=== PATIENT | male | born 1950 | race Caucasian/White ===

== ENCOUNTER 2023-09-24 15:42 | Outpatient (CLI) | payer MEDICARE | END 2023-09-24 15:43 | disposition critical access hospital (66) | LOC: EMS 15:42 | DX: R62.7 Adult failure to thrive (principal); R53.1 Weakness; R10.2 Pelvic and perineal pain; Z74.09 Other reduced mobility; Z91.81 History of falling | CPT/HCPCS: A0425; A0427 ==

== ENCOUNTER 2023-09-24 16:21 | Inpatient (IN) | payer MEDICARE ==
[2023-09-24] MEDS ORDERED: SODIUM CHLORIDE 0.9% 1,000 ML IV STA (16:26)
--- NOTE | 2023-09-24 16:28 | ED Physician Documentation ---
History of Present Illness - Stated complaint Stated Complaint: FTT - History obtained from History obtained from: Patient - Additonal information Additional information: 73-year-old gentleman with no health problems, but "I never see a doctor." [place]. A few weeks ago he fell and injured his left hip he says. Since then has not been able to walk. He has been spending most the time in his recliner but was able to get himself to his car a few times to go get takeout food as he cannot get into the grocery store because he cannot walk. Finally realized he was not doing well today so called 911. He denies any pain at rest. EMS notes that he has a pressure ulcer on his back. He had a cough for some time that is productive. He does smoke. Rarely drinks. Denies drug use. PD PAST MEDICAL HISTORY - Present Medications Home Medications: Ambulatory Orders Medication Instructions Recorded Confirmed No Known Home Medications 09/24/23 09/24/23 - Allergies Allergies/Adverse Reactions: Allergies Allergy/AdvReac Type Severity Reaction Status Date / Time No Known Drug Allergies Allergy Verified 09/24/23 16:28 PD ED PE NORMAL - Vitals Vital signs reviewed: Yes - General General: Alert and oriented X 3, Other (Disheveled elderly male laying in bed with frequent wet cough but no distress. He is cachectic.) - HEENT HEENT: PERRL, EOMI - Neck Neck: Supple, no meningeal sign, No bony TTP - Cardiac Cardiac: RRR, No murmur - Respiratory Respiratory: Other (Rhonchorous throughout with frequent wet cough) - Abdomen Abdomen: Non tender - Rectal Rectal: Other (Stage II 2 cm diameter coccygeal pressure ulcer) - Back Back: No CVA TTP, No spinal TTP - Derm Derm: Normal color, Warm and dry, Other (Innumerable small sores on the arms and legs. Poor pedal pulses.) - Extremities Extremities: Other (States that his left hip is hurting. Neither hip is tender nor severe pain with range of motion, that said the right hip is shortened and externally rotated.) - Neuro Neuro: Alert and oriented X 3, Normal speech Results - Vitals Vitals: Vital Signs - 24 hr 09/24/23 09/24/23 09/24/23 16:28 17:47 19:00 Temperature 36.8 C Heart Rate 76 80 72 Respiratory 18 18 16 Rate Blood Pressure 160/100 H 171/119 H 190/112 H O2 Saturation 98 100 95 09/24/23 21:00 Temperature Heart Rate 68 Respiratory 16 Rate Blood Pressure 171/107 H O2 Saturation 99 Oxygen O2 Source Room air - EKG (time done) 1930 EKG releavant findings:: EKG personally interpreted by author of this note. Relevant findings are: Rate: Rate (enter#) (60) Rhythm: NSR [place]: Normal Intervals: Prolonged QT Ischemia: Non specific changes Computer interpretation: Disagree with computer (Computer calling A-fib but it is clearly sinus rhythm with artifact.) - Labs Labs: Laboratory Tests 09/24/23 09/24/23 09/24/23 16:44 16:44 16:44 WBC 15.3 H RBC 4.01 L Hgb 12.5 L Hct 37.4 L MCV 93.3 MCH 31.2 H MCHC 33.4 RDW 12.5 Plt Count 248 MPV 10.0 Neut # (Auto) 13.9 H Lymph # (Auto) 0.7 L Brown # (Auto) 0.5 Eos # (Auto) 0.0 Baso # (Auto) 0.1 Absolute Nucleated RBC 0.00 Nucleated RBC % 0.0 VBG pH 7.353 VBG pCO2 43.4 VBG pO2 25.3 VBG HCO3 23.6 VBG Total CO2 24.9 VBG O2 Saturation 46.4 L VBG Base Excess -2.0 Sodium 143 Potassium 3.3 L Chloride 107 Carbon Dioxide 27 Anion Gap 9.0 BUN 53 H Creatinine 1.9 H Estimated GFR (MDRD) 35 L Glucose 125 H Lactic Acid Calcium 9.1 Phosphorus 6.1 H Magnesium 1.6 L Total Bilirubin 0.3 AST 25 ALT 14 Alkaline Phosphatase 101 Total Protein 6.0 L Albumin 3.2 Globulin 2.8 Albumin/Globulin Ratio 1.1 Ethyl Alcohol < 10.0 09/24/23 16:50 WBC RBC Hgb Hct MCV MCH MCHC RDW Plt Count MPV Neut # (Auto) Lymph # (Auto) Brown # (Auto) Eos # (Auto) Baso # (Auto) Absolute Nucleated RBC Nucleated RBC % VBG pH VBG pCO2 VBG pO2 VBG HCO3 VBG Total CO2 VBG O2 Saturation VBG Base Excess Sodium Potassium Chloride Carbon Dioxide Anion Gap BUN Creatinine Estimated GFR (MDRD) Glucose Lactic Acid 1.2 Calcium Phosphorus Magnesium Total Bilirubin AST ALT Alkaline Phosphatase Total Protein Albumin Globulin Albumin/Globulin Ratio Ethyl Alcohol - Rads (name of study) Single view chest x-ray shows hyperexpanded lungs without other abnormal finding. Relevant Findings:: Final report received, EMP independent interpretation of test Bilateral hip x-ray showing remote left acetabular fracture Relevant Findings:: Final report received, EMP independent interpretation of test CT of the pelvis demonstrates incidental and chronic findings without acute fracture. Relevant Findings:: Final report received, EMP independent interpretation of test PD Medical Decision Making - ED course ED course: 73-year-old gentleman presents with severe protein calorie malnutrition and failure to thrive. His BMI is 16. He has not been able to get out and get food for the last couple of weeks because of a fall with a hip injury with negative imaging here. He does not know how much weight he is lost. Workup in the emergency department demonstrates a nonspecific leukocytosis, moderate normocytic anemia, he has probably acute kidney injury, but there are no prior labs to compare his current BUN of 53 and creatinine of 1.9 with. He has mild hypomagnesemia and hypokalemia repleted orally. Given the above he will need to be admitted to the hospital and telehealth consultation placed approximate 7:20 PM. Case discussed with Dr. Jackson at approximately 8 PM for admission. Departure - Departure Disposition: 66 [facility] DC/Xfer Clinical Impression: Severe protein-calorie malnutrition, Hip injury, Failure to thrive in adult, Pressure ulcer, Hypomagnesemia, Hypokalemia, Cough Condition: Serious Forms: PCP List
[2023-09-24] MEDS ORDERED: THIAMINE INJ 100 MG in SODIUM CHLORIDE 0.9% 50 ML IV STA (16:38)
[2023-09-24 16:56] LABS: BASOPHILS # (AUTO) 0.1 10^3/uL (0.0-0.1); BASOPHILS % (AUTO) 0.4 %; HCT - HEMATOCRIT 37.4 % (42.0-52.0); HGB - HEMOGLOBIN 12.5 g/dL (14.0-18.0); LYMPHOCYTES # (AUTO) 0.7 10^3/uL (1.5-3.5); LYMPHOCYTES % (AUTO) 4.5 %; MEAN CORPUSCULAR HEMOGLOBIN 31.2 pg (27.0-31.0); MEAN CORPUSCULAR HGB CONC 33.4 g/dL (32.0-36.0); MEAN CORPUSCULAR VOLUME 93.3 fL (80.0-94.0); MONOCYTES # (AUTO) 0.5 10^3/uL (0.0-1.0); MONOCYTES % (AUTO) 3.5 %; NEUTROPHILS # (AUTO) 13.9 10^3/uL (1.5-6.6); PLT - PLATELET COUNT 248 10^3/uL (130-450); RED BLOOD COUNT 4.01 10^6/uL (4.70-6.10); RED CELL DISTRIBUTION WIDTH 12.5 % (12.0-15.0); WHITE BLOOD COUNT 15.3 x10^3/uL (4.8-10.8)
[2023-09-24 17:06] LABS: VBG PCO2 43.4 mmHg (41-51); VBG PH 7.353 (7.31-7.41)
[2023-09-24 17:07] LABS: VBG HCO3 23.6 mmol/L (23-28); VBG OXYGEN SATURATION 46.4 % (60-80); VBG PO2 25.3 mmHg (25-47); VBG TOTAL CO2 24.9 mmol/L (24-29)
[2023-09-24 17:09] LABS: ALBUMIN 3.2 g/dL (3.2-5.5); ALBUMIN/GLOBULIN RATIO 1.1 (1.0-2.2); ALKALINE PHOSPHATASE 101 IU/L (42-121); ALT ALANINE AMINOTRANSFERASE 14 IU/L (10-60); AST ASPARTATE AMINOTRANSFERASE 25 IU/L (10-42); BILIRUBIN,TOTAL 0.3 mg/dL (0.2-1.0); BUN - BLOOD UREA NITROGEN 53 mg/dL (6-20); CALCIUM 9.1 mg/dL (8.5-10.3); CARBON DIOXIDE - CO2 27 mmol/L (21-32); CHLORIDE 107 mmol/L (101-111); CREATININE 1.9 mg/dL (0.6-1.3); ETOH - ETHANOL < 10.0 mg/dL; GFR - MDRD 35 (>89); GLUCOSE 125 mg/dL (74-104); MAGNESIUM 1.6 mg/dL (1.7-2.3); PHOSPHORUS 6.1 mg/dL (2.5-5.0); POTASSIUM 3.3 mmol/L (3.5-4.5); SODIUM 143 mmol/L (135-145)
[2023-09-24] MEDS ORDERED: POTASSIUM BICARB 25 MEQ TABLET PO STA (17:13)
[2023-09-24] MEDS ORDERED: MAGNESIUM OXIDE 400 MG TABLET PO STA (17:13)
--- NOTE | 2023-09-24 17:20 | XRAY Report ---
PROCEDURE: Chest 1 View X-Ray INDICATIONS: cough TECHNIQUE: One view of the chest was acquired. COMPARISON: Correlation is made with the accompanying plain films. FINDINGS: Surgical changes and devices: None. Lungs and pleura: On the semiupright images, no large pneumothorax or large pleural effusions can be seen. No focal infiltrates are seen. The inferior most right costophrenic angle is not included wit hin the [id number] of this study. The lungs are hyperexpanded. Mediastinum: The aorta is prominent and tortuous. The cardiac contours are within normal limits. Bones and chest wall: No suspicious bony lesions. Overlying soft tissues appear unremarkable. IMPRESSION: Limited portable chest examination, without an acute abnormality identified. No focal infiltrates are seen. The lungs are hyperexpanded. Reviewed by: Conrad Haskins MD on 09/24/2023 4:19 PM [facility] Approved by: Conrad Haskins MD on 09/24/2023 4:19 PM [facility] Station ID: [id number]
--- NOTE | 2023-09-24 17:22 | XRAY Report ---
PROCEDURE: Hips 3-4V BILAT INDICATIONS: hip inj TECHNIQUE: An AP view of the pelvis, with bilateral views of each hip were acquired COMPARISON: Correlation is made with the accompanying CT examination. FINDINGS: Bones: No acute fractures or dislocations. Appearing fracture fragments can be seen just lateral to the left hip joint. No suspicious bony lesions. Age-appropriate degenerative changes are seen. Soft tissues: No suspicious soft tissue calcifications or masses. Atherosclerotic calcification is s een. IMPRESSION: No acute bony abnormality. Remote fracture fragments can be seen lateral to the left acetabular joint. Please correlate with focal tenderness. If there is point tenderness (or other clinical concern for a fracture not seen on these plain films) then please consider a dedicated CT study or a short term fo llow up plain film series for further evaluation. Reviewed by: Conrad Haskins MD on 09/24/2023 4:20 PM [facility] Approved by: Conrad Hasknis MD on 09/24/2023 4:20 PM [facility] Station ID: [id number]
--- NOTE | 2023-09-24 18:58 | CT Report ---
PROCEDURE: PELVIS WO INDICATIONS: hip inj TECHNIQUE: Noncontrast 3 mm axial sections acquired through the bony pelvis, with coronal and sagittal reformatt ing. For radiation dose reduction, the following was used: automated exposure control, adjustment of mA and/or kV according to patient size. COMPARISON: Correlation is made with the accompanying plain film of the hips. FINDINGS: Image quality: Limited by mottle artifact. Bones: No acute fractures can be seen. There is irregular well-corticated bone seen posterior and la teral to the left femoral neck, which is most likely related to heterotopic bone. Generalized degener ative changes are seen. Focal L4-L5 degenerative change is seen. No suspicious lytic or blastic lesio ns are seen. Soft tissues: No frankly dilated loops of bowel can be seen. No bladder wall thickening is seen. Rel atively prominent atherosclerotic calcification can be seen. No enlarged inguinal or pelvic lymph nod es are seen. IMPRESSION: Negative for acute bony fracture. Abnormal chronic appearing bone can be seen posterior and lateral to the left femoral neck, which is attributed to benign heterotopic bone formation. Focal L4-L5 degenerative change is seen. Dense atherosclerotic calcification can be seen. If it would be helpful for clinical management decision making, please consider a dedicated hip MRI f or further evaluation (assuming that there is no contraindication). This should be performed accordi ng to the arthrogram protocol, if there is strong clinical concern for a labral abnormality. Reviewed by: Conrad Haskins MD on 09/24/2023 5:57 PM [place] Approved by: Conrad Haskins MD on 09/24/2023 5:57 PM [facility] Station ID: [id number]
[2023-09-24] MEDS ORDERED: ONDANSETRON ODT 4 MG TABLET TL PRN (21:12)
[2023-09-24] MEDS ORDERED: traMADol 50 MG TABLET PO PRN (21:18)
[2023-09-24 21:49] LABS: BASOPHILS # (AUTO) 0.1 10^3/uL (0.0-0.1); BASOPHILS % (AUTO) 0.4 %; HCT - HEMATOCRIT 36.4 % (42.0-52.0); HGB - HEMOGLOBIN 12.1 g/dL (14.0-18.0); LYMPHOCYTES # (AUTO) 0.7 10^3/uL (1.5-3.5); MEAN CORPUSCULAR HEMOGLOBIN 31.3 pg (27.0-31.0); MEAN CORPUSCULAR HGB CONC 33.2 g/dL (32.0-36.0); MEAN CORPUSCULAR VOLUME 94.1 fL (80.0-94.0); MEAN PLATELET VOLUME 10.1 fL (7.4-11.4); MONOCYTES # (AUTO) 0.5 10^3/uL (0.0-1.0); MONOCYTES % (AUTO) 3.4 %; NEUTROPHILS # (AUTO) 13.4 10^3/uL (1.5-6.6); NEUTROPHILS % (AUTO) 90.8 %; PLT - PLATELET COUNT 234 10^3/uL (130-450); RED BLOOD COUNT 3.87 10^6/uL (4.70-6.10); RED CELL DISTRIBUTION WIDTH 12.6 % (12.0-15.0); WHITE BLOOD COUNT 14.8 x10^3/uL (4.8-10.8)
[2023-09-24 21:55] LABS: ALBUMIN 3.1 g/dL (3.2-5.5); ALBUMIN/GLOBULIN RATIO 1.2 (1.0-2.2); BILIRUBIN,TOTAL 0.3 mg/dL (0.2-1.0); CALCIUM 8.7 mg/dL (8.5-10.3); CREATININE 1.7 mg/dL (0.6-1.3); MAGNESIUM 1.6 mg/dL (1.7-2.3); POTASSIUM 3.2 mmol/L (3.5-4.5); TOTAL PROTEIN 5.7 g/dL (6.4-8.9)
[2023-09-24 22:01] LABS: PROCALCITONIN 0.32 ng/mL (<0.5)
[2023-09-24 22:02] LABS: ESTIMATED AVERAGE GLUCOSE 117 mg/dL (70-100); HEMOGLOBIN A1c% 5.7 % (4.27-6.07)
[2023-09-24 22:07] LABS: THYROID STIMULATING HORMONE 1.91 uIU/mL (0.34-5.60)
[2023-09-24 22:19] LABS: CHOLESTEROL 117 mg/dL; HDL CHOLESTEROL 58 mg/dL; LDL CHOLESTEROL,CALCULATED 45 mg/dL; LDL/HDL RATIO 0.8 (<3.6); TRIGLYCERIDES 68 mg/dL (48-352); VLDL CHOLESTEROL 14 mg/dL
--- NOTE | 2023-09-24 22:19 | HISTORY & PHYSICAL EXAMINATION ---
Chief Complaint - Chief Complaint Chief Complaint: fall, weakness, decreased po intake History of Present Illness - History of Present Illness HPI Comment/Other: pt presents with progressive weakness and decreased po intake for "many weeks." he lives alone in a log cabin and has lived that way ever since his 22 yr ago. smokes about 1 ppd for "many years." he has no social support in the area. he had fallen some time back and has has worsening L hip pain making it difficult to walk or even get out of his walking chair. he thought the pain would get better with time but it has not, making it difficult for him to live his home or even make it to the bathroom. he states that his "dental situation" (not teeth) has made it difficult for him to eat and so he has been eating and drinking very little. he states that he finally decided to come get seen when he realized he couldn't make it to the bathroom and ended up soiling himself (stool) in his chair. denies head injuries, loc, seizures, fevers, chills, chest pain, sob, but has had intermittent coughing. History - Past Medical History Cardiovascular: reports: None Respiratory: reports: None Neuro: reports: None Endocrine/Autoimmune: reports: None GI: reports: None : reports: None HEENT: reports: None Psych: reports: None Musculoskeletal: reports: None Derm: reports: None MRSA Hx?: No Meds/Allgy - Home Medications Home Medications: Ambulatory Orders Medication Instructions Recorded Confirmed No Known Home Medications 09/24/23 09/24/23 - Allergies Allergies/Adverse Reactions: Allergies Allergy/AdvReac Type Severity Reaction Status Date / Time No Known Drug Allergies Allergy Verified 09/24/23 16:28 Review of Systems - Other Findings Other Findings: 14 pt review done with positives per hpi; all others reviewed as negative Exam - Vital Signs Vital Signs: Vital Signs x48h Temp Pulse Resp BP Pulse Ox 09/24/23 21:52 36.9 C 65 16 178/112 H 97 09/24/23 21:00 68 16 171/107 H 99 09/24/23 19:00 72 16 190/112 H 95 09/24/23 17:47 80 18 171/119 H 100 09/24/23 16:28 36.8 C 76 18 160/100 H 98 - Physical Exam Comments/Other: gen - aaox3, nad, unkempt appearance heent - eomi, nc/at, dry mucosae, edentulous heart - rrr lungs - decreased bibasilar sounds abd - soft, rotund, reducible, non-tender hernia noted, bsx4 msk - thin extremities with poor muscle tone and overall cachexia Conclusion/Plan - Lab Results Fish Bones: 09/24/23 21:30 09/24/23 21:30 - Other Other Results/Comments: pt with - - adult failure to thrive severe protein-calorie malnutrition decreased po intake from poor dentition (edentulous) and poor social support cachexia d/t long-term decreased po intake, but ct abd/pelvis ordered to assess for malignancy hanna in setting of chronic tobacco usage encourage PO intake - brie d/t decresaed po intake / pre-renal azotemia (type a) continue IVF, encourage PO intake, check renal sono - chronic tobacco abuse 1 ppd for "many years" counseled to stop - fall with hip pain no acute traumatic pathology noted exacerbated d/t long-term cachexia pt / ot eval and treat - poor social support has lived alone x 20 yr [place] a [place] need child welfare social worker / case mgmt to assist with placement
[2023-09-24] MEDS: guaiFENesin 600 MG TABLET PO SCH (22:32)
[2023-09-24] MEDS: LACTATED RINGERS 1,000 ML IV SCH (22:34)
[2023-09-24] MEDS: SODIUM CHLORIDE FLUSH 0.9% 10 ML SYRINGE IVP PRN (22:34)
--- NOTE | 2023-09-24 23:34 | CT Report ---
PROCEDURE: ABDOMEN WO INDICATIONS: pain, cachexia, bloating CONTRAST: None. TECHNIQUE: After the administration of oral contrast, 5 mm thick sections acquired from the diaphragms to the il iac crests. 5 mm coronal and sagittal reformats were then performed. For radiation dose reduction, the following was used: automated exposure control, adjustment of mA and/or kV according to patient size. COMPARISON: Correlation is made with the accompanying pelvis CT. FINDINGS: Image quality: Excellent. Lung bases: Emphysematous changes can be seen at the lung bases. Subpleural bleb formation can be see n. Prominent coronary artery calcification can be seen. Heart size is normal. Solid organs: Liver and spleen are normal in size. Gallbladder is within normal limits. There is ad vanced calcification seen of the pancreas. No adrenal nodules. Both kidneys are normal in size, with out hydronephrosis or nephrolithiasis. Arterial calcification can be seen involving the right renal h ilum, as on series 2 image 30. Peritoneum and bowel: Bowel loops demonstrate normal wall thickness and caliber. Moderate gas and s tool can be seen within the colon. No free fluid or air. Nodes and vessels: Advanced atherosclerotic calcification is seen of the aorta and its branches. No retroperitoneal or mesenteric adenopathy by size criteria. There is is not well seen. Along the dista l left aorta, there is a saccular aneurysm that measures 2.5 x 3.5 cm in greatest axial dimension, wi th a craniocaudal extent of 3.7 cm, as on series 5 image 27. No adjacent hematoma is seen. Bones: No suspicious bony lesions. Chronic appearing compression of arteries can be seen involving T 9, T11, L1, and L2. Degenerative changes are seen throughout, which are overall worst at the L4-L5 le gely. Miscellaneous: No ventral hernias. IMPRESSION: Negative alejandro acute abnormality is seen. 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 -Please consider vascular surgery consultation. Moderate gas and stool can be seen within the colon, which is not considered to be frankly pathologic . No dilated loops of small bowel can be seen. Advanced calcification can be seen of the pancreas, which represents chronic pancreatitis until prove n otherwise. Advanced atherosclerotic calcification is seen, including involving the coronary arteries. Additional findings: Emphysematous changes Several chronic appearing spinal compression deformities Focal L4-L5 degenerative change Reviewed by: Conrad Haskins MD on 09/24/2023 10:32 PM [place] Approved by: Conrad Haskins MD on 09/24/2023 10:32 PM [place] Station ID: [id number]
[2023-09-24 23:49] LABS: CORONAVIRUS 229E-RESP PCR NOT DETECTED; CORONAVIRUS NL63-RESP PCR NOT DETECTED
[2023-09-24 23:50] LABS: B. PARAPERTUSSIS- RESP PCR PAN NOT DETECTED; B. PERTUSSIS- RESP PCR PANEL NOT DETECTED; C. PNEUMONIAE- RESP PCR PANEL NOT DETECTED; CORONAVIRUS HKU1-RESP PCR NOT DETECTED; CORONAVIRUS OC43-RESP PCR NOT DETECTED; HUMAN METAPNEUMOVIRUS NOT DETECTED; INFLUENZA A- RESP PCR PANEL NOT DETECTED; INFLUENZA B - RESP PCR PANEL NOT DETECTED; M. PNEUMONIAE- RESP PCR PANEL NOT DETECTED; PARAINFLUENZA VIRUS 1 NOT DETECTED; PARAINFLUENZA VIRUS 2 NOT DETECTED; PARAINFLUENZA VIRUS 3 NOT DETECTED; PARAINFLUENZA VIRUS 4 NOT DETECTED; RHINOVIRUS/ENTEROVIRUS NOT DETECTED; RSV- RESP PCR PANEL NOT DETECTED; SARS-CoV-2 -RESP PCR PANEL NOT DETECTED
[2023-09-25] MEDS: SODIUM CHLORIDE FLUSH 0.9% 10 ML SYRINGE IVP SCH ×3 (05:06→17:16)
[2023-09-25 06:24] LABS: BASOPHILS % (AUTO) 0.3 %; EOSINOPHILS % (AUTO) 0.2 %; HCT - HEMATOCRIT 33.2 % (42.0-52.0); HGB - HEMOGLOBIN 11.2 g/dL (14.0-18.0); LYMPHOCYTES % (AUTO) 7.8 %; MEAN CORPUSCULAR HEMOGLOBIN 30.9 pg (27.0-31.0); MEAN CORPUSCULAR HGB CONC 33.7 g/dL (32.0-36.0); MEAN CORPUSCULAR VOLUME 91.7 fL (80.0-94.0); MEAN PLATELET VOLUME 10.4 fL (7.4-11.4); MONOCYTES # (AUTO) 0.5 10^3/uL (0.0-1.0); MONOCYTES % (AUTO) 3.9 %; NEUTROPHILS # (AUTO) 11.1 10^3/uL (1.5-6.6); NEUTROPHILS % (AUTO) 87.5 %; PLT - PLATELET COUNT 218 10^3/uL (130-450); RED BLOOD COUNT 3.62 10^6/uL (4.70-6.10); RED CELL DISTRIBUTION WIDTH 12.4 % (12.0-15.0); WHITE BLOOD COUNT 12.7 x10^3/uL (4.8-10.8)
[2023-09-25] MEDS: ACETAMINOPHEN 325 MG TABLET PO PRN (06:40)
[2023-09-25 07:03] LABS: ALBUMIN 2.9 g/dL (3.2-5.5); ALBUMIN/GLOBULIN RATIO 1.2 (1.0-2.2); BILIRUBIN,TOTAL 0.3 mg/dL (0.2-1.0); CALCIUM 8.6 mg/dL (8.5-10.3); CREATININE 1.7 mg/dL (0.6-1.3); MAGNESIUM 1.5 mg/dL (1.7-2.3); TOTAL PROTEIN 5.4 g/dL (6.4-8.9)
[2023-09-25] MEDS: MULTIVITAMIN TABLET PO SCH (08:38)
[2023-09-25] MEDS: guaiFENesin 600 MG TABLET PO SCH ×2 (08:38→21:33)
[2023-09-25] MEDS: ASCORBIC ACID 500 MG TABLET PO SCH (08:38)
[2023-09-25] MEDS: LACTATED RINGERS 1,000 ML IV SCH ×2 (08:38→18:58)
--- NOTE | 2023-09-25 09:33 | PHARMACY PROGRESS NOTE ---
- Best Possible Medication History Admit Date and Time: 09/24/232111 Processed by: Pharmacy Medication History completed: Yes Patient Interview: Completed No home meds As the person ultimately responsible for medication therapy, providers are able to order a medication from an existing home medication list in [facility] via the "Reconcile Routine" prior to Confirmation of that medication by application support lead. Such practice is discouraged except when the physician, in their clinical judgment, deems that a medical need exists for a medication without regard to previous use.
[2023-09-25] MEDS ORDERED: amLODIPine 5 MG TABLET PO STA (13:23)
[2023-09-25] MEDS ORDERED: MAGNESIUM SULFATE 1 GM in SODIUM CHLORIDE 0.9% 50 ML IV ONE (13:24)
[2023-09-25 14:00] LABS: BILIRUBIN,URINE NEGATIVE (NEGATIVE); GLUCOSE, URINE (UA) NEGATIVE (NEGATIVE); KETONES,URINE (UA) NEGATIVE (NEGATIVE); LEUKOCYTE ESTERASE, URINE TRACE (NEGATIVE); NITRITE,URINE NEGATIVE (NEGATIVE); OCCULT BLOOD,URINE NEGATIVE (NEGATIVE); PROTEIN,URINE TRACE mg/dL (NEGATIVE); UROBILINOGEN,URINE 0.2 (NORMAL) E.U./dL (NORMAL)
[2023-09-25] MEDS ORDERED: MAGNESIUM SULFATE 2 GRAM 2 GM/50 ML BAG IV ONE (14:00)
[2023-09-25 14:06] LABS: CLARITY,URINE CLEAR (CLEAR)
[2023-09-25 14:09] LABS: AMPHETAMINE SCREEN,URINE NEGATIVE (NEGATIVE); BARBITURATE SCREEN,UR NEGATIVE (NEGATIVE); BENZODIAZEPINES SCREEN, URINE NEGATIVE (NEGATIVE); BUPRENORPHINE SCREEN, URINE NEGATIVE (NEGATIVE); COCAINE SCREEN URINE NEGATIVE (NEGATIVE); METHADONE SCREEN, URINE NEGATIVE (NEGATIVE); METHAMPHETAMINES SCREEN, URINE NEGATIVE (NEGATIVE); OPIATE SCREEN, URINE NEGATIVE (NEGATIVE); OXYCODONE SCREEN, URINE NEGATIVE (NEGATIVE); THC CANNABINOID SCREEN, URINE NEGATIVE (NEGATIVE); TRICYCLIC ANTIDEPRESSANT,URINE NEGATIVE (NEGATIVE)
[2023-09-25 14:33] LABS: BACTERIA,URINE Few /HPF (None Seen); RBC,URINE 0-5 /HPF (0-5); SQUAMOUS EPITHELIAL CELL,UR NONE SEEN (<= Few); WBC,URINE 0-3 /HPF (0-3)
--- NOTE | 2023-09-25 15:32 | PROVIDER PROGRESS NOTE ---
Assessment/Plan - Problem List (1) Severe protein-calorie malnutrition Assessment/Plan: He describes decreased po intake from poor dentition (edentulous) and poor social support He has cachexia d/t long-term decreased po intake, Plan: The patient will be admitted from Observation status to Inpatient status for further management of his cachexia from starvation, severe protein calorie malnutrition causing multiple electrolyte abnormalities Dietitian consult needed (2) Hypokalemia Assessment/Plan: Related to starving Plan: K must be replaced very carefully due to his TOÑITO Follow BMP daily (3) Hypomagnesemia Assessment/Plan: Due to starvation Replace with Mg rider Follow Mg daily (4) Fall at home Assessment/Plan: He fell due to weakness, but possibly due to orthostasis. Now with hip pain, but no acute traumatic pathology noted exacerbated d/t long-term cachexia Plan: PT and OT eval and treatment He will likely need rehab and may need LTC placement Will order daily orthostatic checks (5) TOÑITO (acute kidney injury) Assessment/Plan: Also due to decresed po intake / pre-renal azotemia Plan: Continue IVF, encourage PO intake Avoid nephrortoxins Follow BMP daily (6) Tobacco use Assessment/Plan: Smokes 1 ppd for "many years" Plan: Counseled to stop Consider Nicotine patch He has clinical appearance of a COPDer, will order prn Duonebs (7) Leg edema Assessment/Plan: He has 2+ edema to mid shins. Possibly from hypo-osmotic pressure from low protein, but R/O CHF. Plan : Echo to eval EF (8) HTN (hypertension) Assessment/Plan: BP very elevated here (all VS reviewed). He has not seen a doctor in many years, so don't know if this is old and untreated or new Dx Plan: Will start Amlodipine (9) Inadequate social support Assessment/Plan: has lived alone x 20 yr [place] a [place] need social worker masters / case mgmt to assist with placement - Current Meds Current Meds: Current Medications Generic Name Dose Route Start Last Admin Trade Name Freq PRN Reason Stop Dose Admin Acetaminophen 650 mg 09/24/23 21:12 09/25/23 06:40 Acetaminophen 325 Mg Tablet PO 650 mg Q6H PRN Administration Pain 1 to 4, or Fever Ascorbic Acid 500 mg 09/25/23 09:00 09/25/23 08:38 Ascorbic Acid 500 Mg Tablet PO 500 mg DAILY STEFANO Administration Guaifenesin 600 mg 09/24/23 22:00 09/25/23 08:38 Guaifenesin 600 Mg Tablet PO 600 mg BID STEFANO Administration Lactated Ringer's 1,000 mls @ 100 mls/hr 09/24/23 22:00 09/25/23 08:38 Lr IV 100 mls/hr .Q10H STEFANO Administration Multivitamins 1 tab 09/25/23 08:00 09/25/23 08:38 Multivitamin Tablet PO 1 tab DAILYWM STEFANO Administration Sodium Chloride 10 ml 09/24/23 21:12 09/24/23 22:34 Sodium Chloride Flush 0.9% 10 Ml Syringe IVP 10 ml PRN PRN Administration NEEDED PER PROVIDER ORDERS Sodium Chloride 10 ml 09/25/23 01:00 09/25/23 08:41 Sodium Chloride Flush 0.9% 10 Ml Syringe IVP Not Given 0100,0900,1700 STEFANO - Lab Result Fish Bone Diagrams: 09/25/23 05:35 09/25/23 05:35 - Additional Planning My Orders: My Active Orders 09/25/23 12:13 Zinc Oxide 20% Oint [Zinc Oxide] 1 applic TOP PRN PRN 09/25/23 13:23 Shower [RC] ONCE 09/25/23 14:00 Potassium Chlor 10 Meq/100 ml [Potassium Chloride] 10 meq in 100 ml IV Q1H 09/25/23 15:28 Admit \\ Transfer \\ Status [RC] .ONCE 09/26/23 05:00 BMP - BASIC METABOLIC PANEL [CHEM] DAILYLAB CALCIUM [CHEM] DAILYLAB CBC - COMP BLD CT W/AUTO DIFF [HEME] DAILYLAB MAGNESIUM [CHEM] DAILYLAB PHOSPHORUS [CHEM] DAILYLAB 09/26/23 09:00 amLODIPine [Norvasc] 5 mg PO DAILY Subjective - Subjective Patient Reports: Shortness of Breath, Other (weak) Objective Vital Signs: Vital Signs - 24 hr 09/24/23 09/24/23 09/24/23 16:26 16:28 17:47 Temperature 36.8 C Heart Rate 76 80 Heart Rate [ Brachial] Respiratory 18 18 Rate Blood Pressure 160/100 H 171/119 H Blood Pressure 166/104 H [Right Brachial artery] O2 Saturation 98 100 09/24/23 09/24/2309/24/23 19:00 21:00 21:52 Temperature 36.9 C Heart Rate 72 68 65 Heart Rate [ Brachial] Respiratory 16 16 16 Rate Blood Pressure 190/112 H 171/107 H 178/112 H Blood Pressure [Right Brachial artery] O2 Saturation 95 99 97 09/24/23 09/25/23 09/25/23 22:18 05:29 07:40 Temperature 36.4 C L 36.4 C L 36 C L Heart Rate Heart Rate [ 55 L 57 L 61 Brachial] Respiratory 18 18 18 Rate Blood Pressure Blood Pressure 169/93 H 169/108 H 171/98 H [Right Brachial artery] O2 Saturation 90 L 92 94 09/25/23 09/25/23 09/25/23 08:42 10:25 15:14 Temperature 36.5 C Heart Rate Heart Rate [ 66 Brachial] Respiratory 16 Rate Blood Pressure Blood Pressure 166/104 H 156/118 H [Right Brachial artery] O2 Saturation 96 96 Oxygen O2 Source Room air I&O (Last 24 Hrs): Intake and Output Totals x24h 09/23/23 09/24/23 09/25/23 23:59 23:59 23:59 Intake Total 1291 1720 Output Total 475 Balance 1291 1245 General: Mild distress (from SOB) HEENT: PERRLA, Other Neuro: Alert, Non Focal Cardiovascular: Regular rate, No murmurs Respiratory: Other (Poor air mvm in all lung k[place]. Thin chest with prominent ribs, increased AP diameter) Abdomen: No tenderness Extremities: No clubbing, Other (2+ edema to mid shins) - Results Results: Laboratory Results WBC 12.7 x10^3/uL (4.8-10.8) H 09/25/23 05:35 RBC 3.62 10^6/uL (4.70-6.10) L 09/25/23 05:35 Hgb 11.2 g/dL (14.0-18.0) L 09/25/23 05:35 Hct 33.2 % (42.0-52.0) L 09/25/23 05:35 MCV 91.7 fL (80.0-94.0) 09/25/23 05:35 MCH 30.9 pg (27.0-31.0) 09/25/23 05:35 MCHC 33.7 g/dL (32.0-36.0) 09/25/23 05:35 RDW 12.4 % (12.0-15.0) 09/25/23 05:35 Plt Count 218 10^3/uL (130-450) 09/25/23 05:35 MPV 10.4 fL (7.4-11.4) 09/25/23 05:35 Neut # (Auto) 11.1 10^3/uL (1.5-6.6) H 09/25/23 05:35 Lymph # (Auto) 1.0 10^3/uL (1.5-3.5) L 09/25/23 05:35 [place] # (Auto) 0.5 10^3/uL (0.0-1.0) 09/25/23 05:35 Eos # (Auto) 0.0 10^3/uL (0.0-0.7) 09/25/23 05:35 Baso # (Auto) 0.0 10^3/uL (0.0-0.1) 09/25/23 05:35 Absolute Nucleated RBC 0.00 x10^3/uL 09/25/23 05:35 Nucleated RBC % 0.0 /100WBC 09/25/23 05:35 VBG pH 7.353 (7.31-7.41) 09/24/23 16:44 VBG pCO2 43.4 mmHg (41-51) 09/24/23 16:44 VBG pO2 25.3 mmHg (25-47) 09/24/23 16:44 VBG HCO3 23.6 mmol/L (23-28) 09/24/23 16:44 VBG Total CO2 24.9 mmol/L (24-29) 09/24/23 16:44 VBG O2 Saturation 46.4 % (60-80) L 09/24/23 16:44 VBG Base Excess -2.0 mmol/L (-2 - +2) 09/24/23 16:44 Sodium 142 mmol/L (135-145) 09/25/23 05:35 Potassium 3.0 mmol/L (3.5-4.5) L 09/25/23 05:35 Chloride 107 mmol/L (101-111) 09/25/23 05:35 Carbon Dioxide 25 mmol/L (21-32) 09/25/23 05:35 Anion Gap 10.0 (6-13) 09/25/23 05:35 BUN 48 mg/dL (6-20) H 09/25/23 05:35 Creatinine 1.7 mg/dL (0.6-1.3) H 09/25/23 05:35 Estimated GFR (MDRD) 40 (>89) L 09/25/23 05:35 Glucose 109 mg/dL (74-104) H 09/25/23 05:35 Estimat Average Glucose 117 mg/dL (70-100) H 09/24/23 21:30 Hemoglobin A1c % 5.7 % (4.27-6.07) 09/24/23 21:30 Lactic Acid 1.8 mmol/L (0.5-2.2) 09/24/23 21:30 Calcium 8.6 mg/dL (8.5-10.3) 09/25/23 05:35 Phosphorus 6.1 mg/dL (2.5-5.0) H 09/24/23 16:44 Magnesium 1.5 mg/dL (1.7-2.3) L 09/25/23 05:35 Total Bilirubin 0.3 mg/dL (0.2-1.0) 09/25/23 05:35 AST 23 IU/L (10-42) 09/25/23 05:35 ALT 13 IU/L (10-60) 09/25/23 05:35 Alkaline Phosphatase 90 IU/L (42-121) 09/25/23 05:35 Total Protein 5.4 g/dL (6.4-8.9) L 09/25/23 05:35 Albumin 2.9 g/dL (3.2-5.5) L 09/25/23 05:35 Globulin 2.5 g/dL (2.1-4.2) 09/25/23 05:35 Albumin/Globulin Ratio 1.2 (1.0-2.2) 09/25/23 05:35 Triglycerides 68 mg/dL (48-352) 09/24/23 21:30 Cholesterol 117 mg/dL (-200) 09/24/23 21:30 LDL Cholesterol, Calc 45 mg/dL (-129) 09/24/23 21:30 VLDL Cholesterol 14 mg/dL 09/24/23 21:30 HDL Cholesterol 58 mg/dL (60-) L 09/24/23 21:30 LDL/HDL Ratio 0.8 (<3.6) 09/24/23 21: Cholesterol/HDL Ratio 2.0 (<5.0) 09/24/23 21:30 Procalcitonin Immunoas 0.32 ng/mL (<0.5) 09/24/23 21: TSH 1.91 uIU/mL (0.34-5.60) 09/24/23 21:30 Urine Color YELLOW 09/25/23 13:30 Urine Clarity CLEAR (CLEAR) 09/25/23 13:30 Urine pH 6.0 PH (5.0-7.5) 09/25/23 13:30 Ur Specific [place] 1.025 (1.002-1.030) 09/25/23 13:30 Urine Protein TRACE mg/dL (NEGATIVE) 09/25/23 13:30 Urine Glucose (UA) NEGATIVE mg/dL (NEGATIVE) 09/25/23 13:30 Urine Ketones NEGATIVE mg/dL (NEGATIVE) 09/25/23 13:30 Urine Occult Blood NEGATIVE (NEGATIVE) 09/25/23 13:30 Urine Nitrite NEGATIVE (NEGATIVE) 09/25/23 13:30 Urine Bilirubin NEGATIVE (NEGATIVE) 09/25/23 13:30 Urine Urobilinogen 0.2 (NORMAL) E.U./dL (NORMAL) 09/25/23 13:30 Ur Leukocyte Esterase TRACE (NEGATIVE) H 09/25/23 13:30 Urine RBC 0-5 /HPF (0-5) 09/25/23 13:30 Urine WBC 0-3 /HPF (0-3) 09/25/23 13:30 Ur Squamous Epith Cells NONE SEEN (<= Few) 09/25/23 13:30 Urine Bacteria Few /HPF (None Seen) 09/25/23 13:30 Ur Microscopic Review INDICATED 09/25/23 13:30 Urine Culture Comments INDICATED 09/25/23 13:30 Nasal Adenovirus (PCR) NOT DETECTED 09/24/23 21:30 Nasal B. parapertussis DNA (PCR) NOT DETECTED 09/24/23 21:30 Nasal Coronavir 229E PCR NOT DETECTED 09/24/23 21:30 Nasal Coronavir HKU1 PCR NOT DETECTED 09/24/23 21:30 Nasal Coronavir NL63 PCR NOT DETECTED 09/24/23 21:30 Nasal Coronavir OC43 PCR NOT DETECTED 09/24/23 21:30 Nasal Enterovir/Rhinovir PCR NOT DETECTED 09/24/23 21:30 Nasal Influenza B PCR NOT DETECTED 09/24/23 21:30 Nasal Influenza A PCR NOT DETECTED 09/24/23 21:30 Nasal Parainfluen 1 PCR NOT DETECTED 09/24/23 21:30 Nasal Parainfluen 2 PCR NOT DETECTED 09/24/23 21:30 Nasal Parainfluen 3 PCR NOT DETECTED 12 21:30 Nasal Parainfluen 4 PCR NOT DETECTED 09/24/23 21:30 Nasal RSV (PCR) NOT DETECTED 09/24/23 21:30 Nasal B.pertussis DNA PCR NOT DETECTED 09/24/23 21:30 Nasal C.pneumoniae (PCR) NOT DETECTED 09/24/23 21:30 Thom Human Metapneumo PCR NOT DETECTED 09/24/23 21:30 Nasal M.pneumoniae (PCR) NOT DETECTED 09/24/23 21:30 Nasal SARS-CoV-2 (PCR) NOT DETECTED 09/24/23 21:30 Urine Opiates Screen NEGATIVE (NEGATIVE) 09/25/23 13:30 Ur Buprenorphine Scrn NEGATIVE (NEGATIVE) 09/25/23 13:30 Ur Oxycodone Screen NEGATIVE (NEGATIVE) 09/25/23 13:30 Urine Methadone Screen NEGATIVE (NEGATIVE) 09/25/23 13:30 Ur Barbiturates Screen NEGATIVE (NEGATIVE) 09/25/23 13:30 Ur Tricyclics Screen NEGATIVE (NEGATIVE) 09/25/23 13:30 Ur Phencyclidine Scrn NEGATIVE (NEGATIVE) 09/25/23 13:30 Ur Amphetamine Screen NEGATIVE (NEGATIVE) 09/25/23 13:30 U Methamphetamines Scrn NEGATIVE (NEGATIVE) 09/25/23 13:30 U Benzodiazepines Scrn NEGATIVE (NEGATIVE) 09/25/23 13:30 Urine Cocaine Screen NEGATIVE (NEGATIVE) 09/25/23 13:30 U Cannabinoids Screen NEGATIVE (NEGATIVE) 09/25/23 13:30 Ur Drug Screen Comment CUTOFF CONC BELOW: 09/25/23 13:30 Ethyl Alcohol < 10.0 mg/dL 09/24/23 16:44
[2023-09-25] MEDS: POTASSIUM CHLOR 10 MEQ/100 ML 10 MEQ/100 ML BAG IV SCH ×4 (17:15→21:28)
[2023-09-26] MEDS: SODIUM CHLORIDE FLUSH 0.9% 10 ML SYRINGE IVP SCH ×3 (01:22→16:43)
[2023-09-26] MEDS: LACTATED RINGERS 1,000 ML IV SCH ×2 (04:56→16:43)
[2023-09-26 05:33] LABS: BASOPHILS % (AUTO) 0.3 %; EOSINOPHILS # (AUTO) 0.1 10^3/uL (0.0-0.7); EOSINOPHILS % (AUTO) 0.4 %; HCT - HEMATOCRIT 34.6 % (42.0-52.0); HGB - HEMOGLOBIN 11.9 g/dL (14.0-18.0); LYMPHOCYTES % (AUTO) 8.2 %; MEAN CORPUSCULAR HEMOGLOBIN 31.4 pg (27.0-31.0); MEAN CORPUSCULAR HGB CONC 34.4 g/dL (32.0-36.0); MEAN CORPUSCULAR VOLUME 91.3 fL (80.0-94.0); MEAN PLATELET VOLUME 10.2 fL (7.4-11.4); MONOCYTES # (AUTO) 0.6 10^3/uL (0.0-1.0); MONOCYTES % (AUTO) 4.9 %; NEUTROPHILS % (AUTO) 85.8 %; PLT - PLATELET COUNT 200 10^3/uL (130-450); RED BLOOD COUNT 3.79 10^6/uL (4.70-6.10); RED CELL DISTRIBUTION WIDTH 12.3 % (12.0-15.0); WHITE BLOOD COUNT 11.7 x10^3/uL (4.8-10.8)
[2023-09-26 05:50] LABS: CALCIUM 8.1 mg/dL (8.5-10.3); CREATININE 1.4 mg/dL (0.6-1.3); MAGNESIUM 1.8 mg/dL (1.7-2.3); PHOSPHORUS 3.5 mg/dL (2.5-5.0); POTASSIUM 3.3 mmol/L (3.5-4.5)
[2023-09-26] MEDS: MULTIVITAMIN TABLET PO SCH (08:04)
[2023-09-26] MEDS: amLODIPine 5 MG TABLET PO SCH (08:04)
[2023-09-26] MEDS: guaiFENesin 600 MG TABLET PO SCH ×2 (08:04→20:46)
[2023-09-26] MEDS: ASCORBIC ACID 500 MG TABLET PO SCH (08:04)
[2023-09-26] MEDS: POTASSIUM CHLORIDE 20 MEQ TABLET PO SCH (12:00)
--- NOTE | 2023-09-26 13:20 | PROVIDER PROGRESS NOTE ---
Assessment/Plan - Problem List (1) TOÑITO (acute kidney injury) Assessment/Plan: (1) Severe protein-calorie malnutrition Assessment/Plan: --Severe protein calorie malnutrition. Dietitian has been consulted. (2) Hypokalemia Assessment/Plan: --Replacing potassium. (3) Hypomagnesemia Assessment/Plan: --Replacing Mg. (4) Fall at home Assessment/Plan: PT and OT eval and treatment He will likely need rehab and may need LTC placement (5) TOÑITO (acute kidney injury) Assessment/Plan: --Continue IV fluids. (6) Tobacco use Assessment/Plan: --Will order a CXR. --DuoNeb PRN. (7) Leg edema Assessment/Plan: He has 2+ edema to mid shins. Possibly from hypo-osmotic pressure from low protein, but R/O CHF. Plan : Echo to eval EF (8) HTN (hypertension) Assessment/Plan: BP very elevated here (all VS reviewed). He has not seen a doctor in many years, so don't know if this is old and untreated or new Dx Plan: Will start Amlodipine (9) Inadequate social support Assessment/Plan: has lived alone x 20 yr [place] need public health social worker / case mgmt to assist with placement - Current Meds Current Meds: Current Medications Generic Name Dose Route Start Last Admin Trade Name Luisq PRN Reason Stop Dose Admin Acetaminophen 650 mg 09/24/23 21:12 09/25/23 06:40 Acetaminophen 325 Mg Tablet PO 650 mg Q6H PRN Administration Pain 1 to 4, or Fever Amlodipine Besylate 5 mg 09/26/23 09:00 09/26/23 08:04 Amlodipine 5 Mg Tablet PO 5 mg DAILY STEFANO Administration Ascorbic Acid 500 mg 09/25/23 09:00 09/26/23 08:04 Ascorbic Acid 500 Mg Tablet PO 500 mg DAILY STEFANO Administration Guaifenesin 600 mg 09/24/23 22:00 09/26/23 08:04 Guaifenesin 600 Mg Tablet PO 600 mg BID STEFANO Administration Lactated Ringer's 1,000 mls @ 100 mls/hr 09/24/23 22:00 09/26/23 04:56 Lr IV 100 mls/hr .Q10H STEFANO Administration Multivitamins 1 tab 09/25/23 08:00 09/26/23 08:04 Multivitamin Tablet PO 1 tab DAILYWM STEFANO Administration Potassium Chloride 20 meq 09/26/23 11:00 09/26/23 12:00 Potassium Chloride 20 Meq Tablet PO 20 meq DAILYWM STEFANO Administration Sodium Chloride 10 ml 09/24/23 21:12 09/24/23 22:34 Sodium Chloride Flush 0.9% 10 Ml Syringe IVP 10 ml PRN PRN Administration NEEDED PER PROVIDER ORDERS Sodium Chloride 10 ml 09/25/23 01:00 09/26/23 08:04 Sodium Chloride Flush 0.9% 10 Ml Syringe IVP 10 ml 0100,0900,1700 STEFANO Administration - Lab Result Fish Bone Diagrams: 09/26/23 05:24 09/26/23 05:24 - Additional Planning My Orders: My Active Orders 09/26/23 11:00 Potassium Chloride [K-Dur] 20 meq PO DAILYWM 09/26/23 13:09 Chest 1 View X-Ray [XR] Routine Subjective - Subjective Patient Reports: Cough (CXR pending.) Objective Vital Signs: Vital Signs - 24 hr 09/25/23 09/25/23 09/25/23 14:11 14:14 15:14 Temperature Heart Rate [ Brachial] Heart Rate [ 67 67 Sitting] Heart Rate [ 72 72 Standing] Heart Rate [ 65 65 Supine] Respiratory Rate Blood Pressure [Right Brachial artery] Blood Pressure 186/111 H 186/111 H [Sitting] Blood Pressure 191/114 H 191/114 H [Standing] Blood Pressure 173/95 H 173/95 H [Supine] O2 Saturation 96 O2 Saturation [ 94 Sitting] O2 Saturation [ 97 Standing] O2 Saturation [ 95 Supine] 09/25/23 09/25/23 09/26/23 15:52 19:48 00:02 Temperature 36.7 C 36.6 C 36.8 C Heart Rate [ 62 63 62 Brachial] Heart Rate [ Sitting] Heart Rate [ Standing] Heart Rate [ Supine] Respiratory 18 18 16 Rate Blood Pressure 176/97 H 166/98 H 159/96 H [Right Brachial artery] Blood Pressure [Sitting] Blood Pressure [Standing] Blood Pressure [Supine] O2 Saturation 93 94 92 O2 Saturation [ Sitting] O2 Saturation [ Standing] O2 Saturation [ Supine] 09/26/23 05:56 Temperature Heart Rate [ Brachial] Heart Rate [ Sitting] Heart Rate [ Standing] Heart Rate [ Supine] Respiratory Rate Blood Pressure 171/105 H [Right Brachial artery] Blood Pressure [Sitting] Blood Pressure [Standing] Blood Pressure [Supine] O2 Saturation O2 Saturation [ Sitting] O2 Saturation [ Standing] O2 Saturation [ Supine] Oxygen O2 Source Room air I&O (Last 24 Hrs): Intake and Output Totals x24h 09/24/23 09/25/23 09/26/23 23:59 23:59 23:59 Intake Total 1291 4493.333 613.333 Output Total 725 475 Balance 1291 3768.333 138.333 General: Alert, Oriented x3 Neuro: Alert, Non Focal, Oriented Times 3 Cardiovascular: Regular rate, Normal S1, Normal S2 Respiratory: Wheezes, Rales Abdomen: Normal bowel sounds, Soft - Results Results: Laboratory Results WBC 11.7 x10^3/uL (4.8-10.8) H 09/26/23 05:24 RBC 3.79 10^6/uL (4.70-6.10) L 09/26/23 05:24 Hgb 11.9 g/dL (14.0-18.0) L 09/26/23 05:24 Hct 34.6 % (42.0-52.0) L 09/26/23 05:24 MCV 91.3 fL (80.0-94.0) 09/26/23 05:24 MCH 31.4 pg (27.0-31.0) H 09/26/23 05:24 MCHC 34.4 g/dL (32.0-36.0) 09/26/23 05:24 RDW 12.3 % (12.0-15.0) 09/26/23 05:24 Plt Count 200 10^3/uL (130-450) 09/26/23 05:24 MPV 10.2 fL (7.4-11.4) 09/26/23 05:24 Neut # (Auto) 10.0 10^3/uL (1.5-6.6) H 09/26/23 05:24 Lymph # (Auto) 1.0 10^3/uL (1.5-3.5) L 09/26/23 05:24 [place] # (Auto) 0.6 10^3/uL (0.0-1.0) 09/26/23 05:24 Eos # (Auto) 0.1 10^3/uL (0.0-0.7) 09/26/23 05:24 Baso # (Auto) 0.0 10^3/uL (0.0-0.1) 09/26/23 05:24 Absolute Nucleated RBC 0.00 x10^3/uL 09/26/23 05:24 Nucleated RBC % 0.0 /100WBC 09/26/23 05:24 VBG pH 7.353 (7.31-7.41) 09/24/23 16:44 VBG pCO2 43.4 mmHg (41-51) 09/24/23 16:44 VBG pO2 25.3 mmHg (25-47) 09/24/23 16:44 VBG HCO3 23.6 mmol/L (23-28) 09/24/23 16:44 VBG Total CO2 24.9 mmol/L (24-29) 09/24/23 16:44 VBG O2 Saturation 46.4 % (60-80) L 09/24/23 16:44 VBG Base Excess -2.0 mmol/L (-2 - +2) 09/24/23 16:44 Sodium 139 mmol/L (135-145) 09/26/23 05:24 Potassium 3.3 mmol/L (3.5-4.5) L 09/26/23 05:24 Chloride 107 mmol/L (101-111) 09/26/23 05:24 Carbon Dioxide 24 mmol/L (21-32) 09/26/23 05:24 Anion Gap 8.0 (6-13) 09/26/23 05:24 BUN 41 mg/dL (6-20) H 09/26/23 05:24 Creatinine 1.4 mg/dL (0.6-1.3) H 09/26/23 05:24 Estimated GFR (MDRD) 50 (>89) L 09/26/23 05:24 Glucose 84 mg/dL (74-104) 09/26/23 05:24 Estimat Average Glucose 117 mg/dL (70-100) H 09/24/23 21:30 Hemoglobin A1c % 5.7 % (4.27-6.07) 09/24/23 21:30 Lactic Acid 1.8 mmol/L (0.5-2.2) 09/24/23 21:30 Calcium 8.1 mg/dL (8.5-10.3) L 09/26/23 05:24 Phosphorus 3.5 mg/dL (2.5-5.0) 09/26/23 05:24 Magnesium 1.8 mg/dL (1.7-2.3) 09/26/23 05:24 Total Bilirubin 0.3 mg/dL (0.2-1.0) 09/25/23 05:35 AST 23 IU/L (10-42) 09/25/23 05:35 ALT 13 IU/L (10-60) 09/25/23 05:35 Alkaline Phosphatase 90 IU/L (42-121) 09/25/23 05:35 Total Protein 5.4 g/dL (6.4-8.9) L 09/25/23 05:35 Albumin 2.9 g/dL (3.2-5.5) L 09/25/23 05:35 Globulin 2.5 g/dL (2.1-4.2) 09/25/23 05:35 Albumin/Globulin Ratio 1.2 (1.0-2.2) 09/25/23 05:35 Triglycerides 68 mg/dL (48-352) 09/24/23 21:30 Cholesterol 117 mg/dL (-200) 09/24/23 21:30 LDL Cholesterol, Calc 45 mg/dL (-129) 09/24/23 21:30 VLDL Cholesterol 14 mg/dL 09/24/23 21:30 HDL Cholesterol 58 mg/dL (60-) L 09/24/23 21:30 LDL/HDL Ratio 0.8 (<3.6) 09/24/23 21:30 Cholesterol/HDL Ratio 2.0 (<5.0) 09/24/23 21:30 Procalcitonin Immunoas 0.32 ng/mL (<0.5) 09/24/23 21:30 TSH 1.91 uIU/mL (0.34-5.60) 09/24/23 21:30 Urine Color YELLOW 09/25/23 13:30 Urine Clarity CLEAR (CLEAR) 09/25/23 13:30 Urine pH 6.0 PH (5.0-7.5) 09/25/23 13:30 Ur Specific [place] 1.025 (1.002-1.030) 09/25/23 13:30 Urine Protein TRACE mg/dL (NEGATIVE) 09/25/23 13:30 Urine Glucose (UA) NEGATIVE mg/dL (NEGATIVE) 09/25/23 13:30 Urine Ketones NEGATIVE mg/dL (NEGATIVE) 09/25/23 13:30 Urine Occult Blood NEGATIVE (NEGATIVE) 09/25/23 13:30 Urine Nitrite NEGATIVE (NEGATIVE) 09/25/23 13:30 Urine Bilirubin NEGATIVE (NEGATIVE) 09/25/23 13:30 Urine Urobilinogen 0.2 (NORMAL) E.U./dL (NORMAL) 09/25/23 13:30 Ur Leukocyte Esterase TRACE (NEGATIVE) H 09/25/23 13:30 Urine RBC 0-5 /HPF (0-5) 09/25/23 13:30 Urine WBC 0-3 /HPF (0-3) 09/25/23 13:30 Ur Squamous Epith Cells NONE SEEN (<= Few) 09/25/23 13:30 Urine Bacteria Few /HPF (None Seen) 09/25/23 13:30 Ur Microscopic Review INDICATED 09/25/23 13:30 Urine Culture Comments INDICATED 09/25/23 13:30 Nasal Adenovirus (PCR) NOT DETECTED 09/24/23 21:30 Nasal B. parapertussis DNA (PCR) NOT DETECTED 09/24/23 21:30 Nasal Coronavir 229E PCR NOT DETECTED 09/24/23 21:30 Nasal Coronavir HKU1 PCR NOT DETECTED 09/24/23 21:30 Nasal Coronavir NL63 PCR NOT DETECTED 09/24/23 21:30 Nasal Coronavir OC43 PCR NOT DETECTED 09/24/23 21:30 Nasal Enterovir/Rhinovir PCR NOT DETECTED 09/24/23 21:30 Nasal Influenza B PCR NOT DETECTED 12 21:30 Nasal Influenza A PCR NOT DETECTED 09/24/23 21:30 Nasal Parainfluen 1 PCR NOT DETECTED 09/24/23 21:30 Nasal Parainfluen 2 PCR NOT DETECTED 09/24/23 21:30 Nasal Parainfluen 3 PCR NOT DETECTED 12 21:30 Nasal Parainfluen 4 PCR NOT DETECTED 09/24/23 21:30 Nasal RSV (PCR) NOT DETECTED 09/24/23 21:30 Nasal B.pertussis DNA PCR NOT DETECTED 09/24/23 21:30 Nasal C.pneumoniae (PCR) NOT DETECTED 09/24/23 21:30 Thom Human Metapneumo PCR NOT DETECTED 09/24/23 21:30 Nasal M.pneumoniae (PCR) NOT DETECTED 09/24/23 21:30 Nasal SARS-CoV-2 (PCR) NOT DETECTED 09/24/23 21:30 Urine Opiates Screen NEGATIVE (NEGATIVE) 09/25/23 13:30 Ur Buprenorphine Scrn NEGATIVE (NEGATIVE) 09/25/23 13:30 Ur Oxycodone Screen NEGATIVE (NEGATIVE) 09/25/23 13:30 Urine Methadone Screen NEGATIVE (NEGATIVE) 09/25/23 13:30 Ur Barbiturates Screen NEGATIVE (NEGATIVE) 09/25/23 13:30 Ur Tricyclics Screen NEGATIVE (NEGATIVE) 09/25/23 13:30 Ur Phencyclidine Scrn NEGATIVE (NEGATIVE) 09/25/23 13:30 Ur Amphetamine Screen NEGATIVE (NEGATIVE) 09/25/23 13:30 U Methamphetamines Scrn NEGATIVE (NEGATIVE) 09/25/23 13:30 U Benzodiazepines Scrn NEGATIVE (NEGATIVE) 09/25/23 13:30 Urine Cocaine Screen NEGATIVE (NEGATIVE) 09/25/23 13:30 U Cannabinoids Screen NEGATIVE (NEGATIVE) 09/25/23 13:30 Ur Drug Screen Comment CUTOFF CONC BELOW: 09/25/23 13:30 Ethyl Alcohol < 10.0 mg/dL 09/24/23 16:44 Current Medications - Current Medications Current Medications: Active Medications Generic Name Dose Route Start Last Admin Trade Name Freq PRN Reason Stop Dose Admin Acetaminophen 650 mg 09/24/23 21:12 09/25/23 06:40 Acetaminophen 325 Mg Tablet PO 650 mg Q6H PRN Administration Pain 1 to 4, or Fever Amlodipine Besylate 5 mg 09/26/23 09:00 09/26/23 08:04 Amlodipine 5 Mg Tablet PO 5 mg DAILY STEFANO Administration Ascorbic Acid 500 mg 09/25/23 09:00 09/26/23 08:04 Ascorbic Acid 500 Mg Tablet PO 500 mg DAILY STEFANO Administration Benzonatate 100 mg 09/24/23 21:18 Benzonatate 100 Mg Capsule PO TID PRN Cough Guaifenesin 600 mg 09/24/23 22:00 09/26/23 08:04 Guaifenesin 600 Mg Tablet PO 600 mg BID STEFANO Administration Lactated Ringer's 1,000 mls @ 100 mls/hr 09/24/23 22:00 09/26/23 04:56 Lr IV 100 mls/hr .Q10H STEFANO Administration Multi-Ingredient Ointment 1 applic 09/25/23 12:13 Zinc Oxide 20% Oint 30 Gm Tube TOP PRN PRN Skin Care Multivitamins 1 tab 09/25/23 08:00 09/26/23 08:04 Multivitamin Tablet PO 1 tab DAILYWM STEFANO Administration Ondansetron HCl 4 mg 09/24/23 21:12 Ondansetron Odt 4 Mg Tablet TL Q6HR PRN Nausea / Vomiting Potassium Chloride 20 meq 09/26/23 11:00 09/26/23 12:00 Potassium Chloride 20 Meq Tablet PO 20 meq DAILYWM STEFANO Administration Sodium Chloride 10 ml 09/24/23 21:12 09/24/23 22:34 Sodium Chloride Flush 0.9% 10 Ml Syringe IVP 10 ml PRN PRN Administration NEEDED PER PROVIDER ORDERS Sodium Chloride 10 ml 09/25/23 01:00 09/26/23 08:04 Sodium Chloride Flush 0.9% 10 Ml Syringe IVP 10 ml 0100,0900,1700 STEFAON Administration Tramadol HCl 25 mg 09/24/23 21:18 Tramadol 50 Mg Tablet PO Q6H PRN Moderate Pain (Level 4-6) No Known Home Medications 09/24/23
--- NOTE | 2023-09-26 19:19 | XRAY Report ---
PROCEDURE: Chest 1 View X-Ray INDICATIONS: Cough, SOB TECHNIQUE: One view of the chest was acquired. COMPARISON: Chest x-ray, 09/24/2023. FINDINGS: Surgical changes and devices: None. Lungs and pleura: Bilateral lower lobe infiltrates consistent with pneumonia. Lungs are lucent, cons istent with emphysema. No pleural effusions or pneumothorax. Mediastinum: Mediastinal contours appear normal. Heart size is normal. Bones and chest wall: No suspicious bony lesions. Scoliosis. Overlying soft tissues appear unremark able. IMPRESSION: 1. Bilateral lower lobe pneumonia. 2. Emphysema. Reviewed by: Ameena Logan MD on 09/26/2023 7:18 PM PST Approved by: Ameena Logan MD on 09/26/2023 7:18 PM PST Station ID: [id number]
[2023-09-27] MEDS: SODIUM CHLORIDE FLUSH 0.9% 10 ML SYRINGE IVP SCH ×3 (00:46→16:23)
[2023-09-27] MEDS: LACTATED RINGERS 1,000 ML IV SCH (03:15)
[2023-09-27] MEDS: MULTIVITAMIN TABLET PO SCH (09:00)
[2023-09-27] MEDS: SODIUM CHLORIDE 0.9% 1,000 ML IV SCH (09:00)
[2023-09-27] MEDS: amLODIPine 5 MG TABLET PO SCH (09:00)
[2023-09-27] MEDS: cefTRIAXone 2 GM in SODIUM CHLORIDE 0.9% MINIBAG 100 ML IV SCH (09:00)
[2023-09-27] MEDS: guaiFENesin 600 MG TABLET PO SCH ×2 (09:00→21:26)
[2023-09-27] MEDS: ASCORBIC ACID 500 MG TABLET PO SCH (09:00)
[2023-09-27] MEDS ORDERED: AZITHROMYCIN INJ 500 MG in SODIUM CHLORIDE 0.9% 250 ML IV SCH (09:00)
[2023-09-27] MEDS: POTASSIUM CHLORIDE 20 MEQ TABLET PO SCH (09:00)
[2023-09-27] MEDS: AZITHROMYCIN 250 MG TABLET PO SCH (09:00)
--- NOTE | 2023-09-27 13:24 | PROVIDER PROGRESS NOTE ---
Assessment/Plan - Problem List (1) TOÑITO (acute kidney injury) Assessment/Plan: (1) Severe protein-calorie malnutrition Assessment/Plan: --Severe protein calorie malnutrition. Dietitian has been consulted. (2) Hypokalemia Assessment/Plan: --Replacing potassium. (3) Hypomagnesemia Assessment/Plan: --Replacing Mg. (4) Fall at home Assessment/Plan: PT and OT eval and treatment He will likely need rehab and may need LTC placement (5) TOÑITO (acute kidney injury) Assessment/Plan: --Continue IV fluids at TKO. Renal function improving. (6) Tobacco use Assessment/Plan: --DuoNeb PRN. (7) Leg edema Assessment/Plan: He has 2+ edema to mid shins. Possibly from hypo-osmotic pressure from low protein, but R/O CHF. Plan : Echo to eval EF (8) HTN (hypertension) Assessment/Plan: BP very elevated here (all VS reviewed). He has not seen a doctor in many years, so don't know if this is old and untreated or new Dx Plan: Will start Amlodipine (9) Inadequate social support Assessment/Plan: has lived alone x 20 yr [place] a [place] need social media director / case mgmt to assist with placement (2) Pneumonia Assessment/Plan: --CXR showing bilateral lower lobe PNA. --Stared on azithromycin and ceftriaxone. - Current Meds Current Meds: Current Medications Generic Name Dose Route Start Last Admin Trade Name Freq PRN Reason Stop Dose Admin Acetaminophen 650 mg 09/24/23 21:12 09/25/23 06:40 Acetaminophen 325 Mg Tablet PO 650 mg Q6H PRN Administration Pain 1 to 4, or Fever Amlodipine Besylate 5 mg 09/26/23 09:00 09/27/23 09:00 Amlodipine 5 Mg Tablet PO 5 mg DAILY STEFANO Administration Ascorbic Acid 500 mg 09/25/23 09:00 09/27/23 09:00 Ascorbic Acid 500 Mg Tablet PO 500 mg DAILY STEFANO Administration Azithromycin 500 mg 09/27/23 09:00 09/27/23 09:00 Azithromycin 250 Mg Tablet PO 09/29/23 09:01 500 mg DAILY STEFANO Administration Guaifenesin 600 mg 09/24/23 22:00 09/27/23 09:00 Guaifenesin 600 Mg Tablet PO 600 mg BID STEFANO Administration Ceftriaxone Sodium 2 gm/ 100 mls @ 200 mls/hr 09/27/23 09:00 09/27/23 09:30 Sodium Chloride IV 10/02/23 08:59 Infused DAILY STEFANO Infusion Sodium Chloride 1,000 mls @ 20 mls/hr 09/27/23 09:00 09/27/23 09:00 Normal Saline 0.9% IV 20 mls/hr .Q48H STEFANO Administration TKO Multivitamins 1 tab 09/25/23 08:00 09/27/23 09:00 Multivitamin Tablet PO 1 tab DAILYWM STEFANO Administration Potassium Chloride 20 meq 09/26/23 11:00 09/27/23 09:00 Potassium Chloride 20 Meq Tablet PO 20 meq DAILYWM STEFANO Administration Sodium Chloride 10 ml 09/24/23 21:12 09/24/23 22:34 Sodium Chloride Flush 0.9% 10 Ml Syringe IVP 10 ml PRN PRN Administration NEEDED PER PROVIDER ORDERS Sodium Chloride 10 ml 09/25/23 01:00 09/27/23 11:41 Sodium Chloride Flush 0.9% 10 Ml Syringe IVP Not Given 0100,0900,1700 STEFANO - Lab Result Fish Bone Diagrams: 09/26/23 05:24 09/26/23 05:24 - Additional Planning My Orders: My Active Orders 09/27/23 09:00 Azithromycin [Zithromax] 500 mg PO DAILY Sodium Chloride 0.9% [Normal Saline 0.9%] 1,000 ml IV TKO [id number] [Rocephin] 2 gm Sodium Chloride 0.9% Minibag [Normal Saline 0.9% Minibag] 100 ml IV DAILY Subjective - Subjective Patient Reports: Resting Comfortably, No Complaints Objective Vital Signs: Vital Signs - 24 hr 09/26/23 09/26/23 09/27/23 15:41 20:41 00:00 Temperature 36.5 C 36.5 C 36.6 C Heart Rate [ 62 67 68 Brachial] Respiratory 16 24 20 Rate Blood Pressure 153/95 H 160/96 H 168/112 H [Right Brachial artery] O2 Saturation 92 93 93 09/27/23 09/27/23 05:00 09:00 Temperature 36.6 C 36.6 C Heart Rate [ 63 77 Brachial] Respiratory 18 18 Rate Blood Pressure 154/94 H 150/99 H [Right Brachial artery] O2 Saturation 93 93 Oxygen O2 Source Room air I&O (Last 24 Hrs): Intake and Output Totals x24h 09/25/23 09/26/23 09/27/23 23:59 23:59 23:59 Intake Total 4493.333 2905.000 973.333 Output Total 725 925 775 Balance 3768.333 1980.000 198.333 General: Alert, Oriented x3, Cooperative, No acute distress Cardiovascular: Regular rate, Normal S1, Normal S2, No murmurs Respiratory: Chest non-tender, No respiratory distress, Breath sounds nml Abdomen: Normal bowel sounds, Soft, No tenderness, No hepatospenomegaly, No mass es - Results Results: Laboratory Results WBC 11.7 x10^3/uL (4.8-10.8) H 09/26/23 05:24 RBC 3.79 10^6/uL (4.70-6.10) L 09/26/23 05:24 Hgb 11.9 g/dL (14.0-18.0) L 09/26/23 05:24 Hct 34.6 % (42.0-52.0) L 09/26/23 05:24 MCV 91.3 fL (80.0-94.0) 09/26/23 05:24 MCH 31.4 pg (27.0-31.0) H 09/26/23 05:24 MCHC 34.4 g/dL (32.0-36.0) 09/26/23 05:24 RDW 12.3 % (12.0-15.0) 09/26/23 05:24 Plt Count 200 10^3/uL (130-450) 09/26/23 05:24 MPV 10.2 fL (7.4-11.4) 09/26/23 05:24 Neut # (Auto) 10.0 10^3/uL (1.5-6.6) H 09/26/23 05:24 Lymph # (Auto) 1.0 10^3/uL (1.5-3.5) L 09/26/23 05:24 [place] # (Auto) 0.6 10^3/uL (0.0-1.0) 09/26/23 05:24 Eos # (Auto) 0.1 10^3/uL (0.0-0.7) 09/26/23 05:24 Baso # (Auto) 0.0 10^3/uL (0.0-0.1) 09/26/23 05:24 Absolute Nucleated RBC 0.00 x10^3/uL 09/26/23 05:24 Nucleated RBC % 0.0 /100WBC 09/26/23 05:24 VBG pH 7.353 (7.31-7.41) 09/24/23 16:44 VBG pCO2 43.4 mmHg (41-51) 09/24/23 16:44 VBG pO2 25.3 mmHg (25-47) 09/24/23 16:44 VBG HCO3 23.6 mmol/L (23-28) 09/24/23 16:44 VBG Total CO2 24.9 mmol/L (24-29) 09/24/23 16:44 VBG O2 Saturation 46.4 % (60-80) L 09/24/23 16:44 VBG Base Excess -2.0 mmol/L (-2 - +2) 09/24/23 16:44 Sodium 139 mmol/L (135-145) 09/26/23 05:24 Potassium 3.3 mmol/L (3.5-4.5) L 09/26/23 05:24 Chloride 107 mmol/L (101-111) 09/26/23 05:24 Carbon Dioxide 24 mmol/L (21-32) 09/26/23 05:24 Anion Gap 8.0 (6-13) 09/26/23 05:24 BUN 41 mg/dL (6-20) H 09/26/23 05:24 Creatinine 1.4 mg/dL (0.6-1.3) H 09/26/23 05:24 Estimated GFR (MDRD) 50 (>89) L 09/26/23 05:24 Glucose 84 mg/dL (74-104) 09/26/23 05:24 Estimat Average Glucose 117 mg/dL (70-100) H 09/24/23 21:30 Hemoglobin A1c % 5.7 % (4.27-6.07) 09/24/23 21:30 Lactic Acid 1.8 mmol/L (0.5-2.2) 09/24/23 21:30 Calcium 8.1 mg/dL (8.5-10.3) L 09/26/23 05:24 Phosphorus 3.5 mg/dL (2.5-5.0) 09/26/23 05:24 Magnesium 1.8 mg/dL (1.7-2.3) 09/26/23 05:24 Total Bilirubin 0.3 mg/dL (0.2-1.0) 09/25/23 05:35 AST 23 IU/L (10-42) 09/25/23 05:35 ALT 13 IU/L (10-60) 09/25/23 05:35 Alkaline Phosphatase 90 IU/L (42-121) 09/25/23 05:35 Total Protein 5.4 g/dL (6.4-8.9) L 09/25/23 05:35 Albumin 2.9 g/dL (3.2-5.5) L 09/25/23 05:35 Globulin 2.5 g/dL (2.1-4.2) 09/25/23 05:35 Albumin/Globulin Ratio 1.2 (1.0-2.2) 09/25/23 05:35 Triglycerides 68 mg/dL (48-352) 09/24/23 21:30 Cholesterol 117 mg/dL (-200) 09/24/23 21:30 LDL Cholesterol, Calc 45 mg/dL (-129) 09/24/23 21:30 VLDL Cholesterol 14 mg/dL 09/24/23 21:30 HDL Cholesterol 58 mg/dL (60-) L 09/24/23 21:30 LDL/HDL Ratio 0.8 (<3.6) 09/24/23 21:30 Cholesterol/HDL Ratio 2.0 (<5.0) 09/24/23 21:30 Procalcitonin Immunoas 0.32 ng/mL (<0.5) 09/24/23 21:30 TSH 1.91 uIU/mL (0.34-5.60) 09/24/23 21:30 Urine Color YELLOW 09/25/23 13:30 Urine Clarity CLEAR (CLEAR) 09/25/23 13:30 Urine pH 6.0 PH (5.0-7.5) 09/25/23 13:30 Ur Specific [place] 1.025 (1.002-1.030) 09/25/23 13:30 Urine Protein TRACE mg/dL (NEGATIVE) 09/25/23 13:30 Urine Glucose (UA) NEGATIVE mg/dL (NEGATIVE) 09/25/23 13:30 Urine Ketones NEGATIVE mg/dL (NEGATIVE) 09/25/23 13:30 Urine Occult Blood NEGATIVE (NEGATIVE) 09/25/23 13:30 Urine Nitrite NEGATIVE (NEGATIVE) 09/25/23 13:30 Urine Bilirubin NEGATIVE (NEGATIVE) 09/25/23 13:30 Urine Urobilinogen 0.2 (NORMAL) E.U./dL (NORMAL) 09/25/23 13:30 Ur Leukocyte Esterase TRACE (NEGATIVE) H 09/25/23 13:30 Urine RBC 0-5 /HPF (0-5) 09/25/23 13:30 Urine WBC 0-3 /HPF (0-3) 09/25/23 13:30 Ur Squamous Epith Cells NONE SEEN (<= Few) 09/25/23 13:30 Urine Bacteria Few /HPF (None Seen) 09/25/23 13:30 Ur Microscopic Review INDICATED 09/25/23 13:30 Urine Culture Comments INDICATED 09/25/23 13:30 Nasal Adenovirus (PCR) NOT DETECTED 09/24/23 21:30 Nasal B. parapertussis DNA (PCR) NOT DETECTED 09/24/23 21:30 Nasal Coronavir 229E PCR NOT DETECTED 09/24/23 21:30 Nasal Coronavir HKU1 PCR NOT DETECTED 09/24/23 21:30 Nasal Coronavir NL63 PCR NOT DETECTED 09/24/23 21:30 Nasal Coronavir OC43 PCR NOT DETECTED 09/24/23 21:30 Nasal Enterovir/Rhinovir PCR NOT DETECTED 09/24/23 21:30 Nasal Influenza B PCR NOT DETECTED 12 21:30 Nasal Influenza A PCR NOT DETECTED 09/24/23 21:30 Nasal Parainfluen 1 PCR NOT DETECTED 09/24/23 21:30 Nasal Parainfluen 2 PCR NOT DETECTED 09/24/23 21:30 Nasal Parainfluen 3 PCR NOT DETECTED 09/24/23 21:30 Nasal Parainfluen 4 PCR NOT DETECTED 12 21:30 Nasal RSV (PCR) NOT DETECTED 09/24/23 21:30 Nasal B.pertussis DNA PCR NOT DETECTED 09/24/23 21:30 Nasal C.pneumoniae (PCR) NOT DETECTED 09/24/23 21:30 Thom Human Metapneumo PCR NOT DETECTED 09/24/23 21:30 Nasal M.pneumoniae (PCR) NOT DETECTED 09/24/23 21:30 Nasal SARS-CoV-2 (PCR) NOT DETECTED 09/24/23 21:30 Urine Opiates Screen NEGATIVE (NEGATIVE) 09/25/23 13:30 Ur Buprenorphine Scrn NEGATIVE (NEGATIVE) 09/25/23 13:30 Ur Oxycodone Screen NEGATIVE (NEGATIVE) 09/25/23 13:30 Urine Methadone Screen NEGATIVE (NEGATIVE) 09/25/23 13:30 Ur Barbiturates Screen NEGATIVE (NEGATIVE) 09/25/23 13:30 Ur Tricyclics Screen NEGATIVE (NEGATIVE) 09/25/23 13:30 Ur Phencyclidine Scrn NEGATIVE (NEGATIVE) 09/25/23 13:30 Ur Amphetamine Screen NEGATIVE (NEGATIVE) 09/25/23 13:30 U Methamphetamines Scrn NEGATIVE (NEGATIVE) 09/25/23 13:30 U Benzodiazepines Scrn NEGATIVE (NEGATIVE) 09/25/23 13:30 Urine Cocaine Screen NEGATIVE (NEGATIVE) 09/25/23 13:30 U Cannabinoids Screen NEGATIVE (NEGATIVE) 09/25/23 13:30 Ur Drug Screen Comment CUTOFF CONC BELOW: 09/25/23 13:30 Ethyl Alcohol < 10.0 mg/dL 09/24/23 16:44 Current Medications - Current Medications Current Medications: Active Medications Generic Name Dose Route Start Last Admin Trade Name Freq PRN Reason Stop Dose Admin Acetaminophen 650 mg 09/24/23 21:12 09/25/23 06:40 Acetaminophen 325 Mg Tablet PO 650 mg Q6H PRN Administration Pain 1 to 4, or Fever Amlodipine Besylate 5 mg 09/26/23 09:00 09/27/23 09:00 Amlodipine 5 Mg Tablet PO 5 mg DAILY STEFANO Administration Ascorbic Acid 500 mg 09/25/23 09:00 09/27/23 09:00 Ascorbic Acid 500 Mg Tablet PO 500 mg DAILY STEFANO Administration Azithromycin 500 mg 09/27/23 09:00 09/27/23 09:00 Azithromycin 250 Mg Tablet PO 09/29/23 09:01 500 mg DAILY STEFANO Administration Benzonatate 100 mg 09/24/23 21:18 Benzonatate 100 Mg Capsule PO TID PRN Cough Guaifenesin 600 mg 09/24/23 22:00 09/27/23 09:00 Guaifenesin 600 Mg Tablet PO 600 mg BID STEFANO Administration Ceftriaxone Sodium 2 gm/ 100 mls @ 200 mls/hr 09/27/23 09:00 09/27/23 09:30 Sodium Chloride IV 10/02/23 08:59 Infused DAILY STEFANO Infusion Sodium Chloride 1,000 mls @ 20 mls/hr 09/27/23 09:00 09/27/23 09:00 Normal Saline 0.9% IV 20 mls/hr .Q48H STEFANO Administration TKO Multi-Ingredient Ointment 1 applic 09/25/23 12:13 Zinc Oxide 20% Oint 30 Gm Tube TOP PRN PRN Skin Care Multivitamins 1 tab 09/25/23 08:00 09/27/23 09:00 Multivitamin Tablet PO 1 tab DAILYWM STEFANO Administration Ondansetron HCl 4 mg 09/24/23 21:12 Ondansetron Odt 4 Mg Tablet TL Q6HR PRN Nausea / Vomiting Potassium Chloride 20 meq 09/26/23 11:00 09/27/23 09:00 Potassium Chloride 20 Meq Tablet PO 20 meq DAILYWM STEFANO Administration Sodium Chloride 10 ml 09/24/23 21:12 09/24/23 22:34 Sodium Chloride Flush 0.9% 10 Ml Syringe IVP 10 ml PRN PRN Administration NEEDED PER PROVIDER ORDERS Sodium Chloride 10 ml 09/25/23 01:00 09/27/23 11:41 Sodium Chloride Flush 0.9% 10 Ml Syringe IVP Not Given 0100,0900,1700 STEFANO Tramadol HCl 25 mg 09/24/23 21:18 Tramadol 50 Mg Tablet PO Q6H PRN Moderate Pain (Level 4-6) No Known Home Medications 09/24/23
[2023-09-28] MEDS: SODIUM CHLORIDE FLUSH 0.9% 10 ML SYRINGE IVP SCH ×3 (00:51→17:11)
[2023-09-28] MEDS: BENZONATATE 100 MG CAPSULE PO PRN ×2 (05:37→18:31)
[2023-09-28] MEDS ORDERED: POTASSIUM CHLOR 10 MEQ/100 ML 10 MEQ/100 ML BAG IV SCH (08:00)
[2023-09-28] MEDS: MULTIVITAMIN TABLET PO SCH (08:09)
[2023-09-28] MEDS: ASCORBIC ACID 500 MG TABLET PO SCH (08:09)
[2023-09-28] MEDS: guaiFENesin 600 MG TABLET PO SCH ×2 (08:09→20:08)
[2023-09-28] MEDS: amLODIPine 5 MG TABLET PO SCH (08:09)
[2023-09-28] MEDS: AZITHROMYCIN 250 MG TABLET PO SCH (08:09)
[2023-09-28] MEDS: POTASSIUM CHLORIDE 20 MEQ TABLET PO SCH (08:09)
[2023-09-28] MEDS: cefTRIAXone 2 GM in SODIUM CHLORIDE 0.9% MINIBAG 100 ML IV SCH (08:10)
--- NOTE | 2023-09-28 12:00 | PROVIDER PROGRESS NOTE ---
Assessment/Plan - Problem List (1) TOÑITO (acute kidney injury) Assessment/Plan: (1) Severe protein-calorie malnutrition Assessment/Plan: --Severe protein calorie malnutrition. Dietitian has been consulted. (2) Pneumonia Assessment/Plan: --CXR showing bilateral lower lobe PNA. --Stared on azithromycin and ceftriaxone. --Some concern for aspiration, CHIEF OF SAFETY AND PROTECTION consulted. (2) Hypokalemia Assessment/Plan: --Replacing potassium. (3) Hypomagnesemia Assessment/Plan: --Replacing Mg. (4) Fall at home Assessment/Plan: PT and OT eval and treatment He will likely need rehab and may need LTC placement (5) TOÑITO (acute kidney injury) Assessment/Plan: --Continue IV fluids at TKO. Renal function improving. (6) Tobacco use Assessment/Plan: --DuoNeb PRN. (7) Leg edema Assessment/Plan: He has 2+ edema to mid shins. Possibly from hypo-osmotic pressure from low protein, but R/O CHF. --TTE was unremarkable. --Will obtain bilateral LE US to r/o DVT. (8) HTN (hypertension) Assessment/Plan: BP very elevated here (all VS reviewed). He has not seen a doctor in many years, so don't know if this is old and untreated or new Dx Plan: Will start Amlodipine (9) Inadequate social support Assessment/Plan: has lived alone x 20 [place] need social group worker / case mgmt to assist with placement - Current Meds Current Meds: Current Medications Generic Name Dose Route Start Last Admin Trade Name Uma PRN Reason Stop Dose Admin Acetaminophen 650 mg 09/24/23 21:12 09/25/23 06:40 Acetaminophen 325 Mg Tablet PO 650 mg Q6H PRN Administration Pain 1 to 4, or Fever Amlodipine Besylate 5 mg 09/26/23 09:00 09/28/23 08:09 Amlodipine 5 Mg Tablet PO 5 mg DAILY STEFANO Administration Ascorbic Acid 500 mg 09/25/23 09:00 09/28/23 08:09 Ascorbic Acid 500 Mg Tablet PO 500 mg DAILY STEFANO Administration Azithromycin 500 mg 09/27/23 09:00 09/28/23 08:09 Azithromycin 250 Mg Tablet PO 09/29/23 09:01 500 mg DAILY STEFANO Administration Benzonatate 100 mg 09/24/23 21:18 09/28/23 05:37 Benzonatate 100 Mg Capsule PO 100 mg TID PRN Administration Cough Guaifenesin 600 mg 09/24/23 22:00 09/28/23 08:09 Guaifenesin 600 Mg Tablet PO 600 mg BID STEFANO Administration Ceftriaxone Sodium 2 gm/ 100 mls @ 200 mls/hr 09/27/23 09:00 09/28/23 08:10 Sodium Chloride IV 10/02/23 08:59 200 mls/hr DAILY STEFANO Administration Sodium Chloride 1,000 mls @ 20 mls/hr 09/27/23 09:00 09/27/23 09:00 Normal Saline 0.9% IV 20 mls/hr .Q48H STEFANO Administration TKO Multivitamins 1 tab 09/25/23 08:00 09/28/23 08:09 Multivitamin Tablet PO 1 tab DAILYWM STEFANO Administration Potassium Chloride 20 meq 09/26/23 11:00 09/28/23 08:09 Potassium Chloride 20 Meq Tablet PO 20 meq DAILYWM STEFANO Administration Sodium Chloride 10 ml 09/24/23 21:12 09/24/23 22:34 Sodium Chloride Flush 0.9% 10 Ml Syringe IVP 10 ml PRN PRN Administration NEEDED PER PROVIDER ORDERS Sodium Chloride 10 ml 09/25/23 01:00 09/28/23 08:10 Sodium Chloride Flush 0.9% 10 Ml Syringe IVP 10 ml 0100,0900,1700 STEFANO Administration - Lab Result Fish Bone Diagrams: 09/26/23 05:24 09/26/23 05:24 - Additional Planning My Orders: My Active Orders 09/28/23 Swallow Evaluation [Clinical Swallow Eval w/Modified ST] [ST] Routine 09/29/23 05:00 BMP - BASIC METABOLIC PANEL [CHEM] DAILYLAB CBC [CBC - COMP BLD CT W/AUTO DIFF] [HEME] DAILYLAB 09/30/23 05:00 BMP - BASIC METABOLIC PANEL [CHEM] DAILYLAB CBC [CBC - COMP BLD CT W/AUTO DIFF] [HEME] DAILYLAB 10/01/23 05:00 BMP - BASIC METABOLIC PANEL [CHEM] DAILYLAB CBC [CBC - COMP BLD CT W/AUTO DIFF] [HEME] DAILYLAB 10/02/23 05:00 BMP - BASIC METABOLIC PANEL [CHEM] DAILYLAB CBC [CBC - COMP BLD CT W/AUTO DIFF] [HEME] DAILYLAB 10/03/23 05:00 BMP - BASIC METABOLIC PANEL [CHEM] DAILYLAB CBC [CBC - COMP BLD CT W/AUTO DIFF] [HEME] DAILYLAB Subjective - Subjective Patient Reports: Resting Comfortably, No Complaints, Cough Objective Vital Signs: Vital Signs - 24 hr 09/27/23 09/27/23 09/27/23 13:00 16:05 20:00 Temperature 36.7 C 36.5 C 36.6 C Heart Rate [ 81 66 68 Brachial] Respiratory 18 24 24 Rate Blood Pressure [Left Brachial artery] Blood Pressure 152/96 H 150/90 H 146/99 H [Right Brachial artery] O2 Saturation 94 95 96 09/28/23 09/28/23 09/28/23 00:05 04:20 07:46 Temperature 36.6 C 36.5 C 36.5 C Heart Rate [ 70 65 65 Brachial] Respiratory 20 20 20 Rate Blood Pressure 166/100 H [Left Brachial artery] Blood Pressure 149/91 H 176/102 H 177/103 H [Right Brachial artery] O2 Saturation 94 93 93 Oxygen O2 Source Room air I&O (Last 24 Hrs): Intake and Output Totals x24h 09/26/23 09/27/23 09/28/23 23:59 23:59 23:59 Intake Total 2905.000 2173.333 400 Output Total 925 1500 575 Balance 1980.000 673.333 -175 Cardiovascular: Regular rate, Normal S1, Normal S2, No murmurs Respiratory: Chest non-tender, No respiratory distress, Breath sounds nml Abdomen: Normal bowel sounds, Soft, No tenderness, No hepatospenomegaly, No masses Extremities: Other (+1 pitting edema.) - Results Results: Laboratory Results WBC 11.7 x10^3/uL (4.8-10.8) H 09/26/23 05:24 RBC 3.79 10^6/uL (4.70-6.10) L 09/26/23 05:24 Hgb 11.9 g/dL (14.0-18.0) L 09/26/23 05:24 Hct 34.6 % (42.0-52.0) L 09/26/23 05:24 MCV 91.3 fL (80.0-94.0) 09/26/23 05:24 MCH 31.4 pg (27.0-31.0) H 09/26/23 05:24 MCHC 34.4 g/dL (32.0-36.0) 09/26/23 05:24 RDW 12.3 % (12.0-15.0) 09/26/23 05:24 Plt Count 200 10^3/uL (130-450) 09/26/23 05:24 MPV 10.2 fL (7.4-11.4) 09/26/23 05:24 Neut # (Auto) 10.0 10^3/uL (1.5-6.6) H 09/26/23 05:24 Lymph # (Auto) 1.0 10^3/uL (1.5-3.5) L 09/26/23 05:24 [place] # (Auto) 0.6 10^3/uL (0.0-1.0) 09/26/23 05:24 Eos # (Auto) 0.1 10^3/uL (0.0-0.7) 09/26/23 05:24 Baso # (Auto) 0.0 10^3/uL (0.0-0.1) 09/26/23 05:24 Absolute Nucleated RBC 0.00 x10^3/uL 09/26/23 05:24 Nucleated RBC % 0.0 /100WBC 09/26/23 05:24 VBG pH 7.353 (7.31-7.41) 09/24/23 16:44 VBG pCO2 43.4 mmHg (41-51) 09/24/23 16:44 VBG pO2 25.3 mmHg (25-47) 09/24/23 16:44 VBG HCO3 23.6 mmol/L (23-28) 09/24/23 16:44 VBG Total CO2 24.9 mmol/L (24-29) 09/24/23 16:44 VBG O2 Saturation 46.4 % (60-80) L 09/24/23 16:44 VBG Base Excess -2.0 mmol/L (-2 - +2) 09/24/23 16:44 Sodium 139 mmol/L (135-145) 09/26/23 05:24 Potassium 3.3 mmol/L (3.5-4.5) L 09/26/23 05:24 Chloride 107 mmol/L (101-111) 09/26/23 05:24 Carbon Dioxide 24 mmol/L (21-32) 09/26/23 05:24 Anion Gap 8.0 (6-13) 09/26/23 05:24 BUN 41 mg/dL (6-20) H 09/26/23 05:24 Creatinine 1.4 mg/dL (0.6-1.3) H 09/26/23 05:24 Estimated GFR (MDRD) 50 (>89) L 09/26/23 05:24 Glucose 84 mg/dL (74-104) 09/26/23 05:24 Estimat Average Glucose 117 mg/dL (70-100) H 09/24/23 21:30 Hemoglobin A1c % 5.7 % (4.27-6.07) 09/24/23 21:30 Lactic Acid 1.8 mmol/L (0.5-2.2) 09/24/23 21:30 Calcium 8.1 mg/dL (8.5-10.3) L 09/26/23 05:24 Phosphorus 3.5 mg/dL (2.5-5.0) 09/26/23 05:24 Magnesium 1.8 mg/dL (1.7-2.3) 09/26/23 05:24 Total Bilirubin 0.3 mg/dL (0.2-1.0) 09/25/23 05:35 AST 23 IU/L (10-42) 09/25/23 05:35 ALT 13 IU/L (10-60) 09/25/23 05:35 Alkaline Phosphatase 90 IU/L (42-121) 09/25/23 05:35 Total Protein 5.4 g/dL (6.4-8.9) L 09/25/23 05:35 Albumin 2.9 g/dL (3.2-5.5) L 09/25/23 05:35 Globulin 2.5 g/dL (2.1-4.2) 09/25/23 05:35 Albumin/Globulin Ratio 1.2 (1.0-2.2) 09/25/23 05:35 Triglycerides 68 mg/dL (48-352) 09/24/23 21:30 Cholesterol 117 mg/dL (-200) 09/24/23 21:30 LDL Cholesterol, Calc 45 mg/dL (-129) 09/24/23 21:30 VLDL Cholesterol 14 mg/dL 09/24/23 21:30 HDL Cholesterol 58 mg/dL (60-) L 09/24/23 21:30 LDL/HDL Ratio 0.8 (<3.6) 09/24/23 21: Cholesterol/HDL Ratio 2.0 (<5.0) 09/24/23 21:30 Procalcitonin Immunoas 0.32 ng/mL (<0.5) 09/24/23 21: TSH 1.91 uIU/mL (0.34-5.60) 09/24/23 21:30 Urine Color YELLOW 09/25/23 13:30 Urine Clarity CLEAR (CLEAR) 09/25/23 13:30 Urine pH 6.0 PH (5.0-7.5) 09/25/23 13:30 Ur Specific [place] 1.025 (1.002-1.030) 09/25/23 13:30 Urine Protein TRACE mg/dL (NEGATIVE) 09/25/23 13:30 Urine Glucose (UA) NEGATIVE mg/dL (NEGATIVE) 09/25/23 13:30 Urine Ketones NEGATIVE mg/dL (NEGATIVE) 09/25/23 13:30 Urine Occult Blood NEGATIVE (NEGATIVE) 09/25/23 13:30 Urine Nitrite NEGATIVE (NEGATIVE) 09/25/23 13:30 Urine Bilirubin NEGATIVE (NEGATIVE) 09/25/23 13:30 Urine Urobilinogen 0.2 (NORMAL) E.U./dL (NORMAL) 09/25/23 13:30 Ur Leukocyte Esterase TRACE (NEGATIVE) H 09/25/23 13:30 Urine RBC 0-5 /HPF (0-5) 09/25/23 13:30 Urine WBC 0-3 /HPF (0-3) 09/25/23 13:30 Ur Squamous Epith Cells NONE SEEN (<= Few) 09/25/23 13:30 Urine Bacteria Few /HPF (None Seen) 09/25/23 13:30 Ur Microscopic Review INDICATED 09/25/23 13:30 Urine Culture Comments INDICATED 09/25/23 13:30 Nasal Adenovirus (PCR) NOT DETECTED 09/24/23 21:30 Nasal B. parapertussis DNA (PCR) NOT DETECTED 09/24/23 21:30 Nasal Coronavir 229E PCR NOT DETECTED 09/24/23 21:30 Nasal Coronavir HKU1 PCR NOT DETECTED 09/24/23 21:30 Nasal Coronavir NL63 PCR NOT DETECTED 09/24/23 21:30 Nasal Coronavir OC43 PCR NOT DETECTED 09/24/23 21:30 Nasal Enterovir/Rhinovir PCR NOT DETECTED 09/24/23 21:30 Nasal Influenza B PCR NOT DETECTED 09/24/23 21:30 Nasal Influenza A PCR NOT DETECTED 09/24/23 21:30 Nasal Parainfluen 1 PCR NOT DETECTED 09/24/23 21:30 Nasal Parainfluen 2 PCR NOT DETECTED 09/24/23 21:30 Nasal Parainfluen 3 PCR NOT DETECTED 09/24/23 21:30 Nasal Parainfluen 4 PCR NOT DETECTED 09/24/23 21:30 Nasal RSV (PCR) NOT DETECTED 09/24/23 21:30 Nasal B.pertussis DNA PCR NOT DETECTED 09/24/23 21:30 Nasal C.pneumoniae (PCR) NOT DETECTED 09/24/23 21:30 Thom Human Metapneumo PCR NOT DETECTED 09/24/23 21:30 Nasal M.pneumoniae (PCR) NOT DETECTED 09/24/23 21:30 Nasal SARS-CoV-2 (PCR) NOT DETECTED 09/24/23 21:30 Urine Opiates Screen NEGATIVE (NEGATIVE) 09/25/23 13:30 Ur Buprenorphine Scrn NEGATIVE (NEGATIVE) 09/25/23 13:30 Ur Oxycodone Screen NEGATIVE (NEGATIVE) 09/25/23 13:30 Urine Methadone Screen NEGATIVE (NEGATIVE) 09/25/23 13:30 Ur Barbiturates Screen NEGATIVE (NEGATIVE) 09/25/23 13:30 Ur Tricyclics Screen NEGATIVE (NEGATIVE) 09/25/23 13:30 Ur Phencyclidine Scrn NEGATIVE (NEGATIVE) 09/25/23 13:30 Ur Amphetamine Screen NEGATIVE (NEGATIVE) 09/25/23 13:30 U Methamphetamines Scrn NEGATIVE (NEGATIVE) 09/25/23 13:30 U Benzodiazepines Scrn NEGATIVE (NEGATIVE) 09/25/23 13:30 Urine Cocaine Screen NEGATIVE (NEGATIVE) 09/25/23 13:30 U Cannabinoids Screen NEGATIVE (NEGATIVE) 09/25/23 13:30 Ur Drug Screen Comment CUTOFF CONC BELOW: 09/25/23 13:30 Ethyl Alcohol < 10.0 mg/dL 09/24/23 16:44 Current Medications - Current Medications Current Medications: Active Medications Generic Name Dose Route Start Last Admin Trade Name Freq PRN Reason Stop Dose Admin Acetaminophen 650 mg 09/24/23 21:12 09/25/23 06:40 Acetaminophen 325 Mg Tablet PO 650 mg Q6H PRN Administration Pain 1 to 4, or Fever Amlodipine Besylate 5 mg 09/26/23 09:00 09/28/23 08:09 Amlodipine 5 Mg Tablet PO 5 mg DAILY STEFANO Administration Ascorbic Acid 500 mg 09/25/23 09:00 09/28/23 08:09 Ascorbic Acid 500 Mg Tablet PO 500 mg DAILY STEFANO Administration Azithromycin 500 mg 09/27/23 09:00 09/28/23 08:09 Azithromycin 250 Mg Tablet PO 09/29/23 09:01 500 mg DAILY STEFANO Administration Benzonatate 100 mg 09/24/23 21:18 09/28/23 05:37 Benzonatate 100 Mg Capsule PO 100 mg TID PRN Administration Cough Guaifenesin 600 mg 09/24/23 22:00 09/28/23 08:09 Guaifenesin 600 Mg Tablet PO 600 mg BID STEFANO Administration Ceftriaxone Sodium 2 gm/ 100 mls @ 200 mls/hr 09/27/23 09:00 09/28/23 08:10 Sodium Chloride IV 10/02/23 08:59 200 mls/hr DAILY STEFANO Administration Sodium Chloride 1,000 mls @ 20 mls/hr 09/27/23 09:00 09/27/23 09:00 Normal Saline 0.9% IV 20 mls/hr .Q48H STEFANO Administration TKO Multi-Ingredient Ointment 1 applic 09/25/23 12:13 Zinc Oxide 20% Oint 30 Gm Tube TOP PRN PRN Skin Care Multivitamins 1 tab 09/25/23 08:00 09/28/23 08:09 Multivitamin Tablet PO 1 tab DAILYWM STEFANO Administration Ondansetron HCl 4 mg 09/24/23 21:12 Ondansetron Odt 4 Mg Tablet TL Q6HR PRN Nausea / Vomiting Potassium Chloride 20 meq 09/26/23 11:00 09/28/23 08:09 Potassium Chloride 20 Meq Tablet PO 20 meq DAILYWM STEFANO Administration Sodium Chloride 10 ml 09/24/23 21:12 09/24/23 22:34 Sodium Chloride Flush 0.9% 10 Ml Syringe IVP 10 ml PRN PRN Administration NEEDED PER PROVIDER ORDERS Sodium Chloride 10 ml 09/25/23 01:00 09/28/23 08:10 Sodium Chloride Flush 0.9% 10 Ml Syringe IVP 10 ml 0100,0900,1700 STEFANO Administration Tramadol HCl 25 mg 09/24/23 21:18 Tramadol 50 Mg Tablet PO Q6H PRN Moderate Pain (Level 4-6) No Known Home Medications 09/24/23
[2023-09-28] MEDS: IPRATROPIUM/ALBUTEROL 3 ML NEB INH PRN (18:14)
[2023-09-28] MEDS: MORPHINE 2 MG/ML CARPUJECT IVP PRN (18:20)
[2023-09-28] MEDS: ZINC OXIDE 20% OINT 30 GM TUBE TOP PRN (20:08)
[2023-09-29] MEDS: SODIUM CHLORIDE FLUSH 0.9% 10 ML SYRINGE IVP SCH ×3 (00:15→18:50)
[2023-09-29 06:24] LABS: BASOPHILS # (AUTO) 0.1 10^3/uL (0.0-0.1); BASOPHILS % (AUTO) 0.6 %; EOSINOPHILS # (AUTO) 0.1 10^3/uL (0.0-0.7); EOSINOPHILS % (AUTO) 0.8 %; HCT - HEMATOCRIT 34.8 % (42.0-52.0); HGB - HEMOGLOBIN 11.4 g/dL (14.0-18.0); LYMPHOCYTES # (AUTO) 1.1 10^3/uL (1.5-3.5); LYMPHOCYTES % (AUTO) 14.1 %; MEAN CORPUSCULAR HEMOGLOBIN 30.8 pg (27.0-31.0); MEAN CORPUSCULAR HGB CONC 32.8 g/dL (32.0-36.0); MEAN CORPUSCULAR VOLUME 94.1 fL (80.0-94.0); MONOCYTES # (AUTO) 0.6 10^3/uL (0.0-1.0); MONOCYTES % (AUTO) 7.2 %; NEUTROPHILS # (AUTO) 6.1 10^3/uL (1.5-6.6); NEUTROPHILS % (AUTO) 76.8 %; PLT - PLATELET COUNT 188 10^3/uL (130-450); RED CELL DISTRIBUTION WIDTH 12.6 % (12.0-15.0); WHITE BLOOD COUNT 7.9 x10^3/uL (4.8-10.8)
[2023-09-29 06:41] LABS: CALCIUM 8.2 mg/dL (8.5-10.3); CREATININE 1.1 mg/dL (0.6-1.3)
[2023-09-29] MEDS: BENZONATATE 100 MG CAPSULE PO PRN (08:00)
[2023-09-29] MEDS: ASCORBIC ACID 500 MG TABLET PO SCH (08:00)
[2023-09-29] MEDS: AZITHROMYCIN 250 MG TABLET PO SCH (08:00)
[2023-09-29] MEDS: guaiFENesin 600 MG TABLET PO SCH ×2 (08:01→20:26)
[2023-09-29] MEDS: amLODIPine 5 MG TABLET PO SCH (08:01)
[2023-09-29] MEDS: MULTIVITAMIN W/MINERALS TABLET PO SCH (08:01)
[2023-09-29] MEDS: ZINC OXIDE 20% OINT 30 GM TUBE TOP PRN ×2 (08:01→18:49)
[2023-09-29] MEDS: POTASSIUM CHLORIDE 20 MEQ TABLET PO SCH (08:01)
[2023-09-29] MEDS: cefTRIAXone 2 GM in SODIUM CHLORIDE 0.9% MINIBAG 100 ML IV SCH (08:01)
--- NOTE | 2023-09-29 10:57 | Ultrasound Report ---
PROCEDURE: Duplex Ext Veins Bilateral INDICATIONS: Bilateral lower extremity swelling. Rule out DVT. TECHNIQUE: Real-time imaging, as well as color and pulse Doppler interrogation, were performed of the deep veins of both legs from the inguinal ligament to the popliteal fossa. Attempted visualization of the calf veins was performed. COMPARISON: None. FINDINGS: The deep veins are normally compressible, and free of intraluminal thrombus. Color and pu lse Doppler demonstrate normal phasic intravascular flow. There is normal augmentation response to d istal compression maneuver. IMPRESSION: No deep venous thrombosis of the visualized lower extremities. Reviewed by: Yao Weeks MD on 09/29/2023 10:56 AM PST Approved by: Yao Weeks MD on 09/29/2023 10:56 AM PST Station ID: [id number]
--- NOTE | 2023-09-29 13:13 | PROVIDER PROGRESS NOTE ---
Assessment/Plan - Problem List (1) TOÑITO (acute kidney injury) Assessment/Plan: (1) Severe protein-calorie malnutrition Assessment/Plan: --Severe protein calorie malnutrition. Dietitian has been consulted. (2) Pneumonia Assessment/Plan: --CXR showing bilateral lower lobe PNA. --Stared on azithromycin and ceftriaxone. --Some concern for aspiration, PROGRAM MANAGER RN consulted but feel he does not require inpatient evaluation. (2) Hypokalemia Assessment/Plan: --Replacing potassium. (3) Hypomagnesemia Assessment/Plan: --Replacing Mg. (4) Fall at home Assessment/Plan: PT and OT eval and treatment He will likely need rehab and may need LTC placement (5) TOÑITO (acute kidney injury) Assessment/Plan: --Resolved. (6) Tobacco use Assessment/Plan: --DuoNeb PRN. (7) Leg edema Assessment/Plan: He has 2+ edema to mid shins. Possibly from hypo-osmotic pressure from low protein, but R/O CHF. --TTE was unremarkable. --LE DVT negative. (8) HTN (hypertension) Assessment/Plan: BP very elevated here (all VS reviewed). He has not seen a doctor in many years, so don't know if this is old and untreated or new Dx Plan: Amlodipine increased to 10 mg daily. (9) Inadequate social support Assessment/Plan: has lived alone x 20 yr in a log cabin need director social service / case mgmt to assist with placement - Current Meds Current Meds: Current Medications Generic Name Dose Route Start Last Admin Trade Name Freq PRN Reason Stop Dose Admin Acetaminophen 650 mg 09/24/23 21:12 09/25/23 06:40 Acetaminophen 325 Mg Tablet PO 650 mg Q6H PRN Administration Pain 1 to 4, or Fever Albuterol/Ipratropium 3 ml 09/28/23 18:04 09/28/23 18:14 Ipratropium/Albuterol 3 Ml Neb INH 3 ml Q4HR PRN Administration Wheezing Amlodipine Besylate 5 mg 09/26/23 09:00 09/29/23 08:01 Amlodipine 5 Mg Tablet PO 5 mg DAILY STEFANO Administration Ascorbic Acid 500 mg 09/25/23 09:00 09/29/23 08:00 Ascorbic Acid 500 Mg Tablet PO 500 mg DAILY STEFANO Administration Benzonatate 100 mg 09/24/23:18 09/29/23 08:00 Benzonatate 100 Mg Capsule PO 100 mg TID PRN Administration Cough Guaifenesin 600 mg 09/24/23 22:00 09/29/23 08:01 Guaifenesin 600 Mg Tablet PO 600 mg BID STEFANO Administration Ceftriaxone Sodium 2 gm/ 100 mls @ 200 mls/hr 09/27/23 09:00 09/29/23 08:01 Sodium Chloride IV 10/02/23 08:59 200 mls/hr DAILY STEFANO Administration Sodium Chloride 1,000 mls @ 20 mls/hr 09/27/23 09:00 09/27/23 09:00 Normal Saline 0.9% IV 20 mls/hr .Q48H STEFANO Administration TKO Morphine Sulfate 0.5 mg 09/28/23 18:04 09/28/23 18:20 Morphine 2 Mg/Ml Carpuject IVP 0.5 mg Q2HR PRN Administration Severe Pain (Level 7-10) Multi-Ingredient Ointment 1 applic 09/25/23 12:13 09/29/23 08:01 Zinc Oxide 20% Oint 30 Gm Tube TOP 1 applic PRN PRN Administration Skin Care Multivitamins/Minerals 1 tab 09/29/23 08:00 09/29/23 08:01 Multivitamin W/Minerals Tablet PO 1 tab DAILYWM STEFANO Administration Potassium Chloride 20 meq 09/26/23 11:00 09/29/23 08:01 Potassium Chloride 20 Meq Tablet PO 20 meq DAILYWM STEFANO Administration Sodium Chloride 10 ml 09/24/23 21:12 09/24/23 22:34 Sodium Chloride Flush 0.9% 10 Ml Syringe IVP 10 ml PRN PRN Administration NEEDED PER PROVIDER ORDERS Sodium Chloride 10 ml 09/25/23 01:00 09/29/23 08:00 Sodium Chloride Flush 0.9% 10 Ml Syringe IVP 10 ml 0100,0900,1700 STEFANO Administration - Lab Result Fish Bone Diagrams: 09/29/23 05:57 09/29/23 05:57 - Additional Planning My Orders: My Active Orders 09/28/23 Dinner Dysphagia - Puree [DIET] 09/28/23 18:04 Nebulizer/MDI Tx. [RC] .PRN Resp Teach Nebulizer/MDI [RC] .ONCE Ipratropium/Albuterol [Duoneb] 3 ml INH Q4HR PRN Morphine Inj (Carpuject) [Morphine (Carpuject)] 0.5 mg IVP Q2HR PRN 09/29/23 08:00 Multivitamin W/Minerals [Theragran M] 1 tab PO DAILYWM 09/30/23 05:00 BMP - BASIC METABOLIC PANEL [CHEM] DAILYLAB CBC [CBC - COMP BLD CT W/AUTO DIFF] [HEME] DAILYLAB 10/01/23 05:00 BMP - BASIC METABOLIC PANEL [CHEM] DAILYLAB CBC [CBC - COMP BLD CT W/AUTO DIFF] [HEME] DAILYLAB 10/02/23 05:00 BMP - BASIC METABOLIC PANEL [CHEM] DAILYLAB CBC [CBC - COMP BLD CT W/AUTO DIFF] [HEME] DAILYLAB 10/03/23 05:00 BMP - BASIC METABOLIC PANEL [CHEM] DAILYLAB CBC [CBC - COMP BLD CT W/AUTO DIFF] [HEME] DAILYLAB Subjective - Subjective Patient Reports: Feeling Better, Resting Comfortably, No Complaints Objective Vital Signs: Vital Signs - 24 hr 09/28/23 09/28/23 09/28/23 15:41 18:10 18:17 Temperature 36.8 C Heart Rate 85 Heart Rate [ 82 Brachial] Respiratory 20 16 Rate Blood Pressure 145/90 H [Right Brachial artery] O2 Saturation 93 92 09/28/23 09/28/23 09/28/23 18:22 20:00 23:25 Temperature 36.7 C 36.6 C Heart Rate Heart Rate [ 76 67 Brachial] Respiratory 20 18 Rate Blood Pressure 145/85 H 156/98 H [Right Brachial artery] O2 Saturation 99 94 94 09/29/23 09/29/23 09/29/23 04:14 07:44 12:25 Temperature 36.6 C 36.7 C 36.1 C L Heart Rate Heart Rate [ 69 70 71 Brachial] Respiratory 18 20 20 Rate Blood Pressure 153/100 H 174/98 H 166/98 H [Right Brachial artery] O2 Saturation 94 93 93 Oxygen O2 Source Room air I&O (Last 24 Hrs): Intake and Output Totals x24h 09/27/23 09/28/23 09/29/23 23:59 23:59 23:59 Intake Total 2173.333 1040 200 Output Total 1500 1500 1175 Balance 673.333 -446 -075 General: Alert, Oriented x3 Neuro: Alert Cardiovascular: Regular rate, Normal S1, Normal S2 Respiratory: Chest non-tender, No respiratory distress, Breath sounds nml Abdomen: Normal bowel sounds, Soft - Results Results: Laboratory Results WBC 7.9 x10^3/uL (4.8-10.8) 09/29/23 05:57 RBC 3.70 10^6/uL (4.70-6.10) L 09/29/23 05:57 Hgb 11.4 g/dL (14.0-18.0) L 09/29/23 05:57 Hct 34.8 % (42.0-52.0) L 09/29/23 05:57 MCV 94.1 fL (80.0-94.0) H 09/29/23 05:57 MCH 30.8 pg (27.0-31.0) 09/29/23 05:57 MCHC 32.8 g/dL (32.0-36.0) 09/29/23 05:57 RDW 12.6 % (12.0-15.0) 09/29/23 05:57 Plt Count 188 10^3/uL (130-450) 09/29/23 05:57 MPV 10.0 fL (7.4-11.4) 09/29/23 05:57 Neut # (Auto) 6.1 10^3/uL (1.5-6.6) 09/29/23 05:57 Lymph # (Auto) 1.1 10^3/uL (1.5-3.5) L 09/29/23 05:57 [place] # (Auto) 0.6 10^3/uL (0.0-1.0) 09/29/23 05:57 Eos # (Auto) 0.1 10^3/uL (0.0-0.7) 09/29/23 05:57 Baso # (Auto) 0.1 10^3/uL (0.0-0.1) 09/29/23 05:57 Absolute Nucleated RBC 0.00 x10^3/uL 09/29/23 05:57 Nucleated RBC % 0.0 /100WBC 09/29/23 05:57 VBG pH 7.353 (7.31-7.41) 09/24/23 16:44 VBG pCO2 43.4 mmHg (41-51) 09/24/23 16:44 VBG pO2 25.3 mmHg (25-47) 09/24/23 16:44 VBG HCO3 23.6 mmol/L (23-28) 09/24/23 16:44 VBG Total CO2 24.9 mmol/L (24-29) 09/24/23 16:44 VBG O2 Saturation 46.4 % (60-80) L 09/24/23 16:44 VBG Base Excess -2.0 mmol/L (-2 - +2) 09/24/23 16:44 Sodium 141 mmol/L (135-145) 09/29/23 05:57 Potassium 4.0 mmol/L (3.5-4.5) 09/29/23 05:57 Chloride 110 mmol/L (101-111) 09/29/23 05:57 Carbon Dioxide 23 mmol/L (21-32) 09/29/23 05:57 Anion Gap 8.0 (6-13) 09/29/23 05:57 BUN 30 mg/dL (6-20) H 09/29/23 05:57 Creatinine 1.1 mg/dL (0.6-1.3) 09/29/23 05:57 Estimated GFR (MDRD) 66 (>89) L 09/29/23 05:57 Glucose 79 mg/dL (74-104) 09/29/23 05:57 Estimat Average Glucose 117 mg/dL (70-100) H 09/24/23 21:30 Hemoglobin A1c % 5.7 % (4.27-6.07) 09/24/23 21:30 Lactic Acid 1.8 mmol/L (0.5-2.2) 09/24/23 21:30 Calcium 8.2 mg/dL (8.5-10.3) L 09/29/23 05:57 Phosphorus 3.5 mg/dL (2.5-5.0) 09/26/23 05:24 Magnesium 1.8 mg/dL (1.7-2.3) 09/26/23 05:24 Total Bilirubin 0.3 mg/dL (0.2-1.0) 09/25/23 05:35 AST 23 IU/L (10-42) 09/25/23 05:35 ALT 13 IU/L (10-60) 09/25/23 05:35 Alkaline Phosphatase 90 IU/L (42-121) 09/25/23 05:35 Total Protein 5.4 g/dL (6.4-8.9) L 09/25/23 05:35 Albumin 2.9 g/dL (3.2-5.5) L 09/25/23 05:35 Globulin 2.5 g/dL (2.1-4.2) 09/25/23 05:35 Albumin/Globulin Ratio 1.2 (1.0-2.2) 09/25/23 05:35 Triglycerides 68 mg/dL (48-352) 09/24/23 21:30 Cholesterol 117 mg/dL (-200) 09/24/23 21:30 LDL Cholesterol, Calc 45 mg/dL (-129) 09/24/23 21:30 VLDL Cholesterol 14 mg/dL 09/24/23 21:30 HDL Cholesterol 58 mg/dL (60-) L 09/24/23 21:30 LDL/HDL Ratio 0.8 (<3.6) 09/24/23 21:30 Cholesterol/HDL Ratio 2.0 (<5.0) 09/24/23 21:30 Procalcitonin Immunoas 0.32 ng/mL (<0.5) 09/24/23 21:30 TSH 1.91 uIU/mL (0.34-5.60) 09/24/23 21:30 Urine Color YELLOW 09/25/23 13:30 Urine Clarity CLEAR (CLEAR) 09/25/23 13:30 Urine pH 6.0 PH (5.0-7.5) 09/25/23 13:30 Ur Specific [place] 1.025 (1.002-1.030) 09/25/23 13:30 Urine Protein TRACE mg/dL (NEGATIVE) 09/25/23 13:30 Urine Glucose (UA) NEGATIVE mg/dL (NEGATIVE) 09/25/23 13:30 Urine Ketones NEGATIVE mg/dL (NEGATIVE) 09/25/23 13:30 Urine Occult Blood NEGATIVE (NEGATIVE) 09/25/23 13:30 Urine Nitrite NEGATIVE (NEGATIVE) 09/25/23 13:30 Urine Bilirubin NEGATIVE (NEGATIVE) 09/25/23 13:30 Urine Urobilinogen 0.2 (NORMAL) E.U./dL (NORMAL) 09/25/23 13:30 Ur Leukocyte Esterase TRACE (NEGATIVE) H 09/25/23 13:30 Urine RBC 0-5 /HPF (0-5) 09/25/23 13:30 Urine WBC 0-3 /HPF (0-3) 09/25/23 13:30 Ur Squamous Epith Cells NONE SEEN (<= Few) 09/25/23 13:30 Urine Bacteria Few /HPF (None Seen) 09/25/23 13:30 Ur Microscopic Review INDICATED 09/25/23 13:30 Urine Culture Comments INDICATED 09/25/23 13:30 Nasal Adenovirus (PCR) NOT DETECTED 09/24/23 21:30 Nasal B. parapertussis DNA (PCR) NOT DETECTED 09/24/23 21:30 Nasal Coronavir 229E PCR NOT DETECTED 09/24/23 21:30 Nasal Coronavir HKU1 PCR NOT DETECTED 09/24/23 21:30 Nasal Coronavir NL63 PCR NOT DETECTED 09/24/23 21:30 Nasal Coronavir OC43 PCR NOT DETECTED 09/24/23 21:30 Nasal Enterovir/Rhinovir PCR NOT DETECTED 09/24/23 21:30 Nasal Influenza B PCR NOT DETECTED 09/24/23 21:30 Nasal Influenza A PCR NOT DETECTED 09/24/23 21:30 Nasal Parainfluen 1 PCR NOT DETECTED 09/24/23 21:30 Nasal Parainfluen 2 PCR NOT DETECTED 12 21:30 Nasal Parainfluen 3 PCR NOT DETECTED 09/24/23 21:30 Nasal Parainfluen 4 PCR NOT DETECTED 09/24/23 21:30 Nasal RSV (PCR) NOT DETECTED 09/24/23 21:30 Nasal B.pertussis DNA PCR NOT DETECTED 09/24/23 21:30 Nasal C.pneumoniae (PCR) NOT DETECTED 09/24/23 21:30 Thom Human Metapneumo PCR NOT DETECTED 09/24/23 21:30 Nasal M.pneumoniae (PCR) NOT DETECTED 09/24/23 21:30 Nasal SARS-CoV-2 (PCR) NOT DETECTED 09/24/23 21:30 Urine Opiates Screen NEGATIVE (NEGATIVE) 09/25/23 13:30 Ur Buprenorphine Scrn NEGATIVE (NEGATIVE) 09/25/23 13:30 Ur Oxycodone Screen NEGATIVE (NEGATIVE) 09/25/23 13:30 Urine Methadone Screen NEGATIVE (NEGATIVE) 09/25/23 13:30 Ur Barbiturates Screen NEGATIVE (NEGATIVE) 09/25/23 13:30 Ur Tricyclics Screen NEGATIVE (NEGATIVE) 09/25/23 13:30 Ur Phencyclidine Scrn NEGATIVE (NEGATIVE) 09/25/23 13:30 Ur Amphetamine Screen NEGATIVE (NEGATIVE) 09/25/23 13:30 U Methamphetamines Scrn NEGATIVE (NEGATIVE) 09/25/23 13:30 U Benzodiazepines Scrn NEGATIVE (NEGATIVE) 09/25/23 13:30 Urine Cocaine Screen NEGATIVE (NEGATIVE) 09/25/23 13:30 U Cannabinoids Screen NEGATIVE (NEGATIVE) 09/25/23 13:30 Ur Drug Screen Comment CUTOFF CONC BELOW: 09/25/23 13:30 Ethyl Alcohol < 10.0 mg/dL 09/24/23 16:44
[2023-09-29] MEDS: SODIUM CHLORIDE 0.9% 1,000 ML IV SCH (17:56)
[2023-09-30] MEDS: SODIUM CHLORIDE FLUSH 0.9% 10 ML SYRINGE IVP SCH ×3 (00:13→20:56)
[2023-09-30 06:05] LABS: BASOPHILS # (AUTO) 0.1 10^3/uL (0.0-0.1); BASOPHILS % (AUTO) 0.6 %; EOSINOPHILS # (AUTO) 0.1 10^3/uL (0.0-0.7); EOSINOPHILS % (AUTO) 1.2 %; HCT - HEMATOCRIT 35.3 % (42.0-52.0); HGB - HEMOGLOBIN 11.6 g/dL (14.0-18.0); LYMPHOCYTES # (AUTO) 1.1 10^3/uL (1.5-3.5); LYMPHOCYTES % (AUTO) 12.5 %; MEAN CORPUSCULAR HEMOGLOBIN 31.5 pg (27.0-31.0); MEAN CORPUSCULAR HGB CONC 32.9 g/dL (32.0-36.0); MEAN CORPUSCULAR VOLUME 95.9 fL (80.0-94.0); MEAN PLATELET VOLUME 9.7 fL (7.4-11.4); MONOCYTES # (AUTO) 0.6 10^3/uL (0.0-1.0); MONOCYTES % (AUTO) 7.1 %; NEUTROPHILS # (AUTO) 6.6 10^3/uL (1.5-6.6); PLT - PLATELET COUNT 162 10^3/uL (130-450); RED BLOOD COUNT 3.68 10^6/uL (4.70-6.10); RED CELL DISTRIBUTION WIDTH 12.9 % (12.0-15.0); WHITE BLOOD COUNT 8.5 x10^3/uL (4.8-10.8)
[2023-09-30 06:27] LABS: CALCIUM 8.5 mg/dL (8.5-10.3); CREATININE 1.1 mg/dL (0.6-1.3)
[2023-09-30] MEDS: cefTRIAXone 2 GM in SODIUM CHLORIDE 0.9% MINIBAG 100 ML IV SCH (08:40)
[2023-09-30] MEDS: amLODIPine 5 MG TABLET PO SCH (08:40)
[2023-09-30] MEDS: guaiFENesin 600 MG TABLET PO SCH ×2 (08:40→20:57)
[2023-09-30] MEDS: POTASSIUM CHLORIDE 20 MEQ TABLET PO SCH (08:40)
[2023-09-30] MEDS: ASCORBIC ACID 500 MG TABLET PO SCH (08:40)
[2023-09-30] MEDS: MULTIVITAMIN W/MINERALS TABLET PO SCH (08:40)
[2023-09-30] MEDS: IPRATROPIUM/ALBUTEROL 3 ML NEB INH PRN ×2 (11:03→15:57)
--- NOTE | 2023-09-30 11:43 | PROVIDER PROGRESS NOTE ---
Assessment/Plan - Problem List (1) TOÑITO (acute kidney injury) Assessment/Plan: (1) Severe protein-calorie malnutrition Assessment/Plan: --Severe protein calorie malnutrition. Dietitian has been consulted. --He is being encouraged to eat. (2) Pneumonia Assessment/Plan: --CXR showing bilateral lower lobe PNA. --Stared on azithromycin and ceftriaxone. --Some concern for aspiration, DUE DILIGENCE COORDINATOR consulted but feel he does not require urgent evaluation. (2) Hypokalemia Assessment/Plan: --Replacing potassium. (3) Hypomagnesemia Assessment/Plan: --Replacing Mg. (4) Fall at home Assessment/Plan: PT and OT eval and treatment He will likely need rehab and may need LTC placement however he is opposed to this. (5) TOÑITO (acute kidney injury) Assessment/Plan: --Resolved. (6) Tobacco use Assessment/Plan: --DuoNeb PRN. (7) Leg edema Assessment/Plan: He has 2+ edema to mid shins. Possibly from hypo-osmotic pressure from low protein, but R/O CHF. --TTE was unremarkable. --LE DVT negative. (8) HTN (hypertension) Assessment/Plan: BP very elevated here (all VS reviewed). He has not seen a doctor in many years, so don't know if this is old and untreated or new Dx Plan: Amlodipine increased to 10 mg daily. Started HCTZ 12.5 mg (9) Inadequate social support Assessment/Plan: has lived alone x 20 yr in a log cabin need manager social media / case mgmt to assist with placement Dispo: Medically stable. Requires placement. Currently unwilling to work with SW on placement but he is not safe to return home due to his failure to thrive. - Current Meds Current Meds: Current Medications Generic Name Dose Route Start Last Admin Trade Name Freq PRN Reason Stop Dose Admin Acetaminophen 650 mg 09/24/23 21:12 09/25/23 06:40 Acetaminophen 325 Mg Tablet PO 650 mg Q6H PRN Administration Pain 1 to 4, or Fever Albuterol/Ipratropium 3 ml 09/28/23 18:04 09/30/23 11:03 Ipratropium/Albuterol 3 Ml Neb INH 3 ml Q4HR PRN Administration Wheezing Amlodipine Besylate 10 mg 09/30/23 09:00 09/30/23 08:40 Amlodipine 5 Mg Tablet PO 10 mg DAILY STEFANO Administration Ascorbic Acid 500 mg 09/25/23 09:00 09/30/23 08:40 Ascorbic Acid 500 Mg Tablet PO 500 mg DAILY STEFANO Administration Benzonatate 100 mg 09/24/23 21:18 09/29/23 08:00 Benzonatate 100 Mg Capsule PO 100 mg TID PRN Administration Cough Guaifenesin 600 mg 09/24/23 22:00 09/30/23 08:40 Guaifenesin 600 Mg Tablet PO 600 mg BID STEFANO Administration Ceftriaxone Sodium 2 gm/ 100 mls @ 200 mls/hr 09/27/23 09:00 09/30/23 08:40 Sodium Chloride IV 10/02/23 08:59 200 mls/hr DAILY STEFANO Administration Sodium Chloride 1,000 mls @ 20 mls/hr 09/27/23 09:00 09/29/23 17:56 Normal Saline 0.9% IV Not Given .Q48H STEFANO TKO Morphine Sulfate 0.5 mg 09/28/23 18:04 09/28/23 18:20 Morphine 2 Mg/Ml Carpuject IVP 0.5 mg Q2HR PRN Administration Severe Pain (Level 7-10) Multi-Ingredient Ointment 1 applic 09/25/23 12:13 09/29/23 18:49 Zinc Oxide 20% Oint 30 Gm Tube TOP 1 applic PRN PRN Administration Skin Care Multivitamins/Minerals 1 tab 09/29/23 08:00 09/30/23 08:40 Multivitamin W/Minerals Tablet PO 1 tab DAILYWM STEFANO Administration Potassium Chloride 20 meq 09/26/23 11:00 09/30/23 08:40 Potassium Chloride 20 Meq Tablet PO 20 meq DAILYWM STEFANO Administration Sodium Chloride 10 ml 09/24/23 21:12 09/24/23 22:34 Sodium Chloride Flush 0.9% 10 Ml Syringe IVP 10 ml PRN PRN Administration NEEDED PER PROVIDER ORDERS Sodium Chloride 10 ml 09/25/23 01:00 09/30/23 08:41 Sodium Chloride Flush 0.9% 10 Ml Syringe IVP 10 ml 0100,0900,1700 STEFANO Administration - Lab Result Fish Bone Diagrams: 09/30/23 05:50 09/30/23 05:50 - Additional Planning My Orders: My Active Orders 09/30/23 09:00 amLODIPine [Norvasc] 10 mg PO DAILY 10/01/23 05:00 BMP - BASIC METABOLIC PANEL [CHEM] DAILYLAB CBC [CBC - COMP BLD CT W/AUTO DIFF] [HEME] DAILYLAB 10/02/23 05:00 BMP - BASIC METABOLIC PANEL [CHEM] DAILYLAB CBC [CBC - COMP BLD CT W/AUTO DIFF] [HEME] DAILYLAB 10/03/23 05:00 BMP - BASIC METABOLIC PANEL [CHEM] DAILYLAB CBC [CBC - COMP BLD CT W/AUTO DIFF] [HEME] DAILYLAB Subjective - Subjective Patient Reports: Feeling Better, Resting Comfortably, No Complaints Objective Vital Signs: Vital Signs - 24 hr 09/29/23 09/29/23 09/29/23 12:25 15:59 20:50 Temperature 36.1 C L 36.7 C 36.7 C Heart Rate Heart Rate [ 71 76 85 Brachial] Respiratory 20 20 20 Rate Blood Pressure [Left Brachial artery] Blood Pressure 166/98 H 159/98 H 157/113 H [Right Brachial artery] Blood Pressure [Right Radial artery] O2 Saturation 93 93 94 09/29/23 09/30/23 09/30/23 23:48 04:32 09:00 Temperature 36.8 C 37.1 C 36.7 C Heart Rate Heart Rate [ 74 75 79 Brachial] Respiratory 16 16 16 Rate Blood Pressure 163/100 H [Left Brachial artery] Blood Pressure [Right Brachial artery] Blood Pressure 171/99 H 151/101 H [Right Radial artery] O2 Saturation 92 94 95 09/30/23 11:05 Temperature Heart Rate 79 Heart Rate [ Brachial] Respiratory 16 Rate Blood Pressure [Left Brachial artery] Blood Pressure [Right Brachial artery] Blood Pressure [Right Radial artery] O2 Saturation Oxygen O2 Source Room air I&O (Last 24 Hrs): Intake and Output Totals x24h 09/28/23 09/29/23 09/30/23 23:59 23:59 23:59 Intake Total 1040 1640 120 Output Total 1500 2050 640 Balance -460 -410 -520 General: Alert, Oriented x3 Neuro: Alert Cardiovascular: Regular rate, Normal S1, Normal S2 Respiratory: Chest non-tender, Other (cough) Abdomen: Normal bowel sounds, No tenderness Extremities: No clubbing, Other (Edema) - Results Results: Laboratory Results WBC 8.5 x10^3/uL (4.8-10.8) 09/30/23 05:50 RBC 3.68 10^6/uL (4.70-6.10) L 09/30/23 05:50 Hgb 11.6 g/dL (14.0-18.0) L 09/30/23 05:50 Hct 35.3 % (42.0-52.0) L 09/30/23 05:50 MCV 95.9 fL (80.0-94.0) H 09/30/23 05:50 MCH 31.5 pg (27.0-31.0) H 09/30/23 05:50 MCHC 32.9 g/dL (32.0-36.0) 09/30/23 05:50 RDW 12.9 % (12.0-15.0) 09/30/23 05:50 Plt Count 162 10^3/uL (130-450) 09/30/23 05:50 MPV 9.7 fL (7.4-11.4) 09/30/23 05:50 Neut # (Auto) 6.6 10^3/uL (1.5-6.6) 09/30/23 05:50 Lymph # (Auto) 1.1 10^3/uL (1.5-3.5) L 09/30/23 05:50 [place] # (Auto) 0.6 10^3/uL (0.0-1.0) 09/30/23 05:50 Eos # (Auto) 0.1 10^3/uL (0.0-0.7) 09/30/23 05:50 Baso # (Auto) 0.1 10^3/uL (0.0-0.1) 09/30/23 05:50 Absolute Nucleated RBC 0.00 x10^3/uL 09/30/23 05:50 Nucleated RBC % 0.0 /100WBC 09/30/23 05:50 VBG pH 7.353 (7.31-7.41) 09/24/23 16:44 VBG pCO2 43.4 mmHg (41-51) 09/24/23 16:44 VBG pO2 25.3 mmHg (25-47) 09/24/23 16:44 VBG HCO3 23.6 mmol/L (23-28) 09/24/23 16:44 VBG Total CO2 24.9 mmol/L (24-29) 09/24/23 16:44 VBG O2 Saturation 46.4 % (60-80) L 09/24/23 16:44 VBG Base Excess -2.0 mmol/L (-2 - +2) 09/24/23 16:44 Sodium 142 mmol/L (135-145) 09/30/23 05:50 Potassium 4.0 mmol/L (3.5-4.5) 09/30/23 05:50 Chloride 110 mmol/L (101-111) 09/30/23 05:50 Carbon Dioxide 28 mmol/L (21-32) 09/30/23 05:50 Anion Gap 4.0 (6-13) L 09/30/23 05:50 BUN 32 mg/dL (6-20) H 09/30/23 05:50 Creatinine 1.1 mg/dL (0.6-1.3) 09/30/23 05:50 Estimated GFR (MDRD) 66 (>89) L 09/30/23 05:50 Glucose 73 mg/dL (74-104) L 09/30/23 05:50 Estimat Average Glucose 117 mg/dL (70-100) H 09/24/23 21:30 Hemoglobin A1c % 5.7 % (4.27-6.07) 09/24/23 21:30 Lactic Acid 1.8 mmol/L (0.5-2.2) 09/24/23 21:30 Calcium 8.5 mg/dL (8.5-10.3) 09/30/23 05:50 Phosphorus 3.5 mg/dL (2.5-5.0) 09/26/23 05:24 Magnesium 1.8 mg/dL (1.7-2.3) 09/26/23 05:24 Total Bilirubin 0.3 mg/dL (0.2-1.0) 09/25/23 05:35 AST 23 IU/L (10-42) 09/25/23 05:35 ALT 13 IU/L (10-60) 09/25/23 05:35 Alkaline Phosphatase 90 IU/L (42-121) 09/25/23 05:35 Total Protein 5.4 g/dL (6.4-8.9) L 09/25/23 05:35 Albumin 2.9 g/dL (3.2-5.5) L 09/25/23 05:35 Globulin 2.5 g/dL (2.1-4.2) 09/25/23 05:35 Albumin/Globulin Ratio 1.2 (1.0-2.2) 09/25/23 05:35 Triglycerides 68 mg/dL (48-352) 09/24/23 21:30 Cholesterol 117 mg/dL (-200) 09/24/23 21:30 LDL Cholesterol, Calc 45 mg/dL (-129) 09/24/23 21:30 VLDL Cholesterol 14 mg/dL 09/24/23 21:30 HDL Cholesterol 58 mg/dL (60-) L 09/24/23 21:30 LDL/HDL Ratio 0.8 (<3.6) 09/24/23 21:30 Cholesterol/HDL Ratio 2.0 (<5.0) 09/24/23 21:30 Procalcitonin Immunoas 0.32 ng/mL (<0.5) 09/24/23 21:30 TSH 1.91 uIU/mL (0.34-5.60) 09/24/23 21:30 Urine Color YELLOW 09/25/23 13:30 Urine Clarity CLEAR (CLEAR) 09/25/23 13:30 Urine pH 6.0 PH (5.0-7.5) 09/25/23 13:30 Ur Specific [place] 1.025 (1.002-1.030) 09/25/23 13:30 Urine Protein TRACE mg/dL (NEGATIVE) 09/25/23 13:30 Urine Glucose (UA) NEGATIVE mg/dL (NEGATIVE) 09/25/23 13:30 Urine Ketones NEGATIVE mg/dL (NEGATIVE) 09/25/23 13:30 Urine Occult Blood NEGATIVE (NEGATIVE) 09/25/23 13:30 Urine Nitrite NEGATIVE (NEGATIVE) 09/25/23 13:30 Urine Bilirubin NEGATIVE (NEGATIVE) 09/25/23 13:30 Urine Urobilinogen 0.2 (NORMAL) E.U./dL (NORMAL) 09/25/23 13:30 Ur Leukocyte Esterase TRACE (NEGATIVE) H 09/25/23 13:30 Urine RBC 0-5 /HPF (0-5) 09/25/23 13:30 Urine WBC 0-3 /HPF (0-3) 09/25/23 13:30 Ur Squamous Epith Cells NONE SEEN (<= Few) 09/25/23 13:30 Urine Bacteria Few /HPF (None Seen) 09/25/23 13:30 Ur Microscopic Review INDICATED 09/25/23 13:30 Urine Culture Comments INDICATED 09/25/23 13:30 Nasal Adenovirus (PCR) NOT DETECTED 09/24/23 21:30 Nasal B. parapertussis DNA (PCR) NOT DETECTED 09/24/23 21:30 Nasal Coronavir 229E PCR NOT DETECTED 09/24/23 21:30 Nasal Coronavir HKU1 PCR NOT DETECTED 09/24/23 21:30 Nasal Coronavir NL63 PCR NOT DETECTED 09/24/23 21:30 Nasal Coronavir OC43 PCR NOT DETECTED 09/24/23 21:30 Nasal Enterovir/Rhinovir PCR NOT DETECTED 09/24/23 21:30 Nasal Influenza B PCR NOT DETECTED 09/24/23 21:30 Nasal Influenza A PCR NOT DETECTED 09/24/23 21:30 Nasal Parainfluen 1 PCR NOT DETECTED 09/24/23 21:30 Nasal Parainfluen 2 PCR NOT DETECTED 09/24/23 21:30 Nasal Parainfluen 3 PCR NOT DETECTED 09/24/23 21:30 Nasal Parainfluen 4 PCR NOT DETECTED 09/24/23 21:30 Nasal RSV (PCR) NOT DETECTED 09/24/23 21:30 Nasal B.pertussis DNA PCR NOT DETECTED 09/24/23 21:30 Nasal C.pneumoniae (PCR) NOT DETECTED 09/24/23 21:30 Thom Human Metapneumo PCR NOT DETECTED 09/24/23 21:30 Nasal M.pneumoniae (PCR) NOT DETECTED 09/24/23 21:30 Nasal SARS-CoV-2 (PCR) NOT DETECTED 09/24/23 21:30 Urine Opiates Screen NEGATIVE (NEGATIVE) 09/25/23 13:30 Ur Buprenorphine Scrn NEGATIVE (NEGATIVE) 09/25/23 13:30 Ur Oxycodone Screen NEGATIVE (NEGATIVE) 09/25/23 13:30 Urine Methadone Screen NEGATIVE (NEGATIVE) 09/25/23 13:30 Ur Barbiturates Screen NEGATIVE (NEGATIVE) 09/25/23 13:30 Ur Tricyclics Screen NEGATIVE (NEGATIVE) 09/25/23 13:30 Ur Phencyclidine Scrn NEGATIVE (NEGATIVE) 09/25/23 13:30 Ur Amphetamine Screen NEGATIVE (NEGATIVE) 09/25/23 13:30 U Methamphetamines Scrn NEGATIVE (NEGATIVE) 09/25/23 13:30 U Benzodiazepines Scrn NEGATIVE (NEGATIVE) 09/25/23 13:30 Urine Cocaine Screen NEGATIVE (NEGATIVE) 09/25/23 13:30 U Cannabinoids Screen NEGATIVE (NEGATIVE) 09/25/23 13:30 Ur Drug Screen Comment CUTOFF CONC BELOW: 09/25/23 13:30 Ethyl Alcohol < 10.0 mg/dL 09/24/23 16:44
[2023-09-30] MEDS: IPRATROPIUM/ALBUTEROL 3 ML NEB INH SCH (19:34)
[2023-09-30] MEDS: ZINC OXIDE 20% OINT 30 GM TUBE TOP PRN (22:01)
[2023-10-01] MEDS: SODIUM CHLORIDE FLUSH 0.9% 10 ML SYRINGE IVP SCH ×3 (00:57→15:59)
[2023-10-01 06:03] LABS: BASOPHILS # (AUTO) 0.1 10^3/uL (0.0-0.1); BASOPHILS % (AUTO) 0.6 %; EOSINOPHILS # (AUTO) 0.1 10^3/uL (0.0-0.7); HCT - HEMATOCRIT 34.1 % (42.0-52.0); HGB - HEMOGLOBIN 11.2 g/dL (14.0-18.0); LYMPHOCYTES # (AUTO) 1.2 10^3/uL (1.5-3.5); LYMPHOCYTES % (AUTO) 13.4 %; MEAN CORPUSCULAR HEMOGLOBIN 31.8 pg (27.0-31.0); MEAN CORPUSCULAR HGB CONC 32.8 g/dL (32.0-36.0); MEAN CORPUSCULAR VOLUME 96.9 fL (80.0-94.0); MEAN PLATELET VOLUME 9.6 fL (7.4-11.4); MONOCYTES # (AUTO) 0.6 10^3/uL (0.0-1.0); MONOCYTES % (AUTO) 6.7 %; NEUTROPHILS % (AUTO) 77.9 %; PLT - PLATELET COUNT 153 10^3/uL (130-450); RED BLOOD COUNT 3.52 10^6/uL (4.70-6.10); RED CELL DISTRIBUTION WIDTH 12.8 % (12.0-15.0)
[2023-10-01 06:15] LABS: CALCIUM 8.8 mg/dL (8.5-10.3); POTASSIUM 4.3 mmol/L (3.5-4.5)
[2023-10-01] MEDS: IPRATROPIUM/ALBUTEROL 3 ML NEB INH SCH ×5 (06:44→21:20)
[2023-10-01] MEDS: POTASSIUM CHLORIDE 20 MEQ TABLET PO SCH (08:48)
[2023-10-01] MEDS: MULTIVITAMIN W/MINERALS TABLET PO SCH (08:48)
[2023-10-01] MEDS: amLODIPine 5 MG TABLET PO SCH (08:49)
[2023-10-01] MEDS: ASCORBIC ACID 500 MG TABLET PO SCH (08:49)
[2023-10-01] MEDS: cefTRIAXone 2 GM in SODIUM CHLORIDE 0.9% MINIBAG 100 ML IV SCH (08:49)
[2023-10-01] MEDS: guaiFENesin 600 MG TABLET PO SCH ×2 (08:49→21:14)
[2023-10-01] MEDS: hydroCHLOROthiazide 12.5 MG CAPSULE PO SCH (08:56)
--- NOTE | 2023-10-01 09:07 | PROVIDER PROGRESS NOTE ---
Assessment/Plan - Problem List (1) TOÑITO (acute kidney injury) Assessment/Plan: (1) Severe protein-calorie malnutrition Assessment/Plan: --Severe protein calorie malnutrition. Dietitian has been consulted. --He is being encouraged to eat. (2) Pneumonia Assessment/Plan: --CXR showing bilateral lower lobe PNA. --Stared on azithromycin and ceftriaxone. --Some concern for aspiration, WILDLIFE SCIENCE PROFESSOR consulted but feel he does not require urgent evaluation. (2) Hypokalemia Assessment/Plan: --Replacing potassium. (3) Hypomagnesemia Assessment/Plan: --Replacing Mg. (4) Fall at home Assessment/Plan: PT and OT eval and treatment He will likely need rehab and may need LTC placement however he is opposed to this. --I did discuss that he needs to get up and work with PT/OT on Monday, he was agreeable. (5) TOÑITO (acute kidney injury) Assessment/Plan: --Resolved. (6) Tobacco use Assessment/Plan: --DuoNeb PRN. (7) Leg edema Assessment/Plan: He has 2+ edema to mid shins. Possibly from hypo-osmotic pressure from low protein, but R/O CHF. --TTE was unremarkable. --LE DVT negative. (8) HTN (hypertension) Assessment/Plan: BP very elevated here (all VS reviewed). He has not seen a doctor in many years, so don't know if this is old and untreated or new Dx Plan: Amlodipine increased to 10 mg daily. Started HCTZ 12.5 mg (9) Inadequate social support Assessment/Plan: has lived alone x 20 yr in a [place] need social human services assistants / case mgmt to assist with placement Dispo: Medically stable. Requires placement. Currently unwilling to work with SW on placement but he is not safe to return home due to his failure to thrive. - Current Meds Current Meds: Current Medications Generic Name Dose Route Start Last Admin Trade Name Freq PRN Reason Stop Dose Admin Acetaminophen 650 mg 09/24/23 21:12 09/25/23 06:40 Acetaminophen 325 Mg Tablet PO 650 mg Q6H PRN Administration Pain 1 to 4, or Fever Albuterol/Ipratropium 3 ml 09/30/23 19:00 10/01/23 06:44 Ipratropium/Albuterol 3 Ml Neb INH 3 ml RTQID STEFANO Administration Amlodipine Besylate 10 mg 09/30/23 09:00 10/01/23 08:49 Amlodipine 5 Mg Tablet PO 10 mg DAILY STEFANO Administration Ascorbic Acid 500 mg 09/25/23 09:00 10/01/23 08:49 Ascorbic Acid 500 Mg Tablet PO 500 mg DAILY STEFANO Administration Benzonatate 100 mg 09/24/23 21:18 09/29/23 08:00 Benzonatate 100 Mg Capsule PO 100 mg TID PRN Administration Cough Guaifenesin 600 mg 09/24/23 22:00 10/01/23 08:49 Guaifenesin 600 Mg Tablet PO 600 mg BID STEFANO Administration Hydrochlorothiazide 12.5 mg 10/01/23 09:00 10/01/23 08:56 Hydrochlorothiazide 12.5 Mg Capsule PO 12.5 mg DAILY STEFANO Administration Ceftriaxone Sodium 2 gm/ 100 mls @ 200 mls/hr 09/27/23 09:00 10/01/23 08:49 Sodium Chloride IV 10/02/23 08:59 200 mls/hr DAILY STEFANO Administration Sodium Chloride 1,000 mls @ 20 mls/hr 09/27/23 09:00 09/29/23 17:56 Normal Saline 0.9% IV Not Given .Q48H STEFANO TKO Morphine Sulfate 0.5 mg 09/28/23 18:04 09/28/23 18:20 Morphine 2 Mg/Ml Carpuject IVP 0.5 mg Q2HR PRN Administration Severe Pain (Level 7-10) Multi-Ingredient Ointment 1 applic 09/25/23 12:13 09/30/23 22:01 Zinc Oxide 20% Oint 30 Gm Tube TOP 1 applic PRN PRN Administration Skin Care Multivitamins/Minerals 1 tab 09/29/23 08:00 10/01/23 08:48 Multivitamin W/Minerals Tablet PO 1 tab DAILYWM STEFANO Administration Potassium Chloride 20 meq 09/26/23 11:00 10/01/23 08:48 Potassium Chloride 20 Meq Tablet PO 20 meq DAILYWM STEFANO Administration Sodium Chloride 10 ml 09/24/23 21:12 09/24/23 22:34 Sodium Chloride Flush 0.9% 10 Ml Syringe IVP 10 ml PRN PRN Administration NEEDED PER PROVIDER ORDERS Sodium Chloride 10 ml 09/25/23 01:00 10/01/23 08:53 Sodium Chloride Flush 0.9% 10 Ml Syringe IVP 10 ml 0100,0900,1700 STEFANO Administration - Lab Result Fish Bone Diagrams: 10/01/23 05:47 10/01/23 05:47 - Additional Planning My Orders: My Active Orders 09/30/23 09:00 amLODIPine [Norvasc] 10 mg PO DAILY 09/30/23 15:36 CPT - Chest Physical Therapy [RC] .TID 09/30/23 19:00 Ipratropium/Albuterol [Duoneb] 3 ml INH RTQID 10/01/23 09:00 hydroCHLOROthiazide [Hydrodiuril] 12.5 mg PO DAILY 10/02/23 05:00 BMP - BASIC METABOLIC PANEL [CHEM] DAILYLAB CBC [CBC - COMP BLD CT W/AUTO DIFF] [HEME] DAILYLAB 10/03/23 05:00 BMP - BASIC METABOLIC PANEL [CHEM] DAILYLAB CBC [CBC - COMP BLD CT W/AUTO DIFF] [HEME] DAILYLAB Subjective - Subjective Patient Reports: Feeling Better, Resting Comfortably, No Complaints (Agreeable to work with PT/OT) Objective Vital Signs: Vital Signs - 24 hr 09/30/23 09/30/23 09/30/23 11:05 13:00 15:41 Temperature 36.8 C 36.7 C Heart Rate 79 Heart Rate [ 81 83 Brachial] Respiratory 16 18 20 Rate Blood Pressure 147/95 H 136/77 H [Right Brachial artery] O2 Saturation 94 93 09/30/23 09/30/23 09/30/23 15:57 19:38 20:00 Temperature 36.5 C Heart Rate 75 86 Heart Rate [ 76 Brachial] Respiratory 18 20 16 Rate Blood Pressure 139/78 H [Right Brachial artery] O2 Saturation 93 10/01/23 10/01/23 10/01/23 00:22 06:31 06:47 Temperature 36.8 C 36.7 C Heart Rate 76 Heart Rate [ 84 82 Brachial] Respiratory 18 18 15 Rate Blood Pressure 149/90 H 151/90 H [Right Brachial artery] O2 Saturation 92 93 10/01/23 07:25 Temperature 36.7 C Heart Rate Heart Rate [ 84 Brachial] Respiratory 20 Rate Blood Pressure 151/97 H [Right Brachial artery] O2 Saturation 93 Oxygen O2 Source Room air I&O (Last 24 Hrs): Intake and Output Totals x24h 09/29/23 09/30/23 10/01/23 23:59 23:59 23:59 Intake Total 1640 540 Output Total 2050 1240 975 Balance -410 -299 -584 General: Alert, Oriented x3, Cooperative HEENT: Atraumatic, PERRLA, EOMI Cardiovascular: Regular rate, Normal S1, Normal S2 Respiratory: Chest non-tender Abdomen: Normal bowel sounds, No tenderness - Results Results: Laboratory Results WBC 9.0 x10^3/uL (4.8-10.8) 10/01/23 05:47 RBC 3.52 10^6/uL (4.70-6.10) L 10/01/23 05:47 Hgb 11.2 g/dL (14.0-18.0) L 10/01/23 05:47 Hct 34.1 % (42.0-52.0) L 10/01/23 05:47 MCV 96.9 fL (80.0-94.0) H 10/01/23 05:47 MCH 31.8 pg (27.0-31.0) H 10/01/23 05:47 MCHC 32.8 g/dL (32.0-36.0) 10/01/23 05:47 RDW 12.8 % (12.0-15.0) 10/01/23 05:47 Plt Count 153 10^3/uL (130-450) 10/01/23 05:47 MPV 9.6 fL (7.4-11.4) 10/01/23 05:47 Neut # (Auto) 7.0 10^3/uL (1.5-6.6) H 10/01/23 05:47 Lymph # (Auto) 1.2 10^3/uL (1.5-3.5) L 10/01/23 05:47 [place] # (Auto) 0.6 10^3/uL (0.0-1.0) 10/01/23 05:47 Eos # (Auto) 0.1 10^3/uL (0.0-0.7) 10/01/23 05:47 Baso # (Auto) 0.1 10^3/uL (0.0-0.1) 10/01/23 05:47 Absolute Nucleated RBC 0.00 x10^3/uL 10/01/23 05:47 Nucleated RBC % 0.0 /100WBC 10/01/23 05:47 VBG pH 7.353 (7.31-7.41) 09/24/23 16:44 VBG pCO2 43.4 mmHg (41-51) 09/24/23 16:44 VBG pO2 25.3 mmHg (25-47) 09/24/23 16:44 VBG HCO3 23.6 mmol/L (23-28) 09/24/23 16:44 VBG Total CO2 24.9 mmol/L (24-29) 09/24/23 16:44 VBG O2 Saturation 46.4 % (60-80) L 09/24/23 16:44 VBG Base Excess -2.0 mmol/L (-2 - +2) 09/24/23 16:44 Sodium 142 mmol/L (135-145) 10/01/23 05:47 Potassium 4.3 mmol/L (3.5-4.5) 10/01/23 05:47 Chloride 109 mmol/L (101-111) 10/01/23 05:47 Carbon Dioxide 28 mmol/L (21-32) 10/01/23 05:47 Anion Gap 5.0 (6-13) L 10/01/23 05:47 BUN 33 mg/dL (6-20) H 10/01/23 05:47 Creatinine 1.0 mg/dL (0.6-1.3) 10/01/23 05:47 Estimated GFR (MDRD) 74 (>89) L 10/01/23 05:47 Glucose 107 mg/dL (74-104) H 10/01/23 05:47 Estimat Average Glucose 117 mg/dL (70-100) H 09/24/23 21:30 Hemoglobin A1c % 5.7 % (4.27-6.07) 09/24/23 21:30 Lactic Acid 1.8 mmol/L (0.5-2.2) 09/24/23 21:30 Calcium 8.8 mg/dL (8.5-10.3) 10/01/23 05:47 Phosphorus 3.5 mg/dL (2.5-5.0) 09/26/23 05:24 Magnesium 1.8 mg/dL (1.7-2.3) 09/26/23 05:24 Total Bilirubin 0.3 mg/dL (0.2-1.0) 09/25/23 05:35 AST 23 IU/L (10-42) 09/25/23 05:35 ALT 13 IU/L (10-60) 09/25/23 05:35 Alkaline Phosphatase 90 IU/L (42-121) 09/25/23 05:35 Total Protein 5.4 g/dL (6.4-8.9) L 09/25/23 05:35 Albumin 2.9 g/dL (3.2-5.5) L 09/25/23 05:35 Globulin 2.5 g/dL (2.1-4.2) 09/25/23 05:35 Albumin/Globulin Ratio 1.2 (1.0-2.2) 09/25/23 05:35 Triglycerides 68 mg/dL (48-352) 09/24/23 21:30 Cholesterol 117 mg/dL (-200) 09/24/23 21:30 LDL Cholesterol, Calc 45 mg/dL (-129) 09/24/23 21:30 VLDL Cholesterol 14 mg/dL 09/24/23 21:30 HDL Cholesterol 58 mg/dL (60-) L 09/24/23 21:30 LDL/HDL Ratio 0.8 (<3.6) 09/24/23 21:30 Cholesterol/HDL Ratio 2.0 (<5.0) 09/24/23 21:30 Procalcitonin Immunoas 0.32 ng/mL (<0.5) 09/24/23 21:30 TSH 1.91 uIU/mL (0.34-5.60) 09/24/23 21:30 Urine Color YELLOW 09/25/23 13:30 Urine Clarity CLEAR (CLEAR) 09/25/23 13:30 Urine pH 6.0 PH (5.0-7.5) 09/25/23 13:30 Ur Specific [place] 1.025 (1.002-1.030) 09/25/23 13:30 Urine Protein TRACE mg/dL (NEGATIVE) 09/25/23 13:30 Urine Glucose (UA) NEGATIVE mg/dL (NEGATIVE) 09/25/23 13:30 Urine Ketones NEGATIVE mg/dL (NEGATIVE) 09/25/23 13:30 Urine Occult Blood NEGATIVE (NEGATIVE) 09/25/23 13:30 Urine Nitrite NEGATIVE (NEGATIVE) 09/25/23 13:30 Urine Bilirubin NEGATIVE (NEGATIVE) 09/25/23 13:30 Urine Urobilinogen 0.2 (NORMAL) E.U./dL (NORMAL) 09/25/23 13:30 Ur Leukocyte Esterase TRACE (NEGATIVE) H 09/25/23 13:30 Urine RBC 0-5 /HPF (0-5) 09/25/23 13:30 Urine WBC 0-3 /HPF (0-3) 09/25/23 13:30 Ur Squamous Epith Cells NONE SEEN (<= Few) 09/25/23 13:30 Urine Bacteria Few /HPF (None Seen) 09/25/23 13:30 Ur Microscopic Review INDICATED 09/25/23 13:30 Urine Culture Comments INDICATED 09/25/23 13:30 Nasal Adenovirus (PCR) NOT DETECTED 09/24/23 21:30 Nasal B. parapertussis DNA (PCR) NOT DETECTED 09/24/23 21:30 Nasal Coronavir 229E PCR NOT DETECTED 09/24/23 21:30 Nasal Coronavir HKU1 PCR NOT DETECTED 09/24/23 21:30 Nasal Coronavir NL63 PCR NOT DETECTED 09/24/23 21:30 Nasal Coronavir OC43 PCR NOT DETECTED 09/24/23 21:30 Nasal Enterovir/Rhinovir PCR NOT DETECTED 09/24/23 21:30 Nasal Influenza B PCR NOT DETECTED 09/24/23 21:30 Nasal Influenza A PCR NOT DETECTED 09/24/23 21:30 Nasal Parainfluen 1 PCR NOT DETECTED 09/24/23 21:30 Nasal Parainfluen 2 PCR NOT DETECTED 09/24/23 21:30 Nasal Parainfluen 3 PCR NOT DETECTED 09/24/23 21:30 Nasal Parainfluen 4 PCR NOT DETECTED 09/24/23 21:30 Nasal RSV (PCR) NOT DETECTED 09/24/23 21:30 Nasal B.pertussis DNA PCR NOT DETECTED 09/24/23 21:30 Nasal C.pneumoniae (PCR) NOT DETECTED 09/24/23 21:30 Thom Human Metapneumo PCR NOT DETECTED 09/24/23 21:30 Nasal M.pneumoniae (PCR) NOT DETECTED 09/24/23 21:30 Nasal SARS-CoV-2 (PCR) NOT DETECTED 09/24/23 21:30 Urine Opiates Screen NEGATIVE (NEGATIVE) 09/25/23 13:30 Ur Buprenorphine Scrn NEGATIVE (NEGATIVE) 09/25/23 13:30 Ur Oxycodone Screen NEGATIVE (NEGATIVE) 09/25/23 13:30 Urine Methadone Screen NEGATIVE (NEGATIVE) 09/25/23 13:30 Ur Barbiturates Screen NEGATIVE (NEGATIVE) 09/25/23 13:30 Ur Tricyclics Screen NEGATIVE (NEGATIVE) 09/25/23 13:30 Ur Phencyclidine Scrn NEGATIVE (NEGATIVE) 09/25/23 13:30 Ur Amphetamine Screen NEGATIVE (NEGATIVE) 09/25/23 13:30 U Methamphetamines Scrn NEGATIVE (NEGATIVE) 09/25/23 13:30 U Benzodiazepines Scrn NEGATIVE (NEGATIVE) 09/25/23 13:30 Urine Cocaine Screen NEGATIVE (NEGATIVE) 09/25/23 13:30 U Cannabinoids Screen NEGATIVE (NEGATIVE) 09/25/23 13:30 Ur Drug Screen Comment CUTOFF CONC BELOW: 09/25/23 13:30 Ethyl Alcohol < 10.0 mg/dL 09/24/23 16:44
[2023-10-01] MEDS: SODIUM CHLORIDE 0.9% 1,000 ML IV SCH (11:41)
[2023-10-02] MEDS: SODIUM CHLORIDE FLUSH 0.9% 10 ML SYRINGE IVP SCH ×3 (00:19→17:12)
[2023-10-02 05:39] LABS: BASOPHILS % (AUTO) 0.5 %; EOSINOPHILS # (AUTO) 0.1 10^3/uL (0.0-0.7); EOSINOPHILS % (AUTO) 1.6 %; HCT - HEMATOCRIT 35.2 % (42.0-52.0); HGB - HEMOGLOBIN 11.3 g/dL (14.0-18.0); LYMPHOCYTES # (AUTO) 1.2 10^3/uL (1.5-3.5); MEAN CORPUSCULAR HEMOGLOBIN 31.1 pg (27.0-31.0); MEAN CORPUSCULAR HGB CONC 32.1 g/dL (32.0-36.0); MEAN PLATELET VOLUME 9.7 fL (7.4-11.4); MONOCYTES # (AUTO) 0.7 10^3/uL (0.0-1.0); MONOCYTES % (AUTO) 7.9 %; NEUTROPHILS # (AUTO) 6.3 10^3/uL (1.5-6.6); NEUTROPHILS % (AUTO) 75.5 %; PLT - PLATELET COUNT 170 10^3/uL (130-450); RED BLOOD COUNT 3.63 10^6/uL (4.70-6.10); RED CELL DISTRIBUTION WIDTH 12.9 % (12.0-15.0); WHITE BLOOD COUNT 8.3 x10^3/uL (4.8-10.8)
[2023-10-02 06:05] LABS: CREATININE 0.9 mg/dL (0.6-1.3); POTASSIUM 4.6 mmol/L (3.5-4.5)
[2023-10-02] MEDS: IPRATROPIUM/ALBUTEROL 3 ML NEB INH SCH ×3 (07:44→16:02)
[2023-10-02] MEDS: MULTIVITAMIN W/MINERALS TABLET PO SCH (09:26)
[2023-10-02] MEDS: POTASSIUM CHLORIDE 20 MEQ TABLET PO SCH (09:26)
[2023-10-02] MEDS: guaiFENesin 600 MG TABLET PO SCH ×2 (09:27→21:18)
[2023-10-02] MEDS: ASCORBIC ACID 500 MG TABLET PO SCH (09:27)
[2023-10-02] MEDS: amLODIPine 5 MG TABLET PO SCH (09:27)
[2023-10-02] MEDS: hydroCHLOROthiazide 12.5 MG CAPSULE PO SCH (10:10)
--- NOTE | 2023-10-02 11:15 | PROVIDER PROGRESS NOTE ---
Assessment/Plan - Problem List (1) TOÑITO (acute kidney injury) Assessment/Plan: (1) Severe protein-calorie malnutrition Assessment/Plan: --Severe protein calorie malnutrition. Dietitian has been consulted. --He is being encouraged to eat. (2) Pneumonia Assessment/Plan: --CXR showing bilateral lower lobe PNA. --Completed course of azithromycin and ceftriaxone. --Some concern for aspiration, ENGINEER OF SYSTEM DEVELOPMENT consulted but feel he does not require urgent evaluation. (2) Hypokalemia Assessment/Plan: --Replacing potassium. (3) Hypomagnesemia Assessment/Plan: --Replacing Mg. (4) Fall at home Assessment/Plan: PT and OT eval and treatment He will likely need rehab and may need LTC placement however he is opposed to this. --I did discuss that he needs to get up and work with PT/OT on Monday, he was agreeable. (5) TOÑITO (acute kidney injury) Assessment/Plan: --Resolved. (6) Tobacco use Assessment/Plan: --DuoNeb PRN. (7) Leg edema Assessment/Plan: He has 2+ edema to mid shins. Possibly from hypo-osmotic pressure from low protein, but R/O CHF. --TTE was unremarkable. --LE DVT negative. (8) HTN (hypertension) Assessment/Plan: BP very elevated here (all VS reviewed). He has not seen a doctor in many years, so don't know if this is old and untreated or new Dx Plan: Amlodipine increased to 10 mg daily. Started HCTZ 12.5 mg. Increased to 25 mg 10/02. (9) Inadequate social support Assessment/Plan: has lived alone x 20 yr [place] a [place] need director social service / case mgmt to assist with placement Dispo: Medically stable. Requires placement. Currently unwilling to work with SW on placement but he is not safe to return home due to his failure to thrive. - Current Meds Current Meds: Current Medications Generic Name Dose Route Start Last Admin Trade Name Freq PRN Reason Stop Dose Admin Acetaminophen 650 mg 09/24/23 21:12 09/25/23 06:40 Acetaminophen 325 Mg Tablet PO 650 mg Q6H PRN Administration Pain 1 to 4, or Fever Albuterol/Ipratropium 3 ml 09/30/23 19:00 10/02/23 07:44 Ipratropium/Albuterol 3 Ml Neb INH Not Given RTQID STEFANO Amlodipine Besylate 10 mg 09/30/23 09:00 10/02/23 09:27 Amlodipine 5 Mg Tablet PO 10 mg DAILY STEFANO Administration Ascorbic Acid 500 mg 09/25/23 09:00 10/02/23 09:27 Ascorbic Acid 500 Mg Tablet PO 500 mg DAILY STEFANO Administration Benzonatate 100 mg 09/24/23 21:18 09/29/23 08:00 Benzonatate 100 Mg Capsule PO 100 mg TID PRN Administration Cough Guaifenesin 600 mg 09/24/23 22:00 10/02/23 09:27 Guaifenesin 600 Mg Tablet PO 600 mg BID STEFANO Administration Hydrochlorothiazide 12.5 mg 10/01/23 09:00 10/02/23 10:10 Hydrochlorothiazide 12.5 Mg Capsule PO 12.5 mg DAILY STEFANO Administration Sodium Chloride 1,000 mls @ 20 mls/hr 09/27/23 09:00 10/01/23 11:41 Normal Saline 0.9% IV Not Given .Q48H STEFANO TKO Morphine Sulfate 0.5 mg 09/28/23 18:04 09/28/23 18:20 Morphine 2 Mg/Ml Carpuject IVP 0.5 mg Q2HR PRN Administration Severe Pain (Level 7-10) Multi-Ingredient Ointment 1 applic 09/25/23 12:13 09/30/23 22:01 Zinc Oxide 20% Oint 30 Gm Tube TOP 1 applic PRN PRN Administration Skin Care Multivitamins/Minerals 1 tab 09/29/23 08:00 10/02/23 09:26 Multivitamin W/Minerals Tablet PO 1 tab DAILYWM STEFANO Administration Potassium Chloride 20 meq 09/26/23 11:00 10/02/23 09:26 Potassium Chloride 20 Meq Tablet PO 20 meq DAILYWM STEFANO Administration Sodium Chloride 10 ml 09/24/23 21:12 09/24/23 22:34 Sodium Chloride Flush 0.9% 10 Ml Syringe IVP 10 ml PRN PRN Administration NEEDED PER PROVIDER ORDERS Sodium Chloride 10 ml 09/25/23 01:00 10/02/23 00:19 Sodium Chloride Flush 0.9% 10 Ml Syringe IVP 10 ml 0100,0900,1700 STEFANO Administration - Lab Result Fish Bone Diagrams: 10/02/23 05:17 10/02/23 05:17 - Additional Planning My Orders: My Active Orders 10/03/23 05:00 BMP - BASIC METABOLIC PANEL [CHEM] DAILYLAB CBC [CBC - COMP BLD CT W/AUTO DIFF] [HEME] DAILYLAB Subjective - Subjective Patient Reports: Feeling Better, Resting Comfortably, No Complaints Objective Vital Signs: Vital Signs - 24 hr 10/01/23 10/01/23 10/01/23 11:30 13:51 16:43 Temperature 36.5 C 36.5 C Heart Rate 69 Heart Rate [ 105 H 77 Brachial] Respiratory 16 24 18 Rate Blood Pressure 137/90 H 133/82 H [Right Brachial artery] O2 Saturation 92 92 10/01/23 10/01/23 10/01/23 19:48 21:20 23:51 Temperature 36.8 C 37.0 C Heart Rate 82 Heart Rate [ 88 86 Brachial] Respiratory 20 24 16 Rate Blood Pressure 131/88 H 150/94 H [Right Brachial artery] O2 Saturation 93 94 10/02/23 10/02/23 06:16 09:00 Temperature 36.9 C 36 C L Heart Rate Heart Rate [ 82 71 Brachial] Respiratory 16 95 H Rate Blood Pressure 150/95 H 148/89 H [Right Brachial artery] O2 Saturation 94 18 L Oxygen O2 Source Room air I&O (Last 24 Hrs): Intake and Output Totals x24h 09/30/23 10/01/23 10/02/23 23:59 23:59 23:59 Intake Total 540 660 Output Total 1240 9005 900 Balance -700 -1211 -900 General: Alert, Oriented x3, Cooperative, No acute distress Cardiovascular: Regular rate, Normal S1, Normal S2 Respiratory: No respiratory distress, Breath sounds nml Abdomen: Normal bowel sounds, Soft, No tenderness - Results Results: Laboratory Results WBC 8.3 x10^3/uL (4.8-10.8) 10/02/23 05:17 RBC 3.63 10^6/uL (4.70-6.10) L 10/02/23 05:17 Hgb 11.3 g/dL (14.0-18.0) L 10/02/23 05:17 Hct 35.2 % (42.0-52.0) L 10/02/23 05:17 MCV 97.0 fL (80.0-94.0) H 10/02/23 05:17 MCH 31.1 pg (27.0-31.0) H 10/02/23 05:17 MCHC 32.1 g/dL (32.0-36.0) 10/02/23 05:17 RDW 12.9 % (12.0-15.0) 10/02/23 05:17 Plt Count 170 10^3/uL (130-450) 10/02/23 05:17 MPV 9.7 fL (7.4-11.4) 10/02/23 05:17 Neut # (Auto) 6.3 10^3/uL (1.5-6.6) 10/02/23 05:17 Lymph # (Auto) 1.2 10^3/uL (1.5-3.5) L 10/02/23 05:17 [place] # (Auto) 0.7 10^3/uL (0.0-1.0) 10/02/23 05:17 Eos # (Auto) 0.1 10^3/uL (0.0-0.7) 10/02/23 05:17 Baso # (Auto) 0.0 10^3/uL (0.0-0.1) 10/02/23 05:17 Absolute Nucleated RBC 0.00 x10^3/uL 10/02/23 05:17 Nucleated RBC % 0.0 /100WBC 10/02/23 05:17 VBG pH 7.353 (7.31-7.41) 09/24/23 16:44 VBG pCO2 43.4 mmHg (41-51) 09/24/23 16:44 VBG pO2 25.3 mmHg (25-47) 09/24/23 16:44 VBG HCO3 23.6 mmol/L (23-28) 09/24/23 16:44 VBG Total CO2 24.9 mmol/L (24-29) 09/24/23 16:44 VBG O2 Saturation 46.4 % (60-80) L 09/24/23 16:44 VBG Base Excess -2.0 mmol/L (-2 - +2) 09/24/23 16:44 Sodium 142 mmol/L (135-145) 10/02/23 05:17 Potassium 4.6 mmol/L (3.5-4.5) H 10/02/23 05:17 Chloride 109 mmol/L (101-111) 10/02/23 05:17 Carbon Dioxide 30 mmol/L (21-32) 10/02/23 05:17 Anion Gap 3.0 (6-13) L 10/02/23 05:17 BUN 29 mg/dL (6-20) H 10/02/23 05:17 Creatinine 0.9 mg/dL (0.6-1.3) 10/02/23 05:17 Estimated GFR (MDRD) 83 (>89) L 10/02/23 05:17 Glucose 96 mg/dL (74-104) 10/02/23 05:17 Estimat Average Glucose 117 mg/dL (70-100) H 09/24/23 21:30 Hemoglobin A1c % 5.7 % (4.27-6.07) 09/24/23 21:30 Lactic Acid 1.8 mmol/L (0.5-2.2) 09/24/23 21:30 Calcium 9.0 mg/dL (8.5-10.3) 10/02/23 05:17 Phosphorus 3.5 mg/dL (2.5-5.0) 09/26/23 05:24 Magnesium 1.8 mg/dL (1.7-2.3) 09/26/23 05:24 Total Bilirubin 0.3 mg/dL (0.2-1.0) 09/25/23 05:35 AST 23 IU/L (10-42) 09/25/23 05:35 ALT 13 IU/L (10-60) 09/25/23 05:35 Alkaline Phosphatase 90 IU/L (42-121) 09/25/23 05:35 Total Protein 5.4 g/dL (6.4-8.9) L 09/25/23 05:35 Albumin 2.9 g/dL (3.2-5.5) L 09/25/23 05:35 Globulin 2.5 g/dL (2.1-4.2) 09/25/23 05:35 Albumin/Globulin Ratio 1.2 (1.0-2.2) 09/25/23 05:35 Triglycerides 68 mg/dL (48-352) 09/24/23 21:30 Cholesterol 117 mg/dL (-200) 09/24/23 21:30 LDL Cholesterol, Calc 45 mg/dL (-129) 09/24/23 21: VLDL Cholesterol 14 mg/dL 09/24/23 21: HDL Cholesterol 58 mg/dL (60-) L 09/24/23 21: LDL/HDL Ratio 0.8 (<3.6) 09/24/23 21: Cholesterol/HDL Ratio 2.0 (<5.0) 09/24/23 21: Procalcitonin Immunoas 0.32 ng/mL (<0.5) 09/24/23 21: TSH 1.91 uIU/mL (0.34-5.60) 09/24/23 21:30 Urine Color YELLOW 09/25/23 13:30 Urine Clarity CLEAR (CLEAR) 09/25/23 13:30 Urine pH 6.0 PH (5.0-7.5) 09/25/23 13:30 Ur Specific [place] 1.025 (1.002-1.030) 09/25/23 13:30 Urine Protein TRACE mg/dL (NEGATIVE) 09/25/23 13:30 Urine Glucose (UA) NEGATIVE mg/dL (NEGATIVE) 09/25/23 13:30 Urine Ketones NEGATIVE mg/dL (NEGATIVE) 09/25/23 13:30 Urine Occult Blood NEGATIVE (NEGATIVE) 09/25/23 13:30 Urine Nitrite NEGATIVE (NEGATIVE) 09/25/23 13:30 Urine Bilirubin NEGATIVE (NEGATIVE) 09/25/23 13:30 Urine Urobilinogen 0.2 (NORMAL) E.U./dL (NORMAL) 09/25/23 13:30 Ur Leukocyte Esterase TRACE (NEGATIVE) H 09/25/23 13:30 Urine RBC 0-5 /HPF (0-5) 09/25/23 13:30 Urine WBC 0-3 /HPF (0-3) 09/25/23 13:30 Ur Squamous Epith Cells NONE SEEN (<= Few) 09/25/23 13:30 Urine Bacteria Few /HPF (None Seen) 09/25/23 13:30 Ur Microscopic Review INDICATED 09/25/23 13:30 Urine Culture Comments INDICATED 09/25/23 13:30 Nasal Adenovirus (PCR) NOT DETECTED 09/24/23 21: Nasal B. parapertussis DNA (PCR) NOT DETECTED 09/24/23 21:30 Nasal Coronavir 229E PCR NOT DETECTED 09/24/23 21:30 Nasal Coronavir HKU1 PCR NOT DETECTED 09/24/23 21:30 Nasal Coronavir NL63 PCR NOT DETECTED 09/24/23 21:30 Nasal Coronavir OC43 PCR NOT DETECTED 09/24/23 21:30 Nasal Enterovir/Rhinovir PCR NOT DETECTED 09/24/23 21:30 Nasal Influenza B PCR NOT DETECTED 09/24/23 21:30 Nasal Influenza A PCR NOT DETECTED 09/24/23 21:30 Nasal Parainfluen 1 PCR NOT DETECTED 09/24/23 21:30 Nasal Parainfluen 2 PCR NOT DETECTED 09/24/23 21:30 Nasal Parainfluen 3 PCR NOT DETECTED 09/24/23 21:30 Nasal Parainfluen 4 PCR NOT DETECTED 09/24/23 21:30 Nasal RSV (PCR) NOT DETECTED 09/24/23 21:30 Nasal B.pertussis DNA PCR NOT DETECTED 09/24/23 21:30 Nasal C.pneumoniae (PCR) NOT DETECTED 09/24/23 21:30 Thom Human Metapneumo PCR NOT DETECTED 09/24/23 21:30 Nasal M.pneumoniae (PCR) NOT DETECTED 09/24/23 21:30 Nasal SARS-CoV-2 (PCR) NOT DETECTED 09/24/23 21:30 Urine Opiates Screen NEGATIVE (NEGATIVE) 09/25/23 13:30 Ur Buprenorphine Scrn NEGATIVE (NEGATIVE) 09/25/23 13:30 Ur Oxycodone Screen NEGATIVE (NEGATIVE) 09/25/23 13:30 Urine Methadone Screen NEGATIVE (NEGATIVE) 09/25/23 13:30 Ur Barbiturates Screen NEGATIVE (NEGATIVE) 09/25/23 13:30 Ur Tricyclics Screen NEGATIVE (NEGATIVE) 09/25/23 13:30 Ur Phencyclidine Scrn NEGATIVE (NEGATIVE) 09/25/23 13:30 Ur Amphetamine Screen NEGATIVE (NEGATIVE) 09/25/23 13:30 U Methamphetamines Scrn NEGATIVE (NEGATIVE) 09/25/23 13:30 U Benzodiazepines Scrn NEGATIVE (NEGATIVE) 09/25/23 13:30 Urine Cocaine Screen NEGATIVE (NEGATIVE) 09/25/23 13:30 U Cannabinoids Screen NEGATIVE (NEGATIVE) 09/25/23 13:30 Ur Drug Screen Comment CUTOFF CONC BELOW: 09/25/23 13:30 Ethyl Alcohol < 10.0 mg/dL 09/24/23 16:44
[2023-10-02] MEDS: ZINC OXIDE 20% OINT 30 GM TUBE TOP PRN (17:12)
[2023-10-03] MEDS: SODIUM CHLORIDE FLUSH 0.9% 10 ML SYRINGE IVP SCH ×3 (00:16→20:16)
[2023-10-03 06:52] LABS: BASOPHILS # (AUTO) 0.1 10^3/uL (0.0-0.1); BASOPHILS % (AUTO) 0.9 %; EOSINOPHILS # (AUTO) 0.1 10^3/uL (0.0-0.7); EOSINOPHILS % (AUTO) 1.5 %; HCT - HEMATOCRIT 37.7 % (42.0-52.0); HGB - HEMOGLOBIN 11.6 g/dL (14.0-18.0); LYMPHOCYTES % (AUTO) 13.6 %; MEAN CORPUSCULAR HEMOGLOBIN 30.1 pg (27.0-31.0); MEAN CORPUSCULAR HGB CONC 30.8 g/dL (32.0-36.0); MEAN CORPUSCULAR VOLUME 97.9 fL (80.0-94.0); MEAN PLATELET VOLUME 10.2 fL (7.4-11.4); MONOCYTES # (AUTO) 0.6 10^3/uL (0.0-1.0); NEUTROPHILS # (AUTO) 5.7 10^3/uL (1.5-6.6); NEUTROPHILS % (AUTO) 75.5 %; PLT - PLATELET COUNT 199 10^3/uL (130-450); RED BLOOD COUNT 3.85 10^6/uL (4.70-6.10); RED CELL DISTRIBUTION WIDTH 12.8 % (12.0-15.0); WHITE BLOOD COUNT 7.5 x10^3/uL (4.8-10.8)
[2023-10-03 07:05] LABS: CREATININE 0.8 mg/dL (0.6-1.3); POTASSIUM 5.3 mmol/L (3.5-4.5)
[2023-10-03] MEDS: IPRATROPIUM/ALBUTEROL 3 ML NEB INH SCH ×2 (07:42)
[2023-10-03] MEDS: ASCORBIC ACID 500 MG TABLET PO SCH (08:55)
[2023-10-03] MEDS: POTASSIUM CHLORIDE 20 MEQ TABLET PO SCH (08:55)
[2023-10-03] MEDS: ZINC OXIDE 20% OINT 30 GM TUBE TOP PRN (08:55)
[2023-10-03] MEDS: BENZONATATE 100 MG CAPSULE PO PRN (08:56)
[2023-10-03] MEDS: guaiFENesin 600 MG TABLET PO SCH ×2 (08:56→20:16)
[2023-10-03] MEDS: hydroCHLOROthiazide 25 MG TABLET PO SCH (08:56)
[2023-10-03] MEDS: MULTIVITAMIN W/MINERALS TABLET PO SCH (08:56)
[2023-10-03] MEDS: amLODIPine 5 MG TABLET PO SCH (08:56)
[2023-10-03] MEDS: IPRATROPIUM/ALBUTEROL 3 ML NEB INH PRN (11:36)
--- NOTE | 2023-10-03 16:16 | PROVIDER PROGRESS NOTE ---
Assessment/Plan - Problem List (1) Generalized weakness Assessment/Plan: Today was the first time that he agreed to get up and work with PT and OT and be OOB. He then complained of pain in the hip where he fell a week ago at home. He was helped with PT and OT Plan: He would benefit from SNF, as per PT eval. I believe he needs LTC and SW to discuss that with him. (2) Severe protein-calorie malnutrition Assessment/Plan: Severe protein calorie malnutrition. Dietitian has been consulted. He is eating well recently (3) Fall at home Assessment/Plan: PT and OT eval and treatment were ordered at adm, but he had been refusing until today Plan: He will likely need rehab and may need LTC placement I will morder orthostatic VS checks (4) Tobacco use Assessment/Plan: DuoNeb PRN. (5) HTN (hypertension) Assessment/Plan: BP very elevated at presentation (all VS reviewed). He has not seen a doctor in many years, so don't know if this is old and untreated or new Dx Plan: Amlodipine increased to 10 mg daily, to cont Started HCTZ 12.5 mg. Increased to 25 mg 10/02. (6) Leg edema Assessment/Plan: He had 2+ edema to mid shins. Echo was unremarkable and lower extrem Doppler for DVT was negative. Therefore probably was from hypo-osmotic pressure from low protein (7) Inadequate social support Assessment/Plan: He has lived alone x 20 yr in a log cabin, . Plan: he need social work case manager / case mgmt to assist with placement Medically stable. Requires placement. he was unwilling to work with SW on placement but he is not safe to return home due to his failure to thrive. (8) Pneumonia Assessment/Plan: TREATED CXR showed bilateral lower lobe PNA. He completed course of azithromycin and ceftriaxone. Some concern for aspiration, HUMAN SERVICE COORDINATOR consulted but feel he does not require urgent evaluation. (9) TOÑITO (acute kidney injury) Assessment/Plan: Resolved with iv fluids (10) Hypokalemia Assessment/Plan: Resolved. All labs were reviewed and todaty K was high at 5.3 Plan: Will stop the daily po KCl Follow BMP intermitt (11) Hypomagnesemia Assessment/Plan: Replaced Mg when low. Plan: Follow BMP intermitt - Current Meds Current Meds: Current Medications Generic Name Dose Route Start Last Admin Trade Name Freq PRN Reason Stop Dose Admin Acetaminophen 650 mg 09/24/23 21:12 09/25/23 06:40 Acetaminophen 325 Mg Tablet PO 650 mg Q6H PRN Administration Pain 1 to 4, or Fever Albuterol/Ipratropium 3 ml 10/03/23 10:41 10/03/23 11:36 Ipratropium/Albuterol 3 Ml Neb INH 3 ml RTQID PRN Administration Wheezing Amlodipine Besylate 10 mg 09/30/23 09:00 10/03/23 08:56 Amlodipine 5 Mg Tablet PO 10 mg DAILY STEFANO Administration Ascorbic Acid 500 mg 09/25/23 09:00 10/03/23 08:55 Ascorbic Acid 500 Mg Tablet PO 500 mg DAILY STEFANO Administration Benzonatate 100 mg 09/24/23 21:18 10/03/23 08:56 Benzonatate 100 Mg Capsule PO 100 mg TID PRN Administration Cough Guaifenesin 600 mg 09/24/23 22:00 10/03/23 08:56 Guaifenesin 600 Mg Tablet PO 600 mg BID STEFANO Administration Hydrochlorothiazide 25 mg 10/03/23 09:00 10/03/23 08:56 Hydrochlorothiazide 25 Mg Tablet PO 25 mg DAILY STEFANO Administration Morphine Sulfate 0.5 mg 09/28/23 18:04 09/28/23 18:20 Morphine 2 Mg/Ml Carpuject IVP 0.5 mg Q2HR PRN Administration Severe Pain (Level 7-10) Multi-Ingredient Ointment 1 applic 09/25/23 12:13 10/03/23 08:55 Zinc Oxide 20% Oint 30 Gm Tube TOP 1 applic PRN PRN Administration Skin Care Multivitamins/Minerals 1 tab 09/29/23 08:00 10/03/23 08:56 Multivitamin W/Minerals Tablet PO 1 tab DAILYWM STEFANO Administration Sodium Chloride 10 ml 09/24/23 21:12 09/24/23 22:34 Sodium Chloride Flush 0.9% 10 Ml Syringe IVP 10 ml PRN PRN Administration NEEDED PER PROVIDER ORDERS Sodium Chloride 10 ml 09/25/23 01:00 10/03/23 08:56 Sodium Chloride Flush 0.9% 10 Ml Syringe IVP 10 ml 0100,0900,1700 STEFANO Administration - Lab Result Fish Bone Diagrams: 10/03/23 06:09 10/03/23 06:09 - Additional Planning My Orders: My Active Orders 10/03/23 09:00 Miscellaenous Nursing Order [RC] QSHIFT 10/03/23 10:41 Ipratropium/Albuterol [Duoneb] 3 ml INH RTQID PRN Subjective - Subjective Patient Reports: Resting Comfortably, No Complaints Objective Vital Signs: Vital Signs - 24 hr 10/02/23 10/02/23 10/02/23 16:32 20:47 23:46 Temperature 36.7 C 36.6 C 36.7 C Heart Rate Heart Rate [ 74 80 74 Brachial] Respiratory 18 24 18 Rate Blood Pressure 145/82 H 153/91 H 147/92 H [Right Brachial artery] O2 Saturation 92 93 93 10/03/23 10/03/23 10/03/23 07:42 07:43 11:39 Temperature 36.9 C Heart Rate 88 82 Heart Rate [ 76 Brachial] Respiratory 20 22 18 Rate Blood Pressure 131/88 H [Right Brachial artery] O2 Saturation 94 10/03/23 10/03/23 14:00 15:56 Temperature 37.1 C 36.7 C Heart Rate Heart Rate [ 81 79 Brachial] Respiratory 18 16 Rate Blood Pressure 127/79 124/78 [Right Brachial artery] O2 Saturation 94 92 Oxygen O2 Source Room air I&O (Last 24 Hrs): Intake and Output Totals x24h 10/01/23 10/02/23 10/03/23 23:59 23:59 23:59 Intake Total 660 580 240 Output Total 1875 1750 825 Balance -1215 -1170 -585 General: Alert, No acute distress HEENT: EOMI, Other (disheveled) Neck: Supple Neuro: Alert Cardiovascular: Regular rate Respiratory: No respiratory distress Abdomen: Soft Extremities: No edema - Results Results: Laboratory Results WBC 7.5 x10^3/uL (4.8-10.8) 10/03/23 06:09 RBC 3.85 10^6/uL (4.70-6.10) L 10/03/23 06:09 Hgb 11.6 g/dL (14.0-18.0) L 10/03/23 06:09 Hct 37.7 % (42.0-52.0) L 10/03/23 06:09 MCV 97.9 fL (80.0-94.0) H 10/03/23 06:09 MCH 30.1 pg (27.0-31.0) 10/03/23 06:09 MCHC 30.8 g/dL (32.0-36.0) L 10/03/23 06:09 RDW 12.8 % (12.0-15.0) 10/03/23 06:09 Plt Count 199 10^3/uL (130-450) 10/03/23 06:09 MPV 10.2 fL (7.4-11.4) 10/03/23 06:09 Neut # (Auto) 5.7 10^3/uL (1.5-6.6) 10/03/23 06:09 Lymph # (Auto) 1.0 10^3/uL (1.5-3.5) L 10/03/23 06:09 [place] # (Auto) 0.6 10^3/uL (0.0-1.0) 10/03/23 06:09 Eos # (Auto) 0.1 10^3/uL (0.0-0.7) 10/03/23 06:09 Baso # (Auto) 0.1 10^3/uL (0.0-0.1) 10/03/23 06:09 Absolute Nucleated RBC 0.00 x10^3/uL 10/03/23 06:09 Nucleated RBC % 0.0 /100WBC 10/03/23 06:09 VBG pH 7.353 (7.31-7.41) 09/24/23 16:44 VBG pCO2 43.4 mmHg (41-51) 09/24/23 16:44 VBG pO2 25.3 mmHg (25-47) 09/24/23 16:44 VBG HCO3 23.6 mmol/L (23-28) 09/24/23 16:44 VBG Total CO2 24.9 mmol/L (24-29) 09/24/23 16:44 VBG O2 Saturation 46.4 % (60-80) L 09/24/23 16:44 VBG Base Excess -2.0 mmol/L (-2 - +2) 09/24/23 16:44 Sodium 142 mmol/L (135-145) 10/03/23 06:09 Potassium 5.3 mmol/L (3.5-4.5) H 10/03/23 06:09 Chloride 106 mmol/L (101-111) 10/03/23 06:09 Carbon Dioxide 31 mmol/L (21-32) 10/03/23 06:09 Anion Gap 5.0 (6-13) L 10/03/23 06:09 BUN 28 mg/dL (6-20) H 10/03/23 06:09 Creatinine 0.8 mg/dL (0.6-1.3) 10/03/23 06:09 Estimated GFR (MDRD) 95 (>89) 10/03/23 06:09 Glucose 93 mg/dL (74-104) 10/03/23 06:09 Estimat Average Glucose 117 mg/dL (70-100) H 09/24/23 21:30 Hemoglobin A1c % 5.7 % (4.27-6.07) 09/24/23 21:30 Lactic Acid 1.8 mmol/L (0.5-2.2) 09/24/23 21:30 Calcium 9.0 mg/dL (8.5-10.3) 10/03/23 06:09 Phosphorus 3.5 mg/dL (2.5-5.0) 09/26/23 05:24 Magnesium 1.8 mg/dL (1.7-2.3) 09/26/23 05:24 Total Bilirubin 0.3 mg/dL (0.2-1.0) 09/25/23 05:35 AST 23 IU/L (10-42) 09/25/23 05:35 ALT 13 IU/L (10-60) 09/25/23 05:35 Alkaline Phosphatase 90 IU/L (42-121) 09/25/23 05:35 Total Protein 5.4 g/dL (6.4-8.9) L 09/25/23 05:35 Albumin 2.9 g/dL (3.2-5.5) L 09/25/23 05:35 Globulin 2.5 g/dL (2.1-4.2) 09/25/23 05:35 Albumin/Globulin Ratio 1.2 (1.0-2.2) 09/25/23 05:35 Triglycerides 68 mg/dL (48-352) 09/24/23 21:30 Cholesterol 117 mg/dL (-200) 09/24/23 21: LDL Cholesterol, Calc 45 mg/dL (-129) 09/24/23 21: VLDL Cholesterol 14 mg/dL 09/24/23 21: HDL Cholesterol 58 mg/dL (60-) L 09/24/23 21:30 LDL/HDL Ratio 0.8 (<3.6) 09/24/23 21: Cholesterol/HDL Ratio 2.0 (<5.0) 09/24/23 21: Procalcitonin Immunoas 0.32 ng/mL (<0.5) 09/24/23 21: TSH 1.91 uIU/mL (0.34-5.60) 09/24/23 21:30 Urine Color YELLOW 09/25/23 13:30 Urine Clarity CLEAR (CLEAR) 09/25/23 13:30 Urine pH 6.0 PH (5.0-7.5) 09/25/23 13:30 Ur Specific [place] 1.025 (1.002-1.030) 09/25/23 13:30 Urine Protein TRACE mg/dL (NEGATIVE) 09/25/23 13:30 Urine Glucose (UA) NEGATIVE mg/dL (NEGATIVE) 09/25/23 13:30 Urine Ketones NEGATIVE mg/dL (NEGATIVE) 09/25/23 13:30 Urine Occult Blood NEGATIVE (NEGATIVE) 09/25/23 13:30 Urine Nitrite NEGATIVE (NEGATIVE) 09/25/23 13:30 Urine Bilirubin NEGATIVE (NEGATIVE) 09/25/23 13:30 Urine Urobilinogen 0.2 (NORMAL) E.U./dL (NORMAL) 09/25/23 13:30 Ur Leukocyte Esterase TRACE (NEGATIVE) H 09/25/23 13:30 Urine RBC 0-5 /HPF (0-5) 09/25/23 13:30 Urine WBC 0-3 /HPF (0-3) 09/25/23 13:30 Ur Squamous Epith Cells NONE SEEN (<= Few) 09/25/23 13:30 Urine Bacteria Few /HPF (None Seen) 09/25/23 13:30 Ur Microscopic Review INDICATED 09/25/23 13:30 Urine Culture Comments INDICATED 09/25/23 13:30 Nasal Adenovirus (PCR) NOT DETECTED 09/24/23 21: Nasal B. parapertussis DNA (PCR) NOT DETECTED 09/24/23 21:30 Nasal Coronavir 229E PCR NOT DETECTED 09/24/23 21:30 Nasal Coronavir HKU1 PCR NOT DETECTED 09/24/23 21:30 Nasal Coronavir NL63 PCR NOT DETECTED 09/24/23 21:30 Nasal Coronavir OC43 PCR NOT DETECTED 09/24/23 21:30 Nasal Enterovir/Rhinovir PCR NOT DETECTED 09/24/23 21:30 Nasal Influenza B PCR NOT DETECTED 09/24/23 21:30 Nasal Influenza A PCR NOT DETECTED 09/24/23 21:30 Nasal Parainfluen 1 PCR NOT DETECTED 09/24/23 21:30 Nasal Parainfluen 2 PCR NOT DETECTED 09/24/23 21:30 Nasal Parainfluen 3 PCR NOT DETECTED 09/24/23 21:30 Nasal Parainfluen 4 PCR NOT DETECTED 09/24/23 21:30 Nasal RSV (PCR) NOT DETECTED 09/24/23 21:30 Nasal B.pertussis DNA PCR NOT DETECTED 09/24/23 21:30 Nasal C.pneumoniae (PCR) NOT DETECTED 09/24/23 21:30 Thom Human Metapneumo PCR NOT DETECTED 09/24/23 21:30 Nasal M.pneumoniae (PCR) NOT DETECTED 09/24/23 21:30 Nasal SARS-CoV-2 (PCR) NOT DETECTED 09/24/23 21:30 Urine Opiates Screen NEGATIVE (NEGATIVE) 09/25/23 13:30 Ur Buprenorphine Scrn NEGATIVE (NEGATIVE) 09/25/23 13:30 Ur Oxycodone Screen NEGATIVE (NEGATIVE) 09/25/23 13:30 Urine Methadone Screen NEGATIVE (NEGATIVE) 09/25/23 13:30 Ur Barbiturates Screen NEGATIVE (NEGATIVE) 09/25/23 13:30 Ur Tricyclics Screen NEGATIVE (NEGATIVE) 09/25/23 13:30 Ur Phencyclidine Scrn NEGATIVE (NEGATIVE) 09/25/23 13:30 Ur Amphetamine Screen NEGATIVE (NEGATIVE) 09/25/23 13:30 U Methamphetamines Scrn NEGATIVE (NEGATIVE) 09/25/23 13:30 U Benzodiazepines Scrn NEGATIVE (NEGATIVE) 09/25/23 13:30 Urine Cocaine Screen NEGATIVE (NEGATIVE) 09/25/23 13:30 U Cannabinoids Screen NEGATIVE (NEGATIVE) 09/25/23 13:30 Ur Drug Screen Comment CUTOFF CONC BELOW: 09/25/23 13:30 Ethyl Alcohol < 10.0 mg/dL 09/24/23 16:44
[2023-10-04] MEDS: SODIUM CHLORIDE FLUSH 0.9% 10 ML SYRINGE IVP SCH ×3 (01:54→18:23)
[2023-10-04 06:06] LABS: CALCIUM 8.8 mg/dL (8.5-10.3); CREATININE 0.9 mg/dL (0.6-1.3); MAGNESIUM 1.7 mg/dL (1.7-2.3); POTASSIUM 4.7 mmol/L (3.5-4.5)
[2023-10-04] MEDS: IPRATROPIUM/ALBUTEROL 3 ML NEB INH PRN ×3 (07:52→19:04)
[2023-10-04] MEDS: ASCORBIC ACID 500 MG TABLET PO SCH (09:36)
[2023-10-04] MEDS: amLODIPine 5 MG TABLET PO SCH (09:36)
[2023-10-04] MEDS: ZINC OXIDE 20% OINT 30 GM TUBE TOP PRN (09:36)
[2023-10-04] MEDS: guaiFENesin 600 MG TABLET PO SCH ×2 (09:36→20:27)
[2023-10-04] MEDS: BENZONATATE 100 MG CAPSULE PO PRN (09:36)
[2023-10-04] MEDS: MULTIVITAMIN W/MINERALS TABLET PO SCH (09:37)
[2023-10-04] MEDS: hydroCHLOROthiazide 25 MG TABLET PO SCH (09:37)
--- NOTE | 2023-10-04 12:43 | PROVIDER PROGRESS NOTE ---
Assessment/Plan - Problem List (1) Orthostatic hypotension Assessment/Plan: Today is the first time patient has been out of bed, in a standing position. Orthostatic vital signs were done and he is orthostatic with a 17 mmHg drop in systolic blood pressure and a 20 beat increase in heart rate when he goes from supine to standing. Plan: Will give saline 1 L hydration Will stop the HCTZ Check orthostatics every shift As he is less lightheaded he is more likely to cooperate with PT, I suspect OOB to chair for all meals ordered and I explained importance to pt (2) Generalized weakness Assessment/Plan: Yesterday 10/03 he agreed to work with PT and OT and be OOB. He then complained of pain in the hip where he fell a week ago at home. He was helped with PT and OT Plan: He would benefit from SNF, as per PT eval. I believe he needs LTC and SW to discuss that with him. Today I broached the subject of a NH with him and encouraged him to work with PT and OT if he wants to get muscle strength to be able to return home (3) Severe protein-calorie malnutrition Assessment/Plan: Severe protein calorie malnutrition. Dietitian has been consulted. He is eating well recently (4) Fall at home Assessment/Plan: PT and OT eval and treatment were ordered at adm, but he had been refusing until 10/03 Today he is found to be orthostatic Plan: He will likely need PT and OT rehab and may need LTC placement Cont orthostatic VS checks (5) Tobacco use Assessment/Plan: DuoNeb PRN. (6) HTN (hypertension) Assessment/Plan: BP very elevated at presentation (all VS reviewed). He has not seen a doctor in many years, so don't know if this is old and untreated or new Dx Plan: Amlodipine increased to 10 mg daily, to cont Started HCTZ 12.5 mg. Increased to 25 mg 10/02. I will stop HCTZ today due to orthostasis (7) Leg edema Assessment/Plan: He had 2+ edema to mid shins. Echo was unremarkable and lower extrem Doppler for DVT was negative. Therefore probably was from hypo-osmotic pressure from low protein (8) Inadequate social support Assessment/Plan: He has lived alone x 20 yr in a log cabin, . Plan: he need social media project manager / case mgmt to assist with placement Medically stable. Requires placement. he was unwilling to work with SW on placement but he is not safe to return home due to his failure to thrive. Will order shower prn (9) Pneumonia Assessment/Plan: TREATED CXR showed bilateral lower lobe PNA. He completed course of azithromycin and ceftriaxone. Some concern for aspiration, BLUE LINE HANGER consulted but feel he does not require urgent evaluation. (10) TOÑITO (acute kidney injury) Assessment/Plan: Resolved with iv fluids (11) Hypokalemia Assessment/Plan: Resolved. All labs were reviewed and todaty K was high at 5.3 Plan: Will stop the daily po KCl Follow BMP intermitt (12) Hypomagnesemia Assessment/Plan: Replaced Mg when low. Plan: Follow BMP intermitt - Current Meds Current Meds: Current Medications Generic Name Dose Route Start Last Admin Trade Name Freq PRN Reason Stop Dose Admin Acetaminophen 650 mg 09/24/23 21:12 09/25/23 06:40 Acetaminophen 325 Mg Tablet PO 650 mg Q6H PRN Administration Pain 1 to 4, or Fever Albuterol/Ipratropium 3 ml 10/03/23 10:41 10/04/23 07:52 Ipratropium/Albuterol 3 Ml Neb INH 3 ml RTQID PRN Administration Wheezing Amlodipine Besylate 10 mg 09/30/23 09:00 10/04/23 09:36 Amlodipine 5 Mg Tablet PO 10 mg DAILY STEFANO Administration Ascorbic Acid 500 mg 09/25/23 09:00 10/04/23 09:36 Ascorbic Acid 500 Mg Tablet PO 500 mg DAILY STEFANO Administration Benzonatate 100 mg 09/24/23 21:18 10/04/23 09:36 Benzonatate 100 Mg Capsule PO 100 mg TID PRN Administration Cough Guaifenesin 600 mg 09/24/23 22:00 10/04/23 09:36 Guaifenesin 600 Mg Tablet PO 600 mg BID STEFANO Administration Hydrochlorothiazide 25 mg 10/03/23 09:00 10/04/23 09:37 Hydrochlorothiazide 25 Mg Tablet PO 25 mg DAILY STEFANO Administration Morphine Sulfate 0.5 mg 09/28/23 18:04 09/28/23 18:20 Morphine 2 Mg/Ml Carpuject IVP 0.5 mg Q2HR PRN Administration Severe Pain (Level 7-10) Multi-Ingredient Ointment 1 applic 09/25/23 12:13 10/04/23 09:36 Zinc Oxide 20% Oint 30 Gm Tube TOP 1 applic PRN PRN Administration Skin Care Multivitamins/Minerals 1 tab 09/29/23 08:00 10/04/23 09:37 Multivitamin W/Minerals Tablet PO 1 tab DAILYWM STEFANO Administration Sodium Chloride 10 ml 09/24/23 21:12 09/24/23 22:34 Sodium Chloride Flush 0.9% 10 Ml Syringe IVP 10 ml PRN PRN Administration NEEDED PER PROVIDER ORDERS Sodium Chloride 10 ml 09/25/23 01:00 10/04/23 09:36 Sodium Chloride Flush 0.9% 10 Ml Syringe IVP 10 ml 0100,0900,1700 STEFANO Administration - Lab Result Fish Bone Diagrams: 10/03/23 06:09 10/04/23 05:40 - Additional Planning My Orders: My Active Orders 10/04/23 09:25 Out of bed 3+ hours today [RC] TID 10/04/23 10:22 Orthostatic [Vital Signs - Orthostatic] [RC] QSHIFT 10/04/23 13:00 NS 0.9% @ 83.333 mls/hr Sodium Chloride 0.9% [Normal Saline 0.9%] 1,000 ml IV 83.333 mls/hr Subjective - Subjective Patient Reports: Resting Comfortably (sitting in chair) Objective Vital Signs: Vital Signs - 24 hr 10/03/23 10/03/23 10/03/23 14:00 15:56 20:45 Temperature 37.1 C 36.7 C 36.7 C Heart Rate Heart Rate [ 81 79 73 Brachial] Respiratory 18 16 18 Rate Blood Pressure 127/79 124/78 131/80 H [Right Brachial artery] O2 Saturation 94 92 93 10/04/23 10/04/23 04:18 07:52 Temperature 36.5 C Heart Rate 82 Heart Rate [ 65 Brachial] Respiratory 16 24 Rate Blood Pressure 158/93 H [Right Brachial artery] O2 Saturation 93 Oxygen O2 Source Room air I&O (Last 24 Hrs): Intake and Output Totals x24h 10/02/23 10/03/23 10/04/23 23:59 23:59 23:59 Intake Total 580 490 360 Output Total 1750 925 225 Balance -1170 -435 135 General: Alert, No acute distress, Other (Disheveled) HEENT: Mucous membr. moist/pink, Other (Many missing teeeth) Neck: Supple, No JVD Neuro: Alert, Non Focal, Other (Slow to answer, speech normal, memory poor) Cardiovascular: Regular rate Respiratory: No respiratory distress Abdomen: No tenderness Extremities: No clubbing, No edema, Other (Muscle wasting) - Results Results: Laboratory Results WBC 7.5 x10^3/uL (4.8-10.8) 10/03/23 06:09 RBC 3.85 10^6/uL (4.70-6.10) L 10/03/23 06:09 Hgb 11.6 g/dL (14.0-18.0) L 10/03/23 06:09 Hct 37.7 % (42.0-52.0) L 10/03/23 06:09 MCV 97.9 fL (80.0-94.0) H 10/03/23 06:09 MCH 30.1 pg (27.0-31.0) 10/03/23 06:09 MCHC 30.8 g/dL (32.0-36.0) L 10/03/23 06:09 RDW 12.8 % (12.0-15.0) 10/03/23 06:09 Plt Count 199 10^3/uL (130-450) 10/03/23 06:09 MPV 10.2 fL (7.4-11.4) 10/03/23 06:09 Neut # (Auto) 5.7 10^3/uL (1.5-6.6) 10/03/23 06:09 Lymph # (Auto) 1.0 10^3/uL (1.5-3.5) L 10/03/23 06:09 [place] # (Auto) 0.6 10^3/uL (0.0-1.0) 10/03/23 06:09 Eos # (Auto) 0.1 10^3/uL (0.0-0.7) 10/03/23 06:09 Baso # (Auto) 0.1 10^3/uL (0.0-0.1) 10/03/23 06:09 Absolute Nucleated RBC 0.00 x10^3/uL 10/03/23 06:09 Nucleated RBC % 0.0 /100WBC 10/03/23 06:09 VBG pH 7.353 (7.31-7.41) 09/24/23 16:44 VBG pCO2 43.4 mmHg (41-51) 09/24/23 16:44 VBG pO2 25.3 mmHg (25-47) 09/24/23 16:44 VBG HCO3 23.6 mmol/L (23-28) 09/24/23 16:44 VBG Total CO2 24.9 mmol/L (24-29) 09/24/23 16:44 VBG O2 Saturation 46.4 % (60-80) L 09/24/23 16:44 VBG Base Excess -2.0 mmol/L (-2 - +2) 09/24/23 16:44 Sodium 141 mmol/L (135-145) 10/04/23 05:40 Potassium 4.7 mmol/L (3.5-4.5) H 10/04/23 05:40 Chloride 108 mmol/L (101-111) 10/04/23 05:40 Carbon Dioxide 30 mmol/L (21-32) 10/04/23 05:40 Anion Gap 3.0 (6-13) L 10/04/23 05:40 BUN 29 mg/dL (6-20) H 10/04/23 05:40 Creatinine 0.9 mg/dL (0.6-1.3) 10/04/23 05:40 Estimated GFR (MDRD) 83 (>89) L 10/04/23 05:40 Glucose 88 mg/dL (74-104) 10/04/23 05:40 Estimat Average Glucose 117 mg/dL (70-100) H 09/24/23 21:30 Hemoglobin A1c % 5.7 % (4.27-6.07) 09/24/23 21:30 Lactic Acid 1.8 mmol/L (0.5-2.2) 09/24/23 21:30 Calcium 8.8 mg/dL (8.5-10.3) 10/04/23 05:40 Phosphorus 3.5 mg/dL (2.5-5.0) 09/26/23 05:24 Magnesium 1.7 mg/dL (1.7-2.3) 10/04/23 05:40 Total Bilirubin 0.3 mg/dL (0.2-1.0) 09/25/23 05:35 AST 23 IU/L (10-42) 09/25/23 05:35 ALT 13 IU/L (10-60) 09/25/23 05:35 Alkaline Phosphatase 90 IU/L (42-121) 09/25/23 05:35 Total Protein 5.4 g/dL (6.4-8.9) L 09/25/23 05:35 Albumin 2.9 g/dL (3.2-5.5) L 09/25/23 05:35 Globulin 2.5 g/dL (2.1-4.2) 09/25/23 05:35 Albumin/Globulin Ratio 1.2 (1.0-2.2) 09/25/23 05:35 Triglycerides 68 mg/dL (48-352) 09/24/23 21:30 Cholesterol 117 mg/dL (-200) 09/24/23 21:30 LDL Cholesterol, Calc 45 mg/dL (-129) 09/24/23 21:30 VLDL Cholesterol 14 mg/dL 09/24/23 21:30 HDL Cholesterol 58 mg/dL (60-) L 09/24/23 21:30 LDL/HDL Ratio 0.8 (<3.6) 09/24/23 21:30 Cholesterol/HDL Ratio 2.0 (<5.0) 09/24/23 21:30 Procalcitonin Immunoas 0.32 ng/mL (<0.5) 09/24/23 21:30 TSH 1.91 uIU/mL (0.34-5.60) 09/24/23 21:30 Urine Color YELLOW 09/25/23 13:30 Urine Clarity CLEAR (CLEAR) 09/25/23 13:30 Urine pH 6.0 PH (5.0-7.5) 09/25/23 13:30 Ur Specific [place] 1.025 (1.002-1.030) 09/25/23 13:30 Urine Protein TRACE mg/dL (NEGATIVE) 09/25/23 13:30 Urine Glucose (UA) NEGATIVE mg/dL (NEGATIVE) 09/25/23 13:30 Urine Ketones NEGATIVE mg/dL (NEGATIVE) 09/25/23 13:30 Urine Occult Blood NEGATIVE (NEGATIVE) 09/25/23 13:30 Urine Nitrite NEGATIVE (NEGATIVE) 09/25/23 13:30 Urine Bilirubin NEGATIVE (NEGATIVE) 09/25/23 13:30 Urine Urobilinogen 0.2 (NORMAL) E.U./dL (NORMAL) 09/25/23 13:30 Ur Leukocyte Esterase TRACE (NEGATIVE) H 09/25/23 13:30 Urine RBC 0-5 /HPF (0-5) 09/25/23 13:30 Urine WBC 0-3 /HPF (0-3) 09/25/23 13:30 Ur Squamous Epith Cells NONE SEEN (<= Few) 09/25/23 13:30 Urine Bacteria Few /HPF (None Seen) 09/25/23 13:30 Ur Microscopic Review INDICATED 09/25/23 13:30 Urine Culture Comments INDICATED 09/25/23 13:30 Nasal Adenovirus (PCR) NOT DETECTED 09/24/23 21:30 Nasal B. parapertussis DNA (PCR) NOT DETECTED 09/24/23 21:30 Nasal Coronavir 229E PCR NOT DETECTED 09/24/23 21:30 Nasal Coronavir HKU1 PCR NOT DETECTED 09/24/23 21:30 Nasal Coronavir NL63 PCR NOT DETECTED 09/24/23 21:30 Nasal Coronavir OC43 PCR NOT DETECTED 09/24/23 21:30 Nasal Enterovir/Rhinovir PCR NOT DETECTED 09/24/23 21:30 Nasal Influenza B PCR NOT DETECTED 09/24/23 21:30 Nasal Influenza A PCR NOT DETECTED 09/24/23 21:30 Nasal Parainfluen 1 PCR NOT DETECTED 09/24/23 21:30 Nasal Parainfluen 2 PCR NOT DETECTED 09/24/23 21:30 Nasal Parainfluen 3 PCR NOT DETECTED 09/24/23 21:30 Nasal Parainfluen 4 PCR NOT DETECTED 09/24/23 21:30 Nasal RSV (PCR) NOT DETECTED 09/24/23 21:30 Nasal B.pertussis DNA PCR NOT DETECTED 09/24/23 21:30 Nasal C.pneumoniae (PCR) NOT DETECTED 09/24/23 21:30 Thom Human Metapneumo PCR NOT DETECTED 09/24/23 21:30 Nasal M.pneumoniae (PCR) NOT DETECTED 09/24/23 21:30 Nasal SARS-CoV-2 (PCR) NOT DETECTED 09/24/23 21:30 Urine Opiates Screen NEGATIVE (NEGATIVE) 09/25/23 13:30 Ur Buprenorphine Scrn NEGATIVE (NEGATIVE) 09/25/23 13:30 Ur Oxycodone Screen NEGATIVE (NEGATIVE) 09/25/23 13:30 Urine Methadone Screen NEGATIVE (NEGATIVE) 09/25/23 13:30 Ur Barbiturates Screen NEGATIVE (NEGATIVE) 09/25/23 13:30 Ur Tricyclics Screen NEGATIVE (NEGATIVE) 09/25/23 13:30 Ur Phencyclidine Scrn NEGATIVE (NEGATIVE) 09/25/23 13:30 Ur Amphetamine Screen NEGATIVE (NEGATIVE) 09/25/23 13:30 U Methamphetamines Scrn NEGATIVE (NEGATIVE) 09/25/23 13:30 U Benzodiazepines Scrn NEGATIVE (NEGATIVE) 09/25/23 13:30 Urine Cocaine Screen NEGATIVE (NEGATIVE) 09/25/23 13:30 U Cannabinoids Screen NEGATIVE (NEGATIVE) 09/25/23 13:30 Ur Drug Screen Comment CUTOFF CONC BELOW: 09/25/23 13:30 Ethyl Alcohol < 10.0 mg/dL 09/24/23 16:44
[2023-10-04] MEDS ORDERED: SODIUM CHLORIDE 0.9% 1,000 ML IV SCH (13:00)
[2023-10-05] MEDS: SODIUM CHLORIDE FLUSH 0.9% 10 ML SYRINGE IVP SCH ×3 (02:29→20:14)
[2023-10-05] MEDS: BENZONATATE 100 MG CAPSULE PO PRN (08:52)
[2023-10-05] MEDS: MULTIVITAMIN W/MINERALS TABLET PO SCH (08:52)
[2023-10-05] MEDS: amLODIPine 5 MG TABLET PO SCH (08:53)
[2023-10-05] MEDS: guaiFENesin 600 MG TABLET PO SCH ×2 (08:53→20:13)
[2023-10-05] MEDS: ASCORBIC ACID 500 MG TABLET PO SCH (08:53)
[2023-10-05] MEDS: hydroCHLOROthiazide 25 MG TABLET PO SCH (08:53)
[2023-10-05] MEDS: IPRATROPIUM/ALBUTEROL 3 ML NEB INH PRN (09:27)
--- NOTE | 2023-10-05 11:22 | Discharge Plan ---
Discharge Plan for SNF / [facility] - Discharge Plan And Transition Orders Problem Reviewed?: Yes Disposition: 03 SNF DC/Xfer Condition: Poor Allergies and Adverse Reactions: Allergies Allergy/AdvReac Type Severity Reaction Status Date / Time No Known Drug Allergies Allergy Verified 09/24/23 16:28 - SNF / [facility] Transition Orders Medicare Certification Statement: I certify that [facility] care home care is medically necessary on a continuing basis for any of the conditions for which she/he is receiving care during hospitalization. Notify PCP of admission and forward orders to primary provider for signature. Other Notification Orders: Call PCP immediately if patient develops dyspnea, chest pain/tightness or edema. Additional Bowel Program Orders: If no BM after 2 days, nurse may give M.O.M. 30ml PO PRN and/or ducolax Supp 1 MS and/or SHEILA 250mg P.O., and/or senna 1-2 tabs PO. On day 3 nurse may give repeat above order until residents constipation is resolved. Medication Orders: PLEASE REFER TO THE DISCHARGE MEDICATION LIST.
--- NOTE | 2023-10-05 11:34 | PROVIDER PROGRESS NOTE ---
Assessment/Plan - Problem List (1) Orthostatic hypotension Assessment/Plan: 10/04/23 was the first time patient was out of bed, in a standing position. Orthostatic vital signs were done and he was orthostatic. He got 1L saline and I stopped his (new) HCTZ Today he is still symptomatic when upright and is orthostatic: lying BP 151/90, HR 78, sitting BP 122/82, HR 83, standing BP 119/82, HR 91. Plan: He is not yet ready for DCh today Will give another saline infusion, will give 500 cc slowly Remain off HCTZ Check orthostatic VS every shift As he is less lightheaded he is more likely to cooperate with PT, I suspect OOB to chair for all meals ordered and I explained importance to pt (2) Generalized weakness Assessment/Plan: 10/03 he agreed to work with PT and OT and be OOB. He then complained of pain in the hip where he fell a week ago at home. He was helped with PT and OT. On 10/04 I broached the subject of a NH with him and encouraged him to work with PT and OT if he wants to get muscle strength to be able to return home Plan: He would benefit from SNF, as per PT eval. I believe he needs LTC and SW is to discuss his meterman plan with him. He needs help with shower prn (3) Severe protein-calorie malnutrition Assessment/Plan: Severe protein calorie malnutrition. Dietitian has been consulted. He is eating well recently (4) Fall at home Assessment/Plan: PT and OT eval and treatment were ordered at adm, but he was refusing until 10/03. He was getting ivf at adm. On 10/04 he was found to be orthostatic an got 1 more L of saline yesterday Plan: Cont orthostatic VS checks and treat He will need PT and OT rehab, and may need LTC placement (5) Tobacco use Assessment/Plan: DuoNeb PRN. he has not asked for a Nicotine patch (6) HTN (hypertension) Assessment/Plan: BP very elevated at presentation. He had not seen a doctor in 10-20 years, so we don't know if this is old and untreated or new Dx. Since adm he was put on Amlodipine and started HCTZ 12.5 mg. Increased to 25 mg 10/02. I stopped HCTZ 10/04 due to orthostasis. Plan: Amlodipine 10 mg daily, to cont (7) Inadequate social support Assessment/Plan: He has lived alone x 20 yr in a log cabin, . Plan: He needs social work assistant / case mgmt to assist with placement, if he agrees He was unwilling to work with SW on placement plans but he is not safe to return home due to his failure to thrive, weakness and orthostasis (8) Pneumonia Assessment/Plan: RESOLVED CXR showed bilateral lower lobe PNA. He completed course of azithromycin and ceftriaxone. Some concern for aspiration, HOT KNIFE CUTTER consulted but feel he does not require urgent evaluation. (9) TOÑITO (acute kidney injury) Assessment/Plan: RESOLVED with iv fluids (10) Hypokalemia Assessment/Plan: Resolved. All labs were reviewed Plan: Follow BMP intermitt (11) Hypomagnesemia Assessment/Plan: Replaced Mg when low. Plan: Follow Mg intermitt - Current Meds Current Meds: Current Medications Generic Name Dose Route Start Last Admin Trade Name Freq PRN Reason Stop Dose Admin Acetaminophen 650 mg 09/24/23 21:12 09/25/23 06:40 Acetaminophen 325 Mg Tablet PO 650 mg Q6H PRN Administration Pain 1 to 4, or Fever Albuterol/Ipratropium 3 ml 10/03/23 10:41 10/05/23 09:27 Ipratropium/Albuterol 3 Ml Neb INH 3 ml RTQID PRN Administration Wheezing Amlodipine Besylate 10 mg 09/30/23 09:00 10/05/23 08:53 Amlodipine 5 Mg Tablet PO 10 mg DAILY STEFANO Administration Ascorbic Acid 500 mg 09/25/23 09:00 10/05/23 08:53 Ascorbic Acid 500 Mg Tablet PO 500 mg DAILY STEFANO Administration Benzonatate 100 mg 09/24/23 21:18 10/05/23 08:52 Benzonatate 100 Mg Capsule PO 100 mg TID PRN Administration Cough Guaifenesin 600 mg 09/24/23 22:00 10/05/23 08:53 Guaifenesin 600 Mg Tablet PO 600 mg BID STEFANO Administration Hydrochlorothiazide 25 mg 10/03/23 09:00 10/05/23 08:53 Hydrochlorothiazide 25 Mg Tablet PO 25 mg DAILY STEFANO Administration Morphine Sulfate 0.5 mg 09/28/23 18:04 09/28/23 18:20 Morphine 2 Mg/Ml Carpuject IVP 0.5 mg Q2HR PRN Administration Severe Pain (Level 7-10) Multi-Ingredient Ointment 1 applic 09/25/23 12:13 10/04/23 09:36 Zinc Oxide 20% Oint 30 Gm Tube TOP 1 applic PRN PRN Administration Skin Care Multivitamins/Minerals 1 tab 09/29/23 08:00 10/05/23 08:52 Multivitamin W/Minerals Tablet PO 1 tab DAILYWM STEFANO Administration Sodium Chloride 10 ml 09/24/23 21:12 09/24/23 22:34 Sodium Chloride Flush 0.9% 10 Ml Syringe IVP 10 ml PRN PRN Administration NEEDED PER PROVIDER ORDERS Sodium Chloride 10 ml 09/25/23 01:00 10/05/23 08:52 Sodium Chloride Flush 0.9% 10 Ml Syringe IVP 10 ml 0100,0900,1700 [facility] Administration - Lab Result Fish Bone Diagrams: 10/03/23 06:09 10/04/23 05:40 Subjective - Subjective Patient Reports: Resting Comfortably Objective Vital Signs: Vital Signs - 24 hr 10/04/23 10/04/23 10/04/23 13:11 14:25 19:07 Temperature 36.8 C Heart Rate 84 89 Heart Rate [ 83 Brachial] Respiratory 22 20 17 Rate Blood Pressure 131/81 H [Right Brachial artery] O2 Saturation 94 10/04/23 10/05/23 10/05/23 20:57 07:23 09:27 Temperature 36.7 C 36.6 C Heart Rate 76 Heart Rate [ 76 74 Brachial] Respiratory 20 18 22 Rate Blood Pressure 133/84 H 145/86 H [Right Brachial artery] O2 Saturation 93 95 Oxygen O2 Source Room air I&O (Last 24 Hrs): Intake and Output Totals x24h 10/03/23 10/04/23 10/05/23 23:59 23:59 23:59 Intake Total 490 1951.386 998.614 Output Total 925 625 300 Balance -435 1326.386 698.614 General: Alert, Oriented x3, Other (Disheveled, sunken eyes, cachectic) HEENT: Mucous membr. moist/pink, Other (poor dentition, many missing teeth) Neck: Supple Neuro: Alert, Non Focal Cardiovascular: Regular rate, No murmurs Respiratory: No respiratory distress Abdomen: Soft, No tenderness Extremities: No clubbing, No edema, Other (Muscle wasting) - Results Results: Laboratory Results WBC 7.5 x10^3/uL (4.8-10.8) 10/03/23 06:09 RBC 3.85 10^6/uL (4.70-6.10) L 10/03/23 06:09 Hgb 11.6 g/dL (14.0-18.0) L 10/03/23 06:09 Hct 37.7 % (42.0-52.0) L 10/03/23 06:09 MCV 97.9 fL (80.0-94.0) H 10/03/23 06:09 MCH 30.1 pg (27.0-31.0) 10/03/23 06:09 MCHC 30.8 g/dL (32.0-36.0) L 10/03/23 06:09 RDW 12.8 % (12.0-15.0) 10/03/23 06:09 Plt Count 199 10^3/uL (130-450) 10/03/23 06:09 MPV 10.2 fL (7.4-11.4) 10/03/23 06:09 Neut # (Auto) 5.7 10^3/uL (1.5-6.6) 10/03/23 06:09 Lymph # (Auto) 1.0 10^3/uL (1.5-3.5) L 10/03/23 06:09 [place] # (Auto) 0.6 10^3/uL (0.0-1.0) 10/03/23 06:09 Eos # (Auto) 0.1 10^3/uL (0.0-0.7) 10/03/23 06:09 Baso # (Auto) 0.1 10^3/uL (0.0-0.1) 10/03/23 06:09 Absolute Nucleated RBC 0.00 x10^3/uL 10/03/23 06:09 Nucleated RBC % 0.0 /100WBC 10/03/23 06:09 VBG pH 7.353 (7.31-7.41) 09/24/23 16:44 VBG pCO2 43.4 mmHg (41-51) 09/24/23 16:44 VBG pO2 25.3 mmHg (25-47) 09/24/23 16:44 VBG HCO3 23.6 mmol/L (23-28) 09/24/23 16:44 VBG Total CO2 24.9 mmol/L (24-29) 09/24/23 16:44 VBG O2 Saturation 46.4 % (60-80) L 09/24/23 16:44 VBG Base Excess -2.0 mmol/L (-2 - +2) 09/24/23 16:44 Sodium 141 mmol/L (135-145) 10/04/23 05:40 Potassium 4.7 mmol/L (3.5-4.5) H 10/04/23 05:40 Chloride 108 mmol/L (101-111) 10/04/23 05:40 Carbon Dioxide 30 mmol/L (21-32) 10/04/23 05:40 Anion Gap 3.0 (6-13) L 10/04/23 05:40 BUN 29 mg/dL (6-20) H 10/04/23 05:40 Creatinine 0.9 mg/dL (0.6-1.3) 10/04/23 05:40 Estimated GFR (MDRD) 83 (>89) L 10/04/23 05:40 Glucose 88 mg/dL (74-104) 10/04/23 05:40 Estimat Average Glucose 117 mg/dL (70-100) H 09/24/23 21:30 Hemoglobin A1c % 5.7 % (4.27-6.07) 09/24/23 21:30 Lactic Acid 1.8 mmol/L (0.5-2.2) 09/24/23 21:30 Calcium 8.8 mg/dL (8.5-10.3) 10/04/23 05:40 Phosphorus 3.5 mg/dL (2.5-5.0) 09/26/23 05:24 Magnesium 1.7 mg/dL (1.7-2.3) 10/04/23 05:40 Total Bilirubin 0.3 mg/dL (0.2-1.0) 09/25/23 05:35 AST 23 IU/L (10-42) 09/25/23 05:35 ALT 13 IU/L (10-60) 09/25/23 05:35 Alkaline Phosphatase 90 IU/L (42-121) 09/25/23 05:35 Total Protein 5.4 g/dL (6.4-8.9) L 09/25/23 05:35 Albumin 2.9 g/dL (3.2-5.5) L 09/25/23 05:35 Globulin 2.5 g/dL (2.1-4.2) 09/25/23 05:35 Albumin/Globulin Ratio 1.2 (1.0-2.2) 09/25/23 05:35 Triglycerides 68 mg/dL (48-352) 09/24/23 21:30 Cholesterol 117 mg/dL (-200) 09/24/23 21:30 LDL Cholesterol, Calc 45 mg/dL (-129) 09/24/23 21:30 VLDL Cholesterol 14 mg/dL 09/24/23 21:30 HDL Cholesterol 58 mg/dL (60-) L 09/24/23 21:30 LDL/HDL Ratio 0.8 (<3.6) 09/24/23 21:30 Cholesterol/HDL Ratio 2.0 (<5.0) 09/24/23 21:30 Procalcitonin Immunoas 0.32 ng/mL (<0.5) 09/24/23 21:30 TSH 1.91 uIU/mL (0.34-5.60) 09/24/23 21:30 Urine Color YELLOW 09/25/23 13:30 Urine Clarity CLEAR (CLEAR) 09/25/23 13:30 Urine pH 6.0 PH (5.0-7.5) 09/25/23 13:30 Ur Specific [place] 1.025 (1.002-1.030) 09/25/23 13:30 Urine Protein TRACE mg/dL (NEGATIVE) 09/25/23 13:30 Urine Glucose (UA) NEGATIVE mg/dL (NEGATIVE) 09/25/23 13:30 Urine Ketones NEGATIVE mg/dL (NEGATIVE) 09/25/23 13:30 Urine Occult Blood NEGATIVE (NEGATIVE) 09/25/23 13:30 Urine Nitrite NEGATIVE (NEGATIVE) 09/25/23 13:30 Urine Bilirubin NEGATIVE (NEGATIVE) 09/25/23 13:30 Urine Urobilinogen 0.2 (NORMAL) E.U./dL (NORMAL) 09/25/23 13:30 Ur Leukocyte Esterase TRACE (NEGATIVE) H 09/25/23 13:30 Urine RBC 0-5 /HPF (0-5) 09/25/23 13:30 Urine WBC 0-3 /HPF (0-3) 09/25/23 13:30 Ur Squamous Epith Cells NONE SEEN (<= Few) 09/25/23 13:30 Urine Bacteria Few /HPF (None Seen) 09/25/23 13:30 Ur Microscopic Review INDICATED 09/25/23 13:30 Urine Culture Comments INDICATED 09/25/23 13:30 Nasal Adenovirus (PCR) NOT DETECTED 09/24/23 21:30 Nasal B. parapertussis DNA (PCR) NOT DETECTED 09/24/23 21:30 Nasal Coronavir 229E PCR NOT DETECTED 09/24/23 21:30 Nasal Coronavir HKU1 PCR NOT DETECTED 09/24/23 21:30 Nasal Coronavir NL63 PCR NOT DETECTED 09/24/23 21:30 Nasal Coronavir OC43 PCR NOT DETECTED 09/24/23 21:30 Nasal Enterovir/Rhinovir PCR NOT DETECTED 09/24/23 21:30 Nasal Influenza B PCR NOT DETECTED 09/24/23 21:30 Nasal Influenza A PCR NOT DETECTED 09/24/23 21:30 Nasal Parainfluen 1 PCR NOT DETECTED 09/24/23 21:30 Nasal Parainfluen 2 PCR NOT DETECTED 09/24/23 21:30 Nasal Parainfluen 3 PCR NOT DETECTED 09/24/23 21:30 Nasal Parainfluen 4 PCR NOT DETECTED 09/24/23 21:30 Nasal RSV (PCR) NOT DETECTED 09/24/23 21:30 Nasal B.pertussis DNA PCR NOT DETECTED 09/24/23 21:30 Nasal C.pneumoniae (PCR) NOT DETECTED 09/24/23 21:30 Thom Human Metapneumo PCR NOT DETECTED 09/24/23 21:30 Nasal M.pneumoniae (PCR) NOT DETECTED 09/24/23 21:30 Nasal SARS-CoV-2 (PCR) NOT DETECTED 09/24/23 21:30 Urine Opiates Screen NEGATIVE (NEGATIVE) 09/25/23 13:30 Ur Buprenorphine Scrn NEGATIVE (NEGATIVE) 09/25/23 13:30 Ur Oxycodone Screen NEGATIVE (NEGATIVE) 09/25/23 13:30 Urine Methadone Screen NEGATIVE (NEGATIVE) 09/25/23 13:30 Ur Barbiturates Screen NEGATIVE (NEGATIVE) 09/25/23 13:30 Ur Tricyclics Screen NEGATIVE (NEGATIVE) 09/25/23 13:30 Ur Phencyclidine Scrn NEGATIVE (NEGATIVE) 09/25/23 13:30 Ur Amphetamine Screen NEGATIVE (NEGATIVE) 09/25/23 13:30 U Methamphetamines Scrn NEGATIVE (NEGATIVE) 09/25/23 13:30 U Benzodiazepines Scrn NEGATIVE (NEGATIVE) 09/25/23 13:30 Urine Cocaine Screen NEGATIVE (NEGATIVE) 09/25/23 13:30 U Cannabinoids Screen NEGATIVE (NEGATIVE) 09/25/23 13:30 Ur Drug Screen Comment CUTOFF CONC BELOW: 09/25/23 13:30 Ethyl Alcohol < 10.0 mg/dL 09/24/23 16:44
[2023-10-05] MEDS ORDERED: SODIUM CHLORIDE 0.9% 1,000 ML IV SCH (13:00)
[2023-10-05] MEDS: ACETAMINOPHEN 325 MG TABLET PO PRN ×2 (13:41→20:13)
[2023-10-06] MEDS: SODIUM CHLORIDE FLUSH 0.9% 10 ML SYRINGE IVP SCH ×3 (00:24→18:01)
[2023-10-06] MEDS ORDERED: SODIUM CHLORIDE 0.9% IV SCH (06:00)
[2023-10-06] MEDS ORDERED: VANCOMYCIN IV SCH (06:00)
[2023-10-06] MEDS ORDERED: SODIUM CHLORIDE 0.9% 1,000 ML IV SCH (06:00)
[2023-10-06] MEDS: IPRATROPIUM/ALBUTEROL 3 ML NEB INH PRN (07:20)
[2023-10-06] MEDS: hydroCHLOROthiazide 25 MG TABLET PO SCH (08:54)
[2023-10-06] MEDS: guaiFENesin 600 MG TABLET PO SCH ×2 (08:54→21:22)
[2023-10-06] MEDS: amLODIPine 5 MG TABLET PO SCH (08:54)
[2023-10-06] MEDS: ASCORBIC ACID 500 MG TABLET PO SCH (08:54)
[2023-10-06] MEDS: MULTIVITAMIN W/MINERALS TABLET PO SCH (08:54)
[2023-10-06] MEDS: MIDODRINE 2.5 MG TABLET PO SCH ×2 (11:59→17:51)
--- NOTE | 2023-10-06 15:28 | PROVIDER PROGRESS NOTE ---
Assessment/Plan - Problem List (1) Acute respiratory failure with hypoxia Assessment/Plan: Since today his O2 sats are as low as 77% on room air. He has been started on suppl O2 via n.c. then required a venti-mask. 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 Orthostatic vital signs were done and he was orthostatic. He got 1L saline and I stopped his (new) HCTZ He is still symptomatic when upright and is still orthostatic today (all VS were reviewed) Plan: He is not yet ready for DCh today I started another saline infusion until hypoxia started (see #2) I will decrease the Amlodipine dose Will start Midodrine 2.5 TID w/ meals Check orthostatic VS daily (3) Pneumonia Assessment/Plan: CXR repeated today showed bilateral PNA. He completed course of azithromycin and ceftriaxone. Plan: Some concern for aspiration, so will start IV Zosyn and Vanco Cont Mucinex (4) HTN (hypertension) Assessment/Plan: BP very elevated at presentation. He had not seen a doctor in 10-20 years, so we don't know if this is old and untreated or new Dx. Since adm he was put on Amlodipine and started HCTZ 12.5 mg. Increased to HCTZ 25 mg on 10/02. I stopped HCTZ 10/04 due to orthostasis. Plan: Amlodipine will be decreased due to orthostasis (5) Generalized weakness Assessment/Plan: 10/03 he agreed to work with PT and OT and be OOB. He then complained of pain in the hip where he fell a week ago at home. He was helped with PT and OT. On 10/04 I broached the subject of a NH with him and encouraged him to work with PT and OT if he wants to get muscle strength to be able to return home Plan: He will need rehab at a SNF, as per PT eval. 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 He needs help with shower prn As he is less lightheaded he is more likely to cooperate with PT, I suspect Cont OOB to chair for all meals, was ordered (6) Severe protein-calorie malnutrition Assessment/Plan: Severe protein calorie malnutrition. Dietitian has been consulted. He is eating well recently (7) Fall at home Assessment/Plan: It was likely due to orthostasis plus profound weakness PT and OT eval and treatment were ordered at adm, but he was refusing until 10/03. He was getting ivf at adm. On 10/04 he was found to be orthostatic an got 1 more L of saline yesterday Plan: Cont orthostatic VS checks and treat He will need PT and OT rehab, and may need LTC placement (8) Inadequate social support Assessment/Plan: He has lived alone x 20 yr in a log [place], . Plan: He needs social work faculty member / case mgmt to assist with placement, if he agrees He was unwilling to work with SW on placement plans but he is not safe to return home due to his failure to thrive, weakness and orthostasis (9) Tobacco use Assessment/Plan: DuoNeb PRN. he has not asked for a Nicotine patch (10) TOÑITO (acute kidney injury) Assessment/Plan: RESOLVED with iv fluids (11) Hypokalemia Assessment/Plan: RESOLVED. All labs were reviewed Plan: Follow BMP intermitt (12) Hypomagnesemia Assessment/Plan: Replaced Mg when low. Plan: Follow Mg intermitt - Current Meds Current Meds: Current Medications Generic Name Dose Route Start Last Admin Trade Name Freq PRN Reason Stop Dose Admin Acetaminophen 650 mg 09/24/23 21:12 10/05/23 20:13 Acetaminophen 325 Mg Tablet PO 650 mg Q6H PRN Administration Pain 1 to 4, or Fever Albuterol/Ipratropium 3 ml 10/03/23 10:41 10/06/23 07:20 Ipratropium/Albuterol 3 Ml Neb INH 3 ml RTQID PRN Administration Wheezing Ascorbic Acid 500 mg 09/25/23 09:00 10/06/23 08:54 Ascorbic Acid 500 Mg Tablet PO 500 mg DAILY STEFANO Administration Benzonatate 100 mg 09/24/23 21:18 10/05/23 08:52 Benzonatate 100 Mg Capsule PO 100 mg TID PRN Administration Cough Guaifenesin 600 mg 09/24/23 22:00 10/06/23 08:54 Guaifenesin 600 Mg Tablet PO 600 mg BID STEFANO Administration Midodrine 2.5 mg 10/06/23 12:00 10/06/23 11:59 Midodrine 2.5 Mg Tablet PO 2.5 mg TIDWM STEFANO Administration Morphine Sulfate 0.5 mg 09/28/23 18:04 09/28/23 18:20 Morphine 2 Mg/Ml Carpuject IVP 0.5 mg Q2HR PRN Administration Severe Pain (Level 7-10) Multi-Ingredient Ointment 1 applic 09/25/23 12:13 10/04/23 09:36 Zinc Oxide 20% Oint 30 Gm Tube TOP 1 applic PRN PRN Administration Skin Care Multivitamins/Minerals 1 tab 09/29/23 08:00 10/06/23 08:54 Multivitamin W/Minerals Tablet PO 1 tab DAILYWM STEFANO Administration Sodium Chloride 10 ml 09/24/23 21:12 09/24/23 22:34 Sodium Chloride Flush 0.9% 10 Ml Syringe IVP 10 ml PRN PRN Administration NEEDED PER PROVIDER ORDERS Sodium Chloride 10 ml 09/25/23 01:00 10/06/23 08:54 Sodium Chloride Flush 0.9% 10 Ml Syringe IVP Not Given 0100,0900,1700 STEFANO - Lab Result Fish Bone Diagrams: 10/03/23 06:09 10/04/23 05:40 - Additional Planning My Orders: My Active Orders 10/06/23 10:41 O2 [Oxygen Therapy] [RC] .PRN 10/06/23 12:00 Midodrine [ProAmatine] 2.5 mg PO TIDWM 10/06/23 15:21 Chest 1V [XR] Stat 10/06/23 15:22 Vital Signs [RC] Q8HR 10/07/23 09:00 [id number] CD [Cardizem Cd] 120 mg PO DAILY Subjective - Subjective Patient Reports: Shortness of Breath Objective Vital Signs: Vital Signs - 24 hr 10/05/23 10/06/23 10/06/23 17:52 05:38 07:21 Temperature 37.0 C 37.1 C Heart Rate 74 Heart Rate [ 72 70 Brachial] Respiratory 20 18 20 Rate Blood Pressure [Left Brachial artery] Blood Pressure 147/87 H 151/93 H [Right Brachial artery] O2 Saturation 92 94 If not protocol : Oxygen Flow, liters/minute 10/06/23 10/06/23 10/06/23 08:55 14:33 14:35 Temperature 36.7 C 36.7 C Heart Rate Heart Rate [ 92 70 69 Brachial] Respiratory 18 18 18 Rate Blood Pressure 140/87 H [Left Brachial artery] Blood Pressure 126/76 [Right Brachial artery] O2 Saturation 81 L 75 L 83 L If not protocol 2 : Oxygen Flow, liters/minute 10/06/23 10/06/23 10/06/23 14:42 14:50 15:05 Temperature Heart Rate Heart Rate [ 70 Brachial] Respiratory 18 18 Rate Blood Pressure [Left Brachial artery] Blood Pressure [Right Brachial artery] O2 Saturation 83 L 78 L If not protocol 4 5 9 : Oxygen Flow, liters/minute Oxygen O2 Source Nasal cannula I&O (Last 24 Hrs): Intake and Output Totals x24h 10/04/23 10/05/23 10/06/23 23:59 23:59 23:59 Intake Total 5247.947 8741.278 678.336 Output Total 625 1301 1250 Balance 5741.302 9020.278 -571.664 General: Alert, Mild distress (from cough and needing (new) suppl O2), Other ( Cachectic) HEENT: Mucous membr. moist/pink, Other (Poor dentition) Neck: Supple Neuro: Alert, Non Focal, Other (Poor memory) Cardiovascular: Regular rate Respiratory: Rales Abdomen: Soft Extremities: No clubbing, No tenderness/swelling, Other (Trace edema) - Results Results: Laboratory Results WBC 7.5 x10^3/uL (4.8-10.8) 10/03/23 06:09 RBC 3.85 10^6/uL (4.70-6.10) L 10/03/23 06:09 Hgb 11.6 g/dL (14.0-18.0) L 10/03/23 06:09 Hct 37.7 % (42.0-52.0) L 10/03/23 06:09 MCV 97.9 fL (80.0-94.0) H 10/03/23 06:09 MCH 30.1 pg (27.0-31.0) 10/03/23 06:09 MCHC 30.8 g/dL (32.0-36.0) L 10/03/23 06:09 RDW 12.8 % (12.0-15.0) 10/03/23 06:09 Plt Count 199 10^3/uL (130-450) 10/03/23 06:09 MPV 10.2 fL (7.4-11.4) 10/03/23 06:09 Neut # (Auto) 5.7 10^3/uL (1.5-6.6) 10/03/23 06:09 Lymph # (Auto) 1.0 10^3/uL (1.5-3.5) L 10/03/23 06:09 [place] # (Auto) 0.6 10^3/uL (0.0-1.0) 10/03/23 06:09 Eos # (Auto) 0.1 10^3/uL (0.0-0.7) 10/03/23 06:09 Baso # (Auto) 0.1 10^3/uL (0.0-0.1) 10/03/23 06:09 Absolute Nucleated RBC 0.00 x10^3/uL 10/03/23 06:09 Nucleated RBC % 0.0 /100WBC 10/03/23 06:09 VBG pH 7.353 (7.31-7.41) 09/24/23 16:44 VBG pCO2 43.4 mmHg (41-51) 09/24/23 16:44 VBG pO2 25.3 mmHg (25-47) 09/24/23 16:44 VBG HCO3 23.6 mmol/L (23-28) 09/24/23 16:44 VBG Total CO2 24.9 mmol/L (24-29) 09/24/23 16:44 VBG O2 Saturation 46.4 % (60-80) L 09/24/23 16:44 VBG Base Excess -2.0 mmol/L (-2 - +2) 09/24/23 16:44 Sodium 141 mmol/L (135-145) 10/04/23 05:40 Potassium 4.7 mmol/L (3.5-4.5) H 10/04/23 05:40 Chloride 108 mmol/L (101-111) 10/04/23 05:40 Carbon Dioxide 30 mmol/L (21-32) 10/04/23 05:40 Anion Gap 3.0 (6-13) L 10/04/23 05:40 BUN 29 mg/dL (6-20) H 10/04/23 05:40 Creatinine 0.9 mg/dL (0.6-1.3) 10/04/23 05:40 Estimated GFR (MDRD) 83 (>89) L 10/04/23 05:40 Glucose 88 mg/dL (74-104) 10/04/23 05:40 Estimat Average Glucose 117 mg/dL (70-100) H 09/24/23 21:30 Hemoglobin A1c % 5.7 % (4.27-6.07) 09/24/23 21:30 Lactic Acid 1.8 mmol/L (0.5-2.2) 09/24/23 21:30 Calcium 8.8 mg/dL (8.5-10.3) 10/04/23 05:40 Phosphorus 3.5 mg/dL (2.5-5.0) 09/26/23 05:24 Magnesium 1.7 mg/dL (1.7-2.3) 10/04/23 05:40 Total Bilirubin 0.3 mg/dL (0.2-1.0) 09/25/23 05:35 AST 23 IU/L (10-42) 09/25/23 05:35 ALT 13 IU/L (10-60) 09/25/23 05:35 Alkaline Phosphatase 90 IU/L (42-121) 09/25/23 05:35 Total Protein 5.4 g/dL (6.4-8.9) L 09/25/23 05:35 Albumin 2.9 g/dL (3.2-5.5) L 09/25/23 05:35 Globulin 2.5 g/dL (2.1-4.2) 09/25/23 05:35 Albumin/Globulin Ratio 1.2 (1.0-2.2) 09/25/23 05:35 Triglycerides 68 mg/dL (48-352) 09/24/23 21:30 Cholesterol 117 mg/dL (-200) 09/24/23 21: LDL Cholesterol, Calc 45 mg/dL (-129) 09/24/23 21: VLDL Cholesterol 14 mg/dL 09/24/23 21: HDL Cholesterol 58 mg/dL (60-) L 09/24/23 21:30 LDL/HDL Ratio 0.8 (<3.6) 09/24/23 21: Cholesterol/HDL Ratio 2.0 (<5.0) 09/24/23 21: Procalcitonin Immunoas 0.32 ng/mL (<0.5) 09/24/23 21: TSH 1.91 uIU/mL (0.34-5.60) 09/24/23 21:30 Urine Color YELLOW 09/25/23 13:30 Urine Clarity CLEAR (CLEAR) 09/25/23 13:30 Urine pH 6.0 PH (5.0-7.5) 09/25/23 13:30 Ur Specific [place] 1.025 (1.002-1.030) 09/25/23 13:30 Urine Protein TRACE mg/dL (NEGATIVE) 09/25/23 13:30 Urine Glucose (UA) NEGATIVE mg/dL (NEGATIVE) 09/25/23 13:30 Urine Ketones NEGATIVE mg/dL (NEGATIVE) 09/25/23 13:30 Urine Occult Blood NEGATIVE (NEGATIVE) 09/25/23 13:30 Urine Nitrite NEGATIVE (NEGATIVE) 09/25/23 13:30 Urine Bilirubin NEGATIVE (NEGATIVE) 09/25/23 13:30 Urine Urobilinogen 0.2 (NORMAL) E.U./dL (NORMAL) 09/25/23 13:30 Ur Leukocyte Esterase TRACE (NEGATIVE) H 09/25/23 13:30 Urine RBC 0-5 /HPF (0-5) 09/25/23 13:30 Urine WBC 0-3 /HPF (0-3) 09/25/23 13:30 Ur Squamous Epith Cells NONE SEEN (<= Few) 09/25/23 13:30 Urine Bacteria Few /HPF (None Seen) 09/25/23 13:30 Ur Microscopic Review INDICATED 09/25/23 13:30 Urine Culture Comments INDICATED 09/25/23 13:30 Nasal Adenovirus (PCR) NOT DETECTED 09/24/23 21:30 Nasal B. parapertussis DNA (PCR) NOT DETECTED 09/24/23 21:30 Nasal Coronavir 229E PCR NOT DETECTED 09/24/23 21:30 Nasal Coronavir HKU1 PCR NOT DETECTED 09/24/23 21:30 Nasal Coronavir NL63 PCR NOT DETECTED 12 21:30 Nasal Coronavir OC43 PCR NOT DETECTED 12 21:30 Nasal Enterovir/Rhinovir PCR NOT DETECTED 09/24/23 21:30 Nasal Influenza B PCR NOT DETECTED 09/24/23 21:30 Nasal Influenza A PCR NOT DETECTED 09/24/23 21:30 Nasal Parainfluen 1 PCR NOT DETECTED 09/24/23 21:30 Nasal Parainfluen 2 PCR NOT DETECTED 09/24/23 21:30 Nasal Parainfluen 3 PCR NOT DETECTED 09/24/23 21:30 Nasal Parainfluen 4 PCR NOT DETECTED 12 21:30 Nasal RSV (PCR) NOT DETECTED 09/24/23 21:30 Nasal B.pertussis DNA PCR NOT DETECTED 09/24/23 21:30 Nasal C.pneumoniae (PCR) NOT DETECTED 09/24/23 21:30 Thom Human Metapneumo PCR NOT DETECTED 09/24/23 21:30 Nasal M.pneumoniae (PCR) NOT DETECTED 09/24/23 21:30 Nasal SARS-CoV-2 (PCR) NOT DETECTED 09/24/23 21:30 Urine Opiates Screen NEGATIVE (NEGATIVE) 09/25/23 13:30 Ur Buprenorphine Scrn NEGATIVE (NEGATIVE) 09/25/23 13:30 Ur Oxycodone Screen NEGATIVE (NEGATIVE) 09/25/23 13:30 Urine Methadone Screen NEGATIVE (NEGATIVE) 09/25/23 13:30 Ur Barbiturates Screen NEGATIVE (NEGATIVE) 09/25/23 13:30 Ur Tricyclics Screen NEGATIVE (NEGATIVE) 09/25/23 13:30 Ur Phencyclidine Scrn NEGATIVE (NEGATIVE) 09/25/23 13:30 Ur Amphetamine Screen NEGATIVE (NEGATIVE) 09/25/23 13:30 U Methamphetamines Scrn NEGATIVE (NEGATIVE) 09/25/23 13:30 U Benzodiazepines Scrn NEGATIVE (NEGATIVE) 09/25/23 13:30 Urine Cocaine Screen NEGATIVE (NEGATIVE) 09/25/23 13:30 U Cannabinoids Screen NEGATIVE (NEGATIVE) 09/25/23 13:30 Ur Drug Screen Comment CUTOFF CONC BELOW: 09/25/23 13:30 Ethyl Alcohol < 10.0 mg/dL 09/24/23 16:44
--- NOTE | 2023-10-06 16:38 | XRAY Report ---
PROCEDURE: Chest 1V INDICATIONS: New hypoxia TECHNIQUE: One view of the chest was acquired. COMPARISON: Chest radiograph on September 26, 2023. FINDINGS: Surgical changes and devices: None. Lungs and pleura: Increased left mid and lower lung patchy consolidation with new small left pleural effusion. Increased right basilar patchy consolidation. Interstitial prominence in the left lung. Tr rebecca right-sided pleural effusion. No pneumothorax. Mediastinum: Mediastinal contours appear normal. Heart size is normal. Bones and chest wall: No suspicious bony lesions. Overlying soft tissues appear unremarkable. IMPRESSION: 1.Increased left mid and lower lung patchy consolidation with new small left pleural effusion and inc reased right basilar patchy consolidation concerning for worsening infection. Recommend radiographic follow-up to document improvement and rule out underlying obstructive malignancy. 2.Left lung pulmonary edema. Reviewed by: Evangelina Andrade MD on 10/06/2023 4:37 PM PST Approved by: Evangelina Andrade MD on 10/06/2023 4:37 PM PST Station ID: [id number]
[2023-10-06] MEDS ORDERED: FUROSEMIDE 20 MG/2 ML VIAL IVP STA (16:56)
[2023-10-06] MEDS ORDERED: PIPERACILLIN/TAZOBACTAM 3.375 GM in SODIUM CHLORIDE 0.9% MINIBAG 100 ML IV ONE (17:00)
[2023-10-06] MEDS ORDERED: IPRATROPIUM/ALBUTEROL 3 ML NEB INH PRN (17:26)
[2023-10-06] MEDS ORDERED: VANCOMYCIN INJ 1 GM in SODIUM CHLORIDE 0.9% 250 ML IV ONE (18:00)
[2023-10-06] MEDS: ACETAMINOPHEN 325 MG TABLET PO PRN ×2 (18:42→20:02)
[2023-10-06] MEDS: IPRATROPIUM/ALBUTEROL 3 ML NEB INH SCH (19:05)
[2023-10-06] MEDS: PIPERACILLIN/TAZOBACTAM 3.375 GM in SODIUM CHLORIDE 0.9% MINIBAG 100 ML IV SCH (21:22)
[2023-10-07] MEDS: SODIUM CHLORIDE FLUSH 0.9% 10 ML SYRINGE IVP SCH ×3 (00:10→16:11)
[2023-10-07] MEDS: PIPERACILLIN/TAZOBACTAM 3.375 GM in SODIUM CHLORIDE 0.9% MINIBAG 100 ML IV SCH ×3 (05:00→21:00)
[2023-10-07] MEDS: FUROSEMIDE 20 MG/2 ML VIAL IVP SCH ×2 (06:20→13:47)
[2023-10-07] MEDS: ZINC OXIDE 20% OINT 30 GM TUBE TOP PRN (06:20)
[2023-10-07] MEDS: VANCOMYCIN INJ 0.75 GM in SODIUM CHLORIDE 0.9% 250 ML IV SCH ×2 (06:24→17:44)
[2023-10-07] MEDS: IPRATROPIUM/ALBUTEROL 3 ML NEB INH SCH ×4 (07:16→18:06)
[2023-10-07 08:30] LABS: BASOPHILS # (AUTO) 0.1 10^3/uL (0.0-0.1); BASOPHILS % (AUTO) 0.5 %; EOSINOPHILS % (AUTO) 0.2 %; HCT - HEMATOCRIT 35.2 % (42.0-52.0); HGB - HEMOGLOBIN 11.4 g/dL (14.0-18.0); LYMPHOCYTES # (AUTO) 1.2 10^3/uL (1.5-3.5); LYMPHOCYTES % (AUTO) 6.7 %; MEAN CORPUSCULAR HEMOGLOBIN 30.8 pg (27.0-31.0); MEAN CORPUSCULAR HGB CONC 32.4 g/dL (32.0-36.0); MEAN CORPUSCULAR VOLUME 95.1 fL (80.0-94.0); MEAN PLATELET VOLUME 9.2 fL (7.4-11.4); MONOCYTES # (AUTO) 0.9 10^3/uL (0.0-1.0); MONOCYTES % (AUTO) 4.9 %; NEUTROPHILS # (AUTO) 15.2 10^3/uL (1.5-6.6); NEUTROPHILS % (AUTO) 87.2 %; PLT - PLATELET COUNT 266 10^3/uL (130-450); RED CELL DISTRIBUTION WIDTH 12.7 % (12.0-15.0); WHITE BLOOD COUNT 17.4 x10^3/uL (4.8-10.8)
[2023-10-07] MEDS: MIDODRINE 2.5 MG TABLET PO SCH (08:46)
[2023-10-07] MEDS: diltiaZEM CD 120 MG CAPSULE PO SCH (08:46)
[2023-10-07] MEDS: MULTIVITAMIN W/MINERALS TABLET PO SCH (08:46)
[2023-10-07] MEDS: guaiFENesin 600 MG TABLET PO SCH ×2 (08:47→21:11)
[2023-10-07] MEDS ORDERED: amLODIPine 5 MG TABLET PO SCH (09:00)
[2023-10-07 09:05] LABS: CALCIUM 8.7 mg/dL (8.5-10.3); CREATININE 1.1 mg/dL (0.6-1.3); MAGNESIUM 1.6 mg/dL (1.7-2.3); POTASSIUM 3.9 mmol/L (3.5-4.5)
[2023-10-07] MEDS: MAGNESIUM OXIDE 400 MG TABLET PO SCH (12:26)
--- NOTE | 2023-10-07 12:47 | XRAY Report ---
PROCEDURE: Chest 1V INDICATIONS: Severe SOB w/ hypoxia TECHNIQUE: One view of the chest was acquired. COMPARISON: 10/06/2023 FINDINGS: Surgical changes and devices: None. Lungs and pleura: Complete opacification of the left hemithorax likely a combination of large effusi on and underlying atelectasis and airspace disease. Right lower lung consolidation also persistent. Mediastinum: Heart borders are obscured Bones and chest wall: Degenerative changes. IMPRESSION: Increased left hemithorax opacification, likely large effusion with underlying airspace disease and a telectasis. Underlying mass is also possible. Persistent right lung base consolidation also present. Reviewed by: Jareth Ayoub MD on 10/07/2023 12:45 PM PST Approved by: Jareth Ayoub MD on 10/07/2023 12:45 PM PST Station ID: [id number]
--- NOTE | 2023-10-07 14:18 | PROVIDER PROGRESS NOTE ---
Subjective - Subjective Pt reports feeling: Worse (Since this a.m., more SOB, is in severe resp distress) Objective - Vital Signs/Intake & Output Vital Signs: Vital Signs Temp Pulse Pulse Resp BP BP Pulse Ox 10/07/23 13:15 69 14 134/81 H 95 10/07/23 13:00 73 13 147/92 H 94 10/07/23 12:25 36.7 C 17 134/88 H 95 10/07/23 10:47 79 17 O2 Flow Rate 10/07/23 13:15 15 10/07/23 13:00 15 10/07/23 12:25 15 10/07/23 10:47 15 Intake & Output: Intake & Output 10/04/23 10/05/23 10/06/23 10/07/23 23:59 23:59 23:59 23:59 Intake Total 3768.341 7443.278 2733.336 690 Output Total 625 1301 1250 750 Balance 9815.141 0802.278 1483.336 -60 - Objective General Appearance: positive: Severe distress (Has on ventimask, head elevated to ceiling to open airway, tachypneic) Eyes Bilateral: positive: No lid inflammation ENT: positive: No signs of dehydration, Other (Poor dentition) Neck: positive: Other ((+) JVD) Respiratory: positive: Wheezes (R side), Other (No air mvm L side) Cardiovascular: positive: Other (TAchy, distant heart sounds due ti lung sounds) Abdomen: positive: No distention, Other (Scaphoid) Skin: positive: Warm, Dry Extremities: positive: No pedal edema, Other (Muscle wasting of all extrem) Neurologic/Psychiatric: positive: Oriented x3, Other (Non focal. Has generalized weakness) - Lab Results Fish Bones: 10/07/23 08:12 10/07/23 08:12 Other Labs: Lab Results x24hrs 10/07/23 10/07/23 10/07/23 Range/Units 13:32 11:47 11:47 WBC (4.8-10.8) x10^3/uL RBC (4.70-6.10) 10^6/uL Hgb (14.0-18.0) g/dL Hct (42.0-52.0) % MCV (80.0-94.0) fL MCH (27.0-31.0) pg MCHC (32.0-36.0) g/dL RDW (12.0-15.0) % Plt Count (130-450) 10^3/uL MPV (7.4-11.4) fL Neut # (Auto) (1.5-6.6) 10^3/uL Lymph # (Auto) (1.5-3.5) 10^3/uL [place] # (Auto) (0.0-1.0) 10^3/uL Eos # (Auto) (0.0-0.7) 10^3/uL Baso # (Auto) (0.0-0.1) 10^3/uL Absolute Nucleated RBC x10^3/uL Nucleated RBC % /100WBC Sodium (135-145) mmol/L Potassium (3.5-4.5) mmol/L Chloride (101-111) mmol/L Carbon Dioxide (21-32) mmol/L Anion Gap (6-13) BUN (6-20) mg/dL Creatinine (0.6-1.3) mg/dL Estimated GFR (MDRD) (>89) Glucose (74-104) mg/dL Calcium (8.5-10.3) mg/dL Magnesium (1.7-2.3) mg/dL Troponin I High Sens 14.9 13.4 (2.3-19.7) ng/L B-Natriuretic Peptide 258 H (5-100) pg/mL Last Dose Date Last Dose Time Vancomycin Peak (20.0-40.0) ug/mL 10/07/23 10/07/23 10/07/23 Range/Units 08:12 08:12 08:12 WBC 17.4 H (4.8-10.8) x10^3/uL RBC 3.70 L (4.70-6.10) 10^6/uL Hgb 11.4 L (14.0-18.0) g/dL Hct 35.2 L (42.0-52.0) % MCV 95.1 H (80.0-94.0) fL MCH 30.8 (27.0-31.0) pg MCHC 32.4 (32.0-36.0) g/dL RDW 12.7 (12.0-15.0) % Plt Count 266 (130-450) 10^3/uL MPV 9.2 (7.4-11.4) fL Neut # (Auto) 15.2 H (1.5-6.6) 10^3/uL Lymph # (Auto) 1.2 L (1.5-3.5) 10^3/uL [place] # (Auto) 0.9 (0.0-1.0) 10^3/uL Eos # (Auto) 0.0 (0.0-0.7) 10^3/uL Baso # (Auto) 0.1 (0.0-0.1) 10^3/uL Absolute Nucleated RBC 0.00 x10^3/uL Nucleated RBC % 0.0 /100WBC Sodium 138 (135-145) mmol/L Potassium 3.9 (3.5-4.5) mmol/L Chloride 106 (101-111) mmol/L Carbon Dioxide 26 (21-32) mmol/L Anion Gap 6.0 (6-13) BUN 26 H (6-20) mg/dL Creatinine 1.1 (0.6-1.3) mg/dL Estimated GFR (MDRD) 66 L (>89) Glucose 88 (74-104) mg/dL Calcium 8.7 (8.5-10.3) mg/dL Magnesium 1.6 L (1.7-2.3) mg/dL Troponin I High Sens (2.3-19.7) ng/L B-Natriuretic Peptide (5-100) pg/mL Last Dose Date Last Dose Time 0700 Vancomycin Peak 31.1 (20.0-40.0) ug/mL - Other Results/Comments Other Results/Comments: EKG done today, I interpreted: NSR, rate 81, left axis deviation, LVH with nonspecific ST-T changes, since EKG from 09/24/2023, LVH voltage is new Assessment/Plan - Problem List (1) Acute respiratory failure with hypoxia Impression: This a.m., he has worse SOB, despite being on supplemental O2 and despite starting on iv Lasix yesterday and being on antibiotics since yesterday (ordered for a new pneumonia), his O2 sats are at 70% today. The RN Fallon requested I evaluate his distress twice, and I did. He is in severe respiratory distress. ABG was done showing pH 7.3, PCO2 35, PO2 45 w/ sat 70% A STAT Chest x-ray was done showing entire left lung white out and it was read as having infiltrate plus pleural effusion. EKG was done which I interpreted. It showed sinus rhythm, rate 81, left axis deviation, LVH with nonspecific T wave abnormality. Since EKG from 09/24/2023, the LVH voltage is new Plan: Transfer the patient to the ICU to start BIPAP, titrate settings to keep O2 sat >86% Troponins ordered x 2 He may need a thoracentesis by IR (but today is Monday of the week end and we have no IR here until Monday) Cont treating pleural fluid/CHF and pneumonia and underlying COPD CRITICAL CARE TIME SPENT: 45 min (2) COPD exacerbation Today his exam has wheezing and diminished breath sounds in all lung kirby This man has been a longtime smoker. He has not seen a doctor in 20 years so there are no PFTs that have documentation of COPD Plan: Will give scheduled DuoNebs 4 times daily and every 4 hours as needed Will give twice daily Pulmicort nebulized Will start IV steroids and titrate down slowly Continue with Mucinex for expectoration Continue to treat the underlying pneumonia (3) Pneumonia Assessment/Plan: CXR repeated today showed a complete L lung white out due to consolidation and pleural effusion. At admission, he already completed course of azithromycin and ceftriaxone. Therefore IV Zosyn and Vanco were started yesterday Plan: Cont IV Zosyn and Vanco and start probiotic Cont Mucinex (4) HTN (hypertension) Assessment/Plan: BP very elevated at presentation. He had not seen a doctor in 10-20 years, so we don't know if this is old and untreated or new Dx. At adm he was put on Amlodipine and HCTZ, which were then decreased when orthostasis was found. Today his BP is 140-150/90-100 (VS all reviewed) Plan: Stop Midodrine (5) Generalized weakness Assessment/Plan: 10/03 he agreed to work with PT and OT and be OOB. He then complained of pain in the hip where he fell a week ago at home. He was helped with PT and OT. On 10/04 I broached the subject of a NH with him and encouraged him to work with PT and OT if he wants to get muscle strength to be able to return home Plan: He will need rehab at a SNF, as per PT eval. I also believe he needs LTC and SW is to discuss his assisted plan with him. He needs help with shower prn (6) Severe protein-calorie malnutrition Assessment/Plan: Severe protein calorie malnutrition w/BMI of 14. He admitted to me he was too weak to make himself food, at home Dietitian has been consulted. He is on a minced and moist diet due to poor dentition He was eating with an appetite recently (7) Fall at home Assessment/Plan: It was likely due to orthostasis plus profound weakness PT and OT eval and treatment were ordered at adm, but he was refusing until 10/03. He was getting ivf at adm. On 10/04 he was found to be orthostatic and needed 1L fluids/day for the last 3 dyas Plan: Cont PT and OT and then SNF rehab is planned, and he may need LTC placement (8) Inadequate social support Assessment/Plan: He has lived alone x 20 yr in a log cabin, . Plan: He needs social worker assistant / case mgmt to assist with placement, if he agrees He was unwilling to work with SW on placement plans but he is not safe to return home due to his failure to thrive, weakness and orthostasis (9) Tobacco use Assessment/Plan: This man has been a longtime smoker. He has not seen a doctor in 20 years so there are no PFTs that have documentation of COPD He has not asked for a Nicotine patch (10) TOÑITO (acute kidney injury) Assessment/Plan: RESOLVED with iv fluids (11) Hypokalemia Assessment/Plan: All labs were reviewed Plan: Follow BMP daily (12) Hypomagnesemia Assessment/Plan: Replaced Mg when low. Plan: Follow Mg intermitt (13) Orthostatic hypotension RESOLVED For the last 3 days he was orthostatic, BP meds needed to be decreased and Midodrine was started. Today he is hypertensive during his respiratory distress. Today he complained of lightheadedness and was able to do lying to dangling orthostatic check and he was hypertensive Plan: Stop Midodrine
[2023-10-07] MEDS: MORPHINE 2 MG/ML CARPUJECT IVP PRN ×2 (14:43→18:40)
[2023-10-07 15:22] LABS: VBG PCO2 47.3 mmHg (41-51); VBG PH 7.386 (7.31-7.41); VBG PO2 27.7 mmHg (25-47)
[2023-10-07 15:23] LABS: VBG BASE EXCESS 2.1 mmol/L (-2 - +2); VBG HCO3 27.7 mmol/L (23-28); VBG OXYGEN SATURATION 48.3 % (60-80); VBG TOTAL CO2 29.2 mmol/L (24-29)
[2023-10-07] MEDS ORDERED: SODIUM CHLORIDE 0.9% 250 ML IV ONE (17:30)
[2023-10-07 18:02] LABS: VANCOMYCIN,TROUGH 18.3 ug/mL
[2023-10-07] MEDS: FAMOTIDINE 20 MG TABLET PO SCH (21:11)
[2023-10-07] MEDS: methylPREDNISolone SUCCINATE 40 MG/ML VIAL IVP SCH (22:15)
[2023-10-08] MEDS: SODIUM CHLORIDE FLUSH 0.9% 10 ML SYRINGE IVP SCH ×4 (01:06→16:57)
[2023-10-08 05:01] LABS: BASOPHILS % (AUTO) 0.4 %; HCT - HEMATOCRIT 34.9 % (42.0-52.0); HGB - HEMOGLOBIN 11.4 g/dL (14.0-18.0); LYMPHOCYTES % (AUTO) 0.8 %; MEAN CORPUSCULAR HEMOGLOBIN 31.1 pg (27.0-31.0); MEAN CORPUSCULAR HGB CONC 32.7 g/dL (32.0-36.0); MEAN CORPUSCULAR VOLUME 95.4 fL (80.0-94.0); MEAN PLATELET VOLUME 9.4 fL (7.4-11.4); MONOCYTES % (AUTO) 0.9 %; NEUTROPHILS % (AUTO) 96.8 %; PLT - PLATELET COUNT 286 10^3/uL (130-450); RED BLOOD COUNT 3.66 10^6/uL (4.70-6.10); RED CELL DISTRIBUTION WIDTH 12.7 % (12.0-15.0); WHITE BLOOD COUNT 30.6 x10^3/uL (4.8-10.8)
[2023-10-08] MEDS: PIPERACILLIN/TAZOBACTAM 3.375 GM in SODIUM CHLORIDE 0.9% MINIBAG 100 ML IV SCH ×3 (05:07→20:28)
[2023-10-08 05:17] LABS: CALCIUM 8.8 mg/dL (8.5-10.3); CREATININE 1.2 mg/dL (0.6-1.3); MAGNESIUM 1.7 mg/dL (1.7-2.3); POTASSIUM 3.7 mmol/L (3.5-4.5)
[2023-10-08] MEDS: FUROSEMIDE 20 MG/2 ML VIAL IVP SCH ×2 (06:14→15:00)
[2023-10-08] MEDS: methylPREDNISolone SUCCINATE 40 MG/ML VIAL IVP SCH ×3 (06:14→21:09)
[2023-10-08] MEDS: IPRATROPIUM/ALBUTEROL 3 ML NEB INH SCH ×4 (06:15→20:00)
[2023-10-08 06:43] LABS: PLATELET ESTIMATE, MANUAL NORMAL (130-450,000) (NORMAL); PLATELET MORPHOLOGY NORMAL APPEARANCE (NORMAL)
[2023-10-08 07:03] LABS: LYMPHOCYTES # (MANUAL) 0.3 10^3/uL (1.5-3.5); LYMPHOCYTES % (MANUAL) 1 %
[2023-10-08 07:04] LABS: DIFFERENTIAL COMMENT MANUAL DIFFERENTIAL
[2023-10-08] MEDS ORDERED: POTASSIUM CHLORIDE 20 MEQ TABLET PO ONE (07:52)
[2023-10-08] MEDS: VANCOMYCIN INJ 0.75 GM in SODIUM CHLORIDE 0.9% 250 ML IV SCH (08:35)
[2023-10-08] MEDS: ACETAMINOPHEN 325 MG TABLET PO PRN (08:39)
[2023-10-08] MEDS: diltiaZEM CD 120 MG CAPSULE PO SCH (08:39)
[2023-10-08] MEDS: guaiFENesin 600 MG TABLET PO SCH ×2 (08:39→21:09)
[2023-10-08] MEDS: MAGNESIUM OXIDE 400 MG TABLET PO SCH (08:39)
[2023-10-08] MEDS: FAMOTIDINE 20 MG TABLET PO SCH ×2 (08:41→21:09)
[2023-10-08] MEDS: MULTIVITAMIN W/MINERALS TABLET PO SCH (08:51)
[2023-10-08] MEDS: TAMSULOSIN 0.4 MG CAPSULE PO SCH (12:40)
--- NOTE | 2023-10-08 12:50 | PHARMACY PROGRESS NOTE ---
- Therapy Status Vancomycin regimen day #: 3 Therapy status: Trough therapeutic Basis for treatment: Empirical Treatment indication: PNEUMONIA Trough goal: AUC 400-600 Concurrent antibiotics: ZOSYN 3.375GM Q8H - TOÑITO Risk Risk level for Acute Kidney Injury: Moderate Acute Kidney Injury risk factors: Piperacillin/Tozobactam, Admission to ICU - Monitoring and Recommendation Clinical response to treatment: I&O Previous 24 hours 10/06/23 10/07/23 10/08/23 23:59 23:59 23:59 Intake Total 2733.336 1040 1540 Output Total 1250 1325 1825 Balance 1483.336 -285 -285 Lab Results 10/08/23 10/07/23 10/04/23 04:44 08:12 05:40 BUN 30 H 26 H 29 H Creatinine 1.2 1.1 0.9 Estimated GFR (MDRD) 60 L 66 L 83 L 10/03/23 10/02/23 10/01/23 06:09 05:17 05:47 BUN 28 H 29 H 33 H Creatinine 0.8 0.9 1.0 Estimated GFR (MDRD) 95 83 L 74 L 09/30/23 09/29/23 09/26/23 05:50 05:57 05:24 BUN 32 H 30 H 41 H Creatinine 1.1 1.1 1.4 H Estimated GFR (MDRD) 66 L 66 L 50 L 09/25/23 09/24/23 09/24/23 05:35 21:30 16:44 BUN 48 H 49 H 53 H Creatinine 1.7 H 1.7 H 1.9 H Estimated GFR (MDRD) 40 L 40 L 35 L Vancomycin Monitoring 10/08/23 10/07/23 10/07/23 11:10 17:29 08:12 Vancomycin Peak 37.6 31.1 Vancomycin Trough 18.3 Cultures 09/24/23 16:50 Blood - Left Hand Blood Culture - Final NO GROWTH AFTER 5 DAYS 09/24/23 16:44 Blood - Right Arm Blood Culture - Final NO GROWTH AFTER 5 DAYS 09/25/23 13:30 Urine,Random Urine Culture - Final No growth Monitoring plan: Daily serum creatinine Areas for additional monitoring: IV to PO when appropriate Pharmacy recommendation: Continue current regime (USING RESULTS OF PEAK (31.1) AND TROUGH (18.3) AND BAYESIAN MODELING PATIENTS PREDICTED AUC IS THERAPUTIC AT 585. RECOMMEND CONTINUE CURRENT DOSING AND FREQUENCY.)
[2023-10-08] MEDS: SODIUM CHLORIDE FLUSH 0.9% 10 ML SYRINGE IVP PRN (14:57)
[2023-10-08] MEDS ORDERED: SODIUM CHLORIDE 0.9% 250 ML IV ONE (18:05)
--- NOTE | 2023-10-08 18:36 | PROVIDER PROGRESS NOTE ---
Subjective - Subjective Pt reports feeling: No change (He is tachypneicat rest, does not want to go back on BIPAP (probably is calaustrophic on a tight mask)) Objective - Vital Signs/Intake & Output Vital Signs: Vital Signs Pulse Pulse Resp BP Pulse Ox O2 Flow Rate 10/08/23 17:00 75 34 H 135/90 H 88 L 3 10/08/23 16:12 72 14 10/08/23 15:00 67 22 117/69 87 L 5 Intake & Output: Intake & Output 10/05/23 10/06/23 10/07/23 10/08/23 23:59 23:59 23:59 23:59 Intake Total 2720.278 2733.336 1040 2270 Output Total 1301 1250 1325 2105 Balance 2457.580 0761.336 -285 165 - Objective General Appearance: positive: Moderate distress (is tachypneic, despite HHFn.c.), Other (Cachectic. Speaks in a whisper, 2-3 word sentences because of tachypnea) Eyes Bilateral: positive: EOMI, No lid inflammation ENT: positive: ENT inspection nml, No signs of dehydration Neck: positive: Nml inspection Respiratory: positive: Wheezes, Rhonchi, Other (L side: diminished breath sounds) Cardiovascular: positive: Regular rate & rhythm (Distant heart sounds due to loud pulmonary rhonchi) Abdomen: positive: Non-tender, No distention Back: positive: Other (kyphosis) Skin: positive: Warm, Dry Extremities: positive: Non-tender, Other (Trace pedal edema. Diffuse muscle wasting of extremities) Neurologic/Psychiatric: positive: Oriented x3, CN's nml (2-12), Other (Has generalized weakness) - Lab Results Fish Bones: 10/09/23 07:53 10/09/23 07:53 Other Labs: Lab Results x24hrs 10/08/23 10/08/23 10/08/23 Range/Units 11:10 04:44 04:44 WBC (4.8-10.8) x10^3/uL RBC (4.70-6.10) 10^6/uL Hgb (14.0-18.0) g/dL Hct (42.0-52.0) % MCV (80.0-94.0) fL MCH (27.0-31.0) pg MCHC (32.0-36.0) g/dL RDW (12.0-15.0) % Plt Count (130-450) 10^3/uL MPV (7.4-11.4) fL Neut # (Auto) Lymph # (Auto) [place] # (Auto) Eos # (Auto) Baso # (Auto) Absolute Nucleated RBC Total Counted Band Neuts % (Manual) Abnorm Lymph % (Manual) Nucleated RBC % Neutrophils # (Manual) Lymphocytes # (Manual) (1.5-3.5) 10^3/uL Monocytes # (Manual) Eosinophils # (Manual) Basophils # (Manual) Differential Comment Platelet Estimate (NORMAL) Platelet Morphology (NORMAL) Sodium 141 (135-145) mmol/L Potassium 3.7 (3.5-4.5) mmol/L Chloride 106 (101-111) mmol/L Carbon Dioxide 26 (21-32) mmol/L Anion Gap 9.0 (6-13) BUN 30 H (6-20) mg/dL Creatinine 1.2 (0.6-1.3) mg/dL Estimated GFR (MDRD) 60 L (>89) Glucose 135 H (74-104) mg/dL Calcium 8.8 (8.5-10.3) mg/dL Magnesium 1.7 (1.7-2.3) mg/dL B-Natriuretic Peptide 197 H (5-100) pg/mL Nasal Screen MRSA (PCR) (NEGATIVE) Last Dose Date Last Dose Time 0835 Vancomycin Peak 37.6 (20.0-40.0) ug/mL 10/08/23 10/07/23 Range/Units 04:44 12:50 WBC 30.6 H (4.8-10.8) x10^3/uL RBC 3.66 L (4.70-6.10) 10^6/uL Hgb 11.4 L (14.0-18.0) g/dL Hct 34.9 L (42.0-52.0) % MCV 95.4 H (80.0-94.0) fL MCH 31.1 H (27.0-31.0) pg MCHC 32.7 (32.0-36.0) g/dL RDW 12.7 (12.0-15.0) % Plt Count 286 (130-450) 10^3/uL MPV 9.4 (7.4-11.4) fL Neut # (Auto) TANKAGE GRINDER Lymph # (Auto) TANKAGE GRINDER [place] # (Auto) TANKAGE GRINDER Eos # (Auto) TANKAGE GRINDER Baso # (Auto) TANKAGE GRINDER Absolute Nucleated RBC TANKAGE GRINDER Total Counted 100 Band Neuts % (Manual) TANKAGE GRINDER Abnorm Lymph % (Manual) TANKAGE GRINDER Nucleated RBC % TANKAGE GRINDER Neutrophils # (Manual) TANKAGE GRINDER Lymphocytes # (Manual) 0.3 L (1.5-3.5) 10^3/uL Monocytes # (Manual) TANKAGE GRINDER Eosinophils # (Manual) TANKAGE GRINDER Basophils # (Manual) TANKAGE GRINDER Differential Comment MANUAL DIFFERENTIAL Platelet Estimate NORMAL (130-450,000) (NORMAL) Platelet Morphology NORMAL APPEARANCE (NORMAL) Sodium (135-145) mmol/L Potassium (3.5-4.5) mmol/L Chloride (101-111) mmol/L Carbon Dioxide (21-32) mmol/L Anion Gap (6-13) BUN (6-20) mg/dL Creatinine (0.6-1.3) mg/dL Estimated GFR (MDRD) (>89) Glucose (74-104) mg/dL Calcium (8.5-10.3) mg/dL Magnesium (1.7-2.3) mg/dL B-Natriuretic Peptide (5-100) pg/mL Nasal Screen MRSA (PCR) NEGATIVE (NEGATIVE) Last Dose Date Last Dose Time Vancomycin Peak (20.0-40.0) ug/mL Assessment/Plan - Problem List (1) Acute respiratory failure with hypoxia Impression: He was in severe resp distress and desaturating to <70% despite suppl O2 and was moved into ICU and put on BIPAP on 10/07 A STAT Chest x-ray was done showing entire left lung white out and it was read as having infiltrate plus pleural effusion. Plan: Will order BIPAP to be used prn, since he is claustrophobic, titrate settings to keep O2 sat >86% If not on BIPAP, he needs HHFn.c. suppl O2 Cont treating pleural fluid/CHF and pneumonia and underlying COPD (2) COPD exacerbation His exam still has wheezing and diminished breath sounds in L lung field This man has been a llefelong smoker. He has not seen a doctor in 20 years so there are no PFTs that have documentation of COPD Plan: Cont scheduled DuoNebs 4 times daily and every 4 hours as needed Cont twice daily Pulmicort nebulized Cont IV steroids and titrate down very slowly Continue with Mucinex for expectoration Start Montelukast in pm Continue to treat the underlying pneumonia (3) Pneumonia Assessment/Plan: CXR repeated 10/07 showed a complete L lung white out due to consolidation and pleural effusion. At admission, he already completed course of azithromycin and ceftriaxone. Therefore IV Zosyn and Vanco were started on 10/07 Plan: Cont IV antibx and probiotic Cont Mucinex (4) Pleural effusion Assessment/Plan: He likely needs a thoracentesis by IR (but today is a holiday, , and we have no IR here until tomorrow) Plan: I have ordered ultrasound-guided thoracentesis to be done tomorrow, for diagn ostic and therapeutic purposes I have ordered the pleural effusion package to be run tomorrow after the thoracentesis (glucose, protein, Gram stain, culture of thre fluid) (5) TOÑITO (acute kidney injury) Assessment/Plan: Patient was started on IV twice daily Lasix on 10/07, due to the left lung white out from a pleural effusion. This has made his creatinine go from 1.2 yesterday to 1.9 today (all labs were reviewed). Plan: Lasix will be decreased to IV daily now I will change his Zosyn to cefepime I will change his vancomycin to linezolid, will order Pyridoxine with the Linezolid (as rec by our [facility]) Avoid nephrotoxins Follow BMP daily (6) Acute urinary retention Assessment/Plan: Since going into ICU, he has had urinary retention Plan: Straight cath ordered to use as needed for greater than 400 cc by bladder scan (7) Generalized weakness Assessment/Plan: 10/03 he agreed to work with PT and OT and be OOB. He needs rehab for severe weakness On 10/04 I broached the subject of a NH with him and encouraged him to work with PT and OT if he wants to get muscle strength to be able to return home Plan: He will need rehab at a SNF, as per PT yaakov. I also believe he needs LTC and SW is to discuss his exterminator termite plan with him. He needs shower prn I discussed what he would want if he had a cardiac arrest/CODE BLUE and he immediately said to let nature take its course, so I ordered DNR/DNI (8) Severe protein-calorie malnutrition Assessment/Plan: Severe protein calorie malnutrition w/BMI of 14. He admitted to me he was too weak to make himself food, at home Dietitian has been consulted. He is on a minced and moist diet due to poor dentition He was eating with an appetite (9) HTN (hypertension) Assessment/Plan: BP very elevated at presentation. He had not seen a doctor in 10-20 years, so we don't know if this is old and untreated or new Dx. At adm he was put on Amlodipine and HCTZ, which were then decreased then stopped when orthostasis was found, and Midodrine was needed BP no longer low x 2 days and Midodrine has been stopped Plan: Will resume Norvasc 2.5 mg daily (10) Hypokalemia Assessment/Plan: All labs were reviewed Plan: Follow BMP daily (11) Hypomagnesemia Assessment/Plan: Replaced Mg when low. Plan: Follow Mg intermitt (12) Tobacco use Assessment/Plan: This man has been a smoker since teenage mary He has not seen a doctor in 20 years so there are no PFTs that have documentation of COPD He has not asked for a Nicotine patch (13) Inadequate social support Assessment/Plan: He has lived alone x 20 yr in a log cabin, was . Plan: He needs social sciences chair / case mgmt to assist with placement, if he agrees SW started to work with him on placement plans since he is not safe to return home due to his severe weakness (14) Fall at home Assessment/Plan: His weakness and fall were likely due to orthostasis plus profound weakness. On 10/04 he was found to be orthostatic and needed fluids PT and OT eval and treatment were ordered at adm, but he was refusing until 10/03. Plan: Cont PT and OT and then SNF rehab is planned, and I have broached with him tht he may need LTC placement (15) Orthostatic hypotension RESOLVED For the last several days he was orthostatic, BP meds needed to be decreased then stopped and Midodrine was started. Since 10/07 he was hypertensive, especially during his respiratory distress. Midodrine has been stopped
[2023-10-08] MEDS: VANCOMYCIN INJ 500 MG in SODIUM CHLORIDE 0.9% MINIBAG 100 ML IV SCH (21:06)
[2023-10-08] MEDS: MORPHINE 2 MG/ML CARPUJECT IVP PRN (22:53)
[2023-10-09] MEDS: SODIUM CHLORIDE FLUSH 0.9% 10 ML SYRINGE IVP SCH ×4 (01:52→21:10)
[2023-10-09] MEDS: LORazepam 2 MG/ML VIAL IVP PRN ×2 (01:52→23:05)
[2023-10-09] MEDS: ACETAMINOPHEN 325 MG TABLET PO PRN ×2 (01:59→13:00)
[2023-10-09] MEDS: PIPERACILLIN/TAZOBACTAM 3.375 GM in SODIUM CHLORIDE 0.9% MINIBAG 100 ML IV SCH (04:53)
[2023-10-09] MEDS: methylPREDNISolone SUCCINATE 40 MG/ML VIAL IVP SCH ×3 (05:41→21:10)
[2023-10-09 06:34] LABS: MAGNESIUM 1.9 mg/dL (1.7-2.3); PHOSPHORUS 5.4 mg/dL (2.5-5.0)
[2023-10-09 06:38] LABS: POTASSIUM 4.4 mmol/L (3.5-4.5)
[2023-10-09 06:40] LABS: CALCIUM, IONIZED 1.17 mmol/L (1.15-1.33); VBG PH 7.383 (7.31-7.41)
[2023-10-09] MEDS: ZINC OXIDE 20% OINT 30 GM TUBE TOP PRN (07:01)
[2023-10-09] MEDS: IPRATROPIUM/ALBUTEROL 3 ML NEB INH SCH ×4 (07:48→17:34)
[2023-10-09] MEDS ORDERED: VANCOMYCIN 500 MG VIAL ONE (07:51)
[2023-10-09 08:08] LABS: BASOPHILS # (AUTO) 0.1 10^3/uL (0.0-0.1); BASOPHILS % (AUTO) 0.2 %; HCT - HEMATOCRIT 33.4 % (42.0-52.0); HGB - HEMOGLOBIN 11.1 g/dL (14.0-18.0); LYMPHOCYTES # (AUTO) 0.3 10^3/uL (1.5-3.5); LYMPHOCYTES % (AUTO) 1.1 %; MEAN CORPUSCULAR HEMOGLOBIN 31.5 pg (27.0-31.0); MEAN CORPUSCULAR HGB CONC 33.2 g/dL (32.0-36.0); MEAN CORPUSCULAR VOLUME 94.9 fL (80.0-94.0); MEAN PLATELET VOLUME 9.6 fL (7.4-11.4); MONOCYTES # (AUTO) 0.6 10^3/uL (0.0-1.0); MONOCYTES % (AUTO) 2.1 %; NEUTROPHILS # (AUTO) 25.4 10^3/uL (1.5-6.6); NEUTROPHILS % (AUTO) 95.5 %; PLT - PLATELET COUNT 344 10^3/uL (130-450); RED BLOOD COUNT 3.52 10^6/uL (4.70-6.10); RED CELL DISTRIBUTION WIDTH 12.9 % (12.0-15.0); WHITE BLOOD COUNT 26.6 x10^3/uL (4.8-10.8)
[2023-10-09 08:11] LABS: SLIDE REVIEW? Indicated
[2023-10-09 08:29] LABS: CALCIUM 9.2 mg/dL (8.5-10.3); CREATININE 1.9 mg/dL (0.6-1.3); POTASSIUM 3.9 mmol/L (3.5-4.5)
[2023-10-09] MEDS ORDERED: POTASSIUM CHLORIDE 20 MEQ TABLET PO ONE (08:32)
[2023-10-09 08:41] LABS: PLATELET ESTIMATE, MANUAL NORMAL (130-450,000) (NORMAL); PLATELET MORPHOLOGY NORMAL APPEARANCE (NORMAL); RBC MORPHOLOGY (MULTIPLE) NORMAL APPEARANCE (NORMAL)
[2023-10-09] MEDS: VANCOMYCIN INJ 500 MG in SODIUM CHLORIDE 0.9% MINIBAG 100 ML IV SCH (08:59)
[2023-10-09] MEDS: MAGNESIUM OXIDE 400 MG TABLET PO SCH (09:00)
[2023-10-09] MEDS: diltiaZEM CD 120 MG CAPSULE PO SCH (09:07)
[2023-10-09] MEDS: MULTIVITAMIN W/MINERALS TABLET PO SCH (09:08)
[2023-10-09] MEDS: guaiFENesin 600 MG TABLET PO SCH ×2 (09:09→20:18)
[2023-10-09] MEDS: FAMOTIDINE 20 MG TABLET PO SCH ×2 (09:10→20:18)
[2023-10-09] MEDS: FUROSEMIDE 20 MG/2 ML VIAL IVP SCH (09:11)
[2023-10-09] MEDS: TAMSULOSIN 0.4 MG CAPSULE PO SCH (09:58)
[2023-10-09] MEDS ORDERED: CEFEPIME 1 GM in SODIUM CHLORIDE 0.9% MINIBAG 100 ML IV SCH (14:00)
[2023-10-09] MEDS: MEROPENEM 1 GM in SODIUM CHLORIDE 0.9% MINIBAG 100 ML IV SCH (14:05)
[2023-10-09] MEDS ORDERED: ZOLPIDEM 5 MG TABLET PO PRN (16:31)
--- NOTE | 2023-10-09 17:14 | PROVIDER PROGRESS NOTE ---
Subjective - Subjective Pt reports feeling: Improved (He has more energy since being on BiPAP overnight. He wanted it removed, has been switched to HHFn.c. moments ago) Objective - Vital Signs/Intake & Output Vital Signs: Vital Signs Temp Pulse Resp BP Pulse Ox O2 Flow Rate 10/09/23 16:00 36.5 C 82 18 145/83 H 89 L 4 10/09/23 15:00 79 24 142/78 H 95 3 10/09/23 14:00 74 22 151/88 H 93 5 Intake & Output: Intake & Output 10/06/23 10/07/23 10/08/23 10/09/23 23:59 23:59 23:59 23:59 Intake Total 2733.336 1040 3040 1060 Output Total 1250 1325 2105 650 Balance 1483.336 -285 935 410 - Objective General Appearance: positive: Moderate distress (still tachypneic but has less accessory muscle use than yesterday) Eyes Bilateral: positive: Normal inspection, EOMI ENT: positive: No signs of dehydration, Other (Speaks in a whisper and short sentences) Neck: positive: Nml inspection Respiratory: positive: Wheezes, Rhonchi Cardiovascular: positive: Other (Distant heart sounds due to pulmonary rhonchi) Abdomen: positive: Non-tender, No distention Back: positive: Other (Kyphosis) Skin: positive: Warm, Dry Extremities: positive: Non-tender, Other (Trace pedal edema. Has diffuse extremity muscle wasting) Neurologic/Psychiatric: positive: Oriented x3, CN's nml (2-12), Motor nml, Other (Has generalized weakness) - Lab Results Fish Bones: 10/09/23 07:53 10/09/23 07:53 Other Labs: Lab Results x24hrs 10/09/23 10/09/23 10/09/23 Range/Units 07:53 07:53 04:55 WBC 26.6 H (4.8-10.8) x10^3/uL RBC 3.52 L (4.70-6.10) 10^6/uL Hgb 11.1 L (14.0-18.0) g/dL Hct 33.4 L (42.0-52.0) % MCV 94.9 H (80.0-94.0) fL MCH 31.5 H (27.0-31.0) pg MCHC 33.2 (32.0-36.0) g/dL RDW 12.9 (12.0-15.0) % Plt Count 344 (130-450) 10^3/uL MPV 9.6 (7.4-11.4) fL Neut # (Auto) 25.4 H (1.5-6.6) 10^3/uL Lymph # (Auto) 0.3 L (1.5-3.5) 10^3/uL [place] # (Auto) 0.6 (0.0-1.0) 10^3/uL Eos # (Auto) 0.0 (0.0-0.7) 10^3/uL Baso # (Auto) 0.1 (0.0-0.1) 10^3/uL Absolute Nucleated RBC 0.00 x10^3/uL Nucleated RBC % 0.0 /100WBC Manual Slide Review Indicated Platelet Estimate NORMAL (130-450,000) (NORMAL) Platelet Morphology NORMAL APPEARANCE (NORMAL) RBC Morph Micro Appear NORMAL APPEARANCE (NORMAL) VBG pH 7.383 (7.31-7.41) Ionized Calcium 1.17 (1.15-1.33) mmol/L Sodium 139 (135-145) mmol/L Potassium 3.9 (3.5-4.5) mmol/L Chloride 104 (101-111) mmol/L Carbon Dioxide 26 (21-32) mmol/L Anion Gap 9.0 (6-13) BUN 42 H (6-20) mg/dL Creatinine 1.9 H (0.6-1.3) mg/dL Estimated GFR (MDRD) 35 L (>89) Glucose 153 H (74-104) mg/dL Calcium 9.2 (8.5-10.3) mg/dL Phosphorus (2.5-5.0) mg/dL Magnesium (1.7-2.3) mg/dL 10/09/23 Range/Units 04:55 WBC (4.8-10.8) x10^3/uL RBC (4.70-6.10) 10^6/uL Hgb (14.0-18.0) g/dL Hct (42.0-52.0) % MCV (80.0-94.0) fL MCH (27.0-31.0) pg MCHC (32.0-36.0) g/dL RDW (12.0-15.0) % Plt Count (130-450) 10^3/uL MPV (7.4-11.4) fL Neut # (Auto) (1.5-6.6) 10^3/uL Lymph # (Auto) (1.5-3.5) 10^3/uL [place] # (Auto) (0.0-1.0) 10^3/uL Eos # (Auto) (0.0-0.7) 10^3/uL Baso # (Auto) (0.0-0.1) 10^3/uL Absolute Nucleated RBC x10^3/uL Nucleated RBC % /100WBC Manual Slide Review Platelet Estimate (NORMAL) Platelet Morphology (NORMAL) RBC Morph Micro Appear (NORMAL) VBG pH (7.31-7.41) Ionized Calcium (1.15-1.33) mmol/L Sodium (135-145) mmol/L Potassium 4.4 (3.5-4.5) mmol/L Chloride (101-111) mmol/L Carbon Dioxide (21-32) mmol/L Anion Gap (6-13) BUN (6-20) mg/dL Creatinine (0.6-1.3) mg/dL Estimated GFR (MDRD) (>89) Glucose (74-104) mg/dL Calcium (8.5-10.3) mg/dL Phosphorus 5.4 H (2.5-5.0) mg/dL Magnesium 1.9 (1.7-2.3) mg/dL Assessment/Plan - Problem List (1) Acute respiratory failure with hypoxia Impression: Since yesterday 10/07, he has been in severe respiratory distress, required transfer to the ICU and was put on BIPAP yesterday and overnight. ABG was done 10/07 showing pH 7.3, PCO2 35, PO2 45 w/ sat 70% A STAT Chest x-ray was done 10/07 showing entire left lung white out and it was read as having infiltrate plus pleural effusion. EKG showed sinus rhythm, rate 81, left axis deviation, LVH with nonspecific T wa ve abnormality. Since EKG from 09/24/2023, the LVH voltage is new Plan: Remain in the ICU and use BIPAP prn, mostly at night, titrate settings to keep O2 sat >86% He may need a thoracentesis by IR (but today is Monday of the 3 day weekend and we have no IR here until Monday) Cont treating pleural fluid/CHF and pneumonia and underlying COPD (2) COPD exacerbation Today his exam still has wheezing in all lunf kirby and diminished breath sounds on L This man has been a longtime smoker. He has not seen a doctor in 20 years so there are no PFTs that have documentation of COPD Plan: Cont scheduled DuoNebs 4 times daily and every 4 hours as needed Cont twice daily Pulmicort nebulized Cont IV steroids and titrate down very slowly Start Montelukast in pm Continue with Mucinex for expectoration Continue to treat the underlying pneumonia (3) Pneumonia Assessment/Plan: CXR repeated on 10/07 showed a complete L lung white out due to consolidation and pleural effusion. At admission, he already completed course of azithromycin and ceftriaxone. Therefore IV Zosyn and Vanco were started yesterday Plan: Cont IV Zosyn and Vanco and start probiotic Cont Mucinex (4) HTN (hypertension) Assessment/Plan: BP very elevated at presentation. He had not seen a doctor in 10-20 years, so we don't know if this is old and untreated or new Dx. At adm he was put on Amlodipine and HCTZ, which were then decreased then stopped when orthostasis was found. Today his BP is 150/90-100 (VS all reviewed) Plan: Remain off Midodrine (5) Generalized weakness Assessment/Plan: 10/03 he agreed to work with PT and OT and be OOB. He then complained of pain in the hip where he fell a week ago at home. He was helped with PT and OT. On 10/04 I broached the subject of a NH with him and encouraged him to work with PT and OT if he wants to get muscle strength to be able to return home Plan: He will need rehab at a SNF, as per PT yaakov. I also believe he needs LTC and SW is to discuss his group home plan with him. He needs a shower prn (6) Severe protein-calorie malnutrition Assessment/Plan: Severe protein calorie malnutrition w/BMI of 14. He admitted that he became too weak to make himself food, at home Dietitian has been consulted. He is on a minced and moist diet due to poor dentition He was eating with an appetite recently (7) Fall at home Assessment/Plan: It was likely due to orthostasis plus profound weakness PT and OT eval and treatment were ordered at adm, but he was refusing until 10/03. He was getting ivf at adm. On 10/04 he was found to be orthostatic and needed 1L fluids/day for the last 3 days Plan: Cont PT and OT and then SNF rehab is planned, and he may need LTC placement (8) Inadequate social support Assessment/Plan: He has lived alone x [place], . Plan: He needs social science instructor / case mgmt to assist with placement, if he agrees He was unwilling to work with SW on placement plans but he is not safe to return home due to his failure to thrive, weakness and orthostasis (9) Tobacco use Assessment/Plan: This man has been a longtime smoker. He has not seen a doctor in 20 years so there are no PFTs that have documentation of COPD He has not asked for a Nicotine patch (10) TOÑITO (acute kidney injury) Assessment/Plan: RESOLVED after he had iv fluids earlier this adm (11) Hypokalemia Assessment/Plan: All labs were reviewed Plan: Follow BMP daily (12) Hypomagnesemia Assessment/Plan: Replaced Mg when low. Plan: Follow Mg intermitt (13) Orthostatic hypotension RESOLVED For the last 3 days he was orthostatic, BP meds needed to be decreased then stopped and he got iv fluids and Midodrine was started. He has been hypertensive since his respiratory distress of 10/07. I stopped Midodrine
[2023-10-09] MEDS: MONTELUKAST 10 MG TABLET PO SCH (20:18)
[2023-10-09] MEDS: LINEZOLID 600 MG/300 ML 600 MG/300 ML BAG IV SCH (20:19)
[2023-10-09] MEDS: MORPHINE 2 MG/ML CARPUJECT IVP PRN (20:19)
[2023-10-09] MEDS ORDERED: LINEZOLID 600 MG TABLET PO SCH (21:00)
[2023-10-10] MEDS: MEROPENEM 1 GM in SODIUM CHLORIDE 0.9% MINIBAG 100 ML IV SCH ×2 (02:30→14:35)
[2023-10-10 04:47] LABS: HCT - HEMATOCRIT 29.2 % (42.0-52.0); HGB - HEMOGLOBIN 9.3 g/dL (14.0-18.0); LYMPHOCYTES % (AUTO) 1.4 %; MEAN CORPUSCULAR HEMOGLOBIN 30.8 pg (27.0-31.0); MEAN CORPUSCULAR HGB CONC 31.8 g/dL (32.0-36.0); MEAN CORPUSCULAR VOLUME 96.7 fL (80.0-94.0); MEAN PLATELET VOLUME 9.4 fL (7.4-11.4); MONOCYTES % (AUTO) 2.6 %; PLT - PLATELET COUNT 304 10^3/uL (130-450); RED BLOOD COUNT 3.02 10^6/uL (4.70-6.10); RED CELL DISTRIBUTION WIDTH 13.1 % (12.0-15.0); WHITE BLOOD COUNT 21.6 x10^3/uL (4.8-10.8)
[2023-10-10 04:52] LABS: CALCIUM, IONIZED 1.13 mmol/L (1.15-1.33); VBG PH 7.367 (7.31-7.41)
[2023-10-10 05:22] LABS: ABNORMAL LYMPHS % (MANUAL) 0 %
[2023-10-10 05:36] LABS: BAND NEUTROPHILS % (MANUAL) 3 %; DIFFERENTIAL COMMENT MANUAL DIFFERENTIAL; LYMPHOCYTES # (MANUAL) 0.6 10^3/uL (1.5-3.5); LYMPHOCYTES % (MANUAL) 3 %; MONOCYTES # (MANUAL) 0.4 10^3/uL (0.0-1.0); NEUTROPHILS # (MANUAL) 20.5 10^3/uL (1.5-6.6); PLATELET ESTIMATE, MANUAL NORMAL (130-450,000) (NORMAL); RBC MORPHOLOGY (MULTIPLE) NORMAL APPEARANCE (NORMAL)
[2023-10-10] MEDS: methylPREDNISolone SUCCINATE 40 MG/ML VIAL IVP SCH ×3 (05:37→21:38)
[2023-10-10 05:38] LABS: CALCIUM 8.6 mg/dL (8.5-10.3); MAGNESIUM 1.9 mg/dL (1.7-2.3); PHOSPHORUS 6.2 mg/dL (2.5-5.0); POTASSIUM 3.5 mmol/L (3.5-4.5)
[2023-10-10] MEDS: MORPHINE 2 MG/ML CARPUJECT IVP PRN (06:07)
--- NOTE | 2023-10-10 07:07 | PROVIDER PROGRESS NOTE ---
Subjective - Prog Note Date Prog Note Date: 10/10/22 Prog Note Time: 06:30 - Subjective Pt reports feeling: Improved (Alert. Breathing improved. Denies chest pain, nausea and vomiting. No other complaints at this time.), No change (Alert. Bra) Objective - Vital Signs/Intake & Output Vital Signs: Vital Signs Pulse Resp BP Pulse Ox O2 Flow Rate 10/10/23 05:00 74 15 128/80 97 4.5 10/10/23 04:00 76 16 151/86 H 94 4.5 Intake & Output: Intake & Output 10/07/23 10/08/23 10/09/23 10/10/23 23:59 23:59 23:59 23:59 Intake Total 1040 3040 1630 100 Output Total 1325 2105 975 500 Balance -285 935 655 -400 - Objective General Appearance: positive: No acute distress, Alert Eyes Bilateral: positive: EOMI, No lid inflammation, Conjunctivae nml ENT: positive: Pharynx nml Neck: positive: Nml inspection, No JVD, Trachea midline, Lymphadenopathy (R), Lymphadenopathy (L) Respiratory: positive: Other (Fair air exchange, no wheezing. Course breath sound. No crackles.) Cardiovascular: positive: Regular rate & rhythm, No murmur Peripheral Pulses: 1+ Radial (R), 1+ Radial (L), 1+ Dorsalis pedis (R), 1+ Dorsalis pedis (L) Abdomen: positive: Non-tender, Nml bowel sounds Skin: positive: Other (No rash) Extremities: positive: Non-tender, Pedal edema Neurologic/Psychiatric: positive: Oriented x3 - Lab Results Fish Bones: 10/10/23 04:31 10/10/23 04:31 Other Labs: Lab Results x24hrs 10/10/23 10/10/23 10/10/23 Range/Units 04:31 04:31 04:31 WBC 21.6 H (4.8-10.8) x10^3/uL RBC 3.02 L (4.70-6.10) 10^6/uL Hgb 9.3 L (14.0-18.0) g/dL Hct 29.2 L (42.0-52.0) % MCV 96.7 H (80.0-94.0) fL MCH 30.8 (27.0-31.0) pg MCHC 31.8 L (32.0-36.0) g/dL RDW 13.1 (12.0-15.0) % Plt Count 304 (130-450) 10^3/uL MPV 9.4 (7.4-11.4) fL Neut # (Auto) Not Reportable (1.5-6.6) 10^3/uL Lymph # (Auto) Not Reportable (1.5-3.5) 10^3/uL [place] # (Auto) Not Reportable (0.0-1.0) 10^3/uL Eos # (Auto) Not Reportable (0.0-0.7) 10^3/uL Baso # (Auto) Not Reportable (0.0-0.1) 10^3/uL Absolute Nucleated RBC Not Reportable x10^3/uL Total Counted 100 Band Neuts % (Manual) 3 (0 - 10) % Abnorm Lymph % (Manual) 0 % Nucleated RBC % Not Reportable /100WBC Neutrophils # (Manual) 20.5 H (1.5-6.6) 10^3/uL Lymphocytes # (Manual) 0.6 L (1.5-3.5) 10^3/uL Monocytes # (Manual) 0.4 (0.0-1.0) 10^3/uL Eosinophils # (Manual) 0.0 (0-0.7) 10^3/uL Basophils # (Manual) 0.0 (0-0.1) 10^3/uL Differential Comment MANUAL DIFFERENTIAL Manual Slide Review Platelet Estimate NORMAL (130-450,000) (NORMAL) Platelet Morphology (NORMAL) RBC Morph Micro Appear NORMAL APPEARANCE (NORMAL) VBG pH 7.367 (7.31-7.41) Ionized Calcium 1.13 L (1.15-1.33) mmol/L Sodium 141 (135-145) mmol/L Potassium 3.5 (3.5-4.5) mmol/L Chloride 105 (101-111) mmol/L Carbon Dioxide 27 (21-32) mmol/L Anion Gap 9.0 (6-13) BUN 49 H (6-20) mg/dL Creatinine 2.0 H (0.6-1.3) mg/dL Estimated GFR (MDRD) 33 L (>89) Glucose 145 H (74-104) mg/dL Calcium 8.6 (8.5-10.3) mg/dL Phosphorus 6.2 H (2.5-5.0) mg/dL Magnesium 1.9 (1.7-2.3) mg/dL 10/09/23 10/09/23 Range/Units 07:53 07:53 WBC 26.6 H (4.8-10.8) x10^3/uL RBC 3.52 L (4.70-6.10) 10^6/uL Hgb 11.1 L (14.0-18.0) g/dL Hct 33.4 L (42.0-52.0) % MCV 94.9 H (80.0-94.0) fL MCH 31.5 H (27.0-31.0) pg MCHC 33.2 (32.0-36.0) g/dL RDW 12.9 (12.0-15.0) % Plt Count 344 (130-450) 10^3/uL MPV 9.6 (7.4-11.4) fL Neut # (Auto) 25.4 H (1.5-6.6) 10^3/uL Lymph # (Auto) 0.3 L (1.5-3.5) 10^3/uL [place] # (Auto) 0.6 (0.0-1.0) 10^3/uL Eos # (Auto) 0.0 (0.0-0.7) 10^3/uL Baso # (Auto) 0.1 (0.0-0.1) 10^3/uL Absolute Nucleated RBC 0.00 x10^3/uL Total Counted Band Neuts % (Manual) (0 - 10) % Abnorm Lymph % (Manual) % Nucleated RBC % 0.0 /100WBC Neutrophils # (Manual) (1.5-6.6) 10^3/uL Lymphocytes # (Manual) (1.5-3.5) 10^3/uL Monocytes # (Manual) (0.0-1.0) 10^3/uL Eosinophils # (Manual) (0-0.7) 10^3/uL Basophils # (Manual) (0-0.1) 10^3/uL Differential Comment Manual Slide Review Indicated Platelet Estimate NORMAL (130-450,000) (NORMAL) Platelet Morphology NORMAL APPEARANCE (NORMAL) RBC Morph Micro Appear NORMAL APPEARANCE (NORMAL) VBG pH (7.31-7.41) Ionized Calcium (1.15-1.33) mmol/L Sodium 139 (135-145) mmol/L Potassium 3.9 (3.5-4.5) mmol/L Chloride 104 (101-111) mmol/L Carbon Dioxide 26 (21-32) mmol/L Anion Gap 9.0 (6-13) BUN 42 H (6-20) mg/dL Creatinine 1.9 H (0.6-1.3) mg/dL Estimated GFR (MDRD) 35 L (>89) Glucose 153 H (74-104) mg/dL Calcium 9.2 (8.5-10.3) mg/dL Phosphorus (2.5-5.0) mg/dL Magnesium (1.7-2.3) mg/dL Assessment/Plan - Problem List (1) Acute respiratory failure with hypoxia Impression: He was in severe resp distress and desaturating to <70% despite suppl O2 and was moved into ICU and put on BIPAP on 10/07 A STAT Chest x-ray was done showing entire left lung white out and it was read as having infiltrate plus pleural effusion. Oxygenation has improved ovenight and patient is currently on 4.5 lpm. Plan: Continue to titrate oxgen as tolerated. Patient to undergo thoracentesis today. Continue antibiotic coverage wtih Linezolid and Meropenem (2) COPD exacerbation Plan: Cont scheduled DuoNebs 4 times daily and every 4 hours as needed Cont twice daily Pulmicort nebulized Cont IV steroids and titrate down very slowly Continue with Mucinex for expectoration Start Montelukast in pm Continue to treat the underlying pneumonia (3) Pneumonia Assessment/Plan: CXR repeated 10/07 showed a complete L lung white out due to consolidation and pleural effusion. At admission, he already completed course of azithromycin and ceftriaxone. Therefore IV Zosyn and Vanco were started on 10/07 Plan: Cont IV antibx and probiotic Cont Mucinex (4) Pleural effusion Assessment/Plan: Plan: Thoracentesis today. (5) TOÑITO (acute kidney injury) Assessment/Plan: Patient was started on IV twice daily Lasix on 10/07, due to the left lung white out from a pleural effusion. This has made his creatinine go from 1.2 yesterday to 1.9 today (all labs were reviewed). Plan: Continue to monitor BUN/Cr. (6) Acute urinary retention Assessment/Plan: Hawkins placed this morning. (7) Generalized weakness Assessment/Plan: Continue PT/OT (8) Severe protein-calorie malnutrition Assessment/Plan: Diet Consult (9) HTN (hypertension) Assessment/Plan Continue diltazem (10) Hypokalemia Assessment/Plan: Resolved. Continue to monitor (11) Hypomagnesemia Assessment/Plan: Resolved. Continue to monitor (12) Tobacco use Assessment/Plan: Tobacco counseling (13) Inadequate social support Social work consult (14) Fall at home Assessment/Plan: PT/OT (15) Orthostatic hypotension RESOLVED
[2023-10-10] MEDS: IPRATROPIUM/ALBUTEROL 3 ML NEB INH SCH ×4 (07:21→20:15)
[2023-10-10] MEDS: MAGNESIUM OXIDE 400 MG TABLET PO SCH (09:03)
[2023-10-10] MEDS: MULTIVITAMIN W/MINERALS TABLET PO SCH (09:06)
[2023-10-10] MEDS: TAMSULOSIN 0.4 MG CAPSULE PO SCH (09:07)
[2023-10-10] MEDS: FUROSEMIDE 20 MG/2 ML VIAL IVP SCH (09:07)
[2023-10-10] MEDS: guaiFENesin 600 MG TABLET PO SCH ×2 (09:11→20:37)
[2023-10-10] MEDS: FAMOTIDINE 20 MG TABLET PO SCH ×2 (09:11→20:37)
[2023-10-10] MEDS: LACTOBACILLUS RHAMNOSUS GG CAPSULE PO SCH (09:11)
[2023-10-10] MEDS: LINEZOLID 600 MG/300 ML 600 MG/300 ML BAG IV SCH ×2 (09:15→20:42)
[2023-10-10] MEDS: diltiaZEM CD 120 MG CAPSULE PO SCH (09:15)
[2023-10-10] MEDS: PYRIDOXINE 100 MG TABLET PO SCH (09:17)
[2023-10-10] MEDS: SODIUM CHLORIDE FLUSH 0.9% 10 ML SYRINGE IVP SCH ×3 (09:24→21:38)
[2023-10-10] MEDS: ZINC OXIDE 20% OINT 30 GM TUBE TOP PRN (14:30)
[2023-10-10] MEDS: CALCIUM CARBONATE CHEW 500 MG TABLET PO SCH ×2 (18:09→20:37)
[2023-10-10] MEDS: MONTELUKAST 10 MG TABLET PO SCH (20:37)
[2023-10-11] MEDS: ACETAMINOPHEN 325 MG TABLET PO PRN ×2 (01:14→08:41)
[2023-10-11] MEDS: MEROPENEM 1 GM in SODIUM CHLORIDE 0.9% MINIBAG 100 ML IV SCH ×2 (01:17→15:26)
[2023-10-11 04:38] LABS: CALCIUM, IONIZED 1.1 mmol/L (1.15-1.33); VBG PH 7.505 (7.31-7.41)
[2023-10-11 04:42] LABS: BASOPHILS % (AUTO) 0.1 %; HCT - HEMATOCRIT 27.8 % (42.0-52.0); HGB - HEMOGLOBIN 9.1 g/dL (14.0-18.0); LYMPHOCYTES # (AUTO) 0.2 10^3/uL (1.5-3.5); LYMPHOCYTES % (AUTO) 1.2 %; MEAN CORPUSCULAR HEMOGLOBIN 31.4 pg (27.0-31.0); MEAN CORPUSCULAR HGB CONC 32.7 g/dL (32.0-36.0); MEAN CORPUSCULAR VOLUME 95.9 fL (80.0-94.0); MEAN PLATELET VOLUME 9.3 fL (7.4-11.4); MONOCYTES # (AUTO) 0.5 10^3/uL (0.0-1.0); MONOCYTES % (AUTO) 2.7 %; NEUTROPHILS # (AUTO) 15.9 10^3/uL (1.5-6.6); NEUTROPHILS % (AUTO) 94.7 %; PLT - PLATELET COUNT 296 10^3/uL (130-450); RED CELL DISTRIBUTION WIDTH 13.1 % (12.0-15.0); WHITE BLOOD COUNT 16.7 x10^3/uL (4.8-10.8)
[2023-10-11 04:53] LABS: ALBUMIN 2.8 g/dL (3.2-5.5); BILIRUBIN,TOTAL 0.2 mg/dL (0.2-1.0); CALCIUM 8.6 mg/dL (8.5-10.3); CREATININE 1.9 mg/dL (0.6-1.3); PHOSPHORUS 4.5 mg/dL (2.5-5.0); POTASSIUM 3.1 mmol/L (3.5-4.5); TOTAL PROTEIN 5.5 g/dL (6.4-8.9)
[2023-10-11] MEDS: ZINC OXIDE 20% OINT 30 GM TUBE TOP PRN ×2 (05:10→08:00)
[2023-10-11] MEDS: SODIUM CHLORIDE FLUSH 0.9% 10 ML SYRINGE IVP PRN ×2 (06:09→20:02)
[2023-10-11] MEDS: methylPREDNISolone SUCCINATE 40 MG/ML VIAL IVP SCH ×3 (06:09→22:51)
[2023-10-11] MEDS ORDERED: CALCIUM GLUC 1,000MG/50ML-NACL 1,000 MG/50 ML BAG IV ONE (06:33)
[2023-10-11] MEDS ORDERED: POTASSIUM CHLOR 20 MEQ/100 ML 20 MEQ/100 ML BAG IV SCH (07:00)
[2023-10-11] MEDS: POTASSIUM CHLOR 10 MEQ/100 ML 10 MEQ/100 ML BAG IV SCH ×3 (07:58→10:23)
[2023-10-11] MEDS ORDERED: MAGNESIUM OXIDE 400 MG TABLET PO ONE (08:00)
[2023-10-11] MEDS: FAMOTIDINE 20 MG TABLET PO SCH ×2 (08:42→22:24)
[2023-10-11] MEDS: TAMSULOSIN 0.4 MG CAPSULE PO SCH (08:42)
[2023-10-11] MEDS: PYRIDOXINE 100 MG TABLET PO SCH (08:42)
[2023-10-11] MEDS: guaiFENesin 600 MG TABLET PO SCH (08:42)
[2023-10-11] MEDS: CALCIUM CARBONATE CHEW 500 MG TABLET PO SCH ×2 (08:42→22:24)
[2023-10-11] MEDS: MULTIVITAMIN W/MINERALS TABLET PO SCH (08:44)
[2023-10-11] MEDS: LACTOBACILLUS RHAMNOSUS GG CAPSULE PO SCH (08:44)
[2023-10-11] MEDS: MAGNESIUM OXIDE 400 MG TABLET PO SCH (08:44)
[2023-10-11] MEDS: diltiaZEM CD 120 MG CAPSULE PO SCH (08:45)
[2023-10-11] MEDS: LINEZOLID 600 MG/300 ML 600 MG/300 ML BAG IV SCH (08:59)
[2023-10-11] MEDS: FUROSEMIDE 20 MG/2 ML VIAL IVP SCH (09:10)
[2023-10-11] MEDS: SODIUM CHLORIDE FLUSH 0.9% 10 ML SYRINGE IVP SCH ×2 (09:10→17:10)
[2023-10-11] MEDS: IPRATROPIUM/ALBUTEROL 3 ML NEB INH SCH ×4 (10:50→18:18)
--- NOTE | 2023-10-11 11:20 | PROVIDER PROGRESS NOTE ---
Assessment/Plan - Current Meds Current Meds: Current Medications Generic Name Dose Route Start Last Admin Trade Name Freq PRN Reason Stop Dose Admin Acetaminophen 650 mg 09/24/23 21:12 10/11/23 08:41 Acetaminophen 325 Mg Tablet PO 325 mg Q6H PRN Administration Pain 1 to 4, or Fever Albuterol/Ipratropium 3 ml 10/06/23 17:26 10/09/23 20:30 Ipratropium/Albuterol 3 Ml Neb INH 3 ml Q4HR PRN Administration Wheezing Albuterol/Ipratropium 3 ml 10/06/23 19:00 10/11/23 10:51 Ipratropium/Albuterol 3 Ml Neb INH Not Given RTQID STEFANO Calcium Carbonate/Glycine 500 mg 10/10/23 10:00 10/11/23 08:42 Calcium Carbonate Chew 500 Mg Tablet PO 500 mg BID STEFANO Administration Diltiazem HCl 120 mg 10/07/23 09:00 10/11/23 08:45 Diltiazem Cd 120 Mg Capsule PO 120 mg DAILY STEFANO Administration Famotidine 20 mg 10/07/23 21:00 10/11/23 08:42 Famotidine 20 Mg Tablet PO 20 mg BID STEFANO Administration Furosemide 20 mg 10/09/23 09:00 10/11/23 09:10 Furosemide 20 Mg/2 Ml Vial IVP 20 mg DAILY STEFANO Administration Guaifenesin 600 mg 09/24/23 22:00 10/11/23 08:42 Guaifenesin 600 Mg Tablet PO 600 mg BID STEFANO Administration Linezolid 600 mg in 300 mls @ 300 mls/hr 10/09/23 21:00 10/11/23 10:00 Zyvox 600 Mg/300 Ml IV Infused Q12H STEFANO Infusion Meropenem 1 gm/ Sodium 100 mls @ 200 mls/hr 10/09/23 14:00 10/11/23 07:40 Chloride IV Infused Q12H STEFANO Infusion Lactobacillus Rhamnosus 1 cap 10/10/23 09:00 10/11/23 08:44 Lactobacillus Rhamnosus Gg Capsule PO 1 cap DAILY STEFANO Administration Lorazepam 0.5 mg 10/07/23 18:54 10/09/23 23:05 Lorazepam 2 Mg/Ml Vial IVP 0.5 mg Q2H PRN Administration Anxiety Magnesium Oxide 400 mg 10/07/23 12:00 10/11/23 08:44 Magnesium Oxide 400 Mg Tablet PO 400 mg DAILYWM TSEFANO Administration Methylprednisolone 80 mg 10/07/23 22:00 10/11/23 06:09 Methylprednisolone Succinate 40 Mg/Ml Vial IVP 80 mg TID STEFANO Administration Montelukast Sodium 10 mg 10/09/23 21:00 10/10/23 20:37 Montelukast 10 Mg Tablet PO 10 mg QPM STEFANO Administration Morphine Sulfate 1 mg 10/07/23 17:46 10/10/23 06:07 Morphine 2 Mg/Ml Carpuject IVP 1 mg Q4HR PRN Administration Dyspnea Multi-Ingredient Ointment 1 applic 09/25/23 12:13 10/11/23 08:00 Zinc Oxide 20% Oint 30 Gm Tube TOP 1 applic PRN PRN Administration Skin Care Multivitamins/Minerals 1 tab 09/29/23 08:00 10/11/23 08:44 Multivitamin W/Minerals Tablet PO 1 tab DAILYWM STEFANO Administration Pyridoxine HCl 50 mg 10/10/23 09:00 10/11/23 08:42 Pyridoxine 100 Mg Tablet PO 50 mg DAILY STEFANO Administration Sodium Chloride 10 ml 09/24/23 21:12 10/11/23 06:09 Sodium Chloride Flush 0.9% 10 Ml Syringe IVP 10 ml PRN PRN Administration NEEDED PER PROVIDER ORDERS Sodium Chloride 10 ml 09/25/23 01:00 10/11/23 09:10 Sodium Chloride Flush 0.9% 10 Ml Syringe IVP 10 ml 0100,0900,1700 STEFANO Administration Tamsulosin HCl 0.4 mg 10/08/23 11:00 10/11/23 08:42 Tamsulosin 0.4 Mg Capsule PO 0.4 mg DAILY STEFANO Administration Zolpidem Tartrate 5 mg 10/09/23 16:31 10/09/23 23:05 Zolpidem 5 Mg Tablet PO 5 mg QPM PRN Administration Insomnia - Lab Result Fish Bone Diagrams: 10/11/23 04:21 10/11/23 04:21 - Additional Planning My Orders: My Active Orders 10/10/23 Dinner Dysphagia - Puree [DIET] 10/12/23 05:00 CALCIUM, IONIZED ([facility]) [BG] DAILYLAB MAGNESIUM [CHEM] DAILYLAB PHOSPHORUS [CHEM] DAILYLAB 10/13/23 05:00 CALCIUM, IONIZED ([facility]) [BG] DAILYLAB MAGNESIUM [CHEM] DAILYLAB PHOSPHORUS [CHEM] DAILYLAB Objective Vital Signs: Vital Signs - 24 hr 10/10/23 10/10/23 10/10/23 11:32 12:00 13:00 Temperature 37.1 C Heart Rate 68 Heart Rate [ 87 83 Monitoring electrodes] Respiratory 18 26 H 19 Rate Blood Pressure 118/70 129/76 [Right Brachial artery] O2 Saturation 94 95 If not protocol 4.5 4.5 4.5 : Oxygen Flow, liters/minute 10/10/23 10/10/23 10/10/23 14:00 15:00 15:46 Temperature Heart Rate 68 Heart Rate [ 74 66 Monitoring electrodes] Respiratory 18 24 18 Rate Blood Pressure 123/72 147/85 H [Right Brachial artery] O2 Saturation 93 85 L If not protocol 4.5 4.5 4.5 : Oxygen Flow, liters/minute 10/10/23 10/10/23 10/10/23 16:00 16:56 18:00 Temperature 37.2 C Heart Rate Heart Rate [ 74 64 65 Monitoring electrodes] Respiratory 24 13 14 Rate Blood Pressure 105/63 107/63 110/67 [Right Brachial artery] O2 Saturation 90 L 93 92 If not protocol 5 5 4.5 : Oxygen Flow, liters/minute 10/10/23 10/10/23 10/10/23 19:00 20:00 20:15 Temperature Heart Rate 70 Heart Rate [ 64 71 Monitoring electrodes] Respiratory 12 17 20 Rate Blood Pressure 121/70 117/68 [Right Brachial artery] O2 Saturation 90 L 93 If not protocol 5 4.5 4.5 : Oxygen Flow, liters/minute 10/10/23 10/10/23 10/10/23 21:00 22:00 23:00 Temperature 36.5 C Heart Rate Heart Rate [ 70 65 81 Monitoring electrodes] Respiratory 17 12 21 Rate Blood Pressure 116/67 114/67 131/86 H [Right Brachial artery] O2 Saturation 93 95 92 If not protocol 4.5 4.5 4.5 : Oxygen Flow, liters/minute 10/11/23 10/11/23 10/11/23 00:00 01:00 02:00 Temperature 36.5 C Heart Rate Heart Rate [ 69 72 68 Monitoring electrodes] Respiratory 18 18 19 Rate Blood Pressure 118/68 115/72 120/70 [Right Brachial artery] O2 Saturation 96 94 96 If not protocol 4.5 4.5 4.5 : Oxygen Flow, liters/minute 10/11/23 10/11/23 10/11/23 03:00 04:00 05:00 Temperature 36.5 C Heart Rate Heart Rate [ 69 69 72 Monitoring electrodes] Respiratory 18 17 17 Rate Blood Pressure 116/75 133/76 H 110/55 L [Right Brachial artery] O2 Saturation 96 92 93 If not protocol 4.5 4.5 4.5 : Oxygen Flow, liters/minute 10/11/23 10/11/23 10/11/23 06:00 07:00 08:00 Temperature 36.6 C Heart Rate Heart Rate [ 65 75 70 Monitoring electrodes] Respiratory 13 25 H 18 Rate Blood Pressure 122/73 126/77 133/80 H [Right Brachial artery] O2 Saturation 94 91 L 96 If not protocol 4.5 4.5 3.5 : Oxygen Flow, liters/minute 10/11/23 10/11/23 10/11/23 09:00 10:00 10:52 Temperature Heart Rate 73 Heart Rate [ 74 72 Monitoring electrodes] Respiratory 17 14 15 Rate Blood Pressure 150/83 H 140/86 H [Right Brachial artery] O2 Saturation 95 96 If not protocol 3.5 3.5 2 : Oxygen Flow, liters/minute 10/11/23 10/11/23 11:00 11:12 Temperature Heart Rate Heart Rate [ 76 Monitoring electrodes] Respiratory 19 26 H Rate Blood Pressure 138/81 H [Right Brachial artery] O2 Saturation 94 If not protocol 3.5 2 : Oxygen Flow, liters/minute Oxygen O2 Source Nasal cannula I&O (Last 24 Hrs): Intake and Output Totals x24h 10/09/23 10/10/23 10/11/23 23:59 23:59 23:59 Intake Total 1630 1600 1251.6 Output Total 975 1600 733 Balance 655 0 518.6 - Results Results: Laboratory Results WBC 16.7 x10^3/uL (4.8-10.8) H 10/11/23 04:21 RBC 2.90 10^6/uL (4.70-6.10) L 10/11/23 04:21 Hgb 9.1 g/dL (14.0-18.0) L 10/11/23 04:21 Hct 27.8 % (42.0-52.0) L 10/11/23 04:21 MCV 95.9 fL (80.0-94.0) H 10/11/23 04:21 MCH 31.4 pg (27.0-31.0) H 10/11/23 04:21 MCHC 32.7 g/dL (32.0-36.0) 10/11/23 04:21 RDW 13.1 % (12.0-15.0) 10/11/23 04:21 Plt Count 296 10^3/uL (130-450) 10/11/23 04:21 MPV 9.3 fL (7.4-11.4) 10/11/23 04:21 Neut # (Auto) 15.9 10^3/uL (1.5-6.6) H 10/11/23 04:21 Lymph # (Auto) 0.2 10^3/uL (1.5-3.5) L 10/11/23 04:21 [place] # (Auto) 0.5 10^3/uL (0.0-1.0) 10/11/23 04:21 Eos # (Auto) 0.0 10^3/uL (0.0-0.7) 10/11/23 04:21 Baso # (Auto) 0.0 10^3/uL (0.0-0.1) 10/11/23 04:21 Absolute Nucleated RBC 0.00 x10^3/uL 10/11/23 04:21 Total Counted 100 10/10/23 04:31 Band Neuts % (Manual) 3 % (0-10) 10/10/23 04:31 Abnorm Lymph % (Manual) 0 % 10/10/23 04:31 Nucleated RBC % 0.0 /100WBC 10/11/23 04:21 Neutrophils # (Manual) 20.5 10^3/uL (1.5-6.6) H 10/10/23 04:31 Lymphocytes # (Manual) 0.6 10^3/uL (1.5-3.5) L 10/10/23 04:31 Monocytes # (Manual) 0.4 10^3/uL (0.0-1.0) 10/10/23 04:31 Eosinophils # (Manual) 0.0 10^3/uL (0-0.7) 10/10/23 04:31 Basophils # (Manual) 0.0 10^3/uL (0-0.1) 10/10/23 04:31 Differential Comment MANUAL DIFFERENTIAL 10/10/23 04:31 Manual Slide Review Indicated 10/09/23 07:53 Platelet Estimate NORMAL (130-450,000) (NORMAL) 10/10/23 04:31 Platelet Morphology NORMAL APPEARANCE (NORMAL) 10/09/23 07:53 RBC Morph Micro Appear NORMAL APPEARANCE (NORMAL) 10/10/23 04:31 VBG pH 7.505 (7.31-7.41) H 10/11/23 04:21 VBG pCO2 47.3 mmHg (41-51) 10/07/23 12:00 VBG pO2 27.7 mmHg (25-47) 10/07/23 12:00 VBG HCO3 27.7 mmol/L (23-28) 10/07/23 12:00 VBG Total CO2 29.2 mmol/L (24-29) H 10/07/23 12:00 VBG O2 Saturation 48.3 % (60-80) L 10/07/23 12:00 VBG Base Excess 2.1 mmol/L (-2 - +2) H 10/07/23 12:00 Ionized Calcium 1.10 mmol/L (1.15-1.33) L 10/11/23 04:21 Sodium 139 mmol/L (135-145) 10/11/23 04:21 Potassium 3.1 mmol/L (3.5-4.5) L 10/11/23 04:21 Chloride 104 mmol/L (101-111) 10/11/23 04:21 Carbon Dioxide 26 mmol/L (21-32) 10/11/23 04:21 Anion Gap 9.0 (6-13) 10/11/23 04:21 BUN 48 mg/dL (6-20) H 10/11/23 04:21 Creatinine 1.9 mg/dL (0.6-1.3) H 10/11/23 04:21 Estimated GFR (MDRD) 35 (>89) L 10/11/23 04:21 Glucose 192 mg/dL (74-104) H 10/11/23 04:21 Estimat Average Glucose 117 mg/dL (70-100) H 09/24/23 21:30 Hemoglobin A1c % 5.7 % (4.27-6.07) 09/24/23 21:30 Lactic Acid 1.8 mmol/L (0.5-2.2) 09/24/23 21:30 Calcium 8.6 mg/dL (8.5-10.3) 10/11/23 04:21 Phosphorus 4.5 mg/dL (2.5-5.0) 10/11/23 04:21 Magnesium 2.0 mg/dL (1.7-2.3) 10/11/23 04:21 Total Bilirubin 0.2 mg/dL (0.2-1.0) 10/11/23 04:21 AST 17 IU/L (10-42) 10/11/23 04:21 ALT 22 IU/L (10-60) 10/11/23 04:21 Alkaline Phosphatase 78 IU/L (42-121) 10/11/23 04:21 Troponin I High Sens 14.9 ng/L (2.3-19.7) 10/07/23 13:32 B-Natriuretic Peptide 197 pg/mL (5-100) H 10/08/23 04:44 Total Protein 5.5 g/dL (6.4-8.9) L 10/11/23 04:21 Albumin 2.8 g/dL (3.2-5.5) L 10/11/23 04:21 Globulin 2.7 g/dL (2.1-4.2) 10/11/23 04:21 Albumin/Globulin Ratio 1.0 (1.0-2.2) 10/11/23 04:21 Triglycerides 68 mg/dL (48-352) 09/24/23 21:30 Cholesterol 117 mg/dL (-200) 09/24/23 21:30 LDL Cholesterol, Calc 45 mg/dL (-129) 09/24/23 21:30 VLDL Cholesterol 14 mg/dL 09/24/23 21:30 HDL Cholesterol 58 mg/dL (60-) L 09/24/23 21:30 LDL/HDL Ratio 0.8 (<3.6) 09/24/23 21:30 Cholesterol/HDL Ratio 2.0 (<5.0) 09/24/23 21:30 Vitamin B12 486 pg/mL (180-914) 10/10/23 04:42 Folate 16.6 ng/mL (5.90 - >24.8) 10/10/23 04:42 Procalcitonin Immunoas 0.32 ng/mL (<0.5) 09/24/23 21:30 TSH 1.91 uIU/mL (0.34-5.60) 09/24/23 21:30 Urine Color YELLOW 09/25/23 13:30 Urine Clarity CLEAR (CLEAR) 09/25/23 13:30 Urine pH 6.0 PH (5.0-7.5) 09/25/23 13:30 Ur Specific [place] 1.025 (1.002-1.030) 09/25/23 13:30 Urine Protein TRACE mg/dL (NEGATIVE) 09/25/23 13:30 Urine Glucose (UA) NEGATIVE mg/dL (NEGATIVE) 09/25/23 13:30 Urine Ketones NEGATIVE mg/dL (NEGATIVE) 09/25/23 13:30 Urine Occult Blood NEGATIVE (NEGATIVE) 09/25/23 13:30 Urine Nitrite NEGATIVE (NEGATIVE) 09/25/23 13:30 Urine Bilirubin NEGATIVE (NEGATIVE) 09/25/23 13:30 Urine Urobilinogen 0.2 (NORMAL) E.U./dL (NORMAL) 09/25/23 13:30 Ur Leukocyte Esterase TRACE (NEGATIVE) H 09/25/23 13:30 Urine RBC 0-5 /HPF (0-5) 09/25/23 13:30 Urine WBC 0-3 /HPF (0-3) 09/25/23 13:30 Ur Squamous Epith Cells NONE SEEN (<= Few) 09/25/23 13:30 Urine Bacteria Few /HPF (None Seen) 09/25/23 13:30 Ur Microscopic Review INDICATED 09/25/23 13:30 Urine Culture Comments INDICATED 09/25/23 13:30 Nasal Adenovirus (PCR) NOT DETECTED 09/24/23 21:30 Nasal B. parapertussis DNA (PCR) NOT DETECTED 09/24/23 21:30 Nasal Coronavir 229E PCR NOT DETECTED 09/24/23 21:30 Nasal Coronavir HKU1 PCR NOT DETECTED 09/24/23 21:30 Nasal Coronavir NL63 PCR NOT DETECTED 09/24/23 21:30 Nasal Coronavir OC43 PCR NOT DETECTED 09/24/23 21:30 Nasal Enterovir/Rhinovir PCR NOT DETECTED 09/24/23 21:30 Nasal Influenza B PCR NOT DETECTED 09/24/23 21:30 Nasal Influenza A PCR NOT DETECTED 09/24/23 21:30 Nasal Parainfluen 1 PCR NOT DETECTED 09/24/23 21:30 Nasal Parainfluen 2 PCR NOT DETECTED 09/24/23 21:30 Nasal Parainfluen 3 PCR NOT DETECTED 09/24/23 21:30 Nasal Parainfluen 4 PCR NOT DETECTED 09/24/23 21:30 Nasal RSV (PCR) NOT DETECTED 09/24/23 21:30 Nasal Screen MRSA (PCR) NEGATIVE (NEGATIVE) 10/07/23 12:50 Nasal B.pertussis DNA PCR NOT DETECTED 09/24/23 21:30 Nasal C.pneumoniae (PCR) NOT DETECTED 09/24/23 21:30 Thom Human Metapneumo PCR NOT DETECTED 09/24/23 21:30 Nasal M.pneumoniae (PCR) NOT DETECTED 09/24/23 21:30 Nasal SARS-CoV-2 (PCR) NOT DETECTED 09/24/23 21:30 Last Dose Date 10/08/23 11:10 Last Dose Time 0835 10/08/23 11:10 Vancomycin Peak 37.6 ug/mL (20.0-40.0) 10/08/23 11:10 Vancomycin Trough 18.3 ug/mL 10/07/23 17:29 Urine Opiates Screen NEGATIVE (NEGATIVE) 09/25/23 13:30 Ur Buprenorphine Scrn NEGATIVE (NEGATIVE) 09/25/23 13:30 Ur Oxycodone Screen NEGATIVE (NEGATIVE) 09/25/23 13:30 Urine Methadone Screen NEGATIVE (NEGATIVE) 09/25/23 13:30 Ur Barbiturates Screen NEGATIVE (NEGATIVE) 09/25/23 13:30 Ur Tricyclics Screen NEGATIVE (NEGATIVE) 09/25/23 13:30 Ur Phencyclidine Scrn NEGATIVE (NEGATIVE) 09/25/23 13:30 Ur Amphetamine Screen NEGATIVE (NEGATIVE) 09/25/23 13:30 U Methamphetamines Scrn NEGATIVE (NEGATIVE) 09/25/23 13:30 U Benzodiazepines Scrn NEGATIVE (NEGATIVE) 09/25/23 13:30 Urine Cocaine Screen NEGATIVE (NEGATIVE) 09/25/23 13:30 U Cannabinoids Screen NEGATIVE (NEGATIVE) 09/25/23 13:30 Ur Drug Screen Comment CUTOFF CONC BELOW: 09/25/23 13:30 Ethyl Alcohol < 10.0 mg/dL 09/24/23 16:44
--- NOTE | 2023-10-11 11:32 | PROVIDER PROGRESS NOTE ---
Assessment/Plan - Problem List (1) Acute respiratory failure with hypoxia Assessment/Plan: Impression: Plan: Continue to titrate oxgen as tolerated. Patient to undergo thoracentesis today. (2) COPD exacerbation Plan: Cont scheduled DuoNebs 4 times daily and every 4 hours as needed Cont twice daily Pulmicort nebulized Cont IV steroids and titrate down very slowly Continue with Mucinex for expectoration (3) Pneumonia Assessment/Plan: CXR repeated 10/07 showed a complete L lung white out due to consolidation and pleural effusion. At admission, he already completed course of azithromycin and ceftriaxone. Therefore IV Meropenum and Vanco were started on 10/07 Plan: Cont IV antibx and probiotic Cont Mucinex (4) Pleural effusion Assessment/Plan: Plan: Thoracentesis today. (5) TOÑITO (acute kidney injury) Assessment/Plan: Plan: Discontinue lasix Continue to monitor BUN/Cr. (6) Acute urinary retention Assessment/Plan: Resolved (7) Generalized weakness Assessment/Plan: Continue PT/OT (8) Severe protein-calorie malnutrition Assessment/Plan: Continue dysphagia pureed diet (9) HTN (hypertension) Assessment/Plan Continue diltazem (10) Hypokalemia Assessment/Plan: Resolved. Continue to monitor (11) Hypomagnesemia Assessment/Plan: Resolved. Continue to monitor (12) Tobacco use Assessment/Plan: Tobacco counseling (13) Inadequate social support Social work consult (14) Fall at home Assessment/Plan: PT/OT (15) Orthostatic hypotension RESOLVED - Current Meds Current Meds: Current Medications Generic Name Dose Route Start Last Admin Trade Name Freq PRN Reason Stop Dose Admin Acetaminophen 650 mg 09/24/23 21:12 10/11/23 08:41 Acetaminophen 325 Mg Tablet PO 325 mg Q6H PRN Administration Pain 1 to 4, or Fever Albuterol/Ipratropium 3 ml 10/06/23 17:26 10/09/23 20:30 Ipratropium/Albuterol 3 Ml Neb INH 3 ml Q4HR PRN Administration Wheezing Albuterol/Ipratropium 3 ml 10/06/23 19:00 10/11/23 10:51 Ipratropium/Albuterol 3 Ml Neb INH Not Given RTQID [facility] Calcium Carbonate/Glycine 500 mg 10/10/23 10:00 10/11/23 08:42 Calcium Carbonate Chew 500 Mg Tablet PO 500 mg BID STEFANO Administration Diltiazem HCl 120 mg 10/07/23 09:00 10/11/23 08:45 Diltiazem Cd 120 Mg Capsule PO 120 mg DAILY STEFANO Administration Famotidine 20 mg 10/07/23 21:00 10/11/23 08:42 Famotidine 20 Mg Tablet PO 20 mg BID STEFANO Administration Furosemide 20 mg 10/09/23 09:00 10/11/23 09:10 Furosemide 20 Mg/2 Ml Vial IVP 20 mg DAILY STEFANO Administration Guaifenesin 600 mg 09/24/23 22:00 10/11/23 08:42 Guaifenesin 600 Mg Tablet PO 600 mg BID STEFANO Administration Linezolid 600 mg in 300 mls @ 300 mls/hr 10/09/23 21:00 10/11/23 10:00 Zyvox 600 Mg/300 Ml IV Infused Q12H STEFANO Infusion Meropenem 1 gm/ Sodium 100 mls @ 200 mls/hr 10/09/23 14:00 10/11/23 07:40 Chloride IV Infused Q12H STEFANO Infusion Lactobacillus Rhamnosus 1 cap 10/10/23 09:00 10/11/23 08:44 Lactobacillus Rhamnosus Gg Capsule PO 1 cap DAILY STEFANO Administration Lorazepam 0.5 mg 10/07/23 18:54 10/09/23 23:05 Lorazepam 2 Mg/Ml Vial IVP 0.5 mg Q2H PRN Administration Anxiety Magnesium Oxide 400 mg 10/07/23 12:00 10/11/23 08:44 Magnesium Oxide 400 Mg Tablet PO 400 mg DAILYWM STEFANO Administration Methylprednisolone 80 mg 10/07/23 22:00 10/11/23 06:09 Methylprednisolone Succinate 40 Mg/Ml Vial IVP 80 mg TID STEFANO Administration Montelukast Sodium 10 mg 10/09/23 21:00 10/10/23 20:37 Montelukast 10 Mg Tablet PO 10 mg QPM STEFANO Administration Morphine Sulfate 1 mg 10/07/23 17:46 10/10/23 06:07 Morphine 2 Mg/Ml Carpuject IVP 1 mg Q4HR PRN Administration Dyspnea Multi-Ingredient Ointment 1 applic 09/25/23 12:13 10/11/23 08:00 Zinc Oxide 20% Oint 30 Gm Tube TOP 1 applic PRN PRN Administration Skin Care Multivitamins/Minerals 1 tab 09/29/23 08:00 10/11/23 08:44 Multivitamin W/Minerals Tablet PO 1 tab DAILYWM STEFANO Administration Pyridoxine HCl 50 mg 10/10/23 09:00 10/11/23 08:42 Pyridoxine 100 Mg Tablet PO 50 mg DAILY STEFANO Administration Sodium Chloride 10 ml 09/24/23 21:12 10/11/23 06:09 Sodium Chloride Flush 0.9% 10 Ml Syringe IVP 10 ml PRN PRN Administration NEEDED PER PROVIDER ORDERS Sodium Chloride 10 ml 09/25/23 01:00 10/11/23 09:10 Sodium Chloride Flush 0.9% 10 Ml Syringe IVP 10 ml 0100,0900,1700 STEFANO Administration Tamsulosin HCl 0.4 mg 10/08/23 11:00 10/11/23 08:42 Tamsulosin 0.4 Mg Capsule PO 0.4 mg DAILY STEFANO Administration Zolpidem Tartrate 5 mg 10/09/23 16:31 10/09/23 23:05 Zolpidem 5 Mg Tablet PO 5 mg QPM PRN Administration Insomnia - Lab Result Fish Bone Diagrams: 10/11/23 04:21 10/11/23 04:21 - Additional Planning My Orders: My Active Orders 10/10/23 Dinner Dysphagia - Puree [DIET] 10/12/23 05:00 CALCIUM, IONIZED ([facility]) [BG] DAILYLAB MAGNESIUM [CHEM] DAILYLAB PHOSPHORUS [CHEM] DAILYLAB 10/13/23 05:00 CALCIUM, IONIZED ([facility]) [BG] DAILYLAB MAGNESIUM [CHEM] DAILYLAB PHOSPHORUS [CHEM] DAILYLAB Subjective - Subjective Patient Reports: Other (Overal improved. More alert and cooperative. He denies chest pain, nausea and vomiting. No other complaints at this time.) Objective Vital Signs: Vital Signs - 24 hr 10/10/23 10/10/23 10/10/23 11:32 12:00 13:00 Temperature 37.1 C Heart Rate 68 Heart Rate [ 87 83 Monitoring electrodes] Respiratory 18 26 H 19 Rate Blood Pressure 118/70 129/76 [Right Brachial artery] O2 Saturation 94 95 If not protocol 4.5 4.5 4.5 : Oxygen Flow, liters/minute 10/10/23 10/10/23 10/10/23 14:00 15:00 15:46 Temperature Heart Rate 68 Heart Rate [ 74 66 Monitoring electrodes] Respiratory 18 24 18 Rate Blood Pressure 123/72 147/85 H [Right Brachial artery] O2 Saturation 93 85 L If not protocol 4.5 4.5 4.5 : Oxygen Flow, liters/minute 10/10/23 10/10/23 10/10/23 16:00 16:56 18:00 Temperature 37.2 C Heart Rate Heart Rate [ 74 64 65 Monitoring electrodes] Respiratory 24 13 14 Rate Blood Pressure 105/63 107/63 110/67 [Right Brachial artery] O2 Saturation 90 L 93 92 If not protocol 5 5 4.5 : Oxygen Flow, liters/minute 10/10/23 10/10/23 10/10/23 19:00 20:00 20:15 Temperature Heart Rate 70 Heart Rate [ 64 71 Monitoring electrodes] Respiratory 12 17 20 Rate Blood Pressure 121/70 117/68 [Right Brachial artery] O2 Saturation 90 L 93 If not protocol 5 4.5 4.5 : Oxygen Flow, liters/minute 10/10/23 10/10/23 10/10/23 21:00 22:00 23:00 Temperature 36.5 C Heart Rate Heart Rate [ 70 65 81 Monitoring electrodes] Respiratory 17 12 21 Rate Blood Pressure 116/67 114/67 131/86 H [Right Brachial artery] O2 Saturation 93 95 92 If not protocol 4.5 4.5 4.5 : Oxygen Flow, liters/minute 10/11/23 10/11/23 10/11/23 00:00 01:00 02:00 Temperature 36.5 C Heart Rate Heart Rate [ 69 72 68 Monitoring electrodes] Respiratory 18 18 19 Rate Blood Pressure 118/68 115/72 120/70 [Right Brachial artery] O2 Saturation 96 94 96 If not protocol 4.5 4.5 4.5 : Oxygen Flow, liters/minute 10/11/23 10/11/23 10/11/23 03:00 04:00 05:00 Temperature 36.5 C Heart Rate Heart Rate [ 69 69 72 Monitoring electrodes] Respiratory 18 17 17 Rate Blood Pressure 116/75 133/76 H 110/55 L [Right Brachial artery] O2 Saturation 96 92 93 If not protocol 4.5 4.5 4.5 : Oxygen Flow, liters/minute 10/11/23 10/11/23 10/11/23 06:00 07:00 08:00 Temperature 36.6 C Heart Rate Heart Rate [ 65 75 70 Monitoring electrodes] Respiratory 13 25 H 18 Rate Blood Pressure 122/73 126/77 133/80 H [Right Brachial artery] O2 Saturation 94 91 L 96 If not protocol 4.5 4.5 3.5 : Oxygen Flow, liters/minute 10/11/23 10/11/23 10/11/23 09:00 10:00 10:52 Temperature Heart Rate 73 Heart Rate [ 74 72 Monitoring electrodes] Respiratory 17 14 15 Rate Blood Pressure 150/83 H 140/86 H [Right Brachial artery] O2 Saturation 95 96 If not protocol 3.5 3.5 2 : Oxygen Flow, liters/minute 10/11/23 10/11/23 11:00 11:12 Temperature Heart Rate Heart Rate [ 76 Monitoring electrodes] Respiratory 19 26 H Rate Blood Pressure 138/81 H [Right Brachial artery] O2 Saturation 94 If not protocol 3.5 2 : Oxygen Flow, liters/minute Oxygen O2 Source Nasal cannula I&O (Last 24 Hrs): Intake and Output Totals x24h 10/09/23 10/10/23 10/11/23 23:59 23:59 23:59 Intake Total 1630 1600 1251.6 Output Total 975 1600 733 Balance 655 0 518.6 General: Alert, Oriented x3, Cooperative, No acute distress HEENT: Atraumatic, PERRLA, EOMI Neck: Supple, No JVD, No thyromegaly Lymphatic: no adenopathy Neuro: Alert, Non Focal Cardiovascular: Regular rate, Normal S1, Normal S2, No murmurs Respiratory: Chest non-tender, No respiratory distress, Other (No wheezing. No crackles.) Abdomen: Normal bowel sounds, No tenderness Extremities: No clubbing, No cyanosis, No edema Skin: No rashes - Results Results: Laboratory Results WBC 16.7 x10^3/uL (4.8-10.8) H 10/11/23 04:21 RBC 2.90 10^6/uL (4.70-6.10) L 10/11/23 04:21 Hgb 9.1 g/dL (14.0-18.0) L 10/11/23 04:21 Hct 27.8 % (42.0-52.0) L 10/11/23 04:21 MCV 95.9 fL (80.0-94.0) H 10/11/23 04:21 MCH 31.4 pg (27.0-31.0) H 10/11/23 04:21 MCHC 32.7 g/dL (32.0-36.0) 10/11/23 04:21 RDW 13.1 % (12.0-15.0) 10/11/23 04:21 Plt Count 296 10^3/uL (130-450) 10/11/23 04:21 MPV 9.3 fL (7.4-11.4) 10/11/23 04:21 Neut # (Auto) 15.9 10^3/uL (1.5-6.6) H 10/11/23 04:21 Lymph # (Auto) 0.2 10^3/uL (1.5-3.5) L 10/11/23 04:21 Carter # (Auto) 0.5 10^3/uL (0.0-1.0) 10/11/23 04:21 Eos # (Auto) 0.0 10^3/uL (0.0-0.7) 10/11/23 04:21 Baso # (Auto) 0.0 10^3/uL (0.0-0.1) 10/11/23 04:21 Absolute Nucleated RBC 0.00 x10^3/uL 10/11/23 04:21 Total Counted 100 10/10/23 04:31 Band Neuts % (Manual) 3 % (0-10) 10/10/23 04:31 Abnorm Lymph % (Manual) 0 % 10/10/23 04:31 Nucleated RBC % 0.0 /100WBC 10/11/23 04:21 Neutrophils # (Manual) 20.5 10^3/uL (1.5-6.6) H 10/10/23 04:31 Lymphocytes # (Manual) 0.6 10^3/uL (1.5-3.5) L 10/10/23 04:31 Monocytes # (Manual) 0.4 10^3/uL (0.0-1.0) 10/10/23 04:31 Eosinophils # (Manual) 0.0 10^3/uL (0-0.7) 10/10/23 04:31 Basophils # (Manual) 0.0 10^3/uL (0-0.1) 10/10/23 04:31 Differential Comment MANUAL DIFFERENTIAL 10/10/23 04:31 Manual Slide Review Indicated 10/09/23 07:53 Platelet Estimate NORMAL (130-450,000) (NORMAL) 10/10/23 04:31 Platelet Morphology NORMAL APPEARANCE (NORMAL) 10/09/23 07:53 RBC Morph Micro Appear NORMAL APPEARANCE (NORMAL) 10/10/23 04:31 VBG pH 7.505 (7.31-7.41) H 10/11/23 04:21 VBG pCO2 47.3 mmHg (41-51) 10/07/23 12:00 VBG pO2 27.7 mmHg (25-47) 10/07/23 12:00 VBG HCO3 27.7 mmol/L (23-28) 10/07/23 12:00 VBG Total CO2 29.2 mmol/L (24-29) H 10/07/23 12:00 VBG O2 Saturation 48.3 % (60-80) L 10/07/23 12:00 VBG Base Excess 2.1 mmol/L (-2 - +2) H 10/07/23 12:00 Ionized Calcium 1.10 mmol/L (1.15-1.33) L 10/11/23 04:21 Sodium 139 mmol/L (135-145) 10/11/23 04:21 Potassium 3.1 mmol/L (3.5-4.5) L 10/11/23 04:21 Chloride 104 mmol/L (101-111) 10/11/23 04:21 Carbon Dioxide 26 mmol/L (21-32) 10/11/23 04:21 Anion Gap 9.0 (6-13) 10/11/23 04:21 BUN 48 mg/dL (6-20) H 10/11/23 04:21 Creatinine 1.9 mg/dL (0.6-1.3) H 10/11/23 04:21 Estimated GFR (MDRD) 35 (>89) L 10/11/23 04:21 Glucose 192 mg/dL (74-104) H 10/11/23 04:21 Estimat Average Glucose 117 mg/dL (70-100) H 09/24/23 21:30 Hemoglobin A1c % 5.7 % (4.27-6.07) 09/24/23 21:30 Lactic Acid 1.8 mmol/L (0.5-2.2) 09/24/23 21:30 Calcium 8.6 mg/dL (8.5-10.3) 10/11/23 04:21 Phosphorus 4.5 mg/dL (2.5-5.0) 10/11/23 04:21 Magnesium 2.0 mg/dL (1.7-2.3) 10/11/23 04:21 Total Bilirubin 0.2 mg/dL (0.2-1.0) 10/11/23 04:21 AST 17 IU/L (10-42) 10/11/23 04:21 ALT 22 IU/L (10-60) 10/11/23 04:21 Alkaline Phosphatase 78 IU/L (42-121) 10/11/23 04:21 Troponin I High Sens 14.9 ng/L (2.3-19.7) 10/07/23 13:32 B-Natriuretic Peptide 197 pg/mL (5-100) H 10/08/23 04:44 Total Protein 5.5 g/dL (6.4-8.9) L 10/11/23 04:21 Albumin 2.8 g/dL (3.2-5.5) L 10/11/23 04:21 Globulin 2.7 g/dL (2.1-4.2) 10/11/23 04:21 Albumin/Globulin Ratio 1.0 (1.0-2.2) 10/11/23 04:21 Triglycerides 68 mg/dL (48-352) 09/24/23 21:30 Cholesterol 117 mg/dL (-200) 09/24/23 21:30 LDL Cholesterol, Calc 45 mg/dL (-129) 09/24/23 21:30 VLDL Cholesterol 14 mg/dL 09/24/23 21:30 HDL Cholesterol 58 mg/dL (60-) L 09/24/23 21:30 LDL/HDL Ratio 0.8 (<3.6) 09/24/23 21:30 Cholesterol/HDL Ratio 2.0 (<5.0) 09/24/23 21:30 Vitamin B12 486 pg/mL (180-914) 10/10/23 04:42 Folate 16.6 ng/mL (5.90 - >24.8) 10/10/23 04:42 Procalcitonin Immunoas 0.32 ng/mL (<0.5) 09/24/23 21:30 TSH 1.91 uIU/mL (0.34-5.60) 09/24/23 21:30 Urine Color YELLOW 09/25/23 13:30 Urine Clarity CLEAR (CLEAR) 09/25/23 13:30 Urine pH 6.0 PH (5.0-7.5) 09/25/23 13:30 Ur Specific Aspers 1.025 (1.002-1.030) 09/25/23 13:30 Urine Protein TRACE mg/dL (NEGATIVE) 09/25/23 13:30 Urine Glucose (UA) NEGATIVE mg/dL (NEGATIVE) 09/25/23 13:30 Urine Ketones NEGATIVE mg/dL (NEGATIVE) 09/25/23 13:30 Urine Occult Blood NEGATIVE (NEGATIVE) 09/25/23 13:30 Urine Nitrite NEGATIVE (NEGATIVE) 09/25/23 13:30 Urine Bilirubin NEGATIVE (NEGATIVE) 09/25/23 13:30 Urine Urobilinogen 0.2 (NORMAL) E.U./dL (NORMAL) 09/25/23 13:30 Ur Leukocyte Esterase TRACE (NEGATIVE) H 09/25/23 13:30 Urine RBC 0-5 /HPF (0-5) 09/25/23 13:30 Urine WBC 0-3 /HPF (0-3) 09/25/23 13:30 Ur Squamous Epith Cells NONE SEEN (<= Few) 09/25/23 13:30 Urine Bacteria Few /HPF (None Seen) 09/25/23 13:30 Ur Microscopic Review INDICATED 09/25/23 13:30 Urine Culture Comments INDICATED 09/25/23 13:30 Nasal Adenovirus (PCR) NOT DETECTED 09/24/23 21:30 Nasal B. parapertussis DNA (PCR) NOT DETECTED 09/24/23 21:30 Nasal Coronavir 229E PCR NOT DETECTED 09/24/23 21:30 Nasal Coronavir HKU1 PCR NOT DETECTED 09/24/23 21:30 Nasal Coronavir NL63 PCR NOT DETECTED 09/24/23 21:30 Nasal Coronavir OC43 PCR NOT DETECTED 09/24/23 21:30 Nasal Enterovir/Rhinovir PCR NOT DETECTED 09/24/23 21:30 Nasal Influenza B PCR NOT DETECTED 09/24/23 21:30 Nasal Influenza A PCR NOT DETECTED 09/24/23 21:30 Nasal Parainfluen 1 PCR NOT DETECTED 09/24/23 21:30 Nasal Parainfluen 2 PCR NOT DETECTED 09/24/23 21:30 Nasal Parainfluen 3 PCR NOT DETECTED 09/24/23 21:30 Nasal Parainfluen 4 PCR NOT DETECTED 09/24/23 21:30 Nasal RSV (PCR) NOT DETECTED 09/24/23 21:30 Nasal Screen MRSA (PCR) NEGATIVE (NEGATIVE) 10/07/23 12:50 Nasal B.pertussis DNA PCR NOT DETECTED 09/24/23 21:30 Nasal C.pneumoniae (PCR) NOT DETECTED 09/24/23 21:30 Thom Human Metapneumo PCR NOT DETECTED 09/24/23 21:30 Nasal M.pneumoniae (PCR) NOT DETECTED 09/24/23 21:30 Nasal SARS-CoV-2 (PCR) NOT DETECTED 09/24/23 21:30 Last Dose Date 10/08/23 11:10 Last Dose Time 0835 10/08/23 11:10 Vancomycin Peak 37.6 ug/mL (20.0-40.0) 10/08/23 11:10 Vancomycin Trough 18.3 ug/mL 10/07/23 17:29 Urine Opiates Screen NEGATIVE (NEGATIVE) 09/25/23 13:30 Ur Buprenorphine Scrn NEGATIVE (NEGATIVE) 09/25/23 13:30 Ur Oxycodone Screen NEGATIVE (NEGATIVE) 09/25/23 13:30 Urine Methadone Screen NEGATIVE (NEGATIVE) 09/25/23 13:30 Ur Barbiturates Screen NEGATIVE (NEGATIVE) 09/25/23 13:30 Ur Tricyclics Screen NEGATIVE (NEGATIVE) 09/25/23 13:30 Ur Phencyclidine Scrn NEGATIVE (NEGATIVE) 09/25/23 13:30 Ur Amphetamine Screen NEGATIVE (NEGATIVE) 09/25/23 13:30 U Methamphetamines Scrn NEGATIVE (NEGATIVE) 09/25/23 13:30 U Benzodiazepines Scrn NEGATIVE (NEGATIVE) 09/25/23 13:30 Urine Cocaine Screen NEGATIVE (NEGATIVE) 09/25/23 13:30 U Cannabinoids Screen NEGATIVE (NEGATIVE) 09/25/23 13:30 Ur Drug Screen Comment CUTOFF CONC BELOW: 09/25/23 13:30 Ethyl Alcohol < 10.0 mg/dL 09/24/23 16:44 Current Medications - Current Medications Current Medications: Active Medications Acetaminophen (Acetaminophen 325 Mg Tablet) 650 mg PO Q6H PRN PRN Reason: Pain 1 to 4, or Fever Last Admin: 10/11/23 08:41 Dose: 325 mg Albuterol/Ipratropium (Ipratropium/Albuterol 3 Ml Neb) 3 ml INH Q4HR PRN PRN Reason: Wheezing Last Admin: 10/09/23 20:30 Dose: 3 ml Albuterol/Ipratropium (Ipratropium/Albuterol 3 Ml Neb) 3 ml INH RTQID [facility] Last Admin: 10/11/23 10:51 Dose: Not Given Calcium Carbonate/Glycine (Calcium Carbonate Chew 500 Mg Tablet) 500 mg PO BID [facility] Last Admin: 10/11/23 08:42 Dose: 500 mg Diltiazem HCl (Diltiazem Cd 120 Mg Capsule) 120 mg PO DAILY [facility] Last Admin: 10/11/23 08:45 Dose: 120 mg Famotidine (Famotidine 20 Mg Tablet) 20 mg PO BID [facility] Last Admin: 10/11/23 08:42 Dose: 20 mg Furosemide (Furosemide 20 Mg/2 Ml Vial) 20 mg IVP DAILY [facility] Last Admin: 10/11/23 09:10 Dose: 20 mg Guaifenesin (Guaifenesin 600 Mg Tablet) 600 mg PO BID [facility] Last Admin: 10/11/23 08:42 Dose: 600 mg Linezolid (Zyvox 600 Mg/300 Ml) 600 mg in 300 mls @ 300 mls/hr IV Q12H [facility] Last Infusion: 10/11/23 10:00 Dose: Infused Meropenem 1 gm/ Sodium (Chloride) 100 mls @ 200 mls/hr IV Q12H [facility] Last Infusion: 10/11/23 07:40 Dose: Infused Lactobacillus Rhamnosus (Lactobacillus Rhamnosus Gg Capsule) 1 cap PO DAILY [facility] Last Admin: 10/11/23 08:44 Dose: 1 cap Lorazepam (Lorazepam 2 Mg/Ml Vial) 0.5 mg IVP Q2H PRN PRN Reason: Anxiety Last Admin: 10/09/23 23:05 Dose: 0.5 mg Magnesium Oxide (Magnesium Oxide 400 Mg Tablet) 400 mg PO DAILYWM [facility] Last Admin: 10/11/23 08:44 Dose: 400 mg Methylprednisolone (Methylprednisolone Succinate 40 Mg/Ml Vial) 80 mg IVP TID [facility] Last Admin: 10/11/23 06:09 Dose: 80 mg Montelukast Sodium (Montelukast 10 Mg Tablet) 10 mg PO QPM [facility] Last Admin: 10/10/23 20:37 Dose: 10 mg Morphine Sulfate (Morphine 2 Mg/Ml Carpuject) 1 mg IVP Q4HR PRN PRN Reason: Dyspnea Last Admin: 10/10/23 06:07 Dose: 1 mg Multi-Ingredient Ointment (Zinc Oxide 20% Oint 30 Gm Tube) 1 applic TOP PRN PRN PRN Reason: Skin Care Last Admin: 10/11/23 08:00 Dose: 1 applic Multivitamins/Minerals (Multivitamin W/Minerals Tablet) 1 tab PO DAILYWM [facility] Last Admin: 10/11/23 08:44 Dose: 1 tab Ondansetron HCl (Ondansetron Odt 4 Mg Tablet) 4 mg TL Q6HR PRN PRN Reason: Nausea / Vomiting Pyridoxine HCl (Pyridoxine 100 Mg Tablet) 50 mg PO DAILY [facility] Last Admin: 10/11/23 08:42 Dose: 50 mg Sodium Chloride (Sodium Chloride Flush 0.9% 10 Ml Syringe) 10 ml IVP PRN PRN PRN Reason: NEEDED PER PROVIDER ORDERS Last Admin: 10/11/23 06:09 Dose: 10 ml Sodium Chloride (Sodium Chloride Flush 0.9% 10 Ml Syringe) 10 ml IVP 0100,0900,1700 [facility] Last Admin: 10/11/23 09:10 Dose: 10 ml Tamsulosin HCl (Tamsulosin 0.4 Mg Capsule) 0.4 mg PO DAILY [facility] Last Admin: 10/11/23 08:42 Dose: 0.4 mg Zolpidem Tartrate (Zolpidem 5 Mg Tablet) 5 mg PO QPM PRN PRN Reason: Insomnia Last Admin: 10/09/23 23:05 Dose: 5 mg No Known Home Medications 09/24/23
[2023-10-11 11:59] LABS: CALCIUM, IONIZED 1.15 mmol/L (1.15-1.33); VBG PH 7.447 (7.31-7.41)
[2023-10-11 12:05] LABS: INR 0.9 (0.8-1.2)
[2023-10-11] MEDS ORDERED: POTASSIUM CHLORIDE 20 MEQ/15 ML UDC PO ONE ×2 (12:30→20:00)
--- NOTE | 2023-10-11 14:52 | Ultrasound Report ---
PROCEDURE: Chest INDICATIONS: Thoracentesis of L lung pleural effusion TECHNIQUE: Real-time scanning was performed, and a suitable site was marked by the working foreman for thoracentesis to be performed by the referring clinician. COMPARISON: None. Findings and impression: Planned left thoracentesis. Moderate effusion is seen on ultrasound, however patient was unable to re main still for procedure. Procedure was canceled. Reviewed by: Jareth Ayoub MD on 10/11/2023 2:51 PM PST Approved by: Jareth Ayoub MD on 10/11/2023 2:51 PM PST Station ID: [id number]
[2023-10-11] MEDS ORDERED: ALBUTEROL NEB 2.5 MG/3 ML INH PRN (18:27)
[2023-10-11] MEDS ORDERED: MORPHINE 10 MG/ML VIAL IVP ONE (18:29)
--- NOTE | 2023-10-11 19:12 | PROVIDER PROGRESS NOTE ---
Progress Note I was called to patient's bedside for acute worsening of shortness of breath. Patient was given an albuterol nebulizer treatment and 1 mg of morphine. After the morphine his breathing has improved and he is alert and oriented to person time place and situation. He informs me that he does not wish to continue with aggressive treatment measures and wishes to focus on his comfort. Plan is to write for comfort care orders.
[2023-10-11] MEDS ORDERED: GLYCOPYRROLATE 1 MG/5 ML VIAL SUBQ PRN (19:18)
[2023-10-11] MEDS ORDERED: dexAMETHasone 4 MG TABLET PO PRN (19:18)
--- NOTE | 2023-10-11 19:35 | XRAY Report ---
PROCEDURE: Chest 1V INDICATIONS: Acute dyspnea TECHNIQUE: One view of the chest was acquired. COMPARISON: Chest radiograph 10/07/2023. FINDINGS: Surgical changes and devices: None. Lungs and pleura: Moderate left pleural effusion is seen with atelectasis or consolidation of the ad jacent left lung base. This has significantly decreased in size when compared to the radiographs from 10/07/2023. Mediastinum: Mediastinal contours appear normal. Heart size is normal. Bones and chest wall: No suspicious bony lesions. Overlying soft tissues appear unremarkable. IMPRESSION: Moderate left pleural effusion with left basilar atelectasis, which has improved when compared to the radiographs from 10/07/2023. Reviewed by: Woodrow Mayorga MD on 10/11/2023 7:33 PM PST Approved by: Woodrow Mayorga MD on 10/11/2023 7:33 PM PST Station ID: [id number]
[2023-10-11] MEDS: MORPHINE 10 MG/ML VIAL IVP PRN ×2 (20:01→22:18)
[2023-10-12] MEDS: SODIUM CHLORIDE FLUSH 0.9% 10 ML SYRINGE IVP SCH ×2 (00:55→10:06)
[2023-10-12] MEDS: MORPHINE 2 MG/ML CARPUJECT IVP PRN ×7 (01:00→21:51)
[2023-10-12] MEDS: methylPREDNISolone SUCCINATE 40 MG/ML VIAL IVP SCH ×3 (05:11→21:51)
[2023-10-12] MEDS: IPRATROPIUM/ALBUTEROL 3 ML NEB INH SCH ×3 (08:30→15:08)
[2023-10-12] MEDS: ZINC OXIDE 20% OINT 30 GM TUBE TOP PRN (09:32)
[2023-10-12] MEDS: SODIUM CHLORIDE FLUSH 0.9% 10 ML SYRINGE IVP PRN (09:37)
[2023-10-12] MEDS: TAMSULOSIN 0.4 MG CAPSULE PO SCH (10:07)
[2023-10-12] MEDS: LACTOBACILLUS RHAMNOSUS GG CAPSULE PO SCH (10:07)
[2023-10-12] MEDS: diltiaZEM CD 120 MG CAPSULE PO SCH (10:07)
[2023-10-12] MEDS: FAMOTIDINE 20 MG TABLET PO SCH (10:07)
[2023-10-12] MEDS: CALCIUM CARBONATE CHEW 500 MG TABLET PO SCH (10:07)
[2023-10-12] MEDS: PYRIDOXINE 100 MG TABLET PO SCH (10:07)
--- NOTE | 2023-10-12 13:44 | PROVIDER PROGRESS NOTE ---
Assessment/Plan - Problem List (1) Acute respiratory failure with hypoxia Assessment/Plan: Assessment/Plan: Impression: Plan: Continue to titrate oxgen as tolerated. Patient to undergo thoracentesis today. (2) COPD exacerbation Plan: Cont scheduled DuoNebs 4 times daily and every 4 hours as needed Cont twice daily Pulmicort nebulized Cont IV steroids and titrate down very slowly Continue with Mucinex for expectoration (3) Pneumonia Assessment/Plan: CXR repeated 10/07 showed a complete L lung white out due to consolidation and pleural effusion. At admission, he already completed course of azithromycin and ceftriaxone. Therefore IV Meropenum and Vanco were started on 10/07 Plan: Cont IV antibx and probiotic Cont Mucinex (4) Pleural effusion Assessment/Plan: Plan: Thoracentesis today. (5) TOÑITO (acute kidney injury) Assessment/Plan: Plan: Discontinue lasix Continue to monitor BUN/Cr. (6) Acute urinary retention Assessment/Plan: Resolved (7) Generalized weakness Assessment/Plan: Patient is now comfort care and no longer requi (8) Severe protein-calorie malnutrition Assessment/Plan: Continue dysphagia pureed diet as tolerated. Patient is now comfort care. (9) HTN (hypertension) Assessment/Plan discontinue diltiazem. (10) Hypokalemia Assessment/Plan: Resolved. Continue to monitor (11) Hypomagnesemia Assessment/Plan: Resolved. Continue to monitor (12) Tobacco use Assessment/Plan: Patient now comfort care (13) Inadequate social support Social work consult. Patient currently currently would be self pay for [facility] and does not wish to transfer to [facility] at this time. (14) Fall at home Assessment/Plan: PT/OT (15) Orthostatic hypotension RESOLVED - Current Meds Current Meds: Current Medications Generic Name Dose Route Start Last Admin Trade Name Freq PRN Reason Stop Dose Admin Acetaminophen 650 mg 09/24/23 21:12 10/11/23 08:41 Acetaminophen 325 Mg Tablet PO 325 mg Q6H PRN Administration Pain 1 to 4, or Fever Albuterol/Ipratropium 3 ml 10/06/23 17:26 10/09/23 20:30 Ipratropium/Albuterol 3 Ml Neb INH 3 ml Q4HR PRN Administration Wheezing Albuterol/Ipratropium 3 ml 10/06/23 19:00 10/12/23 12:12 Ipratropium/Albuterol 3 Ml Neb INH Not Given RTQID [facility] Calcium Carbonate/Glycine 500 mg 10/10/23 10:00 10/12/23 10:07 Calcium Carbonate Chew 500 Mg Tablet PO Not Given BID [facility] Diltiazem HCl 120 mg 10/07/23 09:00 10/12/23 10:07 Diltiazem Cd 120 Mg Capsule PO Not Given DAILY [facility] Famotidine 20 mg 10/07/23 21:00 10/12/23 10:07 Famotidine 20 Mg Tablet PO Not Given BID [facility] Lactobacillus Rhamnosus 1 cap 10/10/23 09:00 10/12/23 10:07 Lactobacillus Rhamnosus Gg Capsule PO Not Given DAILY [facility] Methylprednisolone 60 mg 10/11/23 14:00 10/12/23 05:11 Methylprednisolone Succinate 40 Mg/Ml Vial IVP 60 mg TID STEFANO Administration Morphine Sulfate 2 mg 10/11/23 23:41 10/12/23 09:35 Morphine 2 Mg/Ml Carpuject IVP 2 mg Q2HR PRN Administration Dyspnea Multi-Ingredient Ointment 1 applic 09/25/23 12:13 10/12/23 09:32 Zinc Oxide 20% Oint 30 Gm Tube TOP 1 applic PRN PRN Administration Skin Care Pyridoxine HCl 50 mg 10/10/23 09:00 10/12/23 10:07 Pyridoxine 100 Mg Tablet PO Not Given DAILY [facility] Sodium Chloride 10 ml 09/24/23 21:12 10/12/23 09:37 Sodium Chloride Flush 0.9% 10 Ml Syringe IVP 10 ml PRN PRN Administration NEEDED PER PROVIDER ORDERS Sodium Chloride 10 ml 09/25/23 01:00 10/12/23 10:06 Sodium Chloride Flush 0.9% 10 Ml Syringe IVP Not Given 0100,0900,1700 [facility] Tamsulosin HCl 0.4 mg 10/08/23 11:00 10/12/23 10:07 Tamsulosin 0.4 Mg Capsule PO Not Given DAILY [facility] Zolpidem Tartrate 5 mg 10/09/23 16:31 10/09/23 23:05 Zolpidem 5 Mg Tablet PO 5 mg QPM PRN Administration Insomnia - Lab Result Fish Bone Diagrams: 10/11/23 04:21 10/11/23 11:45 - Additional Planning My Orders: My Active Orders 10/11/23 14:00 methylPREDNISolone SUCCINATE [SOLU-Medrol (40MG VIAL)] 60 mg IVP TID 10/11/23 18:27 Albuterol 2.5 mg INH RTQ4H PRN 10/11/23 19:18 Glycopyrrolate [Robinul] 0.2 mg SUBQ Q4H PRN dexAMETHasone [Decadron] 4 mg PO DAILY PRN 10/11/23 19:19 Comfort Care [RC] QSHIFT 10/11/23 23:41 Morphine Inj (Carpuject) [Morphine (Carpuject)] 2 mg IVP Q2HR PRN Subjective - Subjective Patient Reports: Other (Alert. Answering questions appropriately. Patient currently comfortable.) Objective Vital Signs: Vital Signs - 24 hr 10/11/23 10/11/23 10/11/23 15:00 18:18 18:22 Temperature Heart Rate 89 Heart Rate [ 76 88 Monitoring electrodes] Respiratory 21 23 30 H Rate Blood Pressure 135/77 H 155/86 H [Right Brachial artery] O2 Saturation 98 89 L If not protocol 2 5 6 : Oxygen Flow, liters/minute 10/11/23 10/11/23 10/12/23 19:44 23:29 07:58 Temperature 36.5 C 36.5 C Heart Rate Heart Rate [ 69 65 71 Monitoring electrodes] Respiratory 26 H 10 L 12 Rate Blood Pressure 153/85 H 167/89 H [Right Brachial artery] O2 Saturation 100 83 L 91 L If not protocol 6 6 6 : Oxygen Flow, liters/minute 10/12/23 08:00 Temperature Heart Rate Heart Rate [ Monitoring electrodes] Respiratory Rate Blood Pressure [Right Brachial artery] O2 Saturation If not protocol 6 : Oxygen Flow, liters/minute Oxygen O2 Source Nasal cannula I&O (Last 24 Hrs): Intake and Output Totals x24h 10/10/23 10/11/23 10/12/23 23:59 23:59 23:59 Intake Total 1600 1971.6 Output Total 1600 1208 550 Balance 0 763.6 -550 General: Alert, Oriented x3, No acute distress HEENT: Atraumatic, PERRLA, EOMI Neck: Supple, No JVD Lymphatic: no adenopathy Neuro: Alert, Disoriented, Non Focal Cardiovascular: Regular rate, Normal S1, Normal S2, No murmurs Respiratory: Chest non-tender, No respiratory distress Abdomen: Normal bowel sounds, Soft, No tenderness Extremities: No clubbing, No cyanosis, No edema Skin: No rashes - Results Results: Laboratory Results WBC 16.7 x10^3/uL (4.8-10.8) H 10/11/23 04:21 RBC 2.90 10^6/uL (4.70-6.10) L 10/11/23 04:21 Hgb 9.1 g/dL (14.0-18.0) L 10/11/23 04:21 Hct 27.8 % (42.0-52.0) L 10/11/23 04:21 MCV 95.9 fL (80.0-94.0) H 10/11/23 04:21 MCH 31.4 pg (27.0-31.0) H 10/11/23 04:21 MCHC 32.7 g/dL (32.0-36.0) 10/11/23 04:21 RDW 13.1 % (12.0-15.0) 10/11/23 04:21 Plt Count 296 10^3/uL (130-450) 10/11/23 04:21 MPV 9.3 fL (7.4-11.4) 10/11/23 04:21 Neut # (Auto) 15.9 10^3/uL (1.5-6.6) H 10/11/23 04:21 Lymph # (Auto) 0.2 10^3/uL (1.5-3.5) L 10/11/23 04:21 Oliver # (Auto) 0.5 10^3/uL (0.0-1.0) 10/11/23 04:21 Eos # (Auto) 0.0 10^3/uL (0.0-0.7) 10/11/23 04:21 Baso # (Auto) 0.0 10^3/uL (0.0-0.1) 10/11/23 04:21 Absolute Nucleated RBC 0.00 x10^3/uL 10/11/23 04:21 Total Counted 100 10/10/23 04:31 Band Neuts % (Manual) 3 % (0-10) 10/10/23 04:31 Abnorm Lymph % (Manual) 0 % 10/10/23 04:31 Nucleated RBC % 0.0 /100WBC 10/11/23 04:21 Neutrophils # (Manual) 20.5 10^3/uL (1.5-6.6) H 10/10/23 04:31 Lymphocytes # (Manual) 0.6 10^3/uL (1.5-3.5) L 10/10/23 04:31 Monocytes # (Manual) 0.4 10^3/uL (0.0-1.0) 10/10/23 04:31 Eosinophils # (Manual) 0.0 10^3/uL (0-0.7) 10/10/23 04:31 Basophils # (Manual) 0.0 10^3/uL (0-0.1) 10/10/23 04:31 Differential Comment MANUAL DIFFERENTIAL 10/10/23 04:31 Manual Slide Review Indicated 10/09/23 07:53 Platelet Estimate NORMAL (130-450,000) (NORMAL) 10/10/23 04:31 Platelet Morphology NORMAL APPEARANCE (NORMAL) 10/09/23 07:53 RBC Morph Micro Appear NORMAL APPEARANCE (NORMAL) 10/10/23 04:31 PT 10.0 secs (9.9-12.6) 10/11/23 11:45 INR 0.9 (0.8-1.2) 10/11/23 11:45 VBG pH 7.447 (7.31-7.41) H 10/11/23 11:45 VBG pCO2 47.3 mmHg (41-51) 10/07/23 12:00 VBG pO2 27.7 mmHg (25-47) 10/07/23 12:00 VBG HCO3 27.7 mmol/L (23-28) 10/07/23 12:00 VBG Total CO2 29.2 mmol/L (24-29) H 10/07/23 12:00 VBG O2 Saturation 48.3 % (60-80) L 10/07/23 12:00 VBG Base Excess 2.1 mmol/L (-2 - +2) H 10/07/23 12:00 Ionized Calcium 1.15 mmol/L (1.15-1.33) 10/11/23 11:45 Sodium 139 mmol/L (135-145) 10/11/23 04:21 Potassium 3.4 mmol/L (3.5-4.5) L 10/11/23 11:45 Chloride 104 mmol/L (101-111) 10/11/23 04:21 Carbon Dioxide 26 mmol/L (21-32) 10/11/23 04:21 Anion Gap 9.0 (6-13) 10/11/23 04:21 BUN 48 mg/dL (6-20) H 10/11/23 04:21 Creatinine 1.9 mg/dL (0.6-1.3) H 10/11/23 04:21 Estimated GFR (MDRD) 35 (>89) L 10/11/23 04:21 Glucose 192 mg/dL (74-104) H 10/11/23 04:21 POC Whole Bld Glucose 142 mg/dL (70 - 100) H 10/12/23 07:51 Estimat Average Glucose 117 mg/dL (70-100) H 09/24/23 21:30 Hemoglobin A1c % 5.7 % (4.27-6.07) 09/24/23 21:30 Lactic Acid 1.8 mmol/L (0.5-2.2) 09/24/23 21:30 Calcium 8.6 mg/dL (8.5-10.3) 10/11/23 04:21 Phosphorus 4.5 mg/dL (2.5-5.0) 10/11/23 04:21 Magnesium 2.0 mg/dL (1.7-2.3) 10/11/23 04:21 Total Bilirubin 0.2 mg/dL (0.2-1.0) 10/11/23 04:21 AST 17 IU/L (10-42) 10/11/23 04:21 ALT 22 IU/L (10-60) 10/11/23 04:21 Alkaline Phosphatase 78 IU/L (42-121) 10/11/23 04:21 Troponin I High Sens 14.9 ng/L (2.3-19.7) 10/07/23 13:32 B-Natriuretic Peptide 197 pg/mL (5-100) H 10/08/23 04:44 Total Protein 5.5 g/dL (6.4-8.9) L 10/11/23 04:21 Albumin 2.8 g/dL (3.2-5.5) L 10/11/23 04:21 Globulin 2.7 g/dL (2.1-4.2) 10/11/23 04:21 Albumin/Globulin Ratio 1.0 (1.0-2.2) 10/11/23 04:21 Triglycerides 68 mg/dL (48-352) 09/24/23 21:30 Cholesterol 117 mg/dL (-200) 09/24/23 21: LDL Cholesterol, Calc 45 mg/dL (-129) 09/24/23 21: VLDL Cholesterol 14 mg/dL 09/24/23 21:30 HDL Cholesterol 58 mg/dL (60-) L 09/24/23 21: LDL/HDL Ratio 0.8 (<3.6) 09/24/23 21: Cholesterol/HDL Ratio 2.0 (<5.0) 09/24/23 21:30 Vitamin B12 486 pg/mL (180-914) 10/10/23 04:42 Folate 16.6 ng/mL (5.90 - >24.8) 10/10/23 04:42 Procalcitonin Immunoas 0.32 ng/mL (<0.5) 09/24/23 21:30 TSH 1.91 uIU/mL (0.34-5.60) 09/24/23 21:30 Urine Color YELLOW 09/25/23 13:30 Urine Clarity CLEAR (CLEAR) 09/25/23 13:30 Urine pH 6.0 PH (5.0-7.5) 09/25/23 13:30 Ur Specific Patterson 1.025 (1.002-1.030) 09/25/23 13:30 Urine Protein TRACE mg/dL (NEGATIVE) 09/25/23 13:30 Urine Glucose (UA) NEGATIVE mg/dL (NEGATIVE) 09/25/23 13:30 Urine Ketones NEGATIVE mg/dL (NEGATIVE) 09/25/23 13:30 Urine Occult Blood NEGATIVE (NEGATIVE) 09/25/23 13:30 Urine Nitrite NEGATIVE (NEGATIVE) 09/25/23 13:30 Urine Bilirubin NEGATIVE (NEGATIVE) 09/25/23 13:30 Urine Urobilinogen 0.2 (NORMAL) E.U./dL (NORMAL) 09/25/23 13:30 Ur Leukocyte Esterase TRACE (NEGATIVE) H 09/25/23 13:30 Urine RBC 0-5 /HPF (0-5) 09/25/23 13:30 Urine WBC 0-3 /HPF (0-3) 09/25/23 13:30 Ur Squamous Epith Cells NONE SEEN (<= Few) 09/25/23 13:30 Urine Bacteria Few /HPF (None Seen) 09/25/23 13:30 Ur Microscopic Review INDICATED 09/25/23 13:30 Urine Culture Comments INDICATED 09/25/23 13:30 Nasal Adenovirus (PCR) NOT DETECTED 09/24/23 21:30 Nasal B. parapertussis DNA (PCR) NOT DETECTED 09/24/23 21:30 Nasal Coronavir 229E PCR NOT DETECTED 09/24/23 21:30 Nasal Coronavir HKU1 PCR NOT DETECTED 09/24/23 21:30 Nasal Coronavir NL63 PCR NOT DETECTED 09/24/23 21:30 Nasal Coronavir OC43 PCR NOT DETECTED 09/24/23 21:30 Nasal Enterovir/Rhinovir PCR NOT DETECTED 09/24/23 21:30 Nasal Influenza B PCR NOT DETECTED 09/24/23 21:30 Nasal Influenza A PCR NOT DETECTED 09/24/23 21:30 Nasal Parainfluen 1 PCR NOT DETECTED 09/24/23 21:30 Nasal Parainfluen 2 PCR NOT DETECTED 09/24/23 21:30 Nasal Parainfluen 3 PCR NOT DETECTED 09/24/23 21:30 Nasal Parainfluen 4 PCR NOT DETECTED 09/24/23 21:30 Nasal RSV (PCR) NOT DETECTED 09/24/23 21:30 Nasal Screen MRSA (PCR) NEGATIVE (NEGATIVE) 10/07/23 12:50 Nasal B.pertussis DNA PCR NOT DETECTED 09/24/23 21:30 Nasal C.pneumoniae (PCR) NOT DETECTED 09/24/23 21:30 Thom Human Metapneumo PCR NOT DETECTED 09/24/23 21:30 Nasal M.pneumoniae (PCR) NOT DETECTED 09/24/23 21:30 Nasal SARS-CoV-2 (PCR) NOT DETECTED 09/24/23 21:30 Last Dose Date 10/08/23 11:10 Last Dose Time 0835 10/08/23 11:10 Vancomycin Peak 37.6 ug/mL (20.0-40.0) 10/08/23 11:10 Vancomycin Trough 18.3 ug/mL 10/07/23 17:29 Urine Opiates Screen NEGATIVE (NEGATIVE) 09/25/23 13:30 Ur Buprenorphine Scrn NEGATIVE (NEGATIVE) 09/25/23 13:30 Ur Oxycodone Screen NEGATIVE (NEGATIVE) 09/25/23 13:30 Urine Methadone Screen NEGATIVE (NEGATIVE) 09/25/23 13:30 Ur Barbiturates Screen NEGATIVE (NEGATIVE) 09/25/23 13:30 Ur Tricyclics Screen NEGATIVE (NEGATIVE) 09/25/23 13:30 Ur Phencyclidine Scrn NEGATIVE (NEGATIVE) 09/25/23 13:30 Ur Amphetamine Screen NEGATIVE (NEGATIVE) 09/25/23 13:30 U Methamphetamines Scrn NEGATIVE (NEGATIVE) 09/25/23 13:30 U Benzodiazepines Scrn NEGATIVE (NEGATIVE) 09/25/23 13:30 Urine Cocaine Screen NEGATIVE (NEGATIVE) 09/25/23 13:30 U Cannabinoids Screen NEGATIVE (NEGATIVE) 09/25/23 13:30 Ur Drug Screen Comment CUTOFF CONC BELOW: 09/25/23 13:30 Ethyl Alcohol < 10.0 mg/dL 09/24/23 16:44 ABX Reporting Has patient been on IV antibiotics over the past 48 hours?: No Current Medications - Current Medications Current Medications: Active Medications Acetaminophen (Acetaminophen 325 Mg Tablet) 650 mg PO Q6H PRN PRN Reason: Pain 1 to 4, or Fever Last Admin: 10/11/23 08:41 Dose: 325 mg Albuterol (Albuterol Neb 2.5 Mg/3 Ml) 2.5 mg INH RTQ4H PRN PRN Reason: Wheezing Albuterol/Ipratropium (Ipratropium/Albuterol 3 Ml Neb) 3 ml INH Q4HR PRN PRN Reason: Wheezing Last Admin: 10/09/23 20:30 Dose: 3 ml Albuterol/Ipratropium (Ipratropium/Albuterol 3 Ml Neb) 3 ml INH RTQID [facility] Last Admin: 10/12/23 12:12 Dose: Not Given Calcium Carbonate/Glycine (Calcium Carbonate Chew 500 Mg Tablet) 500 mg PO BID [facility] Last Admin: 10/12/23 10:07 Dose: Not Given Dexamethasone (Dexamethasone 4 Mg Tablet) 4 mg PO DAILY PRN PRN Reason: Nausea / Vomiting Diltiazem HCl (Diltiazem Cd 120 Mg Capsule) 120 mg PO DAILY [facility] Last Admin: 10/12/23 10:07 Dose: Not Given Famotidine (Famotidine 20 Mg Tablet) 20 mg PO BID [facility] Last Admin: 10/12/23 10:07 Dose: Not Given Glycopyrrolate (Glycopyrrolate 1 Mg/5 Ml Vial) 0.2 mg SUBQ Q4H PRN PRN Reason: Excessive secretions Lactobacillus Rhamnosus (Lactobacillus Rhamnosus Gg Capsule) 1 cap PO DAILY [facility] Last Admin: 10/12/23 10:07 Dose: Not Given Methylprednisolone (Methylprednisolone Succinate 40 Mg/Ml Vial) 60 mg IVP TID [facility] Last Admin: 10/12/23 05:11 Dose: 60 mg Morphine Sulfate (Morphine 2 Mg/Ml Carpuject) 2 mg IVP Q2HR PRN PRN Reason: Dyspnea Last Admin: 10/12/23 09:35 Dose: 2 mg Multi-Ingredient Ointment (Zinc Oxide 20% Oint 30 Gm Tube) 1 applic TOP PRN PRN PRN Reason: Skin Care Last Admin: 10/12/23 09:32 Dose: 1 applic Ondansetron HCl (Ondansetron Odt 4 Mg Tablet) 4 mg TL Q6HR PRN PRN Reason: Nausea / Vomiting Pyridoxine HCl (Pyridoxine 100 Mg Tablet) 50 mg PO DAILY [facility] Last Admin: 10/12/23 10:07 Dose: Not Given Sodium Chloride (Sodium Chloride Flush 0.9% 10 Ml Syringe) 10 ml IVP PRN PRN PRN Reason: NEEDED PER PROVIDER ORDERS Last Admin: 10/12/23 09:37 Dose: 10 ml Sodium Chloride (Sodium Chloride Flush 0.9% 10 Ml Syringe) 10 ml IVP 0100,0900,1700 [facility] Last Admin: 10/12/23 10:06 Dose: Not Given Tamsulosin HCl (Tamsulosin 0.4 Mg Capsule) 0.4 mg PO DAILY [facility] Last Admin: 10/12/23 10:07 Dose: Not Given Zolpidem Tartrate (Zolpidem 5 Mg Tablet) 5 mg PO QPM PRN PRN Reason: Insomnia Last Admin: 10/09/23 23:05 Dose: 5 mg No Known Home Medications 09/24/23
[2023-10-13] MEDS: MORPHINE 2 MG/ML CARPUJECT IVP PRN ×6 (01:35→18:29)
[2023-10-13] MEDS: LORazepam 2 MG/ML VIAL IVP PRN ×3 (01:43→19:23)
[2023-10-13] MEDS: methylPREDNISolone SUCCINATE 40 MG/ML VIAL IVP SCH ×2 (06:13→13:12)
[2023-10-13] MEDS: SODIUM CHLORIDE FLUSH 0.9% 10 ML SYRINGE IVP PRN ×3 (10:05→18:30)
--- NOTE | 2023-10-13 18:37 | PROVIDER PROGRESS NOTE ---
Assessment/Plan - Problem List (1) Acute respiratory failure with hypoxia Assessment/Plan: Assessment/Plan: Impression: Plan: Continue to titrate oxygen as tolerated. Patient is now comfort care (2) COPD exacerbation Plan: IV corticosteroids discontinued because patient has transitioned to comfort care. Continue bronchodilators for comfort as needed. (3) Pneumonia Assessment/Plan: Antibiotic discontinued because patient has transitioned to comfort care (4) Pleural effusion Assessment/Plan: Plan: Patient is comfort care (5) TOÑITO (acute kidney injury) Assessment/Plan: Plan: Patient has transitioned to compfort care (6) Acute urinary retention Assessment/Plan: Resolved (7) Generalized weakness Assessment/Plan: Patient is now comfort care and no longer requi (8) Severe protein-calorie malnutrition Assessment/Plan: Diet as tolerated (9) HTN (hypertension) Assessment/Plan discontinue diltiazem. (10) Hypokalemia Assessment/Plan: Resolved. Continue to monitor (11) Hypomagnesemia Assessment/Plan: Resolved. Continue to monitor (12) Tobacco use Assessment/Plan: Patient now comfort care (13) Inadequate social support Social work consult. Patient currently currently would be self pay for [facility] and does not wish to transfer to [facility] at this time. (14) Fall at home Assessment/Plan: PT/OT (15) Orthostatic hypotension RESOLVED - Current Meds Current Meds: Current Medications Generic Name Dose Route Start Last Admin Trade Name Freq PRN Reason Stop Dose Admin Acetaminophen 650 mg 09/24/23 21:12 10/11/23 08:41 Acetaminophen 325 Mg Tablet PO 325 mg Q6H PRN Administration Pain 1 to 4, or Fever Albuterol/Ipratropium 3 ml 10/06/23 17:26 10/09/23 20:30 Ipratropium/Albuterol 3 Ml Neb INH 3 ml Q4HR PRN Administration Wheezing Lorazepam 1 mg 10/12/23 19:07 10/13/23 11:45 Lorazepam 2 Mg/Ml Vial IVP 1 mg Q6H PRN Administration Anxiety/Agitation Methylprednisolone 60 mg 10/11/23 14:00 10/13/23 13:12 Methylprednisolone Succinate 40 Mg/Ml Vial IVP 60 mg TID STEFANO Administration Morphine Sulfate 2 mg 10/11/23 23:41 10/13/23 16:35 Morphine 2 Mg/Ml Carpuject IVP 2 mg Q2HR PRN Administration Dyspnea Multi-Ingredient Ointment 1 applic 09/25/23 12:13 10/12/23 09:32 Zinc Oxide 20% Oint 30 Gm Tube TOP 1 applic PRN PRN Administration Skin Care Sodium Chloride 10 ml 09/24/23 21:12 10/13/23 16:36 Sodium Chloride Flush 0.9% 10 Ml Syringe IVP 10 ml PRN PRN Administration NEEDED PER PROVIDER ORDERS - Lab Result Fish Bone Diagrams: 10/11/23 04:21 10/11/23 11:45 - Additional Planning My Orders: My Active Orders 10/12/23 18:59 Comfort Care [RC] QSHIFT Morphine Oral Soln [Roxanol] 10 mg SL Q2HR PRN 10/12/23 19:07 Comfort Care [RC] QSHIFT LORazepam INJ [Ativan Inj (Vial)] 1 mg IVP Q6H PRN LORazepam [Ativan] 1 mg PO Q6H PRN Subjective - Subjective Patient Reports: Other (Patient appears to be more somnolent, however, he does arouse and is answering questions appropriately. He has no other complaints at this time.) Objective Vital Signs: Vital Signs - 24 hr 10/12/23 10/12/23 10/13/23 18:40 23:30 07:25 Temperature Heart Rate [ Brachial] Respiratory Rate Blood Pressure [Right Brachial artery] O2 Saturation If not protocol 2 4 2 : Oxygen Flow, liters/minute 10/13/23 08:13 Temperature 36.5 C Heart Rate [ 94 Brachial] Respiratory 16 Rate Blood Pressure 178/114 H [Right Brachial artery] O2 Saturation 93 If not protocol 4 : Oxygen Flow, liters/minute Oxygen O2 Source Nasal cannula I&O (Last 24 Hrs): Intake and Output Totals x24h 10/11/23 10/12/23 10/13/23 23:59 23:59 23:59 Intake Total 1971.6 100 1080 Output Total 1208 1450 625 Balance 763.6 -1350 455 General: Alert, Oriented x3, No acute distress HEENT: Atraumatic, PERRLA, EOMI Neck: Supple, No JVD Lymphatic: no adenopathy Neuro: Alert, Non Focal Cardiovascular: Regular rate, Normal S1, Normal S2, No murmurs Respiratory: Chest non-tender, Breath sounds nml, Other (No wheezing. No crac kles) Abdomen: Normal bowel sounds, Soft, No tenderness Extremities: No clubbing, No cyanosis, No edema Skin: No rashes - Results Results: Laboratory Results WBC 16.7 x10^3/uL (4.8-10.8) H 10/11/23 04:21 RBC 2.90 10^6/uL (4.70-6.10) L 10/11/23 04:21 Hgb 9.1 g/dL (14.0-18.0) L 10/11/23 04:21 Hct 27.8 % (42.0-52.0) L 10/11/23 04:21 MCV 95.9 fL (80.0-94.0) H 10/11/23 04:21 MCH 31.4 pg (27.0-31.0) H 10/11/23 04:21 MCHC 32.7 g/dL (32.0-36.0) 10/11/23 04:21 RDW 13.1 % (12.0-15.0) 10/11/23 04:21 Plt Count 296 10^3/uL (130-450) 10/11/23 04:21 MPV 9.3 fL (7.4-11.4) 10/11/23 04:21 Neut # (Auto) 15.9 10^3/uL (1.5-6.6) H 10/11/23 04:21 Lymph # (Auto) 0.2 10^3/uL (1.5-3.5) L 10/11/23 04:21 [place] # (Auto) 0.5 10^3/uL (0.0-1.0) 10/11/23 04:21 Eos # (Auto) 0.0 10^3/uL (0.0-0.7) 10/11/23 04:21 Baso # (Auto) 0.0 10^3/uL (0.0-0.1) 10/11/23 04:21 Absolute Nucleated RBC 0.00 x10^3/uL 10/11/23 04:21 Total Counted 100 10/10/23 04:31 Band Neuts % (Manual) 3 % (0-10) 10/10/23 04:31 Abnorm Lymph % (Manual) 0 % 10/10/23 04:31 Nucleated RBC % 0.0 /100WBC 10/11/23 04:21 Neutrophils # (Manual) 20.5 10^3/uL (1.5-6.6) H 10/10/23 04:31 Lymphocytes # (Manual) 0.6 10^3/uL (1.5-3.5) L 10/10/23 04:31 Monocytes # (Manual) 0.4 10^3/uL (0.0-1.0) 10/10/23 04:31 Eosinophils # (Manual) 0.0 10^3/uL (0-0.7) 10/10/23 04:31 Basophils # (Manual) 0.0 10^3/uL (0-0.1) 10/10/23 04:31 Differential Comment MANUAL DIFFERENTIAL 10/10/23 04:31 Manual Slide Review Indicated 10/09/23 07:53 Platelet Estimate NORMAL (130-450,000) (NORMAL) 10/10/23 04:31 Platelet Morphology NORMAL APPEARANCE (NORMAL) 10/09/23 07:53 RBC Morph Micro Appear NORMAL APPEARANCE (NORMAL) 10/10/23 04:31 PT 10.0 secs (9.9-12.6) 10/11/23 11:45 INR 0.9 (0.8-1.2) 10/11/23 11:45 VBG pH 7.447 (7.31-7.41) H 10/11/23 11:45 VBG pCO2 47.3 mmHg (41-51) 10/07/23 12:00 VBG pO2 27.7 mmHg (25-47) 10/07/23 12:00 VBG HCO3 27.7 mmol/L (23-28) 10/07/23 12:00 VBG Total CO2 29.2 mmol/L (24-29) H 10/07/23 12:00 VBG O2 Saturation 48.3 % (60-80) L 10/07/23 12:00 VBG Base Excess 2.1 mmol/L (-2 - +2) H 10/07/23 12:00 Ionized Calcium 1.15 mmol/L (1.15-1.33) 10/11/23 11:45 Sodium 139 mmol/L (135-145) 10/11/23 04:21 Potassium 3.4 mmol/L (3.5-4.5) L 10/11/23 11:45 Chloride 104 mmol/L (101-111) 10/11/23 04:21 Carbon Dioxide 26 mmol/L (21-32) 10/11/23 04:21 Anion Gap 9.0 (6-13) 10/11/23 04:21 BUN 48 mg/dL (6-20) H 10/11/23 04:21 Creatinine 1.9 mg/dL (0.6-1.3) H 10/11/23 04:21 Estimated GFR (MDRD) 35 (>89) L 10/11/23 04:21 Glucose 192 mg/dL (74-104) H 10/11/23 04:21 POC Whole Bld Glucose 142 mg/dL (70 - 100) H 10/12/23 07:51 Estimat Average Glucose 117 mg/dL (70-100) H 09/24/23 21:30 Hemoglobin A1c % 5.7 % (4.27-6.07) 09/24/23 21:30 Lactic Acid 1.8 mmol/L (0.5-2.2) 09/24/23 21:30 Calcium 8.6 mg/dL (8.5-10.3) 10/11/23 04:21 Phosphorus 4.5 mg/dL (2.5-5.0) 10/11/23 04:21 Magnesium 2.0 mg/dL (1.7-2.3) 10/11/23 04:21 Total Bilirubin 0.2 mg/dL (0.2-1.0) 10/11/23 04:21 AST 17 IU/L (10-42) 10/11/23 04:21 ALT 22 IU/L (10-60) 10/11/23 04:21 Alkaline Phosphatase 78 IU/L (42-121) 10/11/23 04:21 Troponin I High Sens 14.9 ng/L (2.3-19.7) 10/07/23 13:32 B-Natriuretic Peptide 197 pg/mL (5-100) H 10/08/23 04:44 Total Protein 5.5 g/dL (6.4-8.9) L 10/11/23 04:21 Albumin 2.8 g/dL (3.2-5.5) L 10/11/23 04:21 Globulin 2.7 g/dL (2.1-4.2) 10/11/23 04:21 Albumin/Globulin Ratio 1.0 (1.0-2.2) 10/11/23 04:21 Triglycerides 68 mg/dL (48-352) 09/24/23 21:30 Cholesterol 117 mg/dL (-200) 09/24/23 21: LDL Cholesterol, Calc 45 mg/dL (-129) 09/24/23 21: VLDL Cholesterol 14 mg/dL 09/24/23 21:30 HDL Cholesterol 58 mg/dL (60-) L 09/24/23 21:30 LDL/HDL Ratio 0.8 (<3.6) 09/24/23 21: Cholesterol/HDL Ratio 2.0 (<5.0) 09/24/23 21:30 Vitamin B12 486 pg/mL (180-914) 10/10/23 04:42 Folate 16.6 ng/mL (5.90 - >24.8) 10/10/23 04:42 Procalcitonin Immunoas 0.32 ng/mL (<0.5) 09/24/23 21:30 TSH 1.91 uIU/mL (0.34-5.60) 09/24/23 21:30 Urine Color YELLOW 09/25/23 13:30 Urine Clarity CLEAR (CLEAR) 09/25/23 13:30 Urine pH 6.0 PH (5.0-7.5) 09/25/23 13:30 Ur Specific [place] 1.025 (1.002-1.030) 09/25/23 13:30 Urine Protein TRACE mg/dL (NEGATIVE) 09/25/23 13:30 Urine Glucose (UA) NEGATIVE mg/dL (NEGATIVE) 09/25/23 13:30 Urine Ketones NEGATIVE mg/dL (NEGATIVE) 09/25/23 13:30 Urine Occult Blood NEGATIVE (NEGATIVE) 09/25/23 13:30 Urine Nitrite NEGATIVE (NEGATIVE) 09/25/23 13:30 Urine Bilirubin NEGATIVE (NEGATIVE) 09/25/23 13:30 Urine Urobilinogen 0.2 (NORMAL) E.U./dL (NORMAL) 09/25/23 13:30 Ur Leukocyte Esterase TRACE (NEGATIVE) H 09/25/23 13:30 Urine RBC 0-5 /HPF (0-5) 09/25/23 13:30 Urine WBC 0-3 /HPF (0-3) 09/25/23 13:30 Ur Squamous Epith Cells NONE SEEN (<= Few) 09/25/23 13:30 Urine Bacteria Few /HPF (None Seen) 09/25/23 13:30 Ur Microscopic Review INDICATED 09/25/23 13:30 Urine Culture Comments INDICATED 09/25/23 13:30 Nasal Adenovirus (PCR) NOT DETECTED 09/24/23 21:30 Nasal B. parapertussis DNA (PCR) NOT DETECTED 09/24/23 21:30 Nasal Coronavir 229E PCR NOT DETECTED 09/24/23 21:30 Nasal Coronavir HKU1 PCR NOT DETECTED 09/24/23 21:30 Nasal Coronavir NL63 PCR NOT DETECTED 09/24/23 21:30 Nasal Coronavir OC43 PCR NOT DETECTED 09/24/23 21:30 Nasal Enterovir/Rhinovir PCR NOT DETECTED 09/24/23 21:30 Nasal Influenza B PCR NOT DETECTED 09/24/23 21:30 Nasal Influenza A PCR NOT DETECTED 09/24/23 21:30 Nasal Parainfluen 1 PCR NOT DETECTED 09/24/23 21:30 Nasal Parainfluen 2 PCR NOT DETECTED 09/24/23 21:30 Nasal Parainfluen 3 PCR NOT DETECTED 09/24/23 21:30 Nasal Parainfluen 4 PCR NOT DETECTED 09/24/23 21:30 Nasal RSV (PCR) NOT DETECTED 09/24/23 21:30 Nasal Screen MRSA (PCR) NEGATIVE (NEGATIVE) 10/07/23 12:50 Nasal B.pertussis DNA PCR NOT DETECTED 09/24/23 21:30 Nasal C.pneumoniae (PCR) NOT DETECTED 09/24/23 21:30 Thom Human Metapneumo PCR NOT DETECTED 09/24/23 21:30 Nasal M.pneumoniae (PCR) NOT DETECTED 09/24/23 21:30 Nasal SARS-CoV-2 (PCR) NOT DETECTED 09/24/23 21:30 Last Dose Date 10/08/23 11:10 Last Dose Time 0835 10/08/23 11:10 Vancomycin Peak 37.6 ug/mL (20.0-40.0) 10/08/23 11:10 Vancomycin Trough 18.3 ug/mL 10/07/23 17:29 Urine Opiates Screen NEGATIVE (NEGATIVE) 09/25/23 13:30 Ur Buprenorphine Scrn NEGATIVE (NEGATIVE) 09/25/23 13:30 Ur Oxycodone Screen NEGATIVE (NEGATIVE) 09/25/23 13:30 Urine Methadone Screen NEGATIVE (NEGATIVE) 09/25/23 13:30 Ur Barbiturates Screen NEGATIVE (NEGATIVE) 09/25/23 13:30 Ur Tricyclics Screen NEGATIVE (NEGATIVE) 09/25/23 13:30 Ur Phencyclidine Scrn NEGATIVE (NEGATIVE) 09/25/23 13:30 Ur Amphetamine Screen NEGATIVE (NEGATIVE) 09/25/23 13:30 U Methamphetamines Scrn NEGATIVE (NEGATIVE) 09/25/23 13:30 U Benzodiazepines Scrn NEGATIVE (NEGATIVE) 09/25/23 13:30 Urine Cocaine Screen NEGATIVE (NEGATIVE) 09/25/23 13:30 U Cannabinoids Screen NEGATIVE (NEGATIVE) 09/25/23 13:30 Ur Drug Screen Comment CUTOFF CONC BELOW: 09/25/23 13:30 Ethyl Alcohol < 10.0 mg/dL 09/24/23 16:44 ABX Reporting Has patient been on IV antibiotics over the past 48 hours?: No Current Medications - Current Medications Current Medications: Active Medications Acetaminophen (Acetaminophen 325 Mg Tablet) 650 mg PO Q6H PRN PRN Reason: Pain 1 to 4, or Fever Last Admin: 10/11/23 08:41 Dose: 325 mg Albuterol (Albuterol Neb 2.5 Mg/3 Ml) 2.5 mg INH RTQ4H PRN PRN Reason: Wheezing Albuterol/Ipratropium (Ipratropium/Albuterol 3 Ml Neb) 3 ml INH Q4HR PRN PRN Reason: Wheezing Last Admin: 10/09/23 20:30 Dose: 3 ml Glycopyrrolate (Glycopyrrolate 1 Mg/5 Ml Vial) 0.2 mg SUBQ Q4H PRN PRN Reason: Excessive secretions Lorazepam (Lorazepam 1 Mg Tablet) 1 mg PO Q6H PRN PRN Reason: Anxiety/Agitation Lorazepam (Lorazepam 2 Mg/Ml Vial) 1 mg IVP Q6H PRN PRN Reason: Anxiety/Agitation Last Admin: 10/13/23 11:45 Dose: 1 mg Methylprednisolone (Methylprednisolone Succinate 40 Mg/Ml Vial) 60 mg IVP TID STEFANO Last Admin: 10/13/23 13:12 Dose: 60 mg Morphine Sulfate (Morphine 2 Mg/Ml Carpuject) 2 mg IVP Q2HR PRN PRN Reason: Dyspnea Last Admin: 10/13/23 18:29 Dose: 2 mg Morphine Sulfate (Morphine Eileen 10 Mg/0.5 Ml Oral Syringe) 10 mg SL Q2HR PRN PRN Reason: Moderate Pain (Level 4-6)/SOA Multi-Ingredient Ointment (Zinc Oxide 20% Oint 30 Gm Tube) 1 applic TOP PRN PRN PRN Reason: Skin Care Last Admin: 10/12/23 09:32 Dose: 1 applic Ondansetron HCl (Ondansetron Odt 4 Mg Tablet) 4 mg TL Q6HR PRN PRN Reason: Nausea / Vomiting Sodium Chloride (Sodium Chloride Flush 0.9% 10 Ml Syringe) 10 ml IVP PRN PRN PRN Reason: NEEDED PER PROVIDER ORDERS Last Admin: 10/13/23 18:30 Dose: 10 ml No Known Home Medications 09/24/23
[2023-10-14] MEDS: MORPHINE 2 MG/ML CARPUJECT IVP PRN ×3 (03:58→23:58)
[2023-10-14] MEDS: LORazepam 2 MG/ML VIAL IVP PRN ×2 (05:43→23:57)
[2023-10-14] MEDS: MORPHINE SOL 10 MG/0.5 ML ORAL SYRINGE SL PRN ×4 (07:53→18:40)
[2023-10-14] MEDS: LORazepam 1 MG TABLET PO PRN (16:26)
--- NOTE | 2023-10-14 19:44 | PROVIDER PROGRESS NOTE ---
Assessment/Plan - Problem List (1) Acute respiratory failure with hypoxia Assessment/Plan: (1) Acute respiratory failure with hypoxia Assessment/Plan: Impression: Plan: Continue to titrate oxygen as tolerated. Patient is now comfort care (2) COPD exacerbation Plan: IV corticosteroids discontinued because patient has transitioned to comfort care . Continue bronchodilators for comfort as needed. (3) Pneumonia Assessment/Plan: Antibiotic discontinued because patient has transitioned to comfort care (4) Pleural effusion Assessment/Plan: Plan: Patient is comfort care (5) TOÑITO (acute kidney injury) Assessment/Plan: Plan: Patient has transitioned to comfort care (6) Acute urinary retention Assessment/Plan: Resolved (7) Generalized weakness Assessment/Plan: Patient is now comfort care and no longer requires PT/PT (8) Severe protein-calorie malnutrition Assessment/Plan: Diet as tolerated (9) HTN (hypertension) Assessment/Plan discontinue diltiazem. (10) Hypokalemia Assessment/Plan: Resolved. Continue to monitor (11) Hypomagnesemia Assessment/Plan: Resolved. Continue to monitor (12) Tobacco use Assessment/Plan: Patient now comfort care (13) Inadequate social support Social work consult. Patient currently would be self pay for [facility] and does not wish to transfer to [facility] at this time. (14) Fall at home Assessment/Plan: (15) Orthostatic hypotension RESOLVED (16) Failure to thrive Plan is comfort care - Current Meds Current Meds: Current Medications Generic Name Dose Route Start Last Admin Trade Name Freq PRN Reason Stop Dose Admin Acetaminophen 650 mg 09/24/23 21:12 10/11/23 08:41 Acetaminophen 325 Mg Tablet PO 325 mg Q6H PRN Administration Pain 1 to 4, or Fever Albuterol/Ipratropium 3 ml 10/06/23 17:26 10/09/23 20:30 Ipratropium/Albuterol 3 Ml Neb INH 3 ml Q4HR PRN Administration Wheezing Lorazepam 1 mg 10/12/23 19:07 10/14/23 16:26 Lorazepam 1 Mg Tablet PO 1 mg Q6H PRN Administration Anxiety/Agitation Lorazepam 1 mg 10/12/23 19:07 10/14/23 05:43 Lorazepam 2 Mg/Ml Vial IVP 1 mg Q6H PRN Administration Anxiety/Agitation Morphine Sulfate 2 mg 10/11/23 23:41 10/14/23 15:39 Morphine 2 Mg/Ml Carpuject IVP 2 mg Q2HR PRN Administration Dyspnea Morphine Sulfate 10 mg 10/12/23 18:59 10/14/23 18:40 Morphine Eileen 10 Mg/0.5 Ml Oral Syringe SL 10 mg Q2HR PRN Administration Moderate Pain (Level 4-6)/SOA Multi-Ingredient Ointment 1 applic 09/25/23 12:13 10/12/23 09:32 Zinc Oxide 20% Oint 30 Gm Tube TOP 1 applic PRN PRN Administration Skin Care Sodium Chloride 10 ml 09/24/23 21:12 10/13/23 18:30 Sodium Chloride Flush 0.9% 10 Ml Syringe IVP 10 ml PRN PRN Administration NEEDED PER PROVIDER ORDERS - Lab Result Fish Bone Diagrams: 10/11/23 04:21 10/11/23 11:45 Subjective - Subjective Patient Reports: Other (Alert. Following commands. He is comfortable. No other complaints at this time.) Objective Vital Signs: Vital Signs - 24 hr 10/14/23 10/14/23 07:25 09:00 Temperature 36.6 C Heart Rate [ 80 Brachial] Respiratory 18 Rate Blood Pressure 161/117 H [Right Brachial artery] O2 Saturation 92 If not protocol 4 4 : Oxygen Flow, liters/minute Oxygen O2 Source Nasal cannula I&O (Last 24 Hrs): Intake and Output Totals x24h 10/12/23 10/13/23 10/14/23 23:59 23:59 23:59 Intake Total 100 1330 1180 Output Total 9758 554 2594 Balance -1350 505 130 General: Alert, Oriented x3, No acute distress HEENT: Atraumatic, EOMI Neck: Supple Lymphatic: no adenopathy Neuro: Alert, Non Focal Cardiovascular: Regular rate, Normal S1, Normal S2 Respiratory: Chest non-tender, No respiratory distress, Other ([place]) Abdomen: Normal bowel sounds, No tenderness Extremities: No clubbing, No cyanosis Skin: No rashes - Results Results: Laboratory Results WBC 16.7 x10^3/uL (4.8-10.8) H 10/11/23 04:21 RBC 2.90 10^6/uL (4.70-6.10) L 10/11/23 04:21 Hgb 9.1 g/dL (14.0-18.0) L 10/11/23 04:21 Hct 27.8 % (42.0-52.0) L 10/11/23 04:21 MCV 95.9 fL (80.0-94.0) H 10/11/23 04:21 MCH 31.4 pg (27.0-31.0) H 10/11/23 04:21 MCHC 32.7 g/dL (32.0-36.0) 10/11/23 04:21 RDW 13.1 % (12.0-15.0) 10/11/23 04:21 Plt Count 296 10^3/uL (130-450) 10/11/23 04:21 MPV 9.3 fL (7.4-11.4) 10/11/23 04:21 Neut # (Auto) 15.9 10^3/uL (1.5-6.6) H 10/11/23 04:21 Lymph # (Auto) 0.2 10^3/uL (1.5-3.5) L 10/11/23 04:21 [place] # (Auto) 0.5 10^3/uL (0.0-1.0) 10/11/23 04:21 Eos # (Auto) 0.0 10^3/uL (0.0-0.7) 10/11/23 04:21 Baso # (Auto) 0.0 10^3/uL (0.0-0.1) 10/11/23 04:21 Absolute Nucleated RBC 0.00 x10^3/uL 10/11/23 04:21 Total Counted 100 10/10/23 04:31 Band Neuts % (Manual) 3 % (0-10) 10/10/23 04:31 Abnorm Lymph % (Manual) 0 % 10/10/23 04:31 Nucleated RBC % 0.0 /100WBC 10/11/23 04:21 Neutrophils # (Manual) 20.5 10^3/uL (1.5-6.6) H 10/10/23 04:31 Lymphocytes # (Manual) 0.6 10^3/uL (1.5-3.5) L 10/10/23 04:31 Monocytes # (Manual) 0.4 10^3/uL (0.0-1.0) 10/10/23 04:31 Eosinophils # (Manual) 0.0 10^3/uL (0-0.7) 10/10/23 04:31 Basophils # (Manual) 0.0 10^3/uL (0-0.1) 10/10/23 04:31 Differential Comment MANUAL DIFFERENTIAL 10/10/23 04:31 Manual Slide Review Indicated 10/09/23 07:53 Platelet Estimate NORMAL (130-450,000) (NORMAL) 10/10/23 04:31 Platelet Morphology NORMAL APPEARANCE (NORMAL) 10/09/23 07:53 RBC Morph Micro Appear NORMAL APPEARANCE (NORMAL) 10/10/23 04:31 PT 10.0 secs (9.9-12.6) 10/11/23 11:45 INR 0.9 (0.8-1.2) 10/11/23 11:45 VBG pH 7.447 (7.31-7.41) H 10/11/23 11:45 VBG pCO2 47.3 mmHg (41-51) 10/07/23 12:00 VBG pO2 27.7 mmHg (25-47) 10/07/23 12:00 VBG HCO3 27.7 mmol/L (23-28) 10/07/23 12:00 VBG Total CO2 29.2 mmol/L (24-29) H 10/07/23 12:00 VBG O2 Saturation 48.3 % (60-80) L 10/07/23 12:00 VBG Base Excess 2.1 mmol/L (-2 - +2) H 10/07/23 12:00 Ionized Calcium 1.15 mmol/L (1.15-1.33) 10/11/23 11:45 Sodium 139 mmol/L (135-145) 10/11/23 04:21 Potassium 3.4 mmol/L (3.5-4.5) L 10/11/23 11:45 Chloride 104 mmol/L (101-111) 10/11/23 04:21 Carbon Dioxide 26 mmol/L (21-32) 10/11/23 04:21 Anion Gap 9.0 (6-13) 10/11/23 04:21 BUN 48 mg/dL (6-20) H 10/11/23 04:21 Creatinine 1.9 mg/dL (0.6-1.3) H 10/11/23 04:21 Estimated GFR (MDRD) 35 (>89) L 10/11/23 04:21 Glucose 192 mg/dL (74-104) H 10/11/23 04:21 POC Whole Bld Glucose 142 mg/dL (70 - 100) H 10/12/23 07:51 Estimat Average Glucose 117 mg/dL (70-100) H 09/24/23 21:30 Hemoglobin A1c % 5.7 % (4.27-6.07) 09/24/23 21:30 Lactic Acid 1.8 mmol/L (0.5-2.2) 09/24/23 21:30 Calcium 8.6 mg/dL (8.5-10.3) 10/11/23 04:21 Phosphorus 4.5 mg/dL (2.5-5.0) 10/11/23 04:21 Magnesium 2.0 mg/dL (1.7-2.3) 10/11/23 04:21 Total Bilirubin 0.2 mg/dL (0.2-1.0) 10/11/23 04:21 AST 17 IU/L (10-42) 10/11/23 04:21 ALT 22 IU/L (10-60) 10/11/23 04:21 Alkaline Phosphatase 78 IU/L (42-121) 10/11/23 04:21 Troponin I High Sens 14.9 ng/L (2.3-19.7) 10/07/23 13:32 B-Natriuretic Peptide 197 pg/mL (5-100) H 10/08/23 04:44 Total Protein 5.5 g/dL (6.4-8.9) L 10/11/23 04:21 Albumin 2.8 g/dL (3.2-5.5) L 10/11/23 04:21 Globulin 2.7 g/dL (2.1-4.2) 10/11/23 04:21 Albumin/Globulin Ratio 1.0 (1.0-2.2) 10/11/23 04:21 Triglycerides 68 mg/dL (48-352) 09/24/23 21:30 Cholesterol 117 mg/dL (-200) 09/24/23 21:30 LDL Cholesterol, Calc 45 mg/dL (-129) 09/24/23 21:30 VLDL Cholesterol 14 mg/dL 09/24/23 21:30 HDL Cholesterol 58 mg/dL (60-) L 09/24/23 21:30 LDL/HDL Ratio 0.8 (<3.6) 09/24/23 21: Cholesterol/HDL Ratio 2.0 (<5.0) 09/24/23 21:30 Vitamin B12 486 pg/mL (180-914) 10/10/23 04:42 Folate 16.6 ng/mL (5.90 - >24.8) 10/10/23 04:42 Procalcitonin Immunoas 0.32 ng/mL (<0.5) 09/24/23 21: TSH 1.91 uIU/mL (0.34-5.60) 09/24/23 21:30 Urine Color YELLOW 09/25/23 13:30 Urine Clarity CLEAR (CLEAR) 09/25/23 13:30 Urine pH 6.0 PH (5.0-7.5) 09/25/23 13:30 Ur Specific [place] 1.025 (1.002-1.030) 09/25/23 13:30 Urine Protein TRACE mg/dL (NEGATIVE) 09/25/23 13:30 Urine Glucose (UA) NEGATIVE mg/dL (NEGATIVE) 09/25/23 13:30 Urine Ketones NEGATIVE mg/dL (NEGATIVE) 09/25/23 13:30 Urine Occult Blood NEGATIVE (NEGATIVE) 09/25/23 13:30 Urine Nitrite NEGATIVE (NEGATIVE) 09/25/23 13:30 Urine Bilirubin NEGATIVE (NEGATIVE) 09/25/23 13:30 Urine Urobilinogen 0.2 (NORMAL) E.U./dL (NORMAL) 09/25/23 13:30 Ur Leukocyte Esterase TRACE (NEGATIVE) H 09/25/23 13:30 Urine RBC 0-5 /HPF (0-5) 09/25/23 13:30 Urine WBC 0-3 /HPF (0-3) 09/25/23 13:30 Ur Squamous Epith Cells NONE SEEN (<= Few) 09/25/23 13:30 Urine Bacteria Few /HPF (None Seen) 09/25/23 13:30 Ur Microscopic Review INDICATED 09/25/23 13:30 Urine Culture Comments INDICATED 09/25/23 13:30 Nasal Adenovirus (PCR) NOT DETECTED 09/24/23 21: Nasal B. parapertussis DNA (PCR) NOT DETECTED 09/24/23 21:30 Nasal Coronavir 229E PCR NOT DETECTED 09/24/23 21:30 Nasal Coronavir HKU1 PCR NOT DETECTED 09/24/23 21:30 Nasal Coronavir NL63 PCR NOT DETECTED 09/24/23 21:30 Nasal Coronavir OC43 PCR NOT DETECTED 09/24/23 21:30 Nasal Enterovir/Rhinovir PCR NOT DETECTED 09/24/23 21:30 Nasal Influenza B PCR NOT DETECTED 09/24/23 21:30 Nasal Influenza A PCR NOT DETECTED 09/24/23 21:30 Nasal Parainfluen 1 PCR NOT DETECTED 09/24/23 21:30 Nasal Parainfluen 2 PCR NOT DETECTED 09/24/23 21:30 Nasal Parainfluen 3 PCR NOT DETECTED 09/24/23 21:30 Nasal Parainfluen 4 PCR NOT DETECTED 09/24/23 21:30 Nasal RSV (PCR) NOT DETECTED 09/24/23 21:30 Nasal Screen MRSA (PCR) NEGATIVE (NEGATIVE) 10/07/23 12:50 Nasal B.pertussis DNA PCR NOT DETECTED 09/24/23 21:30 Nasal C.pneumoniae (PCR) NOT DETECTED 09/24/23 21:30 Thom Human Metapneumo PCR NOT DETECTED 09/24/23 21:30 Nasal M.pneumoniae (PCR) NOT DETECTED 09/24/23 21:30 Nasal SARS-CoV-2 (PCR) NOT DETECTED 09/24/23 21:30 Last Dose Date 10/08/23 11:10 Last Dose Time 0835 10/08/23 11:10 Vancomycin Peak 37.6 ug/mL (20.0-40.0) 10/08/23 11:10 Vancomycin Trough 18.3 ug/mL 10/07/23 17:29 Urine Opiates Screen NEGATIVE (NEGATIVE) 09/25/23 13:30 Ur Buprenorphine Scrn NEGATIVE (NEGATIVE) 09/25/23 13:30 Ur Oxycodone Screen NEGATIVE (NEGATIVE) 09/25/23 13:30 Urine Methadone Screen NEGATIVE (NEGATIVE) 09/25/23 13:30 Ur Barbiturates Screen NEGATIVE (NEGATIVE) 09/25/23 13:30 Ur Tricyclics Screen NEGATIVE (NEGATIVE) 09/25/23 13:30 Ur Phencyclidine Scrn NEGATIVE (NEGATIVE) 09/25/23 13:30 Ur Amphetamine Screen NEGATIVE (NEGATIVE) 09/25/23 13:30 U Methamphetamines Scrn NEGATIVE (NEGATIVE) 09/25/23 13:30 U Benzodiazepines Scrn NEGATIVE (NEGATIVE) 09/25/23 13:30 Urine Cocaine Screen NEGATIVE (NEGATIVE) 09/25/23 13:30 U Cannabinoids Screen NEGATIVE (NEGATIVE) 09/25/23 13:30 Ur Drug Screen Comment CUTOFF CONC BELOW: 09/25/23 13:30 Ethyl Alcohol < 10.0 mg/dL 09/24/23 16:44 ABX Reporting Has patient been on IV antibiotics over the past 48 hours?: No Current Medications - Current Medications Current Medications: Active Medications Acetaminophen (Acetaminophen 325 Mg Tablet) 650 mg PO Q6H PRN PRN Reason: Pain 1 to 4, or Fever Last Admin: 10/11/23 08:41 Dose: 325 mg Albuterol (Albuterol Neb 2.5 Mg/3 Ml) 2.5 mg INH RTQ4H PRN PRN Reason: Wheezing Albuterol/Ipratropium (Ipratropium/Albuterol 3 Ml Neb) 3 ml INH Q4HR PRN PRN Reason: Wheezing Last Admin: 10/09/23 20:30 Dose: 3 ml Glycopyrrolate (Glycopyrrolate 1 Mg/5 Ml Vial) 0.2 mg SUBQ Q4H PRN PRN Reason: Excessive secretions Lorazepam (Lorazepam 1 Mg Tablet) 1 mg PO Q6H PRN PRN Reason: Anxiety/Agitation Last Admin: 10/14/23 16:26 Dose: 1 mg Lorazepam (Lorazepam 2 Mg/Ml Vial) 1 mg IVP Q6H PRN PRN Reason: Anxiety/Agitation Last Admin: 10/14/23 05:43 Dose: 1 mg Morphine Sulfate (Morphine 2 Mg/Ml Carpuject) 2 mg IVP Q2HR PRN PRN Reason: Dyspnea Last Admin: 10/14/23 15:39 Dose: 2 mg Morphine Sulfate (Morphine Eileen 10 Mg/0.5 Ml Oral Syringe) 10 mg SL Q2HR PRN PRN Reason: Moderate Pain (Level 4-6)/SOA Last Admin: 10/14/23 18:40 Dose: 10 mg Multi-Ingredient Ointment (Zinc Oxide 20% Oint 30 Gm Tube) 1 applic TOP PRN PRN PRN Reason: Skin Care Last Admin: 10/12/23 09:32 Dose: 1 applic Ondansetron HCl (Ondansetron Odt 4 Mg Tablet) 4 mg TL Q6HR PRN PRN Reason: Nausea / Vomiting Sodium Chloride (Sodium Chloride Flush 0.9% 10 Ml Syringe) 10 ml IVP PRN PRN PRN Reason: NEEDED PER PROVIDER ORDERS Last Admin: 10/13/23 18:30 Dose: 10 ml No Known Home Medications 09/24/23
[2023-10-15] MEDS: MORPHINE 2 MG/ML CARPUJECT IVP PRN ×3 (02:25→09:26)
[2023-10-15] MEDS: LORazepam 2 MG/ML VIAL IVP PRN (06:38)
[2023-10-15] MEDS: LORazepam 1 MG TABLET PO PRN ×2 (13:01→22:40)
--- NOTE | 2023-10-15 13:04 | PROVIDER PROGRESS NOTE ---
Assessment/Plan - Problem List (1) Acute respiratory failure with hypoxia Assessment/Plan: Plan: Continue to titrate oxygen as tolerated. Patient is now comfort care (2) COPD exacerbation Plan: IV corticosteroids discontinued because patient has transitioned to comfort care. Continue bronchodilators for comfort as needed. (3) Pneumonia Assessment/Plan: Antibiotic discontinued because patient has transitioned to comfort care (4) Pleural effusion Assessment/Plan: Plan: Patient is comfort care (5) TOÑITO (acute kidney injury) Assessment/Plan: Plan: Patient has transitioned to comfort care (6) Acute urinary retention Assessment/Plan: Resolved (7) Generalized weakness Assessment/Plan: Patient is now comfort care and no longer requires PT/PT (8) Severe protein-calorie malnutrition Assessment/Plan: Diet as tolerated (9) HTN (hypertension) Assessment/Plan discontinue diltiazem. (10) Hypokalemia Assessment/Plan: Resolved. Continue to monitor (11) Hypomagnesemia Assessment/Plan: Resolved. Continue to monitor (12) Tobacco use Assessment/Plan: Patient now comfort care (13) Inadequate social support Social work consult. Patient currently would be self pay for [facility] and does not wish to transfer to [facility] at this time. (14) Fall at home Assessment/Plan: (15) Orthostatic hypotension RESOLVED (16) Failure to thrive Plan is comfort care. Increase morphine IV as needed to provide comfort. - Current Meds Current Meds: Current Medications Generic Name Dose Route Start Last Admin Trade Name Freq PRN Reason Stop Dose Admin Acetaminophen 650 mg 09/24/23 21:12 10/11/23 08:41 Acetaminophen 325 Mg Tablet PO 325 mg Q6H PRN Administration Pain 1 to 4, or Fever Albuterol/Ipratropium 3 ml 10/06/23 17:26 10/09/23 20:30 Ipratropium/Albuterol 3 Ml Neb INH 3 ml Q4HR PRN Administration Wheezing Lorazepam 1 mg 10/12/23 19:07 10/14/23 16:26 Lorazepam 1 Mg Tablet PO 1 mg Q6H PRN Administration Anxiety/Agitation Lorazepam 1 mg 10/12/23 19:07 10/15/23 06:38 Lorazepam 2 Mg/Ml Vial IVP 1 mg Q6H PRN Administration Anxiety/Agitation Morphine Sulfate 10 mg 10/12/23 18:59 10/14/23 18:40 Morphine Eileen 10 Mg/0.5 Ml Oral Syringe SL 10 mg Q2HR PRN Administration Moderate Pain (Level 4-6)/SOA Multi-Ingredient Ointment 1 applic 09/25/23 12:13 10/12/23 09:32 Zinc Oxide 20% Oint 30 Gm Tube TOP 1 applic PRN PRN Administration Skin Care Sodium Chloride 10 ml 09/24/23 21:12 10/13/23 18:30 Sodium Chloride Flush 0.9% 10 Ml Syringe IVP 10 ml PRN PRN Administration NEEDED PER PROVIDER ORDERS - Lab Result Fish Bone Diagrams: 10/11/23 04:21 10/11/23 11:45 - Additional Planning My Orders: My Active Orders 10/15/23 12:46 Morphine Inj (Carpuject) [Morphine (Carpuject)] 2 mg IVP Q1HR PRN Subjective - Subjective Patient Reports: Other (Mr. Villaseñor is more somnolent today. He does answer questions intermittently. He has no complaints.) Objective Vital Signs: Vital Signs - 24 hr 10/15/23 10/15/23 09:00 10:00 Temperature 36.8 C Heart Rate [ 89 Brachial] Respiratory 8 L Rate Blood Pressure 185/116 H [Right Brachial artery] O2 Saturation 86 L 92 If not protocol 4 2 : Oxygen Flow, liters/minute Oxygen O2 Source Nasal cannula I&O (Last 24 Hrs): Intake and Output Totals x24h 10/13/23 10/14/23 10/15/23 23:59 23:59 23:59 Intake Total 1330 1180 Output Total 825 1500 650 Balance 505 -320 -650 General: Alert, Cooperative, No acute distress HEENT: Atraumatic, PERRLA Neck: Supple, No JVD, No thyromegaly Lymphatic: no adenopathy Neuro: Alert, Non Focal Cardiovascular: Regular rate, Normal S1, Normal S2, No murmurs Respiratory: Chest non-tender, No respiratory distress, [place] Abdomen: Normal bowel sounds, Soft, No tenderness Extremities: No clubbing, No cyanosis Skin: No rashes - Results Results: Laboratory Results WBC 16.7 x10^3/uL (4.8-10.8) H 10/11/23 04:21 RBC 2.90 10^6/uL (4.70-6.10) L 10/11/23 04:21 Hgb 9.1 g/dL (14.0-18.0) L 10/11/23 04:21 Hct 27.8 % (42.0-52.0) L 10/11/23 04:21 MCV 95.9 fL (80.0-94.0) H 10/11/23 04:21 MCH 31.4 pg (27.0-31.0) H 10/11/23 04:21 MCHC 32.7 g/dL (32.0-36.0) 10/11/23 04:21 RDW 13.1 % (12.0-15.0) 10/11/23 04:21 Plt Count 296 10^3/uL (130-450) 10/11/23 04:21 MPV 9.3 fL (7.4-11.4) 10/11/23 04:21 Neut # (Auto) 15.9 10^3/uL (1.5-6.6) H 10/11/23 04:21 Lymph # (Auto) 0.2 10^3/uL (1.5-3.5) L 10/11/23 04:21 [place] # (Auto) 0.5 10^3/uL (0.0-1.0) 10/11/23 04:21 Eos # (Auto) 0.0 10^3/uL (0.0-0.7) 10/11/23 04:21 Baso # (Auto) 0.0 10^3/uL (0.0-0.1) 10/11/23 04:21 Absolute Nucleated RBC 0.00 x10^3/uL 10/11/23 04:21 Total Counted 100 10/10/23 04:31 Band Neuts % (Manual) 3 % (0-10) 10/10/23 04:31 Abnorm Lymph % (Manual) 0 % 10/10/23 04:31 Nucleated RBC % 0.0 /100WBC 10/11/23 04:21 Neutrophils # (Manual) 20.5 10^3/uL (1.5-6.6) H 10/10/23 04:31 Lymphocytes # (Manual) 0.6 10^3/uL (1.5-3.5) L 10/10/23 04:31 Monocytes # (Manual) 0.4 10^3/uL (0.0-1.0) 10/10/23 04:31 Eosinophils # (Manual) 0.0 10^3/uL (0-0.7) 10/10/23 04:31 Basophils # (Manual) 0.0 10^3/uL (0-0.1) 10/10/23 04:31 Differential Comment MANUAL DIFFERENTIAL 10/10/23 04:31 Manual Slide Review Indicated 10/09/23 07:53 Platelet Estimate NORMAL (130-450,000) (NORMAL) 10/10/23 04:31 Platelet Morphology NORMAL APPEARANCE (NORMAL) 10/09/23 07:53 RBC Morph Micro Appear NORMAL APPEARANCE (NORMAL) 10/10/23 04:31 PT 10.0 secs (9.9-12.6) 10/11/23 11:45 INR 0.9 (0.8-1.2) 10/11/23 11:45 VBG pH 7.447 (7.31-7.41) H 10/11/23 11:45 VBG pCO2 47.3 mmHg (41-51) 10/07/23 12:00 VBG pO2 27.7 mmHg (25-47) 10/07/23 12:00 VBG HCO3 27.7 mmol/L (23-28) 10/07/23 12:00 VBG Total CO2 29.2 mmol/L (24-29) H 10/07/23 12:00 VBG O2 Saturation 48.3 % (60-80) L 10/07/23 12:00 VBG Base Excess 2.1 mmol/L (-2 - +2) H 10/07/23 12:00 Ionized Calcium 1.15 mmol/L (1.15-1.33) 10/11/23 11:45 Sodium 139 mmol/L (135-145) 10/11/23 04:21 Potassium 3.4 mmol/L (3.5-4.5) L 10/11/23 11:45 Chloride 104 mmol/L (101-111) 10/11/23 04:21 Carbon Dioxide 26 mmol/L (21-32) 10/11/23 04:21 Anion Gap 9.0 (6-13) 10/11/23 04:21 BUN 48 mg/dL (6-20) H 10/11/23 04:21 Creatinine 1.9 mg/dL (0.6-1.3) H 10/11/23 04:21 Estimated GFR (MDRD) 35 (>89) L 10/11/23 04:21 Glucose 192 mg/dL (74-104) H 10/11/23 04:21 POC Whole Bld Glucose 142 mg/dL (70 - 100) H 10/12/23 07:51 Estimat Average Glucose 117 mg/dL (70-100) H 09/24/23 21:30 Hemoglobin A1c % 5.7 % (4.27-6.07) 09/24/23 21:30 Lactic Acid 1.8 mmol/L (0.5-2.2) 09/24/23 21:30 Calcium 8.6 mg/dL (8.5-10.3) 10/11/23 04:21 Phosphorus 4.5 mg/dL (2.5-5.0) 10/11/23 04:21 Magnesium 2.0 mg/dL (1.7-2.3) 10/11/23 04:21 Total Bilirubin 0.2 mg/dL (0.2-1.0) 10/11/23 04:21 AST 17 IU/L (10-42) 10/11/23 04:21 ALT 22 IU/L (10-60) 10/11/23 04:21 Alkaline Phosphatase 78 IU/L (42-121) 10/11/23 04:21 Troponin I High Sens 14.9 ng/L (2.3-19.7) 10/07/23 13:32 B-Natriuretic Peptide 197 pg/mL (5-100) H 10/08/23 04:44 Total Protein 5.5 g/dL (6.4-8.9) L 10/11/23 04:21 Albumin 2.8 g/dL (3.2-5.5) L 10/11/23 04:21 Globulin 2.7 g/dL (2.1-4.2) 10/11/23 04:21 Albumin/Globulin Ratio 1.0 (1.0-2.2) 10/11/23 04:21 Triglycerides 68 mg/dL (48-352) 09/24/23 21:30 Cholesterol 117 mg/dL (-200) 09/24/23 21:30 LDL Cholesterol, Calc 45 mg/dL (-129) 09/24/23 21:30 VLDL Cholesterol 14 mg/dL 09/24/23 21:30 HDL Cholesterol 58 mg/dL (60-) L 09/24/23 21:30 LDL/HDL Ratio 0.8 (<3.6) 09/24/23 21: Cholesterol/HDL Ratio 2.0 (<5.0) 09/24/23 21:30 Vitamin B12 486 pg/mL (180-914) 10/10/23 04:42 Folate 16.6 ng/mL (5.90 - >24.8) 10/10/23 04:42 Procalcitonin Immunoas 0.32 ng/mL (<0.5) 09/24/23 21: TSH 1.91 uIU/mL (0.34-5.60) 09/24/23 21:30 Urine Color YELLOW 09/25/23 13:30 Urine Clarity CLEAR (CLEAR) 09/25/23 13:30 Urine pH 6.0 PH (5.0-7.5) 09/25/23 13:30 Ur Specific [place] 1.025 (1.002-1.030) 09/25/23 13:30 Urine Protein TRACE mg/dL (NEGATIVE) 09/25/23 13:30 Urine Glucose (UA) NEGATIVE mg/dL (NEGATIVE) 09/25/23 13:30 Urine Ketones NEGATIVE mg/dL (NEGATIVE) 09/25/23 13:30 Urine Occult Blood NEGATIVE (NEGATIVE) 09/25/23 13:30 Urine Nitrite NEGATIVE (NEGATIVE) 09/25/23 13:30 Urine Bilirubin NEGATIVE (NEGATIVE) 09/25/23 13:30 Urine Urobilinogen 0.2 (NORMAL) E.U./dL (NORMAL) 09/25/23 13:30 Ur Leukocyte Esterase TRACE (NEGATIVE) H 09/25/23 13:30 Urine RBC 0-5 /HPF (0-5) 09/25/23 13:30 Urine WBC 0-3 /HPF (0-3) 09/25/23 13:30 Ur Squamous Epith Cells NONE SEEN (<= Few) 09/25/23 13:30 Urine Bacteria Few /HPF (None Seen) 09/25/23 13:30 Ur Microscopic Review INDICATED 09/25/23 13:30 Urine Culture Comments INDICATED 09/25/23 13:30 Nasal Adenovirus (PCR) NOT DETECTED 09/24/23 21:30 Nasal B. parapertussis DNA (PCR) NOT DETECTED 09/24/23 21:30 Nasal Coronavir 229E PCR NOT DETECTED 09/24/23 21:30 Nasal Coronavir HKU1 PCR NOT DETECTED 09/24/23 21:30 Nasal Coronavir NL63 PCR NOT DETECTED 09/24/23 21:30 Nasal Coronavir OC43 PCR NOT DETECTED 09/24/23 21:30 Nasal Enterovir/Rhinovir PCR NOT DETECTED 09/24/23 21:30 Nasal Influenza B PCR NOT DETECTED 09/24/23 21:30 Nasal Influenza A PCR NOT DETECTED 09/24/23 21:30 Nasal Parainfluen 1 PCR NOT DETECTED 09/24/23 21:30 Nasal Parainfluen 2 PCR NOT DETECTED 09/24/23 21:30 Nasal Parainfluen 3 PCR NOT DETECTED 12 21:30 Nasal Parainfluen 4 PCR NOT DETECTED 09/24/23 21:30 Nasal RSV (PCR) NOT DETECTED 09/24/23 21:30 Nasal Screen MRSA (PCR) NEGATIVE (NEGATIVE) 10/07/23 12:50 Nasal B.pertussis DNA PCR NOT DETECTED 09/24/23 21:30 Nasal C.pneumoniae (PCR) NOT DETECTED 09/24/23 21:30 Thom Human Metapneumo PCR NOT DETECTED 09/24/23 21:30 Nasal M.pneumoniae (PCR) NOT DETECTED 09/24/23 21:30 Nasal SARS-CoV-2 (PCR) NOT DETECTED 09/24/23 21:30 Last Dose Date 10/08/23 11:10 Last Dose Time 0835 10/08/23 11:10 Vancomycin Peak 37.6 ug/mL (20.0-40.0) 10/08/23 11:10 Vancomycin Trough 18.3 ug/mL 10/07/23 17:29 Urine Opiates Screen NEGATIVE (NEGATIVE) 09/25/23 13:30 Ur Buprenorphine Scrn NEGATIVE (NEGATIVE) 09/25/23 13:30 Ur Oxycodone Screen NEGATIVE (NEGATIVE) 09/25/23 13:30 Urine Methadone Screen NEGATIVE (NEGATIVE) 09/25/23 13:30 Ur Barbiturates Screen NEGATIVE (NEGATIVE) 09/25/23 13:30 Ur Tricyclics Screen NEGATIVE (NEGATIVE) 09/25/23 13:30 Ur Phencyclidine Scrn NEGATIVE (NEGATIVE) 09/25/23 13:30 Ur Amphetamine Screen NEGATIVE (NEGATIVE) 09/25/23 13:30 U Methamphetamines Scrn NEGATIVE (NEGATIVE) 09/25/23 13:30 U Benzodiazepines Scrn NEGATIVE (NEGATIVE) 09/25/23 13:30 Urine Cocaine Screen NEGATIVE (NEGATIVE) 09/25/23 13:30 U Cannabinoids Screen NEGATIVE (NEGATIVE) 09/25/23 13:30 Ur Drug Screen Comment CUTOFF CONC BELOW: 09/25/23 13:30 Ethyl Alcohol < 10.0 mg/dL 09/24/23 16:44 ABX Reporting Has patient been on IV antibiotics over the past 48 hours?: No Current Medications - Current Medications Current Medications: Active Medications Acetaminophen (Acetaminophen 325 Mg Tablet) 650 mg PO Q6H PRN PRN Reason: Pain 1 to 4, or Fever Last Admin: 10/11/23 08:41 Dose: 325 mg Albuterol (Albuterol Neb 2.5 Mg/3 Ml) 2.5 mg INH RTQ4H PRN PRN Reason: Wheezing Albuterol/Ipratropium (Ipratropium/Albuterol 3 Ml Neb) 3 ml INH Q4HR PRN PRN Reason: Wheezing Last Admin: 10/09/23 20:30 Dose: 3 ml Glycopyrrolate (Glycopyrrolate 1 Mg/5 Ml Vial) 0.2 mg SUBQ Q4H PRN PRN Reason: Excessive secretions Lorazepam (Lorazepam 1 Mg Tablet) 1 mg PO Q6H PRN PRN Reason: Anxiety/Agitation Last Admin: 10/15/23 13:01 Dose: 1 mg Lorazepam (Lorazepam 2 Mg/Ml Vial) 1 mg IVP Q6H PRN PRN Reason: Anxiety/Agitation Last Admin: 10/15/23 06:38 Dose: 1 mg Morphine Sulfate (Morphine Eileen 10 Mg/0.5 Ml Oral Syringe) 10 mg SL Q2HR PRN PRN Reason: Moderate Pain (Level 4-6)/SOA Last Admin: 10/14/23 18:40 Dose: 10 mg Morphine Sulfate (Morphine 2 Mg/Ml Carpuject) 2 mg IVP Q1HR PRN PRN Reason: Dyspnea Multi-Ingredient Ointment (Zinc Oxide 20% Oint 30 Gm Tube) 1 applic TOP PRN PRN PRN Reason: Skin Care Last Admin: 10/12/23 09:32 Dose: 1 applic Ondansetron HCl (Ondansetron Odt 4 Mg Tablet) 4 mg TL Q6HR PRN PRN Reason: Nausea / Vomiting Sodium Chloride (Sodium Chloride Flush 0.9% 10 Ml Syringe) 10 ml IVP PRN PRN PRN Reason: NEEDED PER PROVIDER ORDERS Last Admin: 10/13/23 18:30 Dose: 10 ml No Known Home Medications 09/24/23
[2023-10-15] MEDS: MORPHINE SOL 10 MG/0.5 ML ORAL SYRINGE SL PRN ×2 (19:38→22:34)
[2023-10-16] MEDS: MORPHINE SOL 10 MG/0.5 ML ORAL SYRINGE SL PRN ×2 (13:30→19:38)
--- NOTE | 2023-10-16 13:35 | PROVIDER PROGRESS NOTE ---
Assessment/Plan - Problem List (1) Acute respiratory failure with hypoxia Assessment/Plan: Continue to titrate oxygen as tolerated. Patient is now comfort care (2) COPD exacerbation Plan: IV corticosteroids discontinued because patient has transitioned to comfort care. Continue bronchodilators for comfort as needed. (3) Pneumonia Assessment/Plan: Antibiotic discontinued because patient has transitioned to comfort care (4) Pleural effusion Assessment/Plan: Plan: Patient is comfort care (5) TOÑITO (acute kidney injury) Assessment/Plan: Plan: Patient has transitioned to comfort care (6) Acute urinary retention Assessment/Plan: Resolved (7) Generalized weakness Assessment/Plan: Patient is now comfort care and no longer requires PT/PT (8) Severe protein-calorie malnutrition Assessment/Plan: Diet as tolerated (9) HTN (hypertension) Assessment/Plan discontinue diltiazem. (10) Hypokalemia Assessment/Plan: Resolved. Continue to monitor (11) Hypomagnesemia Assessment/Plan: Resolved. Continue to monitor (12) Tobacco use Assessment/Plan: Patient now comfort care (13) Inadequate social support Social work consult. Patient currently would be self pay for [facility] and does not wish to transfer to [facility] at this time. (14) Fall at home Assessment/Plan: (15) Orthostatic hypotension RESOLVED (16) Failure to thrive Plan is comfort care. Increase morphine IV as needed to provide comfort. Hospital Course: Ky Villaseñor is a 73-year-old man admitted on September 24, 2023 with a chief complaint of weakness. Patient [place] He was admitted to the hospital with a diagnosis of failure to thrive. He was also initially treated for acute kidney injury. On presentation he complained of hip pain and x-ray revealed fracture fragments just lateral to the left hip joint. However no acute fracture was identified. During the hospitalization, patient complained of increasing shortness of breath and most likely had an aspiration event. His symptoms worsened and his chest x- ray revealed complete whiteout of his left lung after several days. On October 07, 2023, because of worsening shortness of breath patient was transferred to the intensive care unit and placed on bilevel positive airway pressure therapy. On October 11, 2023, his shortness of breath continued to worsen. Patient was alert and competent to make his own decisions. After some discussion he decided to be placed on comfort care and comfort care orders have been written. He continues on comfort care and currently does not have insurance to cover a transfer to a care home. He has no family at home. - Current Meds Current Meds: Current Medications Generic Name Dose Route Start Last Admin Trade Name Uma PRN Reason Stop Dose Admin Acetaminophen 650 mg 09/24/23 21:12 10/11/23 08:41 Acetaminophen 325 Mg Tablet PO 325 mg Q6H PRN Administration Pain 1 to 4, or Fever Albuterol/Ipratropium 3 ml 10/06/23 17:26 10/09/23 20:30 Ipratropium/Albuterol 3 Ml Neb INH 3 ml Q4HR PRN Administration Wheezing Lorazepam 1 mg 10/12/23 19:07 10/15/23 22:40 Lorazepam 1 Mg Tablet PO 1 mg Q6H PRN Administration Anxiety/Agitation Lorazepam 1 mg 10/12/23 19:07 10/15/23 06:38 Lorazepam 2 Mg/Ml Vial IVP 1 mg Q6H PRN Administration Anxiety/Agitation Morphine Sulfate 10 mg 10/12/23 18:59 10/16/23 13:30 Morphine Eileen 10 Mg/0.5 Ml Oral Syringe SL 10 mg Q2HR PRN Administration Moderate Pain (Level 4-6)/SOA Multi-Ingredient Ointment 1 applic 09/25/23 12:13 10/12/23 09:32 Zinc Oxide 20% Oint 30 Gm Tube TOP 1 applic PRN PRN Administration Skin Care Sodium Chloride 10 ml 09/24/23 21:12 10/13/23 18:30 Sodium Chloride Flush 0.9% 10 Ml Syringe IVP 10 ml PRN PRN Administration NEEDED PER PROVIDER ORDERS - Lab Result Fish Bone Diagrams: 10/11/23 04:21 10/11/23 11:45 - Additional Planning My Orders: My Active Orders 10/15/23 12:46 Morphine Inj (Carpuject) [Morphine (Carpuject)] 2 mg IVP Q1HR PRN Subjective - Subjective Patient Reports: Other (Somnolent but continues to respond appropriately to questions. He has no complaints at this time.) Objective Vital Signs: Vital Signs - 24 hr 10/15/23 10/16/23 10/16/23 21:10 07:56 07:57 Temperature 36.7 C Heart Rate [ 71 Monitoring electrodes] Respiratory 18 Rate Blood Pressure 156/113 H 164/102 H [Right Brachial artery] O2 Saturation 78 L If not protocol 1 5 : Oxygen Flow, liters/minute 10/16/23 08:15 Temperature Heart Rate [ Monitoring electrodes] Respiratory Rate Blood Pressure [Right Brachial artery] O2 Saturation If not protocol 1 : Oxygen Flow, liters/minute Oxygen O2 Source Nasal cannula I&O (Last 24 Hrs): Intake and Output Totals x24h 10/14/23 10/15/23 10/16/23 23:59 23:59 23:59 Intake Total 1180 30 Output Total 1500 1550 525 Balance -320 -1520 -525 General: Alert, Cooperative, Other (Somnolent but continues to respond appropriately to questions.) HEENT: Atraumatic, PERRLA Neck: Supple, No JVD, No thyromegaly Lymphatic: no adenopathy Neuro: Non Focal Cardiovascular: Regular rate, Normal S1, Normal S2 Respiratory: Chest non-tender, No respiratory distress, Breath sounds nml Abdomen: Normal bowel sounds, Soft, No tenderness Extremities: No clubbing, No cyanosis, No edema Skin: No rashes - Results Results: Laboratory Results WBC 16.7 x10^3/uL (4.8-10.8) H 10/11/23 04:21 RBC 2.90 10^6/uL (4.70-6.10) L 10/11/23 04:21 Hgb 9.1 g/dL (14.0-18.0) L 10/11/23 04:21 Hct 27.8 % (42.0-52.0) L 10/11/23 04:21 MCV 95.9 fL (80.0-94.0) H 10/11/23 04:21 MCH 31.4 pg (27.0-31.0) H 10/11/23 04:21 MCHC 32.7 g/dL (32.0-36.0) 10/11/23 04:21 RDW 13.1 % (12.0-15.0) 10/11/23 04:21 Plt Count 296 10^3/uL (130-450) 10/11/23 04:21 MPV 9.3 fL (7.4-11.4) 10/11/23 04:21 Neut # (Auto) 15.9 10^3/uL (1.5-6.6) H 10/11/23 04:21 Lymph # (Auto) 0.2 10^3/uL (1.5-3.5) L 10/11/23 04:21 [place] # (Auto) 0.5 10^3/uL (0.0-1.0) 10/11/23 04:21 Eos # (Auto) 0.0 10^3/uL (0.0-0.7) 10/11/23 04:21 Baso # (Auto) 0.0 10^3/uL (0.0-0.1) 10/11/23 04:21 Absolute Nucleated RBC 0.00 x10^3/uL 10/11/23 04:21 Total Counted 100 10/10/23 04:31 Band Neuts % (Manual) 3 % (0-10) 10/10/23 04:31 Abnorm Lymph % (Manual) 0 % 10/10/23 04:31 Nucleated RBC % 0.0 /100WBC 10/11/23 04:21 Neutrophils # (Manual) 20.5 10^3/uL (1.5-6.6) H 10/10/23 04:31 Lymphocytes # (Manual) 0.6 10^3/uL (1.5-3.5) L 10/10/23 04:31 Monocytes # (Manual) 0.4 10^3/uL (0.0-1.0) 10/10/23 04:31 Eosinophils # (Manual) 0.0 10^3/uL (0-0.7) 10/10/23 04:31 Basophils # (Manual) 0.0 10^3/uL (0-0.1) 10/10/23 04:31 Differential Comment MANUAL DIFFERENTIAL 10/10/23 04:31 Manual Slide Review Indicated 10/09/23 07:53 Platelet Estimate NORMAL (130-450,000) (NORMAL) 10/10/23 04:31 Platelet Morphology NORMAL APPEARANCE (NORMAL) 10/09/23 07:53 RBC Morph Micro Appear NORMAL APPEARANCE (NORMAL) 10/10/23 04:31 PT 10.0 secs (9.9-12.6) 10/11/23 11:45 INR 0.9 (0.8-1.2) 10/11/23 11:45 VBG pH 7.447 (7.31-7.41) H 10/11/23 11:45 VBG pCO2 47.3 mmHg (41-51) 10/07/23 12:00 VBG pO2 27.7 mmHg (25-47) 10/07/23 12:00 VBG HCO3 27.7 mmol/L (23-28) 10/07/23 12:00 VBG Total CO2 29.2 mmol/L (24-29) H 10/07/23 12:00 VBG O2 Saturation 48.3 % (60-80) L 10/07/23 12:00 VBG Base Excess 2.1 mmol/L (-2 - +2) H 10/07/23 12:00 Ionized Calcium 1.15 mmol/L (1.15-1.33) 10/11/23 11:45 Sodium 139 mmol/L (135-145) 10/11/23 04:21 Potassium 3.4 mmol/L (3.5-4.5) L 10/11/23 11:45 Chloride 104 mmol/L (101-111) 10/11/23 04:21 Carbon Dioxide 26 mmol/L (21-32) 10/11/23 04:21 Anion Gap 9.0 (6-13) 10/11/23 04:21 BUN 48 mg/dL (6-20) H 10/11/23 04:21 Creatinine 1.9 mg/dL (0.6-1.3) H 10/11/23 04:21 Estimated GFR (MDRD) 35 (>89) L 10/11/23 04:21 Glucose 192 mg/dL (74-104) H 10/11/23 04:21 POC Whole Bld Glucose 142 mg/dL (70 - 100) H 10/12/23 07:51 Estimat Average Glucose 117 mg/dL (70-100) H 09/24/23 21:30 Hemoglobin A1c % 5.7 % (4.27-6.07) 09/24/23 21:30 Lactic Acid 1.8 mmol/L (0.5-2.2) 09/24/23 21:30 Calcium 8.6 mg/dL (8.5-10.3) 10/11/23 04:21 Phosphorus 4.5 mg/dL (2.5-5.0) 10/11/23 04:21 Magnesium 2.0 mg/dL (1.7-2.3) 10/11/23 04:21 Total Bilirubin 0.2 mg/dL (0.2-1.0) 10/11/23 04:21 AST 17 IU/L (10-42) 10/11/23 04:21 ALT 22 IU/L (10-60) 10/11/23 04:21 Alkaline Phosphatase 78 IU/L (42-121) 10/11/23 04:21 Troponin I High Sens 14.9 ng/L (2.3-19.7) 10/07/23 13:32 B-Natriuretic Peptide 197 pg/mL (5-100) H 10/08/23 04:44 Total Protein 5.5 g/dL (6.4-8.9) L 10/11/23 04:21 Albumin 2.8 g/dL (3.2-5.5) L 10/11/23 04:21 Globulin 2.7 g/dL (2.1-4.2) 10/11/23 04:21 Albumin/Globulin Ratio 1.0 (1.0-2.2) 10/11/23 04:21 Triglycerides 68 mg/dL (48-352) 09/24/23 21:30 Cholesterol 117 mg/dL (-200) 09/24/23 21:30 LDL Cholesterol, Calc 45 mg/dL (-129) 09/24/23 21:30 VLDL Cholesterol 14 mg/dL 09/24/23 21:30 HDL Cholesterol 58 mg/dL (60-) L 09/24/23 21:30 LDL/HDL Ratio 0.8 (<3.6) 09/24/23 21:30 Cholesterol/HDL Ratio 2.0 (<5.0) 09/24/23 21:30 Vitamin B12 486 pg/mL (180-914) 10/10/23 04:42 Folate 16.6 ng/mL (5.90 - >24.8) 10/10/23 04:42 Procalcitonin Immunoas 0.32 ng/mL (<0.5) 09/24/23 21:30 TSH 1.91 uIU/mL (0.34-5.60) 09/24/23 21:30 Urine Color YELLOW 09/25/23 13:30 Urine Clarity CLEAR (CLEAR) 09/25/23 13:30 Urine pH 6.0 PH (5.0-7.5) 09/25/23 13:30 Ur Specific [place] 1.025 (1.002-1.030) 09/25/23 13:30 Urine Protein TRACE mg/dL (NEGATIVE) 09/25/23 13:30 Urine Glucose (UA) NEGATIVE mg/dL (NEGATIVE) 09/25/23 13:30 Urine Ketones NEGATIVE mg/dL (NEGATIVE) 09/25/23 13:30 Urine Occult Blood NEGATIVE (NEGATIVE) 09/25/23 13:30 Urine Nitrite NEGATIVE (NEGATIVE) 09/25/23 13:30 Urine Bilirubin NEGATIVE (NEGATIVE) 09/25/23 13:30 Urine Urobilinogen 0.2 (NORMAL) E.U./dL (NORMAL) 09/25/23 13:30 Ur Leukocyte Esterase TRACE (NEGATIVE) H 09/25/23 13:30 Urine RBC 0-5 /HPF (0-5) 09/25/23 13:30 Urine WBC 0-3 /HPF (0-3) 09/25/23 13:30 Ur Squamous Epith Cells NONE SEEN (<= Few) 09/25/23 13:30 Urine Bacteria Few /HPF (None Seen) 09/25/23 13:30 Ur Microscopic Review INDICATED 09/25/23 13:30 Urine Culture Comments INDICATED 09/25/23 13:30 Nasal Adenovirus (PCR) NOT DETECTED 09/24/23 21:30 Nasal B. parapertussis DNA (PCR) NOT DETECTED 09/24/23 21:30 Nasal Coronavir 229E PCR NOT DETECTED 09/24/23 21:30 Nasal Coronavir HKU1 PCR NOT DETECTED 09/24/23 21:30 Nasal Coronavir NL63 PCR NOT DETECTED 09/24/23 21:30 Nasal Coronavir OC43 PCR NOT DETECTED 09/24/23 21:30 Nasal Enterovir/Rhinovir PCR NOT DETECTED 09/24/23 21:30 Nasal Influenza B PCR NOT DETECTED 09/24/23 21:30 Nasal Influenza A PCR NOT DETECTED 09/24/23 21:30 Nasal Parainfluen 1 PCR NOT DETECTED 09/24/23 21:30 Nasal Parainfluen 2 PCR NOT DETECTED 09/24/23 21:30 Nasal Parainfluen 3 PCR NOT DETECTED 09/24/23 21:30 Nasal Parainfluen 4 PCR NOT DETECTED 09/24/23 21:30 Nasal RSV (PCR) NOT DETECTED 09/24/23 21:30 Nasal Screen MRSA (PCR) NEGATIVE (NEGATIVE) 10/07/23 12:50 Nasal B.pertussis DNA PCR NOT DETECTED 09/24/23 21:30 Nasal C.pneumoniae (PCR) NOT DETECTED 09/24/23 21:30 Thom Human Metapneumo PCR NOT DETECTED 09/24/23 21:30 Nasal M.pneumoniae (PCR) NOT DETECTED 09/24/23 21:30 Nasal SARS-CoV-2 (PCR) NOT DETECTED 09/24/23 21:30 Last Dose Date 10/08/23 11:10 Last Dose Time 0835 10/08/23 11:10 Vancomycin Peak 37.6 ug/mL (20.0-40.0) 10/08/23 11:10 Vancomycin Trough 18.3 ug/mL 10/07/23 17:29 Urine Opiates Screen NEGATIVE (NEGATIVE) 09/25/23 13:30 Ur Buprenorphine Scrn NEGATIVE (NEGATIVE) 09/25/23 13:30 Ur Oxycodone Screen NEGATIVE (NEGATIVE) 09/25/23 13:30 Urine Methadone Screen NEGATIVE (NEGATIVE) 09/25/23 13:30 Ur Barbiturates Screen NEGATIVE (NEGATIVE) 09/25/23 13:30 Ur Tricyclics Screen NEGATIVE (NEGATIVE) 09/25/23 13:30 Ur Phencyclidine Scrn NEGATIVE (NEGATIVE) 09/25/23 13:30 Ur Amphetamine Screen NEGATIVE (NEGATIVE) 09/25/23 13:30 U Methamphetamines Scrn NEGATIVE (NEGATIVE) 09/25/23 13:30 U Benzodiazepines Scrn NEGATIVE (NEGATIVE) 09/25/23 13:30 Urine Cocaine Screen NEGATIVE (NEGATIVE) 09/25/23 13:30 U Cannabinoids Screen NEGATIVE (NEGATIVE) 09/25/23 13:30 Ur Drug Screen Comment CUTOFF CONC BELOW: 09/25/23 13:30 Ethyl Alcohol < 10.0 mg/dL 09/24/23 16:44 ABX Reporting Has patient been on IV antibiotics over the past 48 hours?: No Current Medications - Current Medications Current Medications: Active Medications Acetaminophen (Acetaminophen 325 Mg Tablet) 650 mg PO Q6H PRN PRN Reason: Pain 1 to 4, or Fever Last Admin: 10/11/23 08:41 Dose: 325 mg Albuterol (Albuterol Neb 2.5 Mg/3 Ml) 2.5 mg INH RTQ4H PRN PRN Reason: Wheezing Albuterol/Ipratropium (Ipratropium/Albuterol 3 Ml Neb) 3 ml INH Q4HR PRN PRN Reason: Wheezing Last Admin: 10/09/23 20:30 Dose: 3 ml Glycopyrrolate (Glycopyrrolate 1 Mg/5 Ml Vial) 0.2 mg SUBQ Q4H PRN PRN Reason: Excessive secretions Lorazepam (Lorazepam 1 Mg Tablet) 1 mg PO Q6H PRN PRN Reason: Anxiety/Agitation Last Admin: 10/15/23 22:40 Dose: 1 mg Lorazepam (Lorazepam 2 Mg/Ml Vial) 1 mg IVP Q6H PRN PRN Reason: Anxiety/Agitation Last Admin: 10/15/23 06:38 Dose: 1 mg Morphine Sulfate (Morphine Eileen 10 Mg/0.5 Ml Oral Syringe) 10 mg SL Q2HR PRN PRN Reason: Moderate Pain (Level 4-6)/SOA Last Admin: 10/16/23 13:30 Dose: 10 mg Morphine Sulfate (Morphine 2 Mg/Ml Carpuject) 2 mg IVP Q1HR PRN PRN Reason: Dyspnea Multi-Ingredient Ointment (Zinc Oxide 20% Oint 30 Gm Tube) 1 applic TOP PRN PRN PRN Reason: Skin Care Last Admin: 10/12/23 09:32 Dose: 1 applic Ondansetron HCl (Ondansetron Odt 4 Mg Tablet) 4 mg TL Q6HR PRN PRN Reason: Nausea / Vomiting Sodium Chloride (Sodium Chloride Flush 0.9% 10 Ml Syringe) 10 ml IVP PRN PRN PRN Reason: NEEDED PER PROVIDER ORDERS Last Admin: 10/13/23 18:30 Dose: 10 ml No Known Home Medications 09/24/23
[2023-10-16] MEDS: LORazepam 1 MG TABLET PO PRN (19:42)
[2023-10-17] MEDS: LORazepam 1 MG TABLET PO PRN (14:45)
--- NOTE | 2023-10-17 19:13 | PROVIDER PROGRESS NOTE ---
Assessment/Plan - Problem List (1) Acute respiratory failure with hypoxia Assessment/Plan: (1) Acute respiratory failure with hypoxia Impression: This is multifactorial: From COPD exacerbation, pneumonia, pleural effusion and pneumonitis Plan: Continue with O2 supplemental (2) Comfort measures only status Continue with comfort care package (3) COPD exacerbation As per Hx Plan: Continue with meds that give him comfort (4) Pneumonitis As per Hx (5) Pleural effusion As per Hx (6) Generalized weakness I discussed what he would want if he had a cardiac arrest/CODE BLUE and he immediately said to let nature take its course, so I ordered DNR/DNI Continue with comfort care package (7) Severe protein-calorie malnutrition Assessment/Plan: His BMI is 15 Plan: Continue with comfort eating (8) Tobacco use Assessment/Plan: This man has been a smoker since teenage mary He has not seen a doctor in 20 years so there are no PFTs that have documentation of COPD (9) Inadequate social support Assessment/Plan: He has lived alone x [place], was . He says he has no family SW started to work with him on placement plans since he is not safe to return home due to his severe weakness, but now with Comfort CAre, he may here (10) Fall at home Assessment/Plan: This brought him in - Current Meds Current Meds: Current Medications Generic Name Dose Route Start Last Admin Trade Name Freq PRN Reason Stop Dose Admin Acetaminophen 650 mg 09/24/23 21:12 10/11/23 08:41 Acetaminophen 325 Mg Tablet PO 325 mg Q6H PRN Administration Pain 1 to 4, or Fever Albuterol/Ipratropium 3 ml 10/06/23 17:26 10/09/23 20:30 Ipratropium/Albuterol 3 Ml Neb INH 3 ml Q4HR PRN Administration Wheezing Lorazepam 1 mg 10/12/23 19:07 10/17/23 14:45 Lorazepam 1 Mg Tablet PO 1 mg Q6H PRN Administration Anxiety/Agitation Lorazepam 1 mg 10/12/23 19:07 10/15/23 06:38 Lorazepam 2 Mg/Ml Vial IVP 1 mg Q6H PRN Administration Anxiety/Agitation Morphine Sulfate 10 mg 10/12/23 18:59 10/16/23 19:38 Morphine Eileen 10 Mg/0.5 Ml Oral Syringe SL 10 mg Q2HR PRN Administration Moderate Pain (Level 4-6)/SOA Multi-Ingredient Ointment 1 applic 09/25/23 12:13 10/12/23 09:32 Zinc Oxide 20% Oint 30 Gm Tube TOP 1 applic PRN PRN Administration Skin Care Sodium Chloride 10 ml 09/24/23 21:12 10/13/23 18:30 Sodium Chloride Flush 0.9% 10 Ml Syringe IVP 10 ml PRN PRN Administration NEEDED PER PROVIDER ORDERS - Lab Result Fish Bone Diagrams: 10/11/23 04:21 10/11/23 11:45 Subjective - Subjective Patient Reports: Resting Comfortably Objective Vital Signs: Vital Signs - 24 hr 10/17/23 10/17/23 07:53 08:00 Temperature 36.4 C L Heart Rate [ 63 Brachial] Respiratory 14 Rate Blood Pressure 164/101 H [Right Brachial artery] O2 Saturation 95 If not protocol 4 4 : Oxygen Flow, liters/minute Oxygen O2 Source Nasal cannula I&O (Last 24 Hrs): Intake and Output Totals x24h 10/15/23 10/16/23 10/17/23 23:59 23:59 23:59 Intake Total 30 490 Output Total 1550 8411 336 Balance -8900 -9294 -207 General: Other (Cachectic, asleep) HEENT: Mucous membr. moist/pink Neuro: Other (Lethargic) Respiratory: No respiratory distress (wearing suppl O2) - Results Results: Laboratory Results WBC 16.7 x10^3/uL (4.8-10.8) H 10/11/23 04:21 RBC 2.90 10^6/uL (4.70-6.10) L 10/11/23 04:21 Hgb 9.1 g/dL (14.0-18.0) L 10/11/23 04:21 Hct 27.8 % (42.0-52.0) L 10/11/23 04:21 MCV 95.9 fL (80.0-94.0) H 10/11/23 04:21 MCH 31.4 pg (27.0-31.0) H 10/11/23 04:21 MCHC 32.7 g/dL (32.0-36.0) 10/11/23 04:21 RDW 13.1 % (12.0-15.0) 10/11/23 04:21 Plt Count 296 10^3/uL (130-450) 10/11/23 04:21 MPV 9.3 fL (7.4-11.4) 10/11/23 04:21 Neut # (Auto) 15.9 10^3/uL (1.5-6.6) H 10/11/23 04:21 Lymph # (Auto) 0.2 10^3/uL (1.5-3.5) L 10/11/23 04:21 [place] # (Auto) 0.5 10^3/uL (0.0-1.0) 10/11/23 04:21 Eos # (Auto) 0.0 10^3/uL (0.0-0.7) 10/11/23 04:21 Baso # (Auto) 0.0 10^3/uL (0.0-0.1) 10/11/23 04:21 Absolute Nucleated RBC 0.00 x10^3/uL 10/11/23 04:21 Total Counted 100 10/10/23 04:31 Band Neuts % (Manual) 3 % (0-10) 10/10/23 04:31 Abnorm Lymph % (Manual) 0 % 10/10/23 04:31 Nucleated RBC % 0.0 /100WBC 10/11/23 04:21 Neutrophils # (Manual) 20.5 10^3/uL (1.5-6.6) H 10/10/23 04:31 Lymphocytes # (Manual) 0.6 10^3/uL (1.5-3.5) L 10/10/23 04:31 Monocytes # (Manual) 0.4 10^3/uL (0.0-1.0) 10/10/23 04:31 Eosinophils # (Manual) 0.0 10^3/uL (0-0.7) 10/10/23 04:31 Basophils # (Manual) 0.0 10^3/uL (0-0.1) 10/10/23 04:31 Differential Comment MANUAL DIFFERENTIAL 10/10/23 04:31 Manual Slide Review Indicated 10/09/23 07:53 Platelet Estimate NORMAL (130-450,000) (NORMAL) 10/10/23 04:31 Platelet Morphology NORMAL APPEARANCE (NORMAL) 10/09/23 07:53 RBC Morph Micro Appear NORMAL APPEARANCE (NORMAL) 10/10/23 04:31 PT 10.0 secs (9.9-12.6) 10/11/23 11:45 INR 0.9 (0.8-1.2) 10/11/23 11:45 VBG pH 7.447 (7.31-7.41) H 10/11/23 11:45 VBG pCO2 47.3 mmHg (41-51) 10/07/23 12:00 VBG pO2 27.7 mmHg (25-47) 10/07/23 12:00 VBG HCO3 27.7 mmol/L (23-28) 10/07/23 12:00 VBG Total CO2 29.2 mmol/L (24-29) H 10/07/23 12:00 VBG O2 Saturation 48.3 % (60-80) L 10/07/23 12:00 VBG Base Excess 2.1 mmol/L (-2 - +2) H 10/07/23 12:00 Ionized Calcium 1.15 mmol/L (1.15-1.33) 10/11/23 11:45 Sodium 139 mmol/L (135-145) 10/11/23 04:21 Potassium 3.4 mmol/L (3.5-4.5) L 10/11/23 11:45 Chloride 104 mmol/L (101-111) 10/11/23 04:21 Carbon Dioxide 26 mmol/L (21-32) 10/11/23 04:21 Anion Gap 9.0 (6-13) 10/11/23 04:21 BUN 48 mg/dL (6-20) H 10/11/23 04:21 Creatinine 1.9 mg/dL (0.6-1.3) H 10/11/23 04:21 Estimated GFR (MDRD) 35 (>89) L 10/11/23 04:21 Glucose 192 mg/dL (74-104) H 10/11/23 04:21 POC Whole Bld Glucose 142 mg/dL (70 - 100) H 10/12/23 07:51 Estimat Average Glucose 117 mg/dL (70-100) H 09/24/23 21:30 Hemoglobin A1c % 5.7 % (4.27-6.07) 09/24/23 21:30 Lactic Acid 1.8 mmol/L (0.5-2.2) 09/24/23 21:30 Calcium 8.6 mg/dL (8.5-10.3) 10/11/23 04:21 Phosphorus 4.5 mg/dL (2.5-5.0) 10/11/23 04:21 Magnesium 2.0 mg/dL (1.7-2.3) 10/11/23 04:21 Total Bilirubin 0.2 mg/dL (0.2-1.0) 10/11/23 04:21 AST 17 IU/L (10-42) 10/11/23 04:21 ALT 22 IU/L (10-60) 10/11/23 04:21 Alkaline Phosphatase 78 IU/L (42-121) 10/11/23 04:21 Troponin I High Sens 14.9 ng/L (2.3-19.7) 10/07/23 13:32 B-Natriuretic Peptide 197 pg/mL (5-100) H 10/08/23 04:44 Total Protein 5.5 g/dL (6.4-8.9) L 10/11/23 04:21 Albumin 2.8 g/dL (3.2-5.5) L 10/11/23 04:21 Globulin 2.7 g/dL (2.1-4.2) 10/11/23 04:21 Albumin/Globulin Ratio 1.0 (1.0-2.2) 10/11/23 04:21 Triglycerides 68 mg/dL (48-352) 09/24/23 21:30 Cholesterol 117 mg/dL (-200) 09/24/23 21:30 LDL Cholesterol, Calc 45 mg/dL (-129) 09/24/23 21:30 VLDL Cholesterol 14 mg/dL 09/24/23 21:30 HDL Cholesterol 58 mg/dL (60-) L 09/24/23 21:30 LDL/HDL Ratio 0.8 (<3.6) 09/24/23 21:30 Cholesterol/HDL Ratio 2.0 (<5.0) 09/24/23 21:30 Vitamin B12 486 pg/mL (180-914) 10/10/23 04:42 Folate 16.6 ng/mL (5.90 - >24.8) 10/10/23 04:42 Procalcitonin Immunoas 0.32 ng/mL (<0.5) 09/24/23 21:30 TSH 1.91 uIU/mL (0.34-5.60) 09/24/23 21:30 Urine Color YELLOW 09/25/23 13:30 Urine Clarity CLEAR (CLEAR) 09/25/23 13:30 Urine pH 6.0 PH (5.0-7.5) 09/25/23 13:30 Ur Specific [place] 1.025 (1.002-1.030) 09/25/23 13:30 Urine Protein TRACE mg/dL (NEGATIVE) 09/25/23 13:30 Urine Glucose (UA) NEGATIVE mg/dL (NEGATIVE) 09/25/23 13:30 Urine Ketones NEGATIVE mg/dL (NEGATIVE) 09/25/23 13:30 Urine Occult Blood NEGATIVE (NEGATIVE) 09/25/23 13:30 Urine Nitrite NEGATIVE (NEGATIVE) 09/25/23 13:30 Urine Bilirubin NEGATIVE (NEGATIVE) 09/25/23 13:30 Urine Urobilinogen 0.2 (NORMAL) E.U./dL (NORMAL) 09/25/23 13:30 Ur Leukocyte Esterase TRACE (NEGATIVE) H 09/25/23 13:30 Urine RBC 0-5 /HPF (0-5) 09/25/23 13:30 Urine WBC 0-3 /HPF (0-3) 09/25/23 13:30 Ur Squamous Epith Cells NONE SEEN (<= Few) 09/25/23 13:30 Urine Bacteria Few /HPF (None Seen) 09/25/23 13:30 Ur Microscopic Review INDICATED 09/25/23 13:30 Urine Culture Comments INDICATED 09/25/23 13:30 Nasal Adenovirus (PCR) NOT DETECTED 09/24/23 21:30 Nasal B. parapertussis DNA (PCR) NOT DETECTED 09/24/23 21:30 Nasal Coronavir 229E PCR NOT DETECTED 09/24/23 21:30 Nasal Coronavir HKU1 PCR NOT DETECTED 09/24/23 21:30 Nasal Coronavir NL63 PCR NOT DETECTED 09/24/23 21:30 Nasal Coronavir OC43 PCR NOT DETECTED 09/24/23 21:30 Nasal Enterovir/Rhinovir PCR NOT DETECTED 09/24/23 21:30 Nasal Influenza B PCR NOT DETECTED 09/24/23 21:30 Nasal Influenza A PCR NOT DETECTED 09/24/23 21:30 Nasal Parainfluen 1 PCR NOT DETECTED 09/24/23 21:30 Nasal Parainfluen 2 PCR NOT DETECTED 09/24/23 21:30 Nasal Parainfluen 3 PCR NOT DETECTED 09/24/23 21:30 Nasal Parainfluen 4 PCR NOT DETECTED 09/24/23 21:30 Nasal RSV (PCR) NOT DETECTED 09/24/23 21:30 Nasal Screen MRSA (PCR) NEGATIVE (NEGATIVE) 10/07/23 12:50 Nasal B.pertussis DNA PCR NOT DETECTED 09/24/23 21:30 Nasal C.pneumoniae (PCR) NOT DETECTED 09/24/23 21:30 Thom Human Metapneumo PCR NOT DETECTED 09/24/23 21:30 Nasal M.pneumoniae (PCR) NOT DETECTED 09/24/23 21:30 Nasal SARS-CoV-2 (PCR) NOT DETECTED 09/24/23 21:30 Last Dose Date 10/08/23 11:10 Last Dose Time 0835 10/08/23 11:10 Vancomycin Peak 37.6 ug/mL (20.0-40.0) 10/08/23 11:10 Vancomycin Trough 18.3 ug/mL 10/07/23 17:29 Urine Opiates Screen NEGATIVE (NEGATIVE) 09/25/23 13:30 Ur Buprenorphine Scrn NEGATIVE (NEGATIVE) 09/25/23 13:30 Ur Oxycodone Screen NEGATIVE (NEGATIVE) 09/25/23 13:30 Urine Methadone Screen NEGATIVE (NEGATIVE) 09/25/23 13:30 Ur Barbiturates Screen NEGATIVE (NEGATIVE) 09/25/23 13:30 Ur Tricyclics Screen NEGATIVE (NEGATIVE) 09/25/23 13:30 Ur Phencyclidine Scrn NEGATIVE (NEGATIVE) 09/25/23 13:30 Ur Amphetamine Screen NEGATIVE (NEGATIVE) 09/25/23 13:30 U Methamphetamines Scrn NEGATIVE (NEGATIVE) 09/25/23 13:30 U Benzodiazepines Scrn NEGATIVE (NEGATIVE) 09/25/23 13:30 Urine Cocaine Screen NEGATIVE (NEGATIVE) 09/25/23 13:30 U Cannabinoids Screen NEGATIVE (NEGATIVE) 09/25/23 13:30 Ur Drug Screen Comment CUTOFF CONC BELOW: 09/25/23 13:30 Ethyl Alcohol < 10.0 mg/dL 09/24/23 16:44
[2023-10-17] MEDS: MORPHINE SOL 10 MG/0.5 ML ORAL SYRINGE SL PRN (22:56)
[2023-10-18] MEDS: SODIUM CHLORIDE FLUSH 0.9% 10 ML SYRINGE IVP PRN ×2 (01:08→02:36)
[2023-10-18] MEDS: MORPHINE SOL 10 MG/0.5 ML ORAL SYRINGE SL PRN ×3 (01:10→20:33)
[2023-10-18] MEDS: MORPHINE 2 MG/ML CARPUJECT IVP PRN ×2 (02:35→12:39)
[2023-10-18] MEDS: LORazepam 2 MG/ML VIAL IVP PRN (02:36)
--- NOTE | 2023-10-18 19:16 | PROVIDER PROGRESS NOTE ---
Assessment/Plan - Problem List (1) Acute respiratory failure with hypoxia Assessment/Plan: This is multifactorial: From COPD exacerbation, pneumonia, pleural effusion and pneumonitis Plan: Continue with O2 supplemental (2) Comfort measures only status Continue with comfort care package SW is looking for placement (3) COPD exacerbation As per Hx Plan: Continue with meds that give him comfort (4) Pneumonitis As per Hx (5) Pleural effusion As per Hx (6) Generalized weakness DNR/DNI status Continue with comfort care package SW is looking for placement (7) Severe protein-calorie malnutrition Assessment/Plan: His BMI is 15 Continue with comfort eating (8) Tobacco use Assessment/Plan: This man has been a smoker since teenage mary He has not seen a doctor in 20 years so there are no PFTs that have documentation of COPD (9) Inadequate social support Assessment/Plan: He has lived alone x 20 yr [place] a [place], was . He says he has no family SW started to work with him on placement plans since he is not safe to return home due to his severe weakness, but now with Comfort CAre, he may here (10) Fall at home Assessment/Plan: This brought him in - Current Meds Current Meds: Current Medications Generic Name Dose Route Start Last Admin Trade Name Freq PRN Reason Stop Dose Admin Acetaminophen 650 mg 09/24/23 21:12 10/11/23 08:41 Acetaminophen 325 Mg Tablet PO 325 mg Q6H PRN Administration Pain 1 to 4, or Fever Albuterol/Ipratropium 3 ml 10/06/23 17:26 10/09/23 20:30 Ipratropium/Albuterol 3 Ml Neb INH 3 ml Q4HR PRN Administration Wheezing Lorazepam 1 mg 10/12/23 19:07 10/17/23 14:45 Lorazepam 1 Mg Tablet PO 1 mg Q6H PRN Administration Anxiety/Agitation Lorazepam 1 mg 10/12/23 19:07 10/18/23 02:36 Lorazepam 2 Mg/Ml Vial IVP 1 mg Q6H PRN Administration Anxiety/Agitation Morphine Sulfate 10 mg 10/12/23 18:59 10/18/23 12:15 Morphine Eileen 10 Mg/0.5 Ml Oral Syringe SL 10 mg Q2HR PRN Administration Moderate Pain (Level 4-6)/SOA Morphine Sulfate 2 mg 10/15/23 12:46 10/18/23 12:39 Morphine 2 Mg/Ml Carpuject IVP 2 mg Q1HR PRN Administration Dyspnea Multi-Ingredient Ointment 1 applic 09/25/23 12:13 10/12/23 09:32 Zinc Oxide 20% Oint 30 Gm Tube TOP 1 applic PRN PRN Administration Skin Care Sodium Chloride 10 ml 09/24/23 21:12 10/18/23 02:36 Sodium Chloride Flush 0.9% 10 Ml Syringe IVP 10 ml PRN PRN Administration NEEDED PER PROVIDER ORDERS - Lab Result Fish Bone Diagrams: 10/11/23 04:21 10/11/23 11:45 - Additional Planning My Orders: My Active Orders 10/18/23 08:09 Miscellaenous Nursing Order [RC] QSHIFT Subjective - Subjective Patient Reports: No Complaints Nursing Reports: Other (Asleep most of the day) Objective Vital Signs: Vital Signs - 24 hr 10/17/23 10/18/23 10/18/23 19:28 07:59 09:09 Temperature 36.4 C L Heart Rate [ 66 Brachial] Respiratory 12 Rate Blood Pressure 175/105 H [Right Brachial artery] O2 Saturation 88 L If not protocol 4 4 4 : Oxygen Flow, liters/minute Oxygen O2 Source Nasal cannula I&O (Last 24 Hrs): Intake and Output Totals x24h 10/16/23 10/17/23 10/18/23 23:59 23:59 23:59 Intake Total 640 50 Output Total 2375 9134 724 Balance -3574 -739 -900 General: Other (Cachectic) HEENT: Other (Muscle wasting, sunken eyes, dry mucosa) Neuro: Non Focal, Other (Lethargic) Respiratory: No respiratory distress Abdomen: Other (Scaphoid abd) Extremities: No edema - Results Results: Laboratory Results WBC 16.7 x10^3/uL (4.8-10.8) H 10/11/23 04:21 RBC 2.90 10^6/uL (4.70-6.10) L 10/11/23 04:21 Hgb 9.1 g/dL (14.0-18.0) L 10/11/23 04:21 Hct 27.8 % (42.0-52.0) L 10/11/23 04:21 MCV 95.9 fL (80.0-94.0) H 10/11/23 04:21 MCH 31.4 pg (27.0-31.0) H 10/11/23 04:21 MCHC 32.7 g/dL (32.0-36.0) 10/11/23 04:21 RDW 13.1 % (12.0-15.0) 10/11/23 04:21 Plt Count 296 10^3/uL (130-450) 10/11/23 04:21 MPV 9.3 fL (7.4-11.4) 10/11/23 04:21 Neut # (Auto) 15.9 10^3/uL (1.5-6.6) H 10/11/23 04:21 Lymph # (Auto) 0.2 10^3/uL (1.5-3.5) L 10/11/23 04:21 [place] # (Auto) 0.5 10^3/uL (0.0-1.0) 10/11/23 04:21 Eos # (Auto) 0.0 10^3/uL (0.0-0.7) 10/11/23 04:21 Baso # (Auto) 0.0 10^3/uL (0.0-0.1) 10/11/23 04:21 Absolute Nucleated RBC 0.00 x10^3/uL 10/11/23 04:21 Total Counted 100 10/10/23 04:31 Band Neuts % (Manual) 3 % (0-10) 10/10/23 04:31 Abnorm Lymph % (Manual) 0 % 10/10/23 04:31 Nucleated RBC % 0.0 /100WBC 10/11/23 04:21 Neutrophils # (Manual) 20.5 10^3/uL (1.5-6.6) H 10/10/23 04:31 Lymphocytes # (Manual) 0.6 10^3/uL (1.5-3.5) L 10/10/23 04:31 Monocytes # (Manual) 0.4 10^3/uL (0.0-1.0) 10/10/23 04:31 Eosinophils # (Manual) 0.0 10^3/uL (0-0.7) 10/10/23 04:31 Basophils # (Manual) 0.0 10^3/uL (0-0.1) 10/10/23 04:31 Differential Comment MANUAL DIFFERENTIAL 10/10/23 04:31 Manual Slide Review Indicated 10/09/23 07:53 Platelet Estimate NORMAL (130-450,000) (NORMAL) 10/10/23 04:31 Platelet Morphology NORMAL APPEARANCE (NORMAL) 10/09/23 07:53 RBC Morph Micro Appear NORMAL APPEARANCE (NORMAL) 10/10/23 04:31 PT 10.0 secs (9.9-12.6) 10/11/23 11:45 INR 0.9 (0.8-1.2) 10/11/23 11:45 VBG pH 7.447 (7.31-7.41) H 10/11/23 11:45 VBG pCO2 47.3 mmHg (41-51) 10/07/23 12:00 VBG pO2 27.7 mmHg (25-47) 10/07/23 12:00 VBG HCO3 27.7 mmol/L (23-28) 10/07/23 12:00 VBG Total CO2 29.2 mmol/L (24-29) H 10/07/23 12:00 VBG O2 Saturation 48.3 % (60-80) L 10/07/23 12:00 VBG Base Excess 2.1 mmol/L (-2 - +2) H 10/07/23 12:00 Ionized Calcium 1.15 mmol/L (1.15-1.33) 10/11/23 11:45 Sodium 139 mmol/L (135-145) 10/11/23 04:21 Potassium 3.4 mmol/L (3.5-4.5) L 10/11/23 11:45 Chloride 104 mmol/L (101-111) 10/11/23 04:21 Carbon Dioxide 26 mmol/L (21-32) 10/11/23 04:21 Anion Gap 9.0 (6-13) 10/11/23 04:21 BUN 48 mg/dL (6-20) H 10/11/23 04:21 Creatinine 1.9 mg/dL (0.6-1.3) H 10/11/23 04:21 Estimated GFR (MDRD) 35 (>89) L 10/11/23 04:21 Glucose 192 mg/dL (74-104) H 10/11/23 04:21 POC Whole Bld Glucose 142 mg/dL (70 - 100) H 10/12/23 07:51 Estimat Average Glucose 117 mg/dL (70-100) H 09/24/23 21:30 Hemoglobin A1c % 5.7 % (4.27-6.07) 09/24/23 21:30 Lactic Acid 1.8 mmol/L (0.5-2.2) 09/24/23 21:30 Calcium 8.6 mg/dL (8.5-10.3) 10/11/23 04:21 Phosphorus 4.5 mg/dL (2.5-5.0) 10/11/23 04:21 Magnesium 2.0 mg/dL (1.7-2.3) 10/11/23 04:21 Total Bilirubin 0.2 mg/dL (0.2-1.0) 10/11/23 04:21 AST 17 IU/L (10-42) 10/11/23 04:21 ALT 22 IU/L (10-60) 10/11/23 04:21 Alkaline Phosphatase 78 IU/L (42-121) 10/11/23 04:21 Troponin I High Sens 14.9 ng/L (2.3-19.7) 10/07/23 13:32 B-Natriuretic Peptide 197 pg/mL (5-100) H 10/08/23 04:44 Total Protein 5.5 g/dL (6.4-8.9) L 10/11/23 04:21 Albumin 2.8 g/dL (3.2-5.5) L 10/11/23 04:21 Globulin 2.7 g/dL (2.1-4.2) 10/11/23 04:21 Albumin/Globulin Ratio 1.0 (1.0-2.2) 10/11/23 04:21 Triglycerides 68 mg/dL (48-352) 09/24/23 21:30 Cholesterol 117 mg/dL (-200) 09/24/23 21:30 LDL Cholesterol, Calc 45 mg/dL (-129) 09/24/23 21:30 VLDL Cholesterol 14 mg/dL 09/24/23 21:30 HDL Cholesterol 58 mg/dL (60-) L 09/24/23 21:30 LDL/HDL Ratio 0.8 (<3.6) 09/24/23 21:30 Cholesterol/HDL Ratio 2.0 (<5.0) 09/24/23 21:30 Vitamin B12 486 pg/mL (180-914) 10/10/23 04:42 Folate 16.6 ng/mL (5.90 - >24.8) 10/10/23 04:42 Procalcitonin Immunoas 0.32 ng/mL (<0.5) 09/24/23 21:30 TSH 1.91 uIU/mL (0.34-5.60) 09/24/23 21:30 Urine Color YELLOW 09/25/23 13:30 Urine Clarity CLEAR (CLEAR) 09/25/23 13:30 Urine pH 6.0 PH (5.0-7.5) 09/25/23 13:30 Ur Specific [place] 1.025 (1.002-1.030) 09/25/23 13:30 Urine Protein TRACE mg/dL (NEGATIVE) 09/25/23 13:30 Urine Glucose (UA) NEGATIVE mg/dL (NEGATIVE) 09/25/23 13:30 Urine Ketones NEGATIVE mg/dL (NEGATIVE) 09/25/23 13:30 Urine Occult Blood NEGATIVE (NEGATIVE) 09/25/23 13:30 Urine Nitrite NEGATIVE (NEGATIVE) 09/25/23 13:30 Urine Bilirubin NEGATIVE (NEGATIVE) 09/25/23 13:30 Urine Urobilinogen 0.2 (NORMAL) E.U./dL (NORMAL) 09/25/23 13:30 Ur Leukocyte Esterase TRACE (NEGATIVE) H 09/25/23 13:30 Urine RBC 0-5 /HPF (0-5) 09/25/23 13:30 Urine WBC 0-3 /HPF (0-3) 09/25/23 13:30 Ur Squamous Epith Cells NONE SEEN (<= Few) 09/25/23 13:30 Urine Bacteria Few /HPF (None Seen) 09/25/23 13:30 Ur Microscopic Review INDICATED 09/25/23 13:30 Urine Culture Comments INDICATED 09/25/23 13:30 Nasal Adenovirus (PCR) NOT DETECTED 09/24/23 21:30 Nasal B. parapertussis DNA (PCR) NOT DETECTED 09/24/23 21:30 Nasal Coronavir 229E PCR NOT DETECTED 09/24/23 21:30 Nasal Coronavir HKU1 PCR NOT DETECTED 09/24/23 21:30 Nasal Coronavir NL63 PCR NOT DETECTED 09/24/23 21:30 Nasal Coronavir OC43 PCR NOT DETECTED 09/24/23 21:30 Nasal Enterovir/Rhinovir PCR NOT DETECTED 09/24/23 21:30 Nasal Influenza B PCR NOT DETECTED 09/24/23 21:30 Nasal Influenza A PCR NOT DETECTED 09/24/23 21:30 Nasal Parainfluen 1 PCR NOT DETECTED 09/24/23 21:30 Nasal Parainfluen 2 PCR NOT DETECTED 09/24/23 21:30 Nasal Parainfluen 3 PCR NOT DETECTED 09/24/23 21:30 Nasal Parainfluen 4 PCR NOT DETECTED 09/24/23 21:30 Nasal RSV (PCR) NOT DETECTED 09/24/23 21:30 Nasal Screen MRSA (PCR) NEGATIVE (NEGATIVE) 10/07/23 12:50 Nasal B.pertussis DNA PCR NOT DETECTED 09/24/23 21:30 Nasal C.pneumoniae (PCR) NOT DETECTED 09/24/23 21:30 Thom Human Metapneumo PCR NOT DETECTED 09/24/23 21:30 Nasal M.pneumoniae (PCR) NOT DETECTED 09/24/23 21:30 Nasal SARS-CoV-2 (PCR) NOT DETECTED 09/24/23 21:30 Last Dose Date 10/08/23 11:10 Last Dose Time 0835 10/08/23 11:10 Vancomycin Peak 37.6 ug/mL (20.0-40.0) 10/08/23 11:10 Vancomycin Trough 18.3 ug/mL 10/07/23 17:29 Urine Opiates Screen NEGATIVE (NEGATIVE) 09/25/23 13:30 Ur Buprenorphine Scrn NEGATIVE (NEGATIVE) 09/25/23 13:30 Ur Oxycodone Screen NEGATIVE (NEGATIVE) 09/25/23 13:30 Urine Methadone Screen NEGATIVE (NEGATIVE) 09/25/23 13:30 Ur Barbiturates Screen NEGATIVE (NEGATIVE) 09/25/23 13:30 Ur Tricyclics Screen NEGATIVE (NEGATIVE) 09/25/23 13:30 Ur Phencyclidine Scrn NEGATIVE (NEGATIVE) 09/25/23 13:30 Ur Amphetamine Screen NEGATIVE (NEGATIVE) 09/25/23 13:30 U Methamphetamines Scrn NEGATIVE (NEGATIVE) 09/25/23 13:30 U Benzodiazepines Scrn NEGATIVE (NEGATIVE) 09/25/23 13:30 Urine Cocaine Screen NEGATIVE (NEGATIVE) 09/25/23 13:30 U Cannabinoids Screen NEGATIVE (NEGATIVE) 09/25/23 13:30 Ur Drug Screen Comment CUTOFF CONC BELOW: 09/25/23 13:30 Ethyl Alcohol < 10.0 mg/dL 09/24/23 16:44
--- NOTE | 2023-10-19 17:26 | PROVIDER PROGRESS NOTE ---
Assessment/Plan - Problem List (1) Acute respiratory failure with hypoxia Assessment/Plan: This was multifactorial: From COPD exacerbation, pneumonia, pleural effusion and pneumonitis Plan: Continue with O2 supplemental (2) Comfort measures only status Continue with comfort care package SW is looking for placement (3) COPD exacerbation As per Hx Plan: Continue with meds that give him comfort (4) Pneumonitis As per Hx (5) Pleural effusion As per Hx (6) Generalized weakness DNR/DNI status Continue with comfort care package SW is looking for placement (7) Severe protein-calorie malnutrition Assessment/Plan: His BMI is 15 Continue with comfort eating (8) Tobacco use Assessment/Plan: This man has been a smoker since teenage years. He had not seen a doctor in 20 years so there are no PFTs that have documentation of COPD (9) Inadequate social support Assessment/Plan: He has lived alone x 20 [place], was . He says he has no family SW started to work with him on placement plans since he is not safe to return home due to his severe weakness, but now with Comfort Care, and emaciation, he may pass away here (10) Fall at home Assessment/Plan: This brought him in - Current Meds Current Meds: Current Medications Generic Name Dose Route Start Last Admin Trade Name Freq PRN Reason Stop Dose Admin Acetaminophen 650 mg 09/24/23 21:12 10/11/23 08:41 Acetaminophen 325 Mg Tablet PO 325 mg Q6H PRN Administration Pain 1 to 4, or Fever Albuterol/Ipratropium 3 ml 10/06/23 17:26 10/09/23 20:30 Ipratropium/Albuterol 3 Ml Neb INH 3 ml Q4HR PRN Administration Wheezing Lorazepam 1 mg 10/12/23 19:07 10/17/23 14:45 Lorazepam 1 Mg Tablet PO 1 mg Q6H PRN Administration Anxiety/Agitation Lorazepam 1 mg 10/12/23 19:10/18/23 02:36 Lorazepam 2 Mg/Ml Vial IVP 1 mg Q6H PRN Administration Anxiety/Agitation Morphine Sulfate 10 mg 10/12/23 18:59 10/18/23 20:33 Morphine Eileen 10 Mg/0.5 Ml Oral Syringe SL 10 mg Q2HR PRN Administration Moderate Pain (Level 4-6)/SOA Morphine Sulfate 2 mg 10/15/23 12:46 10/18/23 12:39 Morphine 2 Mg/Ml Carpuject IVP 2 mg Q1HR PRN Administration Dyspnea Multi-Ingredient Ointment 1 applic 09/25/23 12:13 10/12/23 09:32 Zinc Oxide 20% Oint 30 Gm Tube TOP 1 applic PRN PRN Administration Skin Care Sodium Chloride 10 ml 09/24/23 21:12 10/18/23 02:36 Sodium Chloride Flush 0.9% 10 Ml Syringe IVP 10 ml PRN PRN Administration NEEDED PER PROVIDER ORDERS - Lab Result Fish Bone Diagrams: 10/11/23 04:21 10/11/23 11:45 Subjective - Subjective Nursing Reports: Other (Mostly asleep all day, able to drink thru a straw) Objective Vital Signs: Vital Signs - 24 hr 10/19/23 10/19/23 10/19/23 04:37 08:12 08:55 Temperature 36.2 C L Heart Rate [ 63 Brachial] Respiratory 12 Rate Blood Pressure 170/112 H [Right Brachial artery] O2 Saturation 79 L If not protocol 4 4 4 : Oxygen Flow, liters/minute 10/19/23 08:57 Temperature Heart Rate [ Brachial] Respiratory Rate Blood Pressure [Right Brachial artery] O2 Saturation 95 If not protocol 4 : Oxygen Flow, liters/minute Oxygen O2 Source Nasal cannula I&O (Last 24 Hrs): Intake and Output Totals x24h 10/17/23 10/18/23 10/19/23 23:59 23:59 23:59 Intake Total 640 100 Output Total 1400 1500 900 Balance -760 -1400 -900 General: Other (cachectic) HEENT: Other (dry mucosa) Neck: Supple Neuro: Other (lethargic) Cardiovascular: No murmurs Respiratory: No respiratory distress Abdomen: Other (scaphoid abdomen) Extremities: No clubbing, No edema - Results Results: Laboratory Results WBC 16.7 x10^3/uL (4.8-10.8) H 10/11/23 04:21 RBC 2.90 10^6/uL (4.70-6.10) L 10/11/23 04:21 Hgb 9.1 g/dL (14.0-18.0) L 10/11/23 04:21 Hct 27.8 % (42.0-52.0) L 10/11/23 04:21 MCV 95.9 fL (80.0-94.0) H 10/11/23 04:21 MCH 31.4 pg (27.0-31.0) H 10/11/23 04:21 MCHC 32.7 g/dL (32.0-36.0) 10/11/23 04:21 RDW 13.1 % (12.0-15.0) 10/11/23 04:21 Plt Count 296 10^3/uL (130-450) 10/11/23 04:21 MPV 9.3 fL (7.4-11.4) 10/11/23 04:21 Neut # (Auto) 15.9 10^3/uL (1.5-6.6) H 10/11/23 04:21 Lymph # (Auto) 0.2 10^3/uL (1.5-3.5) L 10/11/23 04:21 [place] # (Auto) 0.5 10^3/uL (0.0-1.0) 10/11/23 04:21 Eos # (Auto) 0.0 10^3/uL (0.0-0.7) 10/11/23 04:21 Baso # (Auto) 0.0 10^3/uL (0.0-0.1) 10/11/23 04:21 Absolute Nucleated RBC 0.00 x10^3/uL 10/11/23 04:21 Total Counted 100 10/10/23 04:31 Band Neuts % (Manual) 3 % (0-10) 10/10/23 04:31 Abnorm Lymph % (Manual) 0 % 10/10/23 04:31 Nucleated RBC % 0.0 /100WBC 10/11/23 04:21 Neutrophils # (Manual) 20.5 10^3/uL (1.5-6.6) H 10/10/23 04:31 Lymphocytes # (Manual) 0.6 10^3/uL (1.5-3.5) L 10/10/23 04:31 Monocytes # (Manual) 0.4 10^3/uL (0.0-1.0) 10/10/23 04:31 Eosinophils # (Manual) 0.0 10^3/uL (0-0.7) 10/10/23 04:31 Basophils # (Manual) 0.0 10^3/uL (0-0.1) 10/10/23 04:31 Differential Comment MANUAL DIFFERENTIAL 10/10/23 04:31 Manual Slide Review Indicated 10/09/23 07:53 Platelet Estimate NORMAL (130-450,000) (NORMAL) 10/10/23 04:31 Platelet Morphology NORMAL APPEARANCE (NORMAL) 10/09/23 07:53 RBC Morph Micro Appear NORMAL APPEARANCE (NORMAL) 10/10/23 04:31 PT 10.0 secs (9.9-12.6) 10/11/23 11:45 INR 0.9 (0.8-1.2) 10/11/23 11:45 VBG pH 7.447 (7.31-7.41) H 10/11/23 11:45 VBG pCO2 47.3 mmHg (41-51) 10/07/23 12:00 VBG pO2 27.7 mmHg (25-47) 10/07/23 12:00 VBG HCO3 27.7 mmol/L (23-28) 10/07/23 12:00 VBG Total CO2 29.2 mmol/L (24-29) H 10/07/23 12:00 VBG O2 Saturation 48.3 % (60-80) L 10/07/23 12:00 VBG Base Excess 2.1 mmol/L (-2 - +2) H 10/07/23 12:00 Ionized Calcium 1.15 mmol/L (1.15-1.33) 10/11/23 11:45 Sodium 139 mmol/L (135-145) 10/11/23 04:21 Potassium 3.4 mmol/L (3.5-4.5) L 10/11/23 11:45 Chloride 104 mmol/L (101-111) 10/11/23 04:21 Carbon Dioxide 26 mmol/L (21-32) 10/11/23 04:21 Anion Gap 9.0 (6-13) 10/11/23 04:21 BUN 48 mg/dL (6-20) H 10/11/23 04:21 Creatinine 1.9 mg/dL (0.6-1.3) H 10/11/23 04:21 Estimated GFR (MDRD) 35 (>89) L 10/11/23 04:21 Glucose 192 mg/dL (74-104) H 10/11/23 04:21 POC Whole Bld Glucose 142 mg/dL (70 - 100) H 10/12/23 07:51 Estimat Average Glucose 117 mg/dL (70-100) H 09/24/23 21:30 Hemoglobin A1c % 5.7 % (4.27-6.07) 09/24/23 21:30 Lactic Acid 1.8 mmol/L (0.5-2.2) 09/24/23 21:30 Calcium 8.6 mg/dL (8.5-10.3) 10/11/23 04:21 Phosphorus 4.5 mg/dL (2.5-5.0) 10/11/23 04:21 Magnesium 2.0 mg/dL (1.7-2.3) 10/11/23 04:21 Total Bilirubin 0.2 mg/dL (0.2-1.0) 10/11/23 04:21 AST 17 IU/L (10-42) 10/11/23 04:21 ALT 22 IU/L (10-60) 10/11/23 04:21 Alkaline Phosphatase 78 IU/L (42-121) 10/11/23 04:21 Troponin I High Sens 14.9 ng/L (2.3-19.7) 10/07/23 13:32 B-Natriuretic Peptide 197 pg/mL (5-100) H 10/08/23 04:44 Total Protein 5.5 g/dL (6.4-8.9) L 10/11/23 04:21 Albumin 2.8 g/dL (3.2-5.5) L 10/11/23 04:21 Globulin 2.7 g/dL (2.1-4.2) 10/11/23 04:21 Albumin/Globulin Ratio 1.0 (1.0-2.2) 10/11/23 04:21 Triglycerides 68 mg/dL (48-352) 09/24/23 21:30 Cholesterol 117 mg/dL (-200) 09/24/23 21:30 LDL Cholesterol, Calc 45 mg/dL (-129) 09/24/23 21:30 VLDL Cholesterol 14 mg/dL 09/24/23 21:30 HDL Cholesterol 58 mg/dL (60-) L 09/24/23 21:30 LDL/HDL Ratio 0.8 (<3.6) 09/24/23 21: Cholesterol/HDL Ratio 2.0 (<5.0) 09/24/23 21:30 Vitamin B12 486 pg/mL (180-914) 10/10/23 04:42 Folate 16.6 ng/mL (5.90 - >24.8) 10/10/23 04:42 Procalcitonin Immunoas 0.32 ng/mL (<0.5) 09/24/23 21:30 TSH 1.91 uIU/mL (0.34-5.60) 09/24/23 21:30 Urine Color YELLOW 09/25/23 13:30 Urine Clarity CLEAR (CLEAR) 09/25/23 13:30 Urine pH 6.0 PH (5.0-7.5) 09/25/23 13:30 Ur Specific [place] 1.025 (1.002-1.030) 09/25/23 13:30 Urine Protein TRACE mg/dL (NEGATIVE) 09/25/23 13:30 Urine Glucose (UA) NEGATIVE mg/dL (NEGATIVE) 09/25/23 13:30 Urine Ketones NEGATIVE mg/dL (NEGATIVE) 09/25/23 13:30 Urine Occult Blood NEGATIVE (NEGATIVE) 09/25/23 13:30 Urine Nitrite NEGATIVE (NEGATIVE) 09/25/23 13:30 Urine Bilirubin NEGATIVE (NEGATIVE) 09/25/23 13:30 Urine Urobilinogen 0.2 (NORMAL) E.U./dL (NORMAL) 09/25/23 13:30 Ur Leukocyte Esterase TRACE (NEGATIVE) H 09/25/23 13:30 Urine RBC 0-5 /HPF (0-5) 09/25/23 13:30 Urine WBC 0-3 /HPF (0-3) 09/25/23 13:30 Ur Squamous Epith Cells NONE SEEN (<= Few) 09/25/23 13:30 Urine Bacteria Few /HPF (None Seen) 09/25/23 13:30 Ur Microscopic Review INDICATED 09/25/23 13:30 Urine Culture Comments INDICATED 09/25/23 13:30 Nasal Adenovirus (PCR) NOT DETECTED 09/24/23 21: Nasal B. parapertussis DNA (PCR) NOT DETECTED 09/24/23 21: Nasal Coronavir 229E PCR NOT DETECTED 09/24/23 21:30 Nasal Coronavir HKU1 PCR NOT DETECTED 09/24/23 21:30 Nasal Coronavir NL63 PCR NOT DETECTED 09/24/23 21:30 Nasal Coronavir OC43 PCR NOT DETECTED 09/24/23 21:30 Nasal Enterovir/Rhinovir PCR NOT DETECTED 09/24/23 21:30 Nasal Influenza B PCR NOT DETECTED 09/24/23 21:30 Nasal Influenza A PCR NOT DETECTED 09/24/23 21:30 Nasal Parainfluen 1 PCR NOT DETECTED 09/24/23 21:30 Nasal Parainfluen 2 PCR NOT DETECTED 09/24/23 21:30 Nasal Parainfluen 3 PCR NOT DETECTED 09/24/23 21:30 Nasal Parainfluen 4 PCR NOT DETECTED 09/24/23 21:30 Nasal RSV (PCR) NOT DETECTED 09/24/23 21:30 Nasal Screen MRSA (PCR) NEGATIVE (NEGATIVE) 10/07/23 12:50 Nasal B.pertussis DNA PCR NOT DETECTED 09/24/23 21:30 Nasal C.pneumoniae (PCR) NOT DETECTED 09/24/23 21:30 Thom Human Metapneumo PCR NOT DETECTED 09/24/23 21:30 Nasal M.pneumoniae (PCR) NOT DETECTED 09/24/23 21:30 Nasal SARS-CoV-2 (PCR) NOT DETECTED 09/24/23 21:30 Last Dose Date 10/08/23 11:10 Last Dose Time 0835 10/08/23 11:10 Vancomycin Peak 37.6 ug/mL (20.0-40.0) 10/08/23 11:10 Vancomycin Trough 18.3 ug/mL 10/07/23 17:29 Urine Opiates Screen NEGATIVE (NEGATIVE) 09/25/23 13:30 Ur Buprenorphine Scrn NEGATIVE (NEGATIVE) 09/25/23 13:30 Ur Oxycodone Screen NEGATIVE (NEGATIVE) 09/25/23 13:30 Urine Methadone Screen NEGATIVE (NEGATIVE) 09/25/23 13:30 Ur Barbiturates Screen NEGATIVE (NEGATIVE) 09/25/23 13:30 Ur Tricyclics Screen NEGATIVE (NEGATIVE) 09/25/23 13:30 Ur Phencyclidine Scrn NEGATIVE (NEGATIVE) 09/25/23 13:30 Ur Amphetamine Screen NEGATIVE (NEGATIVE) 09/25/23 13:30 U Methamphetamines Scrn NEGATIVE (NEGATIVE) 09/25/23 13:30 U Benzodiazepines Scrn NEGATIVE (NEGATIVE) 09/25/23 13:30 Urine Cocaine Screen NEGATIVE (NEGATIVE) 09/25/23 13:30 U Cannabinoids Screen NEGATIVE (NEGATIVE) 09/25/23 13:30 Ur Drug Screen Comment CUTOFF CONC BELOW: 09/25/23 13:30 Ethyl Alcohol < 10.0 mg/dL 09/24/23 16:44
[2023-10-19] MEDS: MORPHINE 2 MG/ML CARPUJECT IVP PRN (22:01)
[2023-10-20] MEDS: LORazepam 2 MG/ML VIAL IVP PRN ×3 (01:37→18:31)
--- NOTE | 2023-10-20 15:22 | PROVIDER PROGRESS NOTE ---
Assessment/Plan - Problem List (1) Generalized weakness Assessment/Plan: He is DNR/DNI status. We no longer expect him to work with PT and OT Plan: Continue with comfort care package SW is looking for placement (2) Comfort measures only status Continue with comfort care package Plan: Cont comfort measures SW is looking for placement (3) Severe protein-calorie malnutrition Assessment/Plan: His BMI is <15. He only has energy to drink, can still use a straw. He mostly asks for water Plan: Continue with comfort eating (4) Acute resp failure with hypoxia This was multifactorial: From COPD exacerbation, pneumonia, pleural effusion and pneumonitis Plan: Continue with O2 supplemental (5) Tobacco use Assessment/Plan: This man was a smoker since teenage years. He had not seen a doctor in 20 years so there are no PFTs that have documentation of COPD (6) Inadequate social support Assessment/Plan: He has lived alone x 20 yr in a log cabin, was . He says he has no family SW started to work with him on placement plans since he is not safe to return home due to his severe weakness, but now with Comfort Care, and emaciation, he may pass away here (7) Fall at home Assessment/Plan: This is what brought him in (8) COPD He had a COPD exacerbation, which was due to pneumonia which was treated Resolved - Current Meds Current Meds: Current Medications Generic Name Dose Route Start Last Admin Trade Name Freq PRN Reason Stop Dose Admin Acetaminophen 650 mg 09/24/23 21:12 10/11/23 08:41 Acetaminophen 325 Mg Tablet PO 325 mg Q6H PRN Administration Pain 1 to 4, or Fever Albuterol/Ipratropium 3 ml 10/06/23 17:26 10/09/23 20:30 Ipratropium/Albuterol 3 Ml Neb INH 3 ml Q4HR PRN Administration Wheezing Lorazepam 1 mg 10/12/23 19:07 10/17/23 14:45 Lorazepam 1 Mg Tablet PO 1 mg Q6H PRN Administration Anxiety/Agitation Lorazepam 1 mg 10/12/23 19:07 10/20/23 09:16 Lorazepam 2 Mg/Ml Vial IVP 1 mg Q6H PRN Administration Anxiety/Agitation Morphine Sulfate 10 mg 10/12/23 18:59 10/18/23 20:33 Morphine Eileen 10 Mg/0.5 Ml Oral Syringe SL 10 mg Q2HR PRN Administration Moderate Pain (Level 4-6)/SOA Morphine Sulfate 2 mg 10/15/23 12:46 10/19/23 22:01 Morphine 2 Mg/Ml Carpuject IVP 2 mg Q1HR PRN Administration Dyspnea Multi-Ingredient Ointment 1 applic 09/25/23 12:13 10/12/23 09:32 Zinc Oxide 20% Oint 30 Gm Tube TOP 1 applic PRN PRN Administration Skin Care Sodium Chloride 10 ml 09/24/23 21:12 10/18/23 02:36 Sodium Chloride Flush 0.9% 10 Ml Syringe IVP 10 ml PRN PRN Administration NEEDED PER PROVIDER ORDERS - Lab Result Fish Bone Diagrams: 10/11/23 04:21 10/11/23 11:45 Subjective - Subjective Nursing Reports: Other (Mostly asleep) Objective Vital Signs: Vital Signs - 24 hr 10/19/23 10/20/23 22:30 08:08 Temperature 36.0 C L Heart Rate [ 83 Brachial] Respiratory 16 Rate Blood Pressure 162/103 H [Right Brachial artery] O2 Saturation 93 If not protocol 4 4 : Oxygen Flow, liters/minute Oxygen O2 Source Nasal cannula I&O (Last 24 Hrs): Intake and Output Totals x24h 10/18/23 10/19/23 10/20/23 23:59 23:59 23:59 Intake Total 100 50 0 Output Total 1500 1125 700 Balance -1400 -1075 -700 General: Other (Lethargic, sleeps with mouth open. Emaciated.) HEENT: Other (dry mucosa) Neck: Other (muscle wasting) Cardiovascular: Regular rate Respiratory: No respiratory distress Abdomen: Other (scaphoid) Extremities: No clubbing, No edema, Other (Muscle wasting) - Results Results: Laboratory Results WBC 16.7 x10^3/uL (4.8-10.8) H 10/11/23 04:21 RBC 2.90 10^6/uL (4.70-6.10) L 10/11/23 04:21 Hgb 9.1 g/dL (14.0-18.0) L 10/11/23 04:21 Hct 27.8 % (42.0-52.0) L 10/11/23 04:21 MCV 95.9 fL (80.0-94.0) H 10/11/23 04:21 MCH 31.4 pg (27.0-31.0) H 10/11/23 04:21 MCHC 32.7 g/dL (32.0-36.0) 10/11/23 04:21 RDW 13.1 % (12.0-15.0) 10/11/23 04:21 Plt Count 296 10^3/uL (130-450) 10/11/23 04:21 MPV 9.3 fL (7.4-11.4) 10/11/23 04:21 Neut # (Auto) 15.9 10^3/uL (1.5-6.6) H 10/11/23 04:21 Lymph # (Auto) 0.2 10^3/uL (1.5-3.5) L 10/11/23 04:21 [place] # (Auto) 0.5 10^3/uL (0.0-1.0) 10/11/23 04:21 Eos # (Auto) 0.0 10^3/uL (0.0-0.7) 10/11/23 04:21 Baso # (Auto) 0.0 10^3/uL (0.0-0.1) 10/11/23 04:21 Absolute Nucleated RBC 0.00 x10^3/uL 10/11/23 04:21 Total Counted 100 10/10/23 04:31 Band Neuts % (Manual) 3 % (0-10) 10/10/23 04:31 Abnorm Lymph % (Manual) 0 % 10/10/23 04:31 Nucleated RBC % 0.0 /100WBC 10/11/23 04:21 Neutrophils # (Manual) 20.5 10^3/uL (1.5-6.6) H 10/10/23 04:31 Lymphocytes # (Manual) 0.6 10^3/uL (1.5-3.5) L 10/10/23 04:31 Monocytes # (Manual) 0.4 10^3/uL (0.0-1.0) 10/10/23 04:31 Eosinophils # (Manual) 0.0 10^3/uL (0-0.7) 10/10/23 04:31 Basophils # (Manual) 0.0 10^3/uL (0-0.1) 10/10/23 04:31 Differential Comment MANUAL DIFFERENTIAL 10/10/23 04:31 Manual Slide Review Indicated 10/09/23 07:53 Platelet Estimate NORMAL (130-450,000) (NORMAL) 10/10/23 04:31 Platelet Morphology NORMAL APPEARANCE (NORMAL) 10/09/23 07:53 RBC Morph Micro Appear NORMAL APPEARANCE (NORMAL) 10/10/23 04:31 PT 10.0 secs (9.9-12.6) 10/11/23 11:45 INR 0.9 (0.8-1.2) 10/11/23 11:45 VBG pH 7.447 (7.31-7.41) H 10/11/23 11:45 VBG pCO2 47.3 mmHg (41-51) 10/07/23 12:00 VBG pO2 27.7 mmHg (25-47) 10/07/23 12:00 VBG HCO3 27.7 mmol/L (23-28) 10/07/23 12:00 VBG Total CO2 29.2 mmol/L (24-29) H 10/07/23 12:00 VBG O2 Saturation 48.3 % (60-80) L 10/07/23 12:00 VBG Base Excess 2.1 mmol/L (-2 - +2) H 10/07/23 12:00 Ionized Calcium 1.15 mmol/L (1.15-1.33) 10/11/23 11:45 Sodium 139 mmol/L (135-145) 10/11/23 04:21 Potassium 3.4 mmol/L (3.5-4.5) L 10/11/23 11:45 Chloride 104 mmol/L (101-111) 10/11/23 04:21 Carbon Dioxide 26 mmol/L (21-32) 10/11/23 04:21 Anion Gap 9.0 (6-13) 10/11/23 04:21 BUN 48 mg/dL (6-20) H 10/11/23 04:21 Creatinine 1.9 mg/dL (0.6-1.3) H 10/11/23 04:21 Estimated GFR (MDRD) 35 (>89) L 10/11/23 04:21 Glucose 192 mg/dL (74-104) H 10/11/23 04:21 POC Whole Bld Glucose 142 mg/dL (70 - 100) H 10/12/23 07:51 Estimat Average Glucose 117 mg/dL (70-100) H 09/24/23 21:30 Hemoglobin A1c % 5.7 % (4.27-6.07) 09/24/23 21:30 Lactic Acid 1.8 mmol/L (0.5-2.2) 09/24/23 21:30 Calcium 8.6 mg/dL (8.5-10.3) 10/11/23 04:21 Phosphorus 4.5 mg/dL (2.5-5.0) 10/11/23 04:21 Magnesium 2.0 mg/dL (1.7-2.3) 10/11/23 04:21 Total Bilirubin 0.2 mg/dL (0.2-1.0) 10/11/23 04:21 AST 17 IU/L (10-42) 10/11/23 04:21 ALT 22 IU/L (10-60) 10/11/23 04:21 Alkaline Phosphatase 78 IU/L (42-121) 10/11/23 04:21 Troponin I High Sens 14.9 ng/L (2.3-19.7) 10/07/23 13:32 B-Natriuretic Peptide 197 pg/mL (5-100) H 10/08/23 04:44 Total Protein 5.5 g/dL (6.4-8.9) L 10/11/23 04:21 Albumin 2.8 g/dL (3.2-5.5) L 10/11/23 04:21 Globulin 2.7 g/dL (2.1-4.2) 10/11/23 04:21 Albumin/Globulin Ratio 1.0 (1.0-2.2) 10/11/23 04:21 Triglycerides 68 mg/dL (48-352) 09/24/23 21:30 Cholesterol 117 mg/dL (-200) 09/24/23 21:30 LDL Cholesterol, Calc 45 mg/dL (-129) 09/24/23 21:30 VLDL Cholesterol 14 mg/dL 09/24/23 21:30 HDL Cholesterol 58 mg/dL (60-) L 09/24/23 21:30 LDL/HDL Ratio 0.8 (<3.6) 12/17/23 21:30 Cholesterol/HDL Ratio 2.0 (<5.0) 09/24/23 21:30 Vitamin B12 486 pg/mL (180-914) 10/10/23 04:42 Folate 16.6 ng/mL (5.90 - >24.8) 10/10/23 04:42 Procalcitonin Immunoas 0.32 ng/mL (<0.5) 09/24/23 21:30 TSH 1.91 uIU/mL (0.34-5.60) 09/24/23 21:30 Urine Color YELLOW 09/25/23 13:30 Urine Clarity CLEAR (CLEAR) 09/25/23 13:30 Urine pH 6.0 PH (5.0-7.5) 09/25/23 13:30 Ur Specific [place] 1.025 (1.002-1.030) 09/25/23 13:30 Urine Protein TRACE mg/dL (NEGATIVE) 09/25/23 13:30 Urine Glucose (UA) NEGATIVE mg/dL (NEGATIVE) 09/25/23 13:30 Urine Ketones NEGATIVE mg/dL (NEGATIVE) 09/25/23 13:30 Urine Occult Blood NEGATIVE (NEGATIVE) 09/25/23 13:30 Urine Nitrite NEGATIVE (NEGATIVE) 09/25/23 13:30 Urine Bilirubin NEGATIVE (NEGATIVE) 09/25/23 13:30 Urine Urobilinogen 0.2 (NORMAL) E.U./dL (NORMAL) 09/25/23 13:30 Ur Leukocyte Esterase TRACE (NEGATIVE) H 09/25/23 13:30 Urine RBC 0-5 /HPF (0-5) 09/25/23 13:30 Urine WBC 0-3 /HPF (0-3) 09/25/23 13:30 Ur Squamous Epith Cells NONE SEEN (<= Few) 09/25/23 13:30 Urine Bacteria Few /HPF (None Seen) 09/25/23 13:30 Ur Microscopic Review INDICATED 09/25/23 13:30 Urine Culture Comments INDICATED 09/25/23 13:30 Nasal Adenovirus (PCR) NOT DETECTED 09/24/23 21:30 Nasal B. parapertussis DNA (PCR) NOT DETECTED 09/24/23 21:30 Nasal Coronavir 229E PCR NOT DETECTED 09/24/23 21:30 Nasal Coronavir HKU1 PCR NOT DETECTED 09/24/23 21:30 Nasal Coronavir NL63 PCR NOT DETECTED 09/24/23 21:30 Nasal Coronavir OC43 PCR NOT DETECTED 09/24/23 21:30 Nasal Enterovir/Rhinovir PCR NOT DETECTED 09/24/23 21:30 Nasal Influenza B PCR NOT DETECTED 09/24/23 21:30 Nasal Influenza A PCR NOT DETECTED 09/24/23 21:30 Nasal Parainfluen 1 PCR NOT DETECTED 09/24/23 21:30 Nasal Parainfluen 2 PCR NOT DETECTED 09/24/23 21:30 Nasal Parainfluen 3 PCR NOT DETECTED 09/24/23 21:30 Nasal Parainfluen 4 PCR NOT DETECTED 09/24/23 21:30 Nasal RSV (PCR) NOT DETECTED 09/24/23 21:30 Nasal Screen MRSA (PCR) NEGATIVE (NEGATIVE) 10/07/23 12:50 Nasal B.pertussis DNA PCR NOT DETECTED 09/24/23 21:30 Nasal C.pneumoniae (PCR) NOT DETECTED 09/24/23 21:30 Thom Human Metapneumo PCR NOT DETECTED 09/24/23 21:30 Nasal M.pneumoniae (PCR) NOT DETECTED 09/24/23 21:30 Nasal SARS-CoV-2 (PCR) NOT DETECTED 09/24/23 21:30 Last Dose Date 10/08/23 11:10 Last Dose Time 0835 10/08/23 11:10 Vancomycin Peak 37.6 ug/mL (20.0-40.0) 10/08/23 11:10 Vancomycin Trough 18.3 ug/mL 10/07/23 17:29 Urine Opiates Screen NEGATIVE (NEGATIVE) 09/25/23 13:30 Ur Buprenorphine Scrn NEGATIVE (NEGATIVE) 09/25/23 13:30 Ur Oxycodone Screen NEGATIVE (NEGATIVE) 09/25/23 13:30 Urine Methadone Screen NEGATIVE (NEGATIVE) 09/25/23 13:30 Ur Barbiturates Screen NEGATIVE (NEGATIVE) 09/25/23 13:30 Ur Tricyclics Screen NEGATIVE (NEGATIVE) 09/25/23 13:30 Ur Phencyclidine Scrn NEGATIVE (NEGATIVE) 09/25/23 13:30 Ur Amphetamine Screen NEGATIVE (NEGATIVE) 09/25/23 13:30 U Methamphetamines Scrn NEGATIVE (NEGATIVE) 09/25/23 13:30 U Benzodiazepines Scrn NEGATIVE (NEGATIVE) 09/25/23 13:30 Urine Cocaine Screen NEGATIVE (NEGATIVE) 09/25/23 13:30 U Cannabinoids Screen NEGATIVE (NEGATIVE) 09/25/23 13:30 Ur Drug Screen Comment CUTOFF CONC BELOW: 09/25/23 13:30 Ethyl Alcohol < 10.0 mg/dL 09/24/23 16:44
[2023-10-21] MEDS: LORazepam 2 MG/ML VIAL IVP PRN (03:42)
[2023-10-21] MEDS: MORPHINE SOL 10 MG/0.5 ML ORAL SYRINGE SL PRN ×3 (10:02→22:08)
--- NOTE | 2023-10-21 15:42 | PROVIDER PROGRESS NOTE ---
Assessment/Plan - Problem List (1) Generalized weakness Assessment/Plan: He is DNR/DNI status. We no longer expect him to work with PT and OT Today he is oliguric, had only 75 cc uroine output overnight Plan: Continue with comfort care package SW is looking for placement but now is imminent (2) Comfort measures only status Continue with comfort care package Plan: Cont comfort measures SW is looking for placement but now is imminent (3) Severe protein-calorie malnutrition Assessment/Plan: His BMI is <15. He only has energy to drink, can still use a straw. He mostly asks for water Plan: Continue with comfort eating (4) Acute resp failure with hypoxia This was multifactorial: From COPD exacerbation, pneumonia, pleural effusion and pneumonitis Plan: Continue with O2 supplemental (5) Tobacco use Assessment/Plan: This man was a smoker since teenage years. He had not seen a doctor in 20 years so there are no PFTs that have documentation of COPD (6) Inadequate social support Assessment/Plan: He has lived alone x 20 yr in a [place], was . He says he has no family SW started to work with him on placement plans since he is not safe to return home due to his severe weakness, but now with Comfort Care, and emaciation, he may pass away here (7) Fall at home Assessment/Plan: This is what brought him in (8) COPD He had a COPD exacerbation, which was due to pneumonia which was treated Resolved - Current Meds Current Meds: Current Medications Generic Name Dose Route Start Last Admin Trade Name Freq PRN Reason Stop Dose Admin Acetaminophen 650 mg 09/24/23 21:12 10/11/23 08:41 Acetaminophen 325 Mg Tablet PO 325 mg Q6H PRN Administration Pain 1 to 4, or Fever Albuterol/Ipratropium 3 ml 10/06/23 17:26 10/09/23 20:30 Ipratropium/Albuterol 3 Ml Neb INH 3 ml Q4HR PRN Administration Wheezing Lorazepam 1 mg 10/12/23 19:07 10/17/23 14:45 Lorazepam 1 Mg Tablet PO 1 mg Q6H PRN Administration Anxiety/Agitation Lorazepam 1 mg 10/12/23 19:07 10/21/23 03:42 Lorazepam 2 Mg/Ml Vial IVP 1 mg Q6H PRN Administration Anxiety/Agitation Morphine Sulfate 10 mg 10/12/23 18:59 10/21/23 14:05 Morphine Eileen 10 Mg/0.5 Ml Oral Syringe SL 10 mg Q2HR PRN Administration Moderate Pain (Level 4-6)/SOA Morphine Sulfate 2 mg 10/15/23 12:46 10/19/23 22:01 Morphine 2 Mg/Ml Carpuject IVP 2 mg Q1HR PRN Administration Dyspnea Multi-Ingredient Ointment 1 applic 09/25/23 12:13 10/12/23 09:32 Zinc Oxide 20% Oint 30 Gm Tube TOP 1 applic PRN PRN Administration Skin Care Sodium Chloride 10 ml 09/24/23 21:12 10/18/23 02:36 Sodium Chloride Flush 0.9% 10 Ml Syringe IVP 10 ml PRN PRN Administration NEEDED PER PROVIDER ORDERS - Lab Result Fish Bone Diagrams: 10/11/23 04:21 10/11/23 11:45 Subjective - Subjective Nursing Reports: Other (Mostly asleep. Is oliguric) Objective Vital Signs: Vital Signs - 24 hr 10/20/23 10/21/23 10/21/23 19:30 08:06 08:24 Heart Rate [ 45 L Brachial] Respiratory 14 Rate Blood Pressure 125/93 H [Right Brachial artery] O2 Saturation 86 L If not protocol 4 4 4 : Oxygen Flow, liters/minute Oxygen O2 Source Nasal cannula I&O (Last 24 Hrs): Intake and Output Totals x24h 10/19/23 10/20/23 10/21/23 23:59 23:59 23:59 Intake Total 50 0 0 Output Total 1125 1000 425 Balance -1075 -1000 -425 General: Other (Asleep) HEENT: Other (Severe muscle wasting. Sleeps with mouth open) Neck: Other (muscle wasting) Neuro: Other (Lethargic, weak) Cardiovascular: Regular rate Respiratory: No respiratory distress Abdomen: Other (Scaphoid abd, non-tender) Extremities: No edema - Results Results: Laboratory Results WBC 16.7 x10^3/uL (4.8-10.8) H 10/11/23 04:21 RBC 2.90 10^6/uL (4.70-6.10) L 10/11/23 04:21 Hgb 9.1 g/dL (14.0-18.0) L 10/11/23 04:21 Hct 27.8 % (42.0-52.0) L 10/11/23 04:21 MCV 95.9 fL (80.0-94.0) H 10/11/23 04:21 MCH 31.4 pg (27.0-31.0) H 10/11/23 04:21 MCHC 32.7 g/dL (32.0-36.0) 10/11/23 04:21 RDW 13.1 % (12.0-15.0) 10/11/23 04:21 Plt Count 296 10^3/uL (130-450) 10/11/23 04:21 MPV 9.3 fL (7.4-11.4) 10/11/23 04:21 Neut # (Auto) 15.9 10^3/uL (1.5-6.6) H 10/11/23 04:21 Lymph # (Auto) 0.2 10^3/uL (1.5-3.5) L 10/11/23 04:21 [place] # (Auto) 0.5 10^3/uL (0.0-1.0) 10/11/23 04:21 Eos # (Auto) 0.0 10^3/uL (0.0-0.7) 10/11/23 04:21 Baso # (Auto) 0.0 10^3/uL (0.0-0.1) 10/11/23 04:21 Absolute Nucleated RBC 0.00 x10^3/uL 10/11/23 04:21 Total Counted 100 10/10/23 04:31 Band Neuts % (Manual) 3 % (0-10) 10/10/23 04:31 Abnorm Lymph % (Manual) 0 % 10/10/23 04:31 Nucleated RBC % 0.0 /100WBC 10/11/23 04:21 Neutrophils # (Manual) 20.5 10^3/uL (1.5-6.6) H 10/10/23 04:31 Lymphocytes # (Manual) 0.6 10^3/uL (1.5-3.5) L 10/10/23 04:31 Monocytes # (Manual) 0.4 10^3/uL (0.0-1.0) 10/10/23 04:31 Eosinophils # (Manual) 0.0 10^3/uL (0-0.7) 10/10/23 04:31 Basophils # (Manual) 0.0 10^3/uL (0-0.1) 10/10/23 04:31 Differential Comment MANUAL DIFFERENTIAL 10/10/23 04:31 Manual Slide Review Indicated 10/09/23 07:53 Platelet Estimate NORMAL (130-450,000) (NORMAL) 10/10/23 04:31 Platelet Morphology NORMAL APPEARANCE (NORMAL) 10/09/23 07:53 RBC Morph Micro Appear NORMAL APPEARANCE (NORMAL) 10/10/23 04:31 PT 10.0 secs (9.9-12.6) 10/11/23 11:45 INR 0.9 (0.8-1.2) 10/11/23 11:45 VBG pH 7.447 (7.31-7.41) H 10/11/23 11:45 VBG pCO2 47.3 mmHg (41-51) 10/07/23 12:00 VBG pO2 27.7 mmHg (25-47) 10/07/23 12:00 VBG HCO3 27.7 mmol/L (23-28) 10/07/23 12:00 VBG Total CO2 29.2 mmol/L (24-29) H 10/07/23 12:00 VBG O2 Saturation 48.3 % (60-80) L 10/07/23 12:00 VBG Base Excess 2.1 mmol/L (-2 - +2) H 10/07/23 12:00 Ionized Calcium 1.15 mmol/L (1.15-1.33) 10/11/23 11:45 Sodium 139 mmol/L (135-145) 10/11/23 04:21 Potassium 3.4 mmol/L (3.5-4.5) L 10/11/23 11:45 Chloride 104 mmol/L (101-111) 10/11/23 04:21 Carbon Dioxide 26 mmol/L (21-32) 10/11/23 04:21 Anion Gap 9.0 (6-13) 10/11/23 04:21 BUN 48 mg/dL (6-20) H 10/11/23 04:21 Creatinine 1.9 mg/dL (0.6-1.3) H 10/11/23 04:21 Estimated GFR (MDRD) 35 (>89) L 10/11/23 04:21 Glucose 192 mg/dL (74-104) H 10/11/23 04:21 POC Whole Bld Glucose 142 mg/dL (70 - 100) H 10/12/23 07:51 Estimat Average Glucose 117 mg/dL (70-100) H 09/24/23 21:30 Hemoglobin A1c % 5.7 % (4.27-6.07) 09/24/23 21:30 Lactic Acid 1.8 mmol/L (0.5-2.2) 09/24/23 21:30 Calcium 8.6 mg/dL (8.5-10.3) 10/11/23 04:21 Phosphorus 4.5 mg/dL (2.5-5.0) 10/11/23 04:21 Magnesium 2.0 mg/dL (1.7-2.3) 10/11/23 04:21 Total Bilirubin 0.2 mg/dL (0.2-1.0) 10/11/23 04:21 AST 17 IU/L (10-42) 10/11/23 04:21 ALT 22 IU/L (10-60) 10/11/23 04:21 Alkaline Phosphatase 78 IU/L (42-121) 10/11/23 04:21 Troponin I High Sens 14.9 ng/L (2.3-19.7) 10/07/23 13:32 B-Natriuretic Peptide 197 pg/mL (5-100) H 10/08/23 04:44 Total Protein 5.5 g/dL (6.4-8.9) L 10/11/23 04:21 Albumin 2.8 g/dL (3.2-5.5) L 10/11/23 04:21 Globulin 2.7 g/dL (2.1-4.2) 10/11/23 04:21 Albumin/Globulin Ratio 1.0 (1.0-2.2) 10/11/23 04:21 Triglycerides 68 mg/dL (48-352) 09/24/23 21:30 Cholesterol 117 mg/dL (-200) 09/24/23 21:30 LDL Cholesterol, Calc 45 mg/dL (-129) 09/24/23 21:30 VLDL Cholesterol 14 mg/dL 09/24/23 21:30 HDL Cholesterol 58 mg/dL (60-) L 09/24/23 21: LDL/HDL Ratio 0.8 (<3.6) 09/24/23 21: Cholesterol/HDL Ratio 2.0 (<5.0) 09/24/23 21:30 Vitamin B12 486 pg/mL (180-914) 10/10/23 04:42 Folate 16.6 ng/mL (5.90 - >24.8) 10/10/23 04:42 Procalcitonin Immunoas 0.32 ng/mL (<0.5) 09/24/23 21: TSH 1.91 uIU/mL (0.34-5.60) 09/24/23 21:30 Urine Color YELLOW 09/25/23 13:30 Urine Clarity CLEAR (CLEAR) 09/25/23 13:30 Urine pH 6.0 PH (5.0-7.5) 09/25/23 13:30 Ur Specific [place] 1.025 (1.002-1.030) 09/25/23 13:30 Urine Protein TRACE mg/dL (NEGATIVE) 09/25/23 13:30 Urine Glucose (UA) NEGATIVE mg/dL (NEGATIVE) 09/25/23 13:30 Urine Ketones NEGATIVE mg/dL (NEGATIVE) 09/25/23 13:30 Urine Occult Blood NEGATIVE (NEGATIVE) 09/25/23 13:30 Urine Nitrite NEGATIVE (NEGATIVE) 09/25/23 13:30 Urine Bilirubin NEGATIVE (NEGATIVE) 09/25/23 13:30 Urine Urobilinogen 0.2 (NORMAL) E.U./dL (NORMAL) 09/25/23 13:30 Ur Leukocyte Esterase TRACE (NEGATIVE) H 09/25/23 13:30 Urine RBC 0-5 /HPF (0-5) 09/25/23 13:30 Urine WBC 0-3 /HPF (0-3) 09/25/23 13:30 Ur Squamous Epith Cells NONE SEEN (<= Few) 09/25/23 13:30 Urine Bacteria Few /HPF (None Seen) 09/25/23 13:30 Ur Microscopic Review INDICATED 09/25/23 13:30 Urine Culture Comments INDICATED 09/25/23 13:30 Nasal Adenovirus (PCR) NOT DETECTED 09/24/23 21: Nasal B. parapertussis DNA (PCR) NOT DETECTED 09/24/23 21:30 Nasal Coronavir 229E PCR NOT DETECTED 09/24/23 21:30 Nasal Coronavir HKU1 PCR NOT DETECTED 09/24/23 21:30 Nasal Coronavir NL63 PCR NOT DETECTED 09/24/23 21:30 Nasal Coronavir OC43 PCR NOT DETECTED 09/24/23 21:30 Nasal Enterovir/Rhinovir PCR NOT DETECTED 09/24/23 21:30 Nasal Influenza B PCR NOT DETECTED 09/24/23 21:30 Nasal Influenza A PCR NOT DETECTED 09/24/23 21:30 Nasal Parainfluen 1 PCR NOT DETECTED 09/24/23 21:30 Nasal Parainfluen 2 PCR NOT DETECTED 09/24/23 21:30 Nasal Parainfluen 3 PCR NOT DETECTED 09/24/23 21:30 Nasal Parainfluen 4 PCR NOT DETECTED 09/24/23 21:30 Nasal RSV (PCR) NOT DETECTED 09/24/23 21:30 Nasal Screen MRSA (PCR) NEGATIVE (NEGATIVE) 10/07/23 12:50 Nasal B.pertussis DNA PCR NOT DETECTED 09/24/23 21:30 Nasal C.pneumoniae (PCR) NOT DETECTED 09/24/23 21:30 Thom Human Metapneumo PCR NOT DETECTED 09/24/23 21:30 Nasal M.pneumoniae (PCR) NOT DETECTED 09/24/23 21:30 Nasal SARS-CoV-2 (PCR) NOT DETECTED 09/24/23 21:30 Last Dose Date 10/08/23 11:10 Last Dose Time 0835 10/08/23 11:10 Vancomycin Peak 37.6 ug/mL (20.0-40.0) 10/08/23 11:10 Vancomycin Trough 18.3 ug/mL 10/07/23 17:29 Urine Opiates Screen NEGATIVE (NEGATIVE) 09/25/23 13:30 Ur Buprenorphine Scrn NEGATIVE (NEGATIVE) 09/25/23 13:30 Ur Oxycodone Screen NEGATIVE (NEGATIVE) 09/25/23 13:30 Urine Methadone Screen NEGATIVE (NEGATIVE) 09/25/23 13:30 Ur Barbiturates Screen NEGATIVE (NEGATIVE) 09/25/23 13:30 Ur Tricyclics Screen NEGATIVE (NEGATIVE) 09/25/23 13:30 Ur Phencyclidine Scrn NEGATIVE (NEGATIVE) 09/25/23 13:30 Ur Amphetamine Screen NEGATIVE (NEGATIVE) 09/25/23 13:30 U Methamphetamines Scrn NEGATIVE (NEGATIVE) 09/25/23 13:30 U Benzodiazepines Scrn NEGATIVE (NEGATIVE) 09/25/23 13:30 Urine Cocaine Screen NEGATIVE (NEGATIVE) 09/25/23 13:30 U Cannabinoids Screen NEGATIVE (NEGATIVE) 09/25/23 13:30 Ur Drug Screen Comment CUTOFF CONC BELOW: 09/25/23 13:30 Ethyl Alcohol < 10.0 mg/dL 09/24/23 16:44
[2023-10-22] MEDS: MORPHINE SOL 10 MG/0.5 ML ORAL SYRINGE SL PRN ×2 (05:08→07:36)
[2023-10-22 08:38] VITALS: BP 88/58; O2SAT 90
--- NOTE | 2023-10-22 12:11 | Discharge Plan ---
Discharge Plan Problem Reviewed?: Yes Disposition: 20 No Smoking: If you smoke, Please STOP! Call for help.
--- NOTE | 2023-10-22 12:12 | DISCHARGE SUMMARY ---
Discharge Summary Admit Date: 09/24/23 Discharge Date: 10/22/23 Discharging Provider: Dr Lori Ware Primary Care Provider: None Discharge Disposition: 20 - HPI History of Present Illness: 73 y/o male who presents with progressive weakness and decreased po intake for "many weeks." He [place] alone [place] and has lived that way ever since his 20 yr ago. He smokes about 1 ppd for "many years." He has no social support in the area, says he "has no family". He reports falling some time back and has has worsening L hip pain making it difficult to walk or even get out of his chair. He thought the pain would get better with time but it has not, making it difficult for him to live in his home or even make it to the bathroom. He states that his "dental situation" (not teeth) has made it difficult for him to eat and so he has been eating and drinking very little. He states that he finally decided to come get seen when he realized he couldn't make it to the bathroom and ended up soiling himself (stool) in his chair. He denies head injuries, loc, seizures, fevers, chills, chest pain, sob, but has had intermittent coughing. His workup in the ER shows BP 166/104, heart rate 76, afebrile. He is emaciated, kyphotic, and has skin tenting, dry oral mucosa and diffuse muscle wasting. Labs show potassium 3.3, magnesium 1.6, BUN/creatinine 53/1.9 (no p rior labs available for comparison). Respiratory PCR negative, and MUDS negative. Chest x-ray shows COPD. Hip and pelvis imaging shows remote fracture fragments lateral to the left acetabular joint. CT abdomen shows COPD changes of the lungs, chronic compression fracture of the spine, diffuse atherosclerosis including of the coronaries, and a saccular aneurysm of the left distal aorta. The patient will be admitted to Observation status for management of his TOÑITO from dehydration, with cachexia and severe protein calorie malnutrition from starvation causing multiple electrolyte abnormalities. - HOSPITAL COURSE Hospital Course: (1) TOÑITO (acute kidney injury) He was ultimately admitted to Inpt status for further treatment of his volume d epletion and electrolyte abnormalities. TOÑITO resolved with several days of iv fluids. (2) Hypokalemia Resolved with replacement (3) Hypomagnesemia Resolved with replacement (4) HTN (hypertension) BP was very elevated at presentation. He had not seen a doctor in 20 years, so we did not know if HTN was old and untreated or a new diagnosis. He was put on Amlodipine and HCTZ, which were then decreased when orthostasis was found. (5) Orthostatic hypotension With BP meds starting, his orthostaic VS were checked when he first stood up OOB (which was on his 8th hospital day) and he was orthostatic and symptomatic. BP meds were adjusted and Midodrine was needed for a few days only. (6) Fall at home His fall before admission was likely due to orthostasis plus profound weakness. PT and OT were ordered, but he refused to try standing until 10/03/23. Then continued PT and OT and SNF rehab was initially the plan. His hip pain was treated with pain meds. (7) Generalized weakness On 10/03/23 he agreed to work with PT and OT and be OOB. He then complained of pain in the hip where he fell a week previously at home. Further SNF rehab, before going home or to a LTC, was initially the plan. After his transfer to ICU (see #10), he then chose to remain bedbound and wanted only comfort measures. (8) Severe protein-calorie malnutrition He had severe protein calorie malnutrition w/BMI of 14. He admitted he had become too weak to prepare food, at home. He had an appetite and ate a minced and moist diet due to poor dentition. Once he chose to be transitioned to comfort care, his oral intake decreased. (9) Inadequate social support He had lived alone for [place], was and told us he had no family. SW tried to work with him to go to LTC, but he first planned to only re turn home, then when he wanted comfort care no SNF accepted him (10) Tobacco use He was a longtime smoker. His exam and CXR and CT showed COPD. He had not seen a doctor in 20 years so there were no PFTs that documented COPD. (11) Acute respiratory failure with hypoxia At mid-hospital stay, he developed severe SOB, with O2 sats in the 70's%. He was transferred to the ICU for aggressive management of a Health-care associated pneumonia and a COPD exacerbation. He slowly improved and was able to be transferred out of the ICU. He remained on supplemental oxygen. (12) COPD with exacerbation At mid-hospital stay, he developed wheezing severe resp distress, and needed steroids and bronchodilators, supplemental O2 and iv antibiotics. (13) Pneumonia CXR showed a pneumonia that later became a complete L lung white out due to consolidation and pleural effusion. He was treated with a course of iv antibiotics, iv diuretics and he slowly improved. He subsequently chose to have comfort care only status. (14) Comfort care only status After his ICU stay, he subsequently chose to have comfort care only status and he eventually on 10/22/23 from dehydration and malnutrition. - ALLERGIES Allergies/Adverse Reactions: Allergies Allergy/AdvReac Type Severity Reaction Status Date / Time No Known Drug Allergies Allergy Verified 09/24/23 16:28 - MEDICATIONS Home Medications: Ambulatory Orders Medication Instructions Recorded Confirmed No Known Home Medications 09/24/23 09/24/23 - LABS Result Diagrams: 10/11/23 04:21 10/11/23 11:45
== END 2023-10-22 15:10 | disposition expired | DRG 640 ==
LOC: EDBD → EDUNIT# → ED 16:21 → MS2 21:12 → OBSVTOIN 09-25 15:28 → ICU 10-07 12:48 → MS2 10-11 20:02
PROVIDERS: ADMIT Student in an Organized Health Care Education/Training Program; ATTEND Internal Medicine
DX: E43 Unspecified severe protein-calorie malnutrition (principal); J18.9 Pneumonia, unspecified organism; J96.01 Acute respiratory failure with hypoxia; L89.152 Pressure ulcer of sacral region, stage 2; L98.499 Non-pressure chronic ulcer of skin of other sites with unspecified severity; Z68.1 Body mass index [BMI] 19.9 or less, adult; N17.9 Acute kidney failure, unspecified; J44.0 Chronic obstructive pulmonary disease with (acute) lower respiratory infection; J44.1 Chronic obstructive pulmonary disease with (acute) exacerbation; M25.552 Pain in left hip; J90 Pleural effusion, not elsewhere classified; K08.109 Complete loss of teeth, unspecified cause, unspecified class; M48.56XA Collapsed vertebra, not elsewhere classified, lumbar region, initial encounter for fracture; M48.54XA Collapsed vertebra, not elsewhere classified, thoracic region, initial encounter for fracture; T73.0XXA Starvation, initial encounter; E87.6 Hypokalemia; E86.0 Dehydration; E83.42 Hypomagnesemia; I10 Essential (primary) hypertension; I95.1 Orthostatic hypotension; Z91.81 History of falling; R53.1 Weakness; Z51.5 Encounter for palliative care; Z60.8 Other problems related to social environment; F17.210 Nicotine dependence, cigarettes, uncomplicated; Y95 Nosocomial condition; R62.7 Adult failure to thrive; R60.0 Localized edema; F40.240 Claustrophobia; R33.9 Retention of urine, unspecified; M40.209 Unspecified kyphosis, site unspecified; I25.10 Atherosclerotic heart disease of native coronary artery without angina pectoris; I71.9 Aortic aneurysm of unspecified site, without rupture
CPT/HCPCS: 36415; 36600; 71045; 72192; 73522; 74150; 76604; 80048; 80053; 80061; 80202; 80306; 81001; 82330; 82607; 82746; 82803; 83036; 83605; 83735; 83880; 84100; 84132; 84145; 84443; 84484; 85025; 85610; 87040; 87086; 87150; 87633; 93005; 93306; 93970; 94640; 94660; 94667; 96365; 97162; 97166; 97530; 99285; A9270; G0378; G0480; J2020; J2060; J2185; J3370; J3411; J7040; J7120; J8499; 80320; 81003; 82945; 83721; 84157; 87070; 87205; 87637